=== PATIENT | female | born 1935 | race Caucasian/White ===

== ENCOUNTER → 2017-09-20 16:57 | Outpatient (CLI) | payer MEDICARE, OTHER, SELFPAY ==
--- NOTE | 2017-09-20 | DI.RAD.S_ITS ---
PROCEDURE: XR CHEST 2V INDICATIONS: COUGH TECHNIQUE: 2 views of the chest were acquired. COMPARISON: [facility], CHEST 1 VIEW, 05/29/2017, 11:32. [facility], CHEST 2 VIEW, 06/21/2015, 12:08. FINDINGS: Surgical changes and devices: Surgical clips RUQ. Lungs and pleura: No pleural effusions or pneumothorax. Lungs are clear. Mediastinum: Mediastinal contours are normal. Heart size is normal. Bones and chest wall: No suspicious bony abnormalities. Soft tissues appear unremarkable. IMPRESSION: No radiographic evidence of acute cardiopulmonary pathology. Dictated by: Refugio Burnham M.D. on 09/20/2017 at 17:29 Approved by: Refugio Burnham M.D. on 09/20/2017 at 17:31
== END ==
PROVIDERS: PCP Internal Medicine; Visit Provider Internal Medicine
DX: R05 Cough (principal)
CPT/HCPCS: 71046

== ENCOUNTER 2017-12-08 17:47 | Emergency (ER) | payer MEDICARE, OTHER, SELFPAY ==
[2017-12-08 17:54] VITALS: BP 182/85; PULSE 87; RESP 16; TEMP 36.3; O2SAT 98; BMI 29.0
[2017-12-08 18:20] VITALS: BP 154/90; PULSE 91; RESP 15; O2SAT 94
--- NOTE | 2017-12-08 18:20 | ED.DIZZY ---
HPI - Dizziness General Chief Complaint: Dizziness Stated Complaint: SOB/DIZZINESS Time Seen by Provider: 12/08/17 18:12 Source: patient Mode of arrival: ambulatory Limitations: no limitations History of Present Illness HPI Narrative: The patient developed dizziness this morning. She has had dizziness intermittently throughout the day. She does not have dizziness at the time of exam. The patient has AFib for which she takes both Lopressor and Cardizem. She denies chest pain or palpitations. Lopressor was stopped 2 days ago, she has allergy testing in 2 days and her doctor wanted her off the Lopressor for the testing. She is alert, active and a good historian. She is generally physically active, and has no deficits. The dizziness is new. She has no focal weakness associated with the dizziness. She has had no confusion or speech changes. Related Data Home Medications Medication Instructions Recorded Confirmed hydrochlorothiazide 12.5 mg PO QDAY #0 05/29/17 12/08/17 diltia PO 12/08/17 12/08/17 esomeprazole magnesium PO 12/08/17 12/08/17 metoprolol tartrate PO 12/08/17 12/08/17 Allergies Allergy/AdvReac Type Severity Reaction Status Date / Time levofloxacin [LEVOFLOXACIN] Allergy Severe rash Verified 12/08/17 18:00 metronidazole [METRONIDAZOLE] Allergy Unknown Verified 12/08/17 18:00 pregabalin [PREGABALIN] Allergy Unknown Verified 12/08/17 18:00 Review of Systems Review of Systems All systems reviewed & are unremarkable except as noted in HPI and below Constitutional Reports as per HPI, Denies body ache(s), Denies chills, Denies fever(s) and Denies weakness Eyes Denies change in vision and Denies loss of vision ENT Ears, Nose, Mouth, and Throat: Reports dizziness, Denies neck pain and Denies sore throat Cardiovascular Denies chest pain, Denies irregular heart rhythm, Denies palpitations, Denies dyspnea, Denies dyspnea on exertion and Denies orthopnea Respiratory Denies cough, Denies dyspnea, Denies dyspnea on exertion and Denies wheezing Gastrointestinal Gastrointestinal: Denies abdominal pain, Denies change in bowel habits, Denies diarrhea, Denies nausea and Denies vomiting Musculoskeletal Denies back pain and Denies neck pain Integumentary/Breasts Denies pruritus, Denies erythema, Denies rash and Denies wounds Neurologic Reports dizziness, Denies loss of vision and Denies weakness Endocrine Denies palpitations Allergic/Immunologic Denies wheezing [facility] Medical History Chronic a-fib (Acute) Social History Smoking Status: Never smoker Exam Initial Vital Signs Initial Vital Signs: Vital Signs Temperature 97.3 F L 12/08/17 17:54 Pulse Rate 87 12/08/17 17:54 Respiratory Rate 16 12/08/17 17:54 Blood Pressure 182/85 H 12/08/17 17:54 Pulse Oximetry 98 12/08/17 17:54 Const General: cooperative and well developed Nutritional Appearance: well nourished Orientation: alert, awake, oriented x3 and not confused HENMT Head: normocephalic and atraumatic Ears: external ears normal and TM's normal bilaterally Nose: external nose normal and No nasal discharge Face and sinus: sinuses nontender, face symmetric, no sinus tenderness and No dry mucous membranes Mouth: oral mucosae normal and moist mucous membranes Teeth and gingiva: dentition normal Throat: tonsils normal and uvula midline Eyes General: appearance normal, both eyes and all related structures Eyelids: eyelids normal Conjunctivae: conjunctivae normal Sclera: sclerae normal Pupils: PERRL EOM: EOM intact bilaterally Neck Neck: normal visual inspection, trachea midline, No lymphadenopathy, No midline deformity and No JVD Lymphatic: No lymphedema Chest Chest: normal inspection of the chest Resp Effort & Inspection: normal respiratory effort, able to speak in complete sentences, no respiratory distress and no use of accessory muscles Auscultation: clear to auscultation bilaterally, no rales, no rhonchi and no wheezes Cardio Rate: regular rate Rhythm: abnormal rhythm irregularly irregular Heart Sounds: no click, no gallops, no murmurs and no rubs Pulses: normal peripheral pulses GI Inspection: non-distended Palpation: soft, no hepatosplenomegaly, No guarding, No pulsatile mass and No tender Auscultation: normal bowel sounds Back/Spine/Pelvis Back: No CVA tenderness Cervical Spine: cervical ROM normal Thoracic/Lumbar Spine: thoracic and lumbar spine normal to inspection Skin General: no rashes or lesions noted, No jaundice and No petechiae Neuro General: alert, oriented x3, gait normal and no focal motor deficits Speech: speech normal Course Orders Ordered: ED Orders 12/08/17 18:18 EKG-12 Lead Stat 12/08/17 18:52 B Type Natriuretic Peptide Stat Complete Blood Count AUTO DIFF Stat Comprehensive Metabolic Panel Stat Partial Thromboplastin Time Stat Prothrombin Time INR Stat Troponin & CK Cardiac Panel Stat Discontinued Medications Diltiazem HCl (Cardizem) 30 mg PO NOW ONE Stop: 12/08/17 18:21 Last Admin: 12/08/17 19:53 Dose: 30 mg Vital Signs - 8 hr 12/08/17 17:54 12/08/17 18:20 12/08/17 19:53 Temperature 97.3 F L Pulse Rate 87 91 H 96 H Respiratory Rate 16 15 Blood Pressure 182/85 H 162/83 H Blood Pressure [Right Arm] 154/90 H Pulse Oximetry 98 94 MDM - Dizziness Lab Data Result diagrams: 12/08/17 18:52 12/08/17 18:52 Lab Results 12/08/17 12/08/17 12/08/17 Range/Units 18:52 18:52 18:52 WBC 5.7 (4.5-11.0) X10^3/uL RBC 4.91 (4.0-5.2) X10^6/uL Hgb 13.9 (12.0-16.0) g/dL Hct 41.7 (36-46) % MCV 84.9 (80-100) fL MCH 28.2 (26-34) PG MCHC 33.2 (30-36) % RDW 14.0 (11.6-14.8) % Plt Count 291 (150-400) X10^3/uL Neut % (Auto) 66.0 (50-75) % Lymph % (Auto) 20.8 L (25-40) % [place] % (Auto) 10.0 (3-14) % Eos % (Auto) 2.3 (2-4) % Baso % (Auto) 0.9 (0-2) % Neut # (Auto) 3800 (8565-2737) /uL PT 10.6 (10.1-12.7) SECONDS INR 1.0 (0.9-1.3) APTT 30 (26.4-36.2) SECONDS Sodium 141 (137-145) mmol/L Potassium 3.6 (3.4-5.1) mmol/L Chloride 101 (98-107) mmol/L Carbon Dioxide 29 (22-32) mmol/L BUN 16 (7-17) mg/dL Creatinine 0.80 (0.52-1.04) mg/dL Estimated GFR > 60.0 (>60) mL/min BUN/Creatinine Ratio 20.0 (6-22) Glucose 96 (80-110) mg/dL Calcium 9.5 (8.4-10.2) mg/dL Total Bilirubin 0.6 (0.2-1.3) mg/dL AST 33 (14-36) IU/L ALT 43 (9-52) IU/L Alkaline Phosphatase 95 (38-126) U/L Total Creatine Kinase 115 (30-135) U/L CK-MB (CK-2) 1.88 (<2.37) ng/mL CK-MB (CK-2) Rel Index 1.6 (1.5-5.0) % Troponin I < 0.012 (0.01-0.034) ng/mL B-Natriuretic Peptide 201.0 H (<100) Total Protein 6.9 (6.3-8.2) g/dL Albumin 4.4 (3.5-5.0) g/dL Globulin 2.5 (1.7-4.1) g/dL Albumin/Globulin Ratio 1.8 (1.0-2.8) ECG Data Attestation: I personally reviewed and interpreted this ECG as follows: ( AFib rate [address] T wave changes. No Significant changes.) MDM Narrative Medical decision making narrative: The patient is supposed to be off her beta caridad for allergy testing. She presents with dizziness. Her heart rate is 93 on the EKG, but up to 118 on cardiac monitoring. I gave her oral diltiazem, with little change. We discussed going back on the beta-caridad, the patient is very agreeable. she will be advised to contact her physician on Sunday to discuss ongoing options regarding the allergy testing. Discharge Plan Departure Patient Disposition: Home, Self-Care Clinical Impression: Chronic a-fib, Dizziness Instructions: Atrial Fibrillation Activity Restrictions/Additional Instructions: Resume your normal dosing of Metoprolol. Continue the Diltiazem. Contact her physician Sunday, Let your doctor know that you had to go back on the Metoprolol due to dizziness and tachycardia. Return to the ER as needed. Prescriptions: No Action metoprolol tartrate PO RF: 0 diltia PO RF: 0 esomeprazole magnesium PO RF: 0 hydrochlorothiazide 12.5 MG capsule 12.5 mg PO QDAY Qty: 0 RF: 0
[2017-12-08 19:03] LABS: Add Manual Diff / Slide Review NO; Basophils Percent Auto 0.9 % (0-2); Eosinophils Percent Auto 2.3 % (2-4); Hematocrit 41.7 % (36-46); Hemoglobin 13.9 g/dL (12.0-16.0); Lymphocytes Percent Auto 20.8 % (25-40); Mean Corpuscular HGB Conc 33.2 % (30-36); Mean Corpuscular Hemoglobin 28.2 PG (26-34); Mean Corpuscular Volume 84.9 fL (80-100); Neutrophils Absolute Auto 3800 /uL (3000-5900); Platelet Count 291 X10^3/uL (150-400); Red Blood Cell Count 4.91 X10^6/uL (4.0-5.2); White Blood Cell Count 5.7 X10^3/uL (4.5-11.0)
[2017-12-08 19:10] LABS: Prothrombin Time 10.6 SECONDS (10.1-12.7)
[2017-12-08 19:12] LABS: PTT Partial Thromboplastin Tim 30 SECONDS (26.4-36.2)
[2017-12-08 19:15] LABS: Alanine Aminotransferase 43 IU/L (9-52); Albumin 4.4 g/dL (3.5-5.0); Albumin Globulin Ratio 1.8 (1.0-2.8); Alkaline Phosphatase 95 U/L (38-126); Aspartate Aminotransferase 33 IU/L (14-36); Bilirubin Total 0.6 mg/dL (0.2-1.3); Blood Urea Nitrogen 16 mg/dL (7-17); Calcium 9.5 mg/dL (8.4-10.2); Carbon Dioxide 29 mmol/L (22-32); Chloride 101 mmol/L (98-107); Creatine Kinase 115 U/L (30-135); Estimated Glomerular Filt Rate > 60.0 mL/min (>60); Globulin 2.5 g/dL (1.7-4.1); Glucose 96 mg/dL (80-110); HEMOLYSIS < 15 (0-50); Potassium 3.6 mmol/L (3.4-5.1); Sodium 141 mmol/L (137-145); Total Protein 6.9 g/dL (6.3-8.2)
[2017-12-08 19:27] LABS: Troponin I < 0.012 ng/mL (0.01-0.034)
[2017-12-08 19:30] LABS: CKMB % Relative Index 1.6 % (1.5-5.0); Creatine Kinase MB 1.88 ng/mL (<2.37)
[2017-12-08 19:53] VITALS: BP 162/83; PULSE 96
[2017-12-08] MEDS: dilTIAZem 30 MG TABLET PO (19:53)
[2017-12-08] MEDS: METOPROLOL 50 MG TABLET PO (21:20)
[2017-12-08 21:24] VITALS: BP 180/77; PULSE 94; RESP 16; O2SAT 100
== END 2017-12-08 21:25 | disposition home or self-care (01) ==
PROVIDERS: Emergency Provider Emergency Medicine; Family Provider Physician Assistant Medical; PCP Internal Medicine
DX: I48.2 Chronic atrial fibrillation (principal); R42 Dizziness and giddiness
CPT/HCPCS: 36591; 80053; 82550; 82553; 83880; 84484; 85025; 85610; 85730; 93005; 93010; 99283; 99284

== ENCOUNTER → 2018-01-04 16:04 | Outpatient (CLI) | payer MEDICARE, OTHER, SELFPAY ==
[2018-01-04 16:44] LABS: Add Manual Diff / Slide Review NO; Basophils Percent Auto 1.4 % (0-2); Eosinophils Percent Auto 2.5 % (2-4); Hematocrit 41.5 % (36-46); Hemoglobin 13.8 g/dL (12.0-16.0); Lymphocytes Percent Auto 27.5 % (25-40); Mean Corpuscular HGB Conc 33.3 % (30-36); Mean Corpuscular Volume 84.1 fL (80-100); Monocytes Percent Auto 9.4 % (3-14); Neutrophils Absolute Auto 3500 /uL (3000-5900); Neutrophils Percent Auto 59.2 % (50-75); Platelet Count 291 X10^3/uL (150-400); Red Blood Cell Count 4.93 X10^6/uL (4.0-5.2); Red Cell Distribution Width 13.9 % (11.6-14.8)
[2018-01-04 17:06] LABS: Alanine Aminotransferase 41 IU/L (9-52); Albumin 4.3 g/dL (3.5-5.0); Albumin Globulin Ratio 1.7 (1.0-2.8); Alkaline Phosphatase 107 U/L (38-126); Aspartate Aminotransferase 27 IU/L (14-36); BUN Creatinine Ratio 22.5 (6-22); Bilirubin Total 0.4 mg/dL (0.2-1.3); Blood Urea Nitrogen 18 mg/dL (7-17); Calcium 9.3 mg/dL (8.4-10.2); Carbon Dioxide 31 mmol/L (22-32); Chloride 103 mmol/L (98-107); Cholesterol 197 mg/dL (140-199); Estimated Glomerular Filt Rate > 60.0 mL/min (>60); Globulin 2.5 g/dL (1.7-4.1); Glucose 88 mg/dL (80-110); HDL Cholesterol 62 mg/dL (40-60); HEMOLYSIS < 15 (0-50); LDL Cholesterol Calculated 104 mg/dL (<100); Magnesium 1.9 mg/dL (1.6-2.3); Potassium 4.7 mmol/L (3.4-5.1); Sodium 143 mmol/L (137-145); Total Protein 6.8 g/dL (6.3-8.2); Triglycerides 157 mg/dL (35-150)
[2018-01-04 17:33] LABS: Thyroid Stimulating Hormone 2.48 uIU/mL (0.47-4.68)
== END ==
PROVIDERS: PCP Physician Assistant; Visit Provider Physician Assistant
DX: R60.9 Edema, unspecified (principal); E04.9 Nontoxic goiter, unspecified; E78.5 Hyperlipidemia, unspecified
CPT/HCPCS: 36415; 80053; 80061; 83735; 83880; 84443; 85025

== ENCOUNTER → 2018-01-11 15:13 | Outpatient (CLI) | payer MEDICARE, OTHER, SELFPAY | PROVIDERS: PCP Physician Assistant; Visit Provider Physician Assistant | DX: M85.88 Other specified disorders of bone density and structure, other site (principal); Z78.0 Asymptomatic menopausal state; Z82.62 Family history of osteoporosis; Z87.891 Personal history of nicotine dependence | CPT/HCPCS: 77080 ==

== ENCOUNTER → 2018-01-16 12:12 | Outpatient (CLI) | payer MEDICARE, OTHER, SELFPAY ==
--- NOTE | 2018-01-16 | DI.ECHO.S_ITS ---
[facility] +---------+ : : [address] : : : : [id number] : : : : Phone: [phone]+ Echocardiogram Report + + :Name: KERRIE MEREDITH Study Date: 01/16/2018 Height: 67 in : :[facility] [facility] Exam Location: [facility] Weight: 195 lb : : Gender: Female BSA: 2.0 m2 : :: 1935 Age: 82 yrs BP: 140/60 mmHg: :Reason For Study: Atrial fibrillation : : Performed By: Cristina Page : :Referring: GLADYS PARRA : + + Interpretation Summary The left ventricle is grossly normal size. The ejection fraction is estimated to be 60-65%. The right ventricle is at the upper limits of normal in size. The right ventricular systolic function is normal. Both atria are severely dilated. There is mild to moderate mitral regurgitation. There is moderate aortic regurgitation. There is mild to moderate tricuspid regurgitation. The right ventricular systolic pressure is estimated at 44 mmHg assuming a right atrial pressure of 15 mm Hg. The ascending aorta is mildly enlarged. Procedure: A two-dimensional transthoracic echocardiogram with color flow and Doppler was performed. The study quality was technically adequate. There is no prior echocardiogram noted for this patient. The patient was in atrial fibrillation with heart rates between 58-83 bpm during the exam. Left Ventricle: The left ventricle is grossly normal size. Proximal septal thickening is noted. There is no echo evidence for significant left ventricular outflow tract obstruction. There is no thrombus. The ejection fraction is estimated to be 60-65%. There are no focal wall motion abnormalities. E/E' med: 20.1. Right Ventricle: The right ventricle is at the upper limits of normal in size. The right ventricular systolic function is normal. Atria: Both atria are severely dilated. There is no Doppler evidence for an interatrial shunt. Mitral Valve: There is a flat closure plane of the the mitral valve leaflets. The mitral valve leaflets appear thickened, but open well. There is mild mitral annular calcification. There is mild to moderate mitral regurgitation. Aortic Valve: The aortic valve is trileaflet. The aortic valve is slightly calcified. There is no aortic valve stenosis. There is moderate aortic regurgitation. Tricuspid Valve: The tricuspid valve is normal. There is mild to moderate tricuspid regurgitation. The right ventricular systolic pressure is estimated at 44 mmHg assuming a right atrial pressure of 15 mm Hg. Pulmonic Valve: The pulmonic valve is not well visualized. There is mild pulmonic regurgitation. Great Vessels: The aortic root is normal size. The ascending aorta is mildly enlarged. The pulmonary is not well visualized. The IVC is dilated (diameter is greater than 2.1 cm) and it collapses less than 50% with a sniff. This suggests a high right atrial pressure of 15 mm Hg. Pericardium/ Pleura There is no pericardial effusion. There is no pleural effusion. MMode/2D Measurements & Calculations LVIDd: 4.6 cm LVOT diam: 2.0 cm LVIDs: 2.5 cm Ao root diam: 3.6 cm FS: 44.8 % asc Aorta Diam: 3.5 cm EPSS: 0.72 cm IVSd: 0.85 cm LVPWd: 0.93 cm LV randle. diameter/BSA (cm/m^2): 2.3 LV sys. diameter/BSA (cm/m^2): 1.3 LA A2 area: 31.6 cm2 RA long axis: 6.3 cm LA A4 area: 24.9 cm2 RA area: 26.6 cm2 LA length (vol): 6.1 cm RA vol: 95.6 ml LA vol: 109.5 ml RA : 47.8 ml/m2 LA vol index: 54.7 ml/m2 IVC diam: 2.6 cm RVD1 (basal): 4.3 cm Doppler Measurements & Calculations Ao V2 max: 99.8 cm/sec LVOT Max Shant: 73.4 cm/sec Ao V2 mean: 65.6 cm/sec LV V1 max P.2 mmHg Ao max P.0 mmHg LV V1 VTI: 16.7 cm Ao mean P.9 mmHg IRMA(I,D): 2.5 cm2 Ao V2 VTI: 21.2 cm IRMA(V,D): 2.3 cm2 sev ratio: 0.79 IRMA indexed to BSA (cm^2/m^2): 1.3 AI P1/2t: 338.9 msec AI dec slope: 376.8 cm/sec2 MV E max shant: 106.0 cm/sec TR max shant: 268.1 cm/sec Med Peak E' Shant: 5.3 cm/sec TR max P.8 mmHg E/E' med: 20.1 PA V2 max: 42.9 cm/sec Lat Peak E' Shant: 8.6 cm/sec PA V2 mean: 28.6 cm/sec E/E' lat: 12.3 PA mean P.38 mmHg E/e' average: 16.2 PA Accel Time: 0.14 sec MV P1/2t: 51.9 msec MV 2t max shant: 105.9 cm/sec MVA(2t): 4.2 cm2 Reading Physician:JAREN
== END ==
PROVIDERS: Family Provider Internal Medicine Cardiovascular Disease; PCP Physician Assistant; Visit Provider Physician Assistant
DX: I08.3 Combined rheumatic disorders of mitral, aortic and tricuspid valves (principal); I48.91 Unspecified atrial fibrillation
CPT/HCPCS: 93306

== ENCOUNTER → 2018-03-08 15:23 | Outpatient (CLI) | payer MEDICARE, OTHER, SELFPAY ==
[2018-03-08 17:26] LABS: TSH w/ Reflex to FT4 3.76 uIU/mL (0.47-4.68)
== END ==
PROVIDERS: Family Provider Internal Medicine Cardiovascular Disease; PCP Physician Assistant; Visit Provider Physician Assistant
DX: I48.0 Paroxysmal atrial fibrillation (principal)
CPT/HCPCS: 36415; 84443

== ENCOUNTER 2018-04-22 04:00 | Emergency (ER) | payer MEDICARE, OTHER, SELFPAY ==
[2018-04-22 04:07] VITALS: BP 188/68; PULSE 64; RESP 23; TEMP 36.3; O2SAT 95; BMI 29.7
--- NOTE | 2018-04-22 04:10 | ED_ITS ---
HPI - Back Pain/Injury General Chief Complaint: Chest Pain Stated Complaint: pain in shoulders back Time Seen by Provider: 04/22/18 04:09 Source: patient Mode of arrival: ambulatory Limitations: no limitations History of Present Illness HPI Narrative: The patient woke from sleep earlier this morning with mid scapular pain, some pain radiating to the mid sternum especially when breathing. She denies dyspnea. She has no cough, congestion or fever. She has PAF, she is not currently experiencing palpitations. She has no documented history of CAD. She has had no fall or injury. She was fine when she went to bed. She has hypertension, treated with metoprolol and HCTZ. She denies headache, visual changes, as well as no chest pain or dyspnea. Related Data Home Medications Medication Instructions Recorded Confirmed hydrochlorothiazide 12.5 mg PO QDAY #0 05/29/17 12/08/17 diltia PO 12/08/17 12/08/17 esomeprazole magnesium PO 12/08/17 12/08/17 metoprolol tartrate PO 12/08/17 12/08/17 Allergies Allergy/AdvReac Type Severity Reaction Status Date / Time levofloxacin [LEVOFLOXACIN] Allergy Severe rash Verified 04/22/18 04:15 metronidazole [METRONIDAZOLE] Allergy Unknown Verified 04/22/18 04:15 pregabalin [PREGABALIN] Allergy Unknown Verified 04/22/18 04:15 Review of Systems Review of Systems All systems reviewed & are unremarkable except as noted in HPI and below Constitutional Denies body ache(s), Denies chills, Denies fever(s), Denies headache(s), Denies lethargy and Denies weakness Eyes Denies change in vision, Denies eye discharge, Denies irritation and Denies loss of vision ENT Ears, Nose, Mouth, and Throat: Denies change in voice, Denies dysphagia, Denies vertigo, Denies dizziness, Denies headache(s), Denies neck pain and Denies sore throat Cardiovascular Reports as per HPI, Denies irregular heart rhythm, Denies lightheadedness, Denies palpitations, Denies dyspnea, Denies dyspnea on exertion and Denies orthopnea Respiratory Denies cough, Denies dyspnea, Denies dyspnea on exertion and Denies wheezing Gastrointestinal Gastrointestinal: Denies abdominal pain and Denies dysphagia Musculoskeletal Reports as per HPI, Reports back pain, Denies neck pain and Denies numbness Integumentary/Breasts Denies erythema and Denies rash Neurologic Denies confusion, Denies vertigo, Denies dizziness, Denies headache(s), Denies loss of vision, Denies numbness and Denies weakness Psychiatric Denies anxiety and Denies confusion Endocrine Denies palpitations Hematologic/Lymphatic Denies easy bleeding and Denies easy bruising Allergic/Immunologic Denies wheezing PFSH Medical History Hypertension (Acute) No significant past surgical history (Acute) Chronic a-fib (Acute) Social History Smoking Status: Never smoker Exam Initial Vital Signs Initial Vital Signs: Vital Signs Temperature 97.4 F L 04/22/18 04:07 Pulse Rate 64 04/22/18 04:07 Respiratory Rate 23 04/22/18 04:07 Blood Pressure 188/68 H 04/22/18 04:07 Pulse Oximetry 95 04/22/18 04:07 Const General: cooperative and well developed Nutritional Appearance: well nourished Orientation: alert, awake, oriented x3 and not confused HENMT Head: normocephalic and atraumatic Nose: external nose normal Face and sinus: face symmetric Mouth: oral mucosae normal and moist mucous membranes Throat: posterior oropharynx normal and tonsils normal Eyes General: appearance normal, both eyes and all related structures Eyelids: eyelids normal Conjunctivae: conjunctivae normal Sclera: sclerae normal Pupils: PERRL EOM: EOM intact bilaterally Neck Neck: trachea midline, No anterior neck swelling and No JVD Chest Chest: localized rib tenderness with anteroposterior compression Resp Effort & Inspection: normal respiratory effort, able to speak in complete sentences, no respiratory distress and no use of accessory muscles Auscultation: clear to auscultation bilaterally, no rales, no rhonchi and no wheezes Cardio Rate: regular rate Rhythm: regular rhythm Heart Sounds: S1 normal, S2 normal, no click, no gallops, no murmurs and no rubs Pulses: normal peripheral pulses GI Inspection: non-distended Palpation: soft, no hepatosplenomegaly, No guarding, No pulsatile mass and No tender Auscultation: normal bowel sounds Back/Spine/Pelvis Back: back tenderness (In the thoracic/mid scapular region) Skin General: no rashes or lesions noted and No petechiae Neuro General: alert, oriented x3 and no focal motor deficits Speech: speech normal Extrem General: full ROM, no clubbing, cyanosis or edema, no pedal edema and no calf tenderness Course Orders Ordered: ED Orders 04/22/18 04:13 Complete Blood Count AUTO DIFF Stat Comprehensive Metabolic Panel Stat D Dimer Stat Lipase Stat Troponin & CK Cardiac Panel Stat 04/22/18 04:18 XR chest 1V Stat EKG-12 Lead Stat Discontinued Medications Acetaminophen (Tylenol) 650 mg PO NOW ONE Stop: 04/22/18 04:21 Last Admin: 04/22/18 04:30 Dose: 650 mg Vital Signs - 8 hr 04/22/18 04:07 04/22/18 04:54 04/22/18 05:45 Temperature 97.4 F L Pulse Rate 64 54 L 68 Respiratory Rate 23 8 L 18 Blood Pressure 188/68 H Blood Pressure [Left Arm] 175/77 H 159/49 H Pulse Oximetry 95 96 92 MDM - Back Pain/Injury Lab Data Result diagrams: 04/22/18 04:13 04/22/18 04:13 Lab Results 04/22/18 04/22/18 04/22/18 Range/Units 04:13 04:13 04:13 WBC 6.4 (4.5-11.0) X10^3/uL RBC 5.04 (4.0-5.2) X10^6/uL Hgb 13.7 (12.0-16.0) g/dL Hct 41.2 (36-46) % MCV 81.8 (80-100) fL MCH 27.2 (26-34) PG MCHC 33.3 (30-36) % RDW 15.6 H (11.6-14.8) % Plt Count 283 (150-400) X10^3/uL Neut % (Auto) 60.7 (50-75) % Lymph % (Auto) 25.8 (25-40) % [place] % (Auto) 8.4 (3-14) % Eos % (Auto) 3.7 (2-4) % Baso % (Auto) 1.4 (0-2) % Neut # (Auto) 3900 (6652-3039) /uL D-Dimer < 200 (<230) ng/mL Sodium 142 (137-145) mmol/L Potassium 4.1 (3.4-5.1) mmol/L Chloride 100 (98-107) mmol/L Carbon Dioxide 29 (22-32) mmol/L BUN 18 H (7-17) mg/dL Creatinine 0.90 (0.52-1.04) mg/dL Estimated GFR > 60.0 (>60) mL/min BUN/Creatinine Ratio 20.0 (6-22) Glucose 117 H (80-110) mg/dL Calcium 9.5 (8.4-10.2) mg/dL Total Bilirubin 0.6 (0.2-1.3) mg/dL AST 51 H (14-36) IU/L ALT 77 H (9-52) IU/L Alkaline Phosphatase 106 (38-126) U/L Total Creatine Kinase 91 (30-135) U/L CK-MB (CK-2) TNP CK-MB (CK-2) Rel Index TNP Troponin I < 0.012 (0.01-0.034) ng/mL Total Protein 6.8 (6.3-8.2) g/dL Albumin 4.4 (3.5-5.0) g/dL Globulin 2.4 (1.7-4.1) g/dL Albumin/Globulin Ratio 1.8 (1.0-2.8) Lipase 178 (23-300) U/L Imaging Data Chest x-ray: Attestation: I personally reviewed and interpreted this imaging study as follows: My impression: Normal ECG Data Attestation: I personally reviewed and interpreted this ECG as follows: (Normal sinus rhythm rate 61 bpm. Low voltage in the extremity leads. Possible old anterior septal LA. No acute ST elevation. No ectopy.) Discharge Plan Departure Patient Disposition: Home Clinical Impression: Acute midline thoracic back pain Instructions: DI for Thoracic Back Pain Activity Restrictions/Additional Instructions: Tylenol 2 tablets every 4 hours as needed for pain. Follow-up with her doctor or return here for worsening pain. Return here for chest pain or difficulty breathing. Prescriptions: No Action metoprolol tartrate PO RF: 0 diltia PO RF: 0 esomeprazole magnesium PO RF: 0 hydrochlorothiazide 12.5 MG capsule 12.5 mg PO QDAY Qty: 0 RF: 0
--- NOTE | 2018-04-22 04:14 | PC.NURSE ---
pain currently 1/10, at worse when woken up it was an 8/10
--- NOTE | 2018-04-22 04:18 | DI.RAD.S_ITS ---
PROCEDURE: XR CHEST 1V INDICATIONS: upper back and chest pain TECHNIQUE: One view of the chest was acquired. COMPARISON: [facility], CR, XR CHEST 2V, 09/20/2017, 16:51. FINDINGS: Surgical changes and devices: The Lungs and pleura: No pleural effusions or pneumothorax. Diffuse scarring/interstitial disease without interval change. No acute consolidation. Mediastinum: Mediastinal contours appear normal. Heart size is normal. Bones and chest wall: No suspicious bony lesions. Overlying soft tissues appear unremarkable. Lateral curvature of the spine and discogenic changes. Bilateral shoulder joint degeneration. IMPRESSION: No acute consolidation. Chronic diffuse interstitial changes as above. In this setting would be difficult to exclude early/developing pulmonary edema therefore please correlate clinically Dictated by: French Corral M.D. on 04/22/2018 at 7:39 Approved by: French Corral M.D. on 04/22/2018 at 7:40
[2018-04-22 04:26] LABS: Add Manual Diff / Slide Review NO; Basophils Percent Auto 1.4 % (0-2); Eosinophils Percent Auto 3.7 % (2-4); Hematocrit 41.2 % (36-46); Hemoglobin 13.7 g/dL (12.0-16.0); Lymphocytes Percent Auto 25.8 % (25-40); Mean Corpuscular HGB Conc 33.3 % (30-36); Mean Corpuscular Hemoglobin 27.2 PG (26-34); Mean Corpuscular Volume 81.8 fL (80-100); Monocytes Percent Auto 8.4 % (3-14); Neutrophils Absolute Auto 3900 /uL (1500-7000); Neutrophils Percent Auto 60.7 % (50-75); Platelet Count 283 X10^3/uL (150-400); Red Blood Cell Count 5.04 X10^6/uL (4.0-5.2); Red Cell Distribution Width 15.6 % (11.6-14.8); White Blood Cell Count 6.4 X10^3/uL (4.5-11.0)
[2018-04-22] MEDS: ACETAMINOPHEN 325 MG TABLET 650 MG PO (04:30)
[2018-04-22 04:37] LABS: Alanine Aminotransferase 77 IU/L (9-52); Albumin 4.4 g/dL (3.5-5.0); Albumin Globulin Ratio 1.8 (1.0-2.8); Alkaline Phosphatase 106 U/L (38-126); Aspartate Aminotransferase 51 IU/L (14-36); Bilirubin Total 0.6 mg/dL (0.2-1.3); Blood Urea Nitrogen 18 mg/dL (7-17); Calcium 9.5 mg/dL (8.4-10.2); Carbon Dioxide 29 mmol/L (22-32); Chloride 100 mmol/L (98-107); Creatine Kinase 91 U/L (30-135); D Dimer < 200 ng/mL (<230); Estimated Glomerular Filt Rate > 60.0 mL/min (>60); Globulin 2.4 g/dL (1.7-4.1); Glucose 117 mg/dL (80-110); HEMOLYSIS < 15 (0-50); Lipase 178 U/L (23-300); Potassium 4.1 mmol/L (3.4-5.1); Sodium 142 mmol/L (137-145); Total Protein 6.8 g/dL (6.3-8.2)
[2018-04-22 04:48] LABS: Troponin I < 0.012 ng/mL (0.01-0.034)
[2018-04-22 04:54] VITALS: BP 175/77; PULSE 54; RESP 8; O2SAT 96
[2018-04-22 05:45] VITALS: BP 159/49; PULSE 68; RESP 18; O2SAT 92
== END 2018-04-22 06:00 | disposition home or self-care (01) ==
PROVIDERS: Emergency Provider Emergency Medicine; Family Provider Internal Medicine Cardiovascular Disease; PCP Physician Assistant
DX: R07.89 Other chest pain (principal); M54.6 Pain in thoracic spine
CPT/HCPCS: 36591; 71045; 80053; 82550; 83690; 84484; 85025; 85379; 93005; 99283; 99285

== ENCOUNTER → 2018-05-17 08:35 | Outpatient (CLI) | payer MEDICARE, OTHER, SELFPAY ==
[2018-05-17 10:43] LABS: Alanine Aminotransferase 36 IU/L (9-52); Albumin 4.3 g/dL (3.5-5.0); Albumin Globulin Ratio 1.7 (1.0-2.8); Alkaline Phosphatase 89 U/L (38-126); Aspartate Aminotransferase 28 IU/L (14-36); BUN Creatinine Ratio 24.4 (6-22); Bilirubin Total 0.5 mg/dL (0.2-1.3); Blood Urea Nitrogen 22 mg/dL (7-17); Calcium 9.6 mg/dL (8.4-10.2); Carbon Dioxide 30 mmol/L (22-32); Chloride 99 mmol/L (98-107); Estimated Glomerular Filt Rate > 60.0 mL/min (>60); Globulin 2.5 g/dL (1.7-4.1); Glucose 102 mg/dL (80-110); HEMOLYSIS < 15 (0-50); Sodium 138 mmol/L (137-145); Total Protein 6.8 g/dL (6.3-8.2)
[2018-05-17 11:13] LABS: Thyroid Stimulating Hormone 3.49 uIU/mL (0.47-4.68)
--- NOTE | 2018-05-22 09:50 | PM.PFT.1 ---
Pulmonary Function Test Referral & Results Date Patient Seen: 05/17/18 Requesting provider: Elizabeth Bishop Indication: Shortness of breath Results: The spirometry demonstrates an FVC of 2.95 L which is 96% of predicted. The FEV1 was measured at 2.31 L which is 101% of predicted. The FEV1/FVC ratio was 79 which is 107% of predicted. Following the administration of bronchodilator there was no appreciable change to above normal numbers. Lung volumes show an SVC of 2.93 L which is 96% of predicted. The diffusing capacity was measured at 17.06 which is 57% of predicted. No hemoglobin value was provided, so no correction for potential anemia could be made, if appropriate. 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
== END ==
PROVIDERS: Family Provider Internal Medicine Cardiovascular Disease; PCP Physician Assistant; Visit Provider Internal Medicine Cardiovascular Disease
DX: R06.02 Shortness of breath (principal); Z79.899 Other long term (current) drug therapy
CPT/HCPCS: 36415; 80053; 84443; 94060; 94726; 94729

== ENCOUNTER → 2018-06-11 09:24 | Outpatient (CLI) | payer MEDICARE, OTHER, SELFPAY ==
--- NOTE | 2018-06-11 10:36 | DIET.PN ---
Met for an initial nutrition consultation. Pt desires assistance with losing weight. Has cardiac dz and newly diagnosed pulmonary dz which is still being worked up. Exercise: limited r/t SOB w/lung dz. Does light resistance/balance and movement class at [facility] 2/wk. Doesn't walk much anymore Usual diet: Brk- 1/4c HM granola, 1/4 c LF yogurt or Kefir, 1c mixed fruit (berries, banana, almonds), coffee Lnch- 1/2 or whole Egg sandwich (small size bread), apple, 6oz 2%milk Dinr- 4-6oz meat,poultry or fish, 1 c ckd vegs (brocc, carrots...), 1/2 c grain (quiona, rice..) Herbal tea Snacks: almonds, whole grain crackers, cheese (loves cheese; brie), tortilla chips Dx: overweight Hx: cardiac dz, pulmonary dz Ht: 5'7 (down from 5'8) Wt: 190# BMI: 29 Wt goal: 155-160# Supplements: Centrum Silver, Calcium Estimated usual diet intake: 1579-7759 kcal, 70g protein. Protein/meal: 3g/23g/43g Assessment: Usual diet fairly well balanced w/foods from all food groups; minimal processed/refined foods. May benefit from moving some of protein foods around to provide recommended 30g protein 3X/day for pts 65yo and over to help maintain muscle mass. Current diet doesn't have a lot to trim without jeopardizing nutrient intake r/t low energy needs with advanced age of 83 and limited physical activity. Intervention: Provided education on limiting simple carbs for lung dz. Discussed ways to trim kcals while maintaining adequate micronutrients - specifically, omitting/limiting carb foods; choosing leanest protein sources, addition protein moduals to (breakfast) meal to improve protein intake and decreasing snack food. Plan: Pt states she will work on putting info into practice. Suggested minimal kcal intake of 1000 kcals; continue MVI supplements. Is looking forward to starting pulmonary rehab- hopefully soon.
== END ==
PROVIDERS: Family Provider Internal Medicine Cardiovascular Disease; PCP Physician Assistant; Visit Provider Internal Medicine
DX: E66.3 Overweight (principal); Z68.29 Body mass index [BMI] 29.0-29.9, adult; I51.9 Heart disease, unspecified; J98.4 Other disorders of lung
CPT/HCPCS: 97802

== ENCOUNTER → 2018-07-05 11:34 | Outpatient (CLI) | payer MEDICARE, OTHER, SELFPAY ==
--- NOTE | 2018-07-05 | DI.CT.S_ITS ---
PROCEDURE: CT ANGIO CHEST INDICATIONS: PAROXYSMAL ATRIAL FIBRILLATION TECHNIQUE: After the administration of intravenous contrast, 2 mm thick sections acquired from the pulmonary apices to the posterior costophrenic angles. 3-dimensional maximum intensity projection (MIP) coronal and sagittal reformats were then acquired through the thorax. For radiation dose reduction, the following was used: automated exposure control, adjustment of mA and/or kV according to patient size. COMPARISON: None. FINDINGS: Image quality: Excellent. Pulmonary arteries: Pulmonary arteries are normal in size, and demonstrate no intraluminal filling defects to suggest central pulmonary embolism. Lungs and pleura: There is a 5 mm groundglass nodule in the left upper lobe (series 5 image 35). A 5 mm nodule is noted in the anterior right minor fissure (series 5 image 47). There is moderate centrilobular emphysema. No pleural effusions or pneumothorax. Central and peripheral airways are patent. Mediastinum: Heart size is normal, without pericardial effusion. No mediastinal or hilar adenopathy. Thoracic aorta is normal in caliber and enhancement. Esophagus is normal in caliber. There is a small to moderate sized hiatal hernia. Bones and chest wall: No suspicious bony lesions. Ribs and thoracic spine appear intact throughout. Thyroid gland is normal. No axillary or supraclavicular adenopathy. Abdomen: Three low-density nodules in liver are most likely cysts. Visualized upper abdominal solid organs appear normal in the early arterial phase of enhancement. IMPRESSION: 1. No pulmonary embolism. 2. A couple of 5 mm lung nodules, one in the left upper lobe and one in the right minor fissure. Recommend followup CT to document stability (please see enclosed followup recommendation). 3. Moderate centrilobular emphysema. 4. Small to moderate sized hiatal hernia. Fleischner Society criteria for SOLID lung nodule followup. Nodule size (mm)Low-risk patientHigh-risk patient?4No follow-up neededFollow-up at 12 mo; if no change, no further follow-up>6-4Vafsgr-ch CT at 12 mo; if no change, no further follow-up needed.Initial follow-up CT at 6-12 mo, then 18-24 mo if no change. >6-8Initial follow-up CT at 6-12 mo, then 18-24 mo if no change. Initial follow-up CT at 3-6 mo, then 9-12 mo and 24 mo if no change. >8Follow-up CT at 3, 9, 24 mo. Or PET and/or biopsy.Same as for low-risk pts. Fleischner Society criteria for SUB-SOLID lung nodule followup. Solitary pure ground-glass nodules5 mm or lessNo followup needed. >5 mm3 mo follow-up CT to confirm persistence. Then annual CT for 3 years. Part-solid nodules3 mo follow-up CT to confirm persistence. If persistent with solid component <5 mm, annual CT for at least 3 years. If solid component is 5 mm or more, biopsy or surgical resection. Consider PET-CT for lesions > 10 mm. Multiple sub-solid nodulesPure ground glass nodules [address] at 2 and 4 years. Pure ground glass nodules >5 mm without dominant lesion. [address] to confirm persistence, then annual followup CT for at least 3 years. Dominant nodule(s) with part-solid or solid component. [address] to confirm persistence. If persistent, consider biopsy or surgical resection, daisy if lesions have >5 mm solid component. Dictated by: Oracio Villanueva M.D. on 07/05/2018 at 14:37 Approved by: Oracio Villanueva M.D. on 07/05/2018 at 14:45
[2018-07-05 12:48] LABS: BUN Creatinine Ratio 18.9 (6-22); Blood Urea Nitrogen 17 mg/dL (7-17); Calcium 9.1 mg/dL (8.4-10.2); Carbon Dioxide 29 mmol/L (22-32); Chloride 99 mmol/L (98-107); Estimated Glomerular Filt Rate > 60.0 mL/min (>60); Glucose 95 mg/dL (80-110); HEMOLYSIS < 15 (0-50); Potassium 4.5 mmol/L (3.4-5.1); Sodium 136 mmol/L (137-145)
== END ==
PROVIDERS: PCP Physician Assistant; Visit Provider Internal Medicine Cardiovascular Disease
DX: I48.91 Unspecified atrial fibrillation (principal); R91.8 Other nonspecific abnormal finding of lung field; J43.2 Centrilobular emphysema; K44.9 Diaphragmatic hernia without obstruction or gangrene
CPT/HCPCS: 36415; 71275; 80048; Q9967

== ENCOUNTER 2018-07-26 06:06 | Emergency (ER) | payer MEDICARE, OTHER, SELFPAY ==
[2018-07-26 06:15] VITALS: BP 188/61; PULSE 60; RESP 20; O2SAT 99; BMI 29.6
--- NOTE | 2018-07-26 06:34 | DI.RAD.S_ITS ---
PROCEDURE: XR CHEST 1V INDICATIONS: chest pain/dyspnea TECHNIQUE: One view of the chest was acquired. COMPARISON: [facility], CR, XR CHEST 1V, 04/22/2018, 5:02. FINDINGS: Surgical changes and devices: None. Lungs and pleura: Diffuse interstitial prominence with loss of vascular distinctness and left greater than right small pleural effusions. No pneumothorax. No focal consolidation. Stable appearance of coarse lung markings. Mediastinum: There is prominence of the cardiac silhouette which may be in part due to portable technique, but appears larger than expected and may represent mild cardiomegaly. Bones and chest wall: No suspicious bony lesions. Overlying soft tissues appear unremarkable. IMPRESSION: Increased interstitial prominence, loss of vascular distinctness, and small bilateral pleural effusions with suggestion of mild cardiomegaly. Findings are suggestive of pulmonary edema with infectious/inflammatory process not excluded if clinically appropriate. Dictated by: Michael Fuentes M.D. on 07/26/2018 at 9:19 Approved by: Michael Fuentes M.D. on 07/26/2018 at 9:38
[2018-07-26 06:43] LABS: Add Manual Diff / Slide Review NO; Basophils Absolute Auto 100 /uL (0-100); Basophils Percent Auto 0.6 % (0-2); Eosinophils Absolute Auto 100 /uL (0-450); Eosinophils Percent Auto 0.7 % (2-4); Hematocrit 42.9 % (36-46); Hemoglobin 13.9 g/dL (12.0-16.0); Lymphocytes Absolute Auto 2300 /uL (1100-4500); Lymphocytes Percent Auto 21.2 % (25-40); Mean Corpuscular HGB Conc 32.5 % (30-36); Mean Corpuscular Hemoglobin 27.8 PG (26-34); Mean Corpuscular Volume 85.6 fL (80-100); Monocytes Absolute Auto 800 /uL (0-900); Monocytes Percent Auto 7.3 % (3-14); Neutrophils Absolute Auto 7500 /uL (1500-7000); Neutrophils Percent Auto 70.2 % (50-75); Platelet Count 259 X10^3/uL (150-400); Red Blood Cell Count 5.01 X10^6/uL (4.0-5.2); Red Cell Distribution Width 16.5 % (11.6-14.8); White Blood Cell Count 10.7 X10^3/uL (4.5-11.0)
[2018-07-26] MEDS: KETOROLAC 60 MG/2 ML VIAL 15 MG IV (06:47)
[2018-07-26] MEDS: SODIUM CHLORIDE 0.9% 1,000 ML 1000 ML IV (06:47)
[2018-07-26] MEDS: MORPHINE 2 MG/ML INJ IV ×2 (06:48→07:44)
[2018-07-26 06:51] VITALS: BP 175/63; PULSE 70; RESP 16; O2SAT 96
[2018-07-26 06:51] LABS: Alanine Aminotransferase 105 IU/L (9-52); Albumin 4.3 g/dL (3.5-5.0); Albumin Globulin Ratio 1.6 (1.0-2.8); Alkaline Phosphatase 90 U/L (38-126); Aspartate Aminotransferase 111 IU/L (14-36); Bilirubin Total 0.6 mg/dL (0.2-1.3); Blood Urea Nitrogen 18 mg/dL (7-17); Carbon Dioxide 28 mmol/L (22-32); Chloride 101 mmol/L (98-107); Creatine Kinase 94 U/L (30-135); Estimated Glomerular Filt Rate 53.1 mL/min (>60); Globulin 2.7 g/dL (1.7-4.1); Glucose 97 mg/dL (80-110); HEMOLYSIS 19 (0-50); Potassium 4.1 mmol/L (3.4-5.1); Sodium 139 mmol/L (137-145)
[2018-07-26 07:02] LABS: B Type Natriuretic Peptide 479 (<100)
[2018-07-26 07:04] LABS: Troponin I 0.278 ng/mL (0.01-0.034)
[2018-07-26 07:05] VITALS: BP 174/60; PULSE 68; RESP 18; O2SAT 96
--- NOTE | 2018-07-26 07:06 | ED.CHESTPAIN ---
HPI - Chest Pain <Ceci Cruz MD - Last Filed: 07/26/18 16:18> General Chief Complaint: Chest Pain Stated Complaint: Chest pain Shortness of breath post ablation Time Seen by Provider: 07/26/18 06:23 Source: patient Mode of arrival: ambulatory Limitations: no limitations History of Present Illness HPI narrative: Patient presents emergency department complaining of substernal chest pain awakened her this morning about 6:00 a.m.. She states she also feels short of breath and that hurts to take a deep breath. Patient is 3 days status post cardiac ablation for atrial fibrillation. She states she has had cardiac catheterization and stress test which have been negative. Patient also had an echocardiogram, which was unremarkable other than AFib, she states. Per report, patient had an EF of 55-60%. The patient denies any calf swelling or pain. She has no history of DVT. Related Data Home Medications Medication Instructions Recorded Confirmed hydrochlorothiazide 12.5 mg PO QDAY #0 05/29/17 12/08/17 diltia PO 12/08/17 12/08/17 amiodarone 200 mg PO DAILY 07/26/18 07/26/18 apixaban [Eliquis] 5 mg PO BID 07/26/18 07/26/18 chlorhexidine gluconate 1 dose PO DIRECTED 07/26/18 07/26/18 esomeprazole magnesium 40 mg PO DAILY 07/26/18 07/26/18 metoprolol tartrate 50 mg PO BID 07/26/18 07/26/18 montelukast 10 mg PO DAILY 07/26/18 Previous Rx's Medication Instructions Recorded prednisone 40 mg PO DAILY #10 tab 07/26/18 Allergies Allergy/AdvReac Type Severity Reaction Status Date / Time levofloxacin [LEVOFLOXACIN] Allergy Severe rash Verified 04/22/18 04:15 metronidazole [METRONIDAZOLE] Allergy Unknown Verified 04/22/18 04:15 pregabalin [PREGABALIN] Allergy Unknown Verified 04/22/18 04:15 Review of Systems <Ceci Cruz MD - Last Filed: 07/26/18 16:18> Constitutional Denies chills, Denies fever(s), Denies lethargy and Denies weakness Eyes Denies change in vision, Denies eye discharge, Denies irritation and Denies loss of vision ENT Ears, Nose, Mouth, and Throat: Denies change in voice, Denies neck pain and Denies sore throat Cardiovascular Reports chest pain, Denies irregular heart rhythm, Denies lightheadedness, Denies palpitations, Reports dyspnea, Denies dyspnea on exertion and Denies orthopnea Respiratory Denies cough, Reports dyspnea, Denies dyspnea on exertion and Denies wheezing Gastrointestinal Gastrointestinal: Denies abdominal pain, Denies change in bowel habits, Denies diarrhea, Denies nausea and Denies vomiting Genitourinary Denies hematuria, Denies flank pain, Denies urinary incontinence and Denies urinary urgency Musculoskeletal Denies neck pain Integumentary/Breasts Denies pruritus, Denies erythema, Denies rash and Denies wounds Neurologic Denies confusion, Denies loss of vision and Denies weakness Psychiatric Denies anxiety, Denies confusion, Denies depression, Denies homicidal ideation and Denies suicidal ideation Endocrine Denies palpitations Hematologic/Lymphatic Denies easy bruising Allergic/Immunologic Denies wheezing PFSH <Ceci Cruz MD - Last Filed: 07/26/18 16:18> Medical History Chronic a-fib (Acute) Hypertension (Acute) No significant past surgical history (Acute) Surgical History S/P ablation of atrial fibrillation (Acute) Social History Smoking Status: Never smoker Social History Smoking Status: Never smoker Exam <Ceci Cruz MD - Last Filed: 07/26/18 16:18> Narrative Exam Narrative: Patient appears mildly anxious. Initial Vital Signs Initial Vital Signs: Vital Signs Pulse Rate 60 07/26/18 06:15 Respiratory Rate 20 07/26/18 06:15 Blood Pressure 188/61 H 07/26/18 06:15 Pulse Oximetry 99 07/26/18 06:15 Const General: cooperative and well developed Nutritional Appearance: well nourished Orientation: alert, awake, oriented x3 and not confused HENTX Head: normocephalic and atraumatic Ears: external ears normal Nose: external nose normal and No nasal discharge Face and sinus: face symmetric and No dry mucous membranes Mouth: oral mucosae normal and moist mucous membranes Teeth and gingiva: dentition normal Eyes General: appearance normal, both eyes and all related structures Eyelids: eyelids normal Conjunctivae: conjunctivae normal Sclera: sclerae normal Pupils: PERRL EOM: EOM intact bilaterally Neck Neck: normal visual inspection, trachea midline, No lymphadenopathy, No midline deformity and No JVD Lymphatic: No lymphedema Chest Chest: normal inspection of the chest Resp Effort & Inspection: normal respiratory effort, able to speak in complete sentences, no respiratory distress and no use of accessory muscles Auscultation: clear to auscultation bilaterally, no rales, no rhonchi and no wheezes Cardio Rate: regular rate Rhythm: regular rhythm Heart Sounds: no click, no gallops, no murmurs and no rubs Pulses: normal peripheral pulses GI Inspection: non-distended Palpation: soft, no hepatosplenomegaly, No guarding, No pulsatile mass and No tender Auscultation: normal bowel sounds Back/Spine/Pelvis Back: No CVA tenderness Cervical Spine: cervical ROM normal and No pain with cervical ROM Thoracic/Lumbar Spine: thoracic and lumbar spine normal to inspection Skin General: no rashes or lesions noted, No jaundice and No petechiae Neuro General: alert, oriented x3, gait normal and no focal motor deficits Speech: speech normal Extrem General: full ROM, no clubbing, cyanosis or edema, no pedal edema and no calf tenderness Psych Appearance: well kempt Mental Status: mental status grossly normal Attitude: cooperative Thought Content: normal and suicidality Judgment: judgment good <Julieta Grady DO - Last Filed: 07/26/18 19:01> Initial Vital Signs Initial Vital Signs: Vital Signs Pulse Rate 60 07/26/18 06:15 Respiratory Rate 20 07/26/18 06:15 Blood Pressure 188/61 H 07/26/18 06:15 Pulse Oximetry 99 07/26/18 06:15 Course <Ceci Cruz MD - Last Filed: 07/26/18 16:18> Course Narrative: Patient was evaluated by myself upon arrival in the emergency department. She was worked up with EKG, chest x-ray, and labs. She was signed out to Dr. Grady at change of shift at 7:00 a.m., pending workup and disposition. Orders Ordered: Discontinued Medications Sodium Chloride (Normal Saline 0.9%) 1,000 mls @ 1,000 mls/hr IV BOLUS ONE Stop: 07/26/18 07:33 Last Infusion: 07/26/18 07:48 Dose: 0 mls/hr Admin: 07/26/18 06:47 Dose: 1,000 mls/hr Ketorolac Tromethamine (Toradol) 15 mg IV NOW ONE Stop: 07/26/18 06:37 Last Admin: 07/26/18 06:47 Dose: 15 mg Morphine Sulfate (Morphine) 2 mg IV NOW ONE Stop: 07/26/18 06:37 Last Admin: 07/26/18 06:48 Dose: 2 mg Morphine Sulfate (Morphine) 2 mg IV NOW ONE Stop: 07/26/18 07:44 Last Admin: 07/26/18 07:44 Dose: 2 mg Vital Signs - 8 hr 07/26/18 09:30 Pulse Rate 63 Respiratory Rate 18 Blood Pressure [Left Arm] 141/50 H Pulse Oximetry 95 <Julieta Grady DO - Last Filed: 07/26/18 19:01> Orders Ordered: Discontinued Medications Sodium Chloride (Normal Saline 0.9%) 1,000 mls @ 1,000 mls/hr IV BOLUS ONE Stop: 07/26/18 07:33 Last Infusion: 07/26/18 07:48 Dose: 0 mls/hr Admin: 07/26/18 06:47 Dose: 1,000 mls/hr Ketorolac Tromethamine (Toradol) 15 mg IV NOW ONE Stop: 07/26/18 06:37 Last Admin: 07/26/18 06:47 Dose: 15 mg Morphine Sulfate (Morphine) 2 mg IV NOW ONE Stop: 07/26/18 06:37 Last Admin: 07/26/18 06:48 Dose: 2 mg Morphine Sulfate (Morphine) 2 mg IV NOW ONE Stop: 07/26/18 07:44 Last Admin: 07/26/18 07:44 Dose: 2 mg Reevaluation(s) Reevaluation #1: I received sign-out from Dr. Madera I performed independent exam. Patient continues to have pain worse while lying flat better while sitting up. She received Toradol and morphine not helping. I performed a bedside ultrasound I do not see any pericardial effusion troponin is positive. Awaiting for Cardiology to call back Time: :15 Consultations Consultation #1: Dr. Lai updated on patient's symptoms and test results. Recommend CT. Likely pericarditis. Time: 08:25 Consultation #2: Dr. Lai updated on patient's CT results which include no pericardial effusion but no known coronary artery disease. Troponin is also decreasing. If patient is pain free recommend discharging home with Medrol Dosepak and following up next week Time: 09:33 Vital Signs - 8 hr 07/26/18 09:30 Pulse Rate 63 Respiratory Rate 18 Blood Pressure [Left Arm] 141/50 H Pulse Oximetry 95 MDM - Chest Pain <Ceci Cruz MD - Last Filed: 07/26/18 16:18> Lab Data Result diagrams: 07/26/18 06:38 07/26/18 06:38 Lab Results 07/26/18 07/26/18 07/26/18 Range/Units 06:38 06:38 08:42 WBC 10.7 (4.5-11.0) X10^3/uL RBC 5.01 (4.0-5.2) X10^6/uL Hgb 13.9 (12.0-16.0) g/dL Hct 42.9 (36-46) % MCV 85.6 (80-100) fL MCH 27.8 (26-34) PG MCHC 32.5 (30-36) % RDW 16.5 H (11.6-14.8) % Plt Count 259 (150-400) X10^3/uL Neut % (Auto) 70.2 (50-75) % Lymph % (Auto) 21.2 L (25-40) % [place] % (Auto) 7.3 (3-14) % Eos % (Auto) 0.7 L (2-4) % Baso % (Auto) 0.6 (0-2) % Neut # (Auto) 7500 H (5892-7878) /uL Lymph # (Auto) 2300 (6562-3389) /uL [place] # (Auto) 800 (0-900) /uL Eos # (Auto) 100 (0-450) /uL Baso # (Auto) 100 (0-100) /uL Sodium 139 (137-145) mmol/L Potassium 4.1 (3.4-5.1) mmol/L Chloride 101 (98-107) mmol/L Carbon Dioxide 28 (22-32) mmol/L BUN 18 H (7-17) mg/dL Creatinine 1.00 (0.52-1.04) mg/dL Estimated GFR 53.1 L (>60) mL/min BUN/Creatinine Ratio 18.0 (6-22) Glucose 97 (80-110) mg/dL Calcium 9.0 (8.4-10.2) mg/dL Total Bilirubin 0.6 (0.2-1.3) mg/dL AST 111 H (14-36) IU/L ALT 105 H (9-52) IU/L Alkaline Phosphatase 90 (38-126) U/L Total Creatine Kinase 94 (30-135) U/L CK-MB (CK-2) TNP CK-MB (CK-2) Rel Index TNP Troponin I 0.278 H* 0.231 H* (0.01-0.034) ng/mL B-Natriuretic Peptide 479 H (<100) Total Protein 7.0 (6.3-8.2) g/dL Albumin 4.3 (3.5-5.0) g/dL Globulin 2.7 (1.7-4.1) g/dL Albumin/Globulin Ratio 1.6 (1.0-2.8) <Julieta Grady DO - Last Filed: 07/26/18 19:01> Medical Records Data Attestation: I reviewed the patient's medical records. Lab Data Attestation: I reviewed the patient's lab results. Lab Results 07/26/18 07/26/18 07/26/18 Range/Units 06:38 06:38 08:42 WBC 10.7 (4.5-11.0) X10^3/uL RBC 5.01 (4.0-5.2) X10^6/uL Hgb 13.9 (12.0-16.0) g/dL Hct 42.9 (36-46) % MCV 85.6 (80-100) fL MCH 27.8 (26-34) PG MCHC 32.5 (30-36) % RDW 16.5 H (11.6-14.8) % Plt Count 259 (150-400) X10^3/uL Neut % (Auto) 70.2 (50-75) % Lymph % (Auto) 21.2 L (25-40) % [place] % (Auto) 7.3 (3-14) % Eos % (Auto) 0.7 L (2-4) % Baso % (Auto) 0.6 (0-2) % Neut # (Auto) 7500 H (8710-9722) /uL Lymph # (Auto) 2300 (8348-4334) /uL [place] # (Auto) 800 (0-900) /uL Eos # (Auto) 100 (0-450) /uL Baso # (Auto) 100 (0-100) /uL Sodium 139 (137-145) mmol/L Potassium 4.1 (3.4-5.1) mmol/L Chloride 101 (98-107) mmol/L Carbon Dioxide 28 (22-32) mmol/L BUN 18 H (7-17) mg/dL Creatinine 1.00 (0.52-1.04) mg/dL Estimated GFR 53.1 L (>60) mL/min BUN/Creatinine Ratio 18.0 (6-22) Glucose 97 (80-110) mg/dL Calcium 9.0 (8.4-10.2) mg/dL Total Bilirubin 0.6 (0.2-1.3) mg/dL AST 111 H (14-36) IU/L ALT 105 H (9-52) IU/L Alkaline Phosphatase 90 (38-126) U/L Total Creatine Kinase 94 (30-135) U/L CK-MB (CK-2) TNP CK-MB (CK-2) Rel Index TNP Troponin I 0.278 H* 0.231 H* (0.01-0.034) ng/mL B-Natriuretic Peptide 479 H (<100) Total Protein 7.0 (6.3-8.2) g/dL Albumin 4.3 (3.5-5.0) g/dL Globulin 2.7 (1.7-4.1) g/dL Albumin/Globulin Ratio 1.6 (1.0-2.8) Imaging Data Chest x-ray: Radiologist's impression: PROCEDURE: XR CHEST 1V INDICATIONS: chest pain/dyspnea TECHNIQUE: One view of the chest was acquired. COMPARISON: [facility], , XR CHEST 1V, 04/22/2018, 5:02. FINDINGS: Surgical changes and devices: None. Lungs and pleura: Diffuse interstitial prominence with loss of vascular distinctness and left greater than right small pleural effusions. No pneumothorax. No focal consolidation. Stable appearance of coarse lung markings. Mediastinum: There is prominence of the cardiac silhouette which may be in part due to portable technique, but appears larger than expected and may represent mild cardiomegaly. Bones and chest wall: No suspicious bony lesions. Overlying soft tissues appear unremarkable. IMPRESSION: Increased interstitial prominence, loss of vascular distinctness, and small bilateral pleural effusions with suggestion of mild cardiomegaly. Findings are suggestive of pulmonary edema with infectious/inflammatory process not excluded if clinically appropriate. Dictated by: Michael Fuentes M.D. on 07/26/2018 at 9:19 CT scan - chest: Radiologist's impression: PROCEDURE: CT ANGIO CHEST PE PROTOCOL INDICATIONS: pain post ablation TECHNIQUE: After the administration of intravenous contrast, 2 mm thick sections acquired from the pulmonary apices to the posterior costophrenic angles. 3-dimensional maximum intensity projection (MIP) coronal and sagittal reformats were then acquired through the thorax. For radiation dose reduction, the following was used: automated exposure control, adjustment of mA and/or kV according to patient size. COMPARISON: [facility], CT, CT ANGIO CHEST, 07/05/2018, 12:55. FINDINGS: Image quality: Excellent. Pulmonary arteries: Pulmonary arteries are normal in size, and demonstrate no intraluminal filling defects to suggest central pulmonary embolism. Lungs and pleura: Small bilateral pleural effusions are present. There is mild basilar predominant interstitial pulmonary opacity. Central and peripheral airways are patent. Mediastinum: Heart size is enlarged, without pericardial effusion. There is calcification of the coronary vasculature. No mediastinal or hilar adenopathy. Thoracic aorta is normal in caliber and enhancement. Esophagus is normal in caliber. Small hiatal hernia. Bones and chest wall: No suspicious bony lesions. Ribs and thoracic spine appear intact throughout. Thyroid gland is within normal limits. No axillary or supraclavicular adenopathy. Abdomen: Visualized upper abdominal solid organs appear normal in the early arterial phase of enhancement. IMPRESSION: 1. No pulmonary embolus. 2. Mild CHF. 3. Coronary artery disease. 4. Small hiatal hernia. Dictated by: Shannan Collins M.D. on 07/26/2018 at 9:11 ECG Data Attestation: I personally reviewed and interpreted this ECG as follows: Prior ECG tracings: available for review Interpretation: EKG 1. Normal sinus rhythm rate 65 with PVC no acute ST changes EKG 2. Sinus rhythm with similar to prior MDM Narrative Medical decision making narrative: Patient actually had a stat echo care g as well the tech told me that there was no no pericardial effusion. This a is also what this CT showed as well. I have spoken many times with Cardiology. Not thought to be coronary pre artery disease more thought to be pericarditis from recent ablation. Patient's pain is much better controlled after morphine. He is given prednisone and discharged home. I also discussed with her warning signs and when to return to the ER. She does have coronary artery disease noted on her CT, however based on her history this is more likely pericarditis. She understands that she may need further testing. She is to follow up with Dr. Lai next week. I discussed all findings with the patient, Education has been performed regarding treatment plan, diagnosis, warning signs and symptoms and all concerns have been addressed. Verbally agree with and understood all of the above. Discharge Plan Departure Patient Disposition: Home Clinical Impression: Pericarditis Qualifiers: Pericarditis type: unspecified type Chronicity: acute Qualified Code(s): I30.9 - Acute pericarditis, unspecified Discharge Date/Time: 07/26/18 10:23 Interventions: ED Discharge Assessment Last Done: 07/26/18 11:16 Instructions: Pericarditis -- Adult Activity Restrictions/Additional Instructions: *You have been diagnosed with pericarditis *What to do: CT scan, blood work and echocardiogram all done today in the emergency department. Her heart is likely irritated from her most recent procedure of lesion. At this time it is thought that the heart a sac is inflamed. *Continue to take medications as directed Prednisone 40 mg once a day for 5 days--> TRANSMITTED TO [facility] *Follow up with your primary care provider in 2-[address] Lai office today to schedule follow-up appointment next week *Return to ER if you should have increasing chest pain shortness of breath or any new, worsening or concerning symptoms Prescriptions: New prednisone 20 mg tablet 40 mg PO DAILY Qty: 10 RF: 0 No Action diltia PO RF: 0 hydrochlorothiazide 12.5 MG capsule 12.5 mg PO QDAY Qty: 0 RF: 0 amiodarone 200 mg tablet 200 mg PO DAILY RF: 0 esomeprazole magnesium 40 mg capsule,delayed release(DR/EC) 40 mg PO DAILY RF: 0 metoprolol tartrate 50 mg tablet 50 mg PO BID RF: 0 montelukast 10 mg tablet 10 mg PO DAILY RF: 0 chlorhexidine gluconate 0.12 % mouthwash 1 dose PO DIRECTED RF: 0 Eliquis 5 mg tablet 5 mg PO BID RF: 0 Referrals: Bertha Michelle PA-C [Primary Care Provider] - Preston Lai MD [Physician] -
[2018-07-26 08:13] VITALS: BP 140/47; PULSE 59; RESP 14; O2SAT 96
--- NOTE | 2018-07-26 08:14 | DI.ECHO.S_ITS ---
[facility] +---------+ : : [address] : : : : [place], : : : : [place] [id number] : : : : Phone: [phone] [id number] Echocardiogram Report + + :Name: KERRIE MEREDITH Study Date: 07/26/2018 : :[facility] : : Gender: Female : :: 1935 Age: 83 yrs BP: 119/41 mmHg: :Reason For Study: Chest pain, SOB : : Performed By: Laurence Perry : :Referring: RUSSELL EARL : + + Interpretation Summary The limited echocardiogram is done to assess for pericardial effusion in the setting of chest pain and shortness of breath s/p ablation two days ago. Normal left ventricle size with ejection fraction 60-65%. Mild to moderate tricuspid regurgitation. Moderate pulmonary hypertension. The right ventricular systolic pressure is estimated to be at least 48 mmHg based on an estimated right atrial pressure of 8 mm Hg. There is a trivial pericardial effusion noted. There are no echocardiographic or Doppler indications for cardiac tamponade. Procedure: A two-dimensional transthoracic echocardiogram with color flow and Doppler was performed in limited views only. The study quality was technically adequate. Comparison is made with the echocardiogram of 01/16/2018. The patient was in normal sinus rhythm during the exam. Left Ventricle: The left ventricle is normal in size. The ejection fraction is estimated to be 60-65%. Right Ventricle: The right ventricle is normal in size and function. Tricuspid Valve: There is mild to moderate tricuspid regurgitation. The right ventricular systolic pressure is estimated to be at least 48 mmHg based on an estimated right atrial pressure of 8 mm Hg. There is moderate pulmonary hypertension. Great Vessels: The IVC is dilated (diameter is greater than 2.1 cm) yet it collapses greater than 50% with a sniff. This suggests a right atrial pressure of 8 mm Hg. Pericardium/ Pleura There is a trivial pericardial effusion noted. There are no echocardiographic or Doppler indications for cardiac tamponade. MMode/2D Measurements & Calculations RVD1 (basal): 4.0 cm IVC diam: 2.5 cm RVD2 (mid): 2.6 cm TAPSE: 2.8 cm Doppler Measurements & Calculations MV E max willy: 110.5 cm/sec MV dec time: 0.28 sec MV A max willy: 56.1 cm/sec MV P1/2t: 82.3 msec MV E/A: 2.0 MVA(P1/2t): 2.7 cm2 TR max willy: 314.1 cm/sec TR max P.5 mmHg Electronically signed by: Graham Ramos on Reading Physician:07/26/2018 10:35 AM
--- NOTE | 2018-07-26 08:27 | PC.NURSE ---
Sats dec to 87% after morphine. O2 per MD
--- NOTE | 2018-07-26 08:44 | DI.CT.S_ITS ---
PROCEDURE: CT ANGIO CHEST PE PROTOCOL INDICATIONS: pain post ablation TECHNIQUE: After the administration of intravenous contrast, 2 mm thick sections acquired from the pulmonary apices to the posterior costophrenic angles. 3-dimensional maximum intensity projection (MIP) coronal and sagittal reformats were then acquired through the thorax. For radiation dose reduction, the following was used: automated exposure control, adjustment of mA and/or kV according to patient size. COMPARISON: [facility], CT, CT ANGIO CHEST, 07/05/2018, 12:55. FINDINGS: Image quality: Excellent. Pulmonary arteries: Pulmonary arteries are normal in size, and demonstrate no intraluminal filling defects to suggest central pulmonary embolism. Lungs and pleura: Small bilateral pleural effusions are present. There is mild basilar predominant interstitial pulmonary opacity. Central and peripheral airways are patent. Mediastinum: Heart size is enlarged, without pericardial effusion. There is calcification of the coronary vasculature. No mediastinal or hilar adenopathy. Thoracic aorta is normal in caliber and enhancement. Esophagus is normal in caliber. Small hiatal hernia. Bones and chest wall: No suspicious bony lesions. Ribs and thoracic spine appear intact throughout. Thyroid gland is within normal limits. No axillary or supraclavicular adenopathy. Abdomen: Visualized upper abdominal solid organs appear normal in the early arterial phase of enhancement. IMPRESSION: 1. No pulmonary embolus. 2. Mild CHF. 3. Coronary artery disease. 4. Small hiatal hernia. Dictated by: Shannan Collins M.D. on 07/26/2018 at 9:11 Approved by: Shannan Collins M.D. on 07/26/2018 at 9:14
[2018-07-26 09:27] LABS: Troponin I 0.231 ng/mL (0.01-0.034)
[2018-07-26 09:30] VITALS: BP 141/50; PULSE 63; RESP 18; O2SAT 95
== END 2018-07-26 10:23 | disposition home or self-care (01) ==
PROVIDERS: Emergency Medicine; Emergency Provider Emergency Medicine; PCP Physician Assistant
DX: I30.9 Acute pericarditis, unspecified (principal)
CPT/HCPCS: 36415; 36591; 71045; 71275; 80053; 82550; 83880; 84484; 85025; 93005; 93307; 96361; 96374; 96375; 96376; 99284; 99285; J1885; J2270; Q9967

== ENCOUNTER → 2018-07-29 17:12 | Outpatient (CLI) | payer MEDICARE, OTHER, SELFPAY | PROVIDERS: PCP Physician Assistant; Visit Provider Physician Assistant | DX: R68.89 Other general symptoms and signs (principal) | CPT/HCPCS: 87400 ==

== ENCOUNTER → 2018-08-15 09:26 | Outpatient (CLI) | payer MEDICARE, OTHER, SELFPAY ==
[2018-08-15 10:27] LABS: BUN Creatinine Ratio 23.3 (6-22); Blood Urea Nitrogen 21 mg/dL (7-17); Calcium 9.3 mg/dL (8.4-10.2); Carbon Dioxide 29 mmol/L (22-32); Chloride 98 mmol/L (98-107); Estimated Glomerular Filt Rate 59.9 mL/min (>60); Glucose 76 mg/dL (80-110); HEMOLYSIS < 15 (0-50); Sodium 136 mmol/L (137-145)
== END ==
PROVIDERS: Family Provider Physician Assistant; PCP Physician Assistant; Visit Provider Internal Medicine Cardiovascular Disease
DX: I10 Essential (primary) hypertension (principal)
CPT/HCPCS: 36415; 80048

== ENCOUNTER → 2018-12-13 14:21 | Outpatient (CLI) | payer MEDICARE, OTHER, SELFPAY ==
--- NOTE | 2018-12-20 15:58 | PM.PFT.1 ---
Pulmonary Function Test Referral & Results Date Patient Seen: 12/13/18 Requesting provider: Tian Santos Results: The spirometry demonstrates an FVC of 2.99 L which is 99% of predicted. The FEV1 was measured at 2.53 L which is 104% of predicted. The FEV1/FVC ratio was 78 which is 107% of predicted. No bronchodilator was administered. No lung volumes were performed The diffusing capacity was measured at 17.52 which is 59% of predicted. No hemoglobin value was provided, so no correction for potential anemia could be made, if appropriate. The maximum voluntary ventilation was not performed Interpretation: This study demonstrates normal spirometry but reduced diffusing capacity as above Compared to a full PFTs performed in May 2018, current study is essentially unchanged
== END ==
PROVIDERS: Family Provider Nurse Practitioner; PCP Nurse Practitioner; Visit Provider Internal Medicine Critical Care Medicine
DX: R06.02 Shortness of breath (principal); J43.2 Centrilobular emphysema; R94.2 Abnormal results of pulmonary function studies
CPT/HCPCS: 94010; 94729

== ENCOUNTER → 2018-12-19 08:09 | Outpatient (CLI) | payer MEDICARE, OTHER, SELFPAY ==
--- NOTE | 2018-12-19 | DI.MG.S_ITS ---
BILATERAL DIGITAL SCREENING MAMMOGRAM 3D/2D WITH CAD: 12/19/2018 CLINICAL: Routine screening. Family history of breast cancer. Comparison is made to exams dated: 03/21/2017 mammogram, 11/24/2014 mammogram - [facility], and 03/21/2013 mammogram - [facility]. The tissue of both breasts is heterogeneously dense. This may lower the sensitivity of mammography. Current study was also evaluated with a Computer Aided Detection (CAD) system. There are benign calcifications in both breasts. No significant masses, calcifications, or other findings are seen in either breast. There has been no significant interval change. IMPRESSION: There is no mammographic evidence of malignancy. A 1 year screening mammogram is recommended. This exam was interpreted at Station ID: [id number]. NOTE: For mammograms, a report in lay terms will be sent to the patient. Approximately 15% of breast malignancies will not be visualized mammographically. In the management of a palpable breast mass, a negative mammogram must not discourage biopsy of a clinically suspicious lesion. Electronically Signed By: Michael gardiner/jodie:12/19/2018 10:50:17 letter sent: Normal Exam ACR BI-RADS Category 2: Benign Finding(s) 3342F
== END ==
PROVIDERS: Family Provider Nurse Practitioner; PCP Nurse Practitioner; Visit Provider Nurse Practitioner
DX: Z12.31 Encounter for screening mammogram for malignant neoplasm of breast (principal); Z80.3 Family history of malignant neoplasm of breast
CPT/HCPCS: 77063; 77067

== ENCOUNTER → 2019-02-12 08:11 | Outpatient (CLI) | payer MEDICARE, OTHER, SELFPAY ==
--- NOTE | 2019-02-12 | DI.CT.S_ITS ---
PROCEDURE: CT CHEST WO CON INDICATIONS: FOLLOW UP TO PULMONARY NODULE TECHNIQUE: Noncontrast 2.0-2.5 mm thick sections acquired from the pulmonary apices to the posterior costophrenic angles. 7 mm thick axial MIP and 5 mm coronal and sagittal reformats were then acquired. A low radiation dose technique was utilized. COMPARISON: [facility], CT, CT ANGIO CHEST, 07/05/2018, 12:55. [facility], CT, CT ANGIO CHEST PE PROTOCOL, 07/26/2018, 8:25. FINDINGS: Image quality: Diagnostic, given the low radiation dose technique. Lungs and pleura: Previously identified 5 mm groundglass nodule in the lateral aspect of the left upper lobe is unchanged compared to 07/05/18. A 5 mm nodule along the right minor fissure is slightly less prominent on today's exam seen on series 3 image 147. There is an ill-defined area groundglass opacity in the right upper lobe measuring 14 mm AP by 9 mm transverse. There is a new somewhat spiculated partial groundglass opacity in the left lower lobe measuring 16 mm AP x 17 mm transverse. Mediastinum: Heart size is normal. No pericardial effusion. No mediastinal adenopathy by size criteria. Thoracic aorta and central pulmonary arteries are normal in size. Esophagus is normal in caliber. Moderate hiatal hernia. Bones and chest wall: No suspicious bony lesions. No vertebral body compression fractures. No axillary or supraclavicular adenopathy by size criteria. Thyroid gland is unremarkable. Abdomen: Low attenuation hepatic foci are noted without change. Visualized upper abdomen solid organs and bowel loops appear normal in the absence of contrast. IMPRESSION: 1. Stable appearance of previously identified sub-centimeter nodules, taking into account mild distortion along the fissure line. 2. New ground glass opacity in the right upper lobe. This is overall nonspecific and could be related to infection or inflammation. Recommend interval followup after appropriate therapy to document resolution. 3. Interval development of somewhat spiculated partial groundglass appearing opacity in the left lower lobe. Given interval development since 07/26/18, this could be related to infection or inflammation. However, other etiologies such as neoplastic disease cannot be excluded. As clinically indicated, short interval imaging followup after appropriate therapy to document resolution, PET scan or biopsy is recommended. Dictated by: Barby Sahni M.D. on 02/12/2019 at 11:00 Approved by: Barby Sahni M.D. on 02/12/2019 at 11:33
== END ==
PROVIDERS: Family Provider Nurse Practitioner; PCP Nurse Practitioner; Visit Provider Internal Medicine Critical Care Medicine
DX: R91.8 Other nonspecific abnormal finding of lung field (principal)
CPT/HCPCS: 71250

== ENCOUNTER → 2019-03-27 13:08 | Outpatient (CLI) | payer MEDICARE, OTHER, SELFPAY ==
[2019-03-10 15:54] VITALS: BMI 29.6
== END ==
PROVIDERS: Family Provider Nurse Practitioner; PCP Nurse Practitioner; Visit Provider Physician Assistant
DX: J02.9 Acute pharyngitis, unspecified (principal)
CPT/HCPCS: 87070

== ENCOUNTER → 2019-04-15 07:54 | Outpatient (CLI) | payer MEDICARE, OTHER, SELFPAY ==
[2019-03-10 15:54] VITALS: BMI 29.6
[2019-04-15 09:12] LABS: Alanine Aminotransferase 27 IU/L (<35); Albumin Globulin Ratio 1.5 (1.0-2.8); Alkaline Phosphatase 96 U/L (38-126); Aspartate Aminotransferase 31 IU/L (14-36); Bilirubin Total 0.4 mg/dL (0.2-1.3); Blood Urea Nitrogen 16 mg/dL (7-17); Carbon Dioxide 30 mmol/L (22-32); Chloride 99 mmol/L (98-107); Cholesterol 186 mg/dL (140-199); Estimated Glomerular Filt Rate > 60.0 mL/min (>60); Globulin 2.6 g/dL (1.7-4.1); Glucose 108 mg/dL (80-110); HDL Cholesterol 52 mg/dL (40-60); HEMOLYSIS < 15 (0-50); LDL Cholesterol Calculated 117 mg/dL (<100); Potassium 4.1 mmol/L (3.4-5.1); Sodium 135 mmol/L (137-145); Total Protein 6.6 g/dL (6.3-8.2); Triglycerides 87 mg/dL (35-150)
== END ==
PROVIDERS: PCP Nurse Practitioner; Visit Provider Internal Medicine Cardiovascular Disease
DX: I10 Essential (primary) hypertension (principal)
CPT/HCPCS: 36415; 80053; 80061

== ENCOUNTER → 2019-06-04 12:15 | Outpatient (CLI) | payer MEDICARE, OTHER, SELFPAY ==
[2019-03-10 15:54] VITALS: BMI 29.6
--- NOTE | 2019-06-04 | DI.CT.S_ITS ---
PROCEDURE: CT CHEST WO CON INDICATIONS: Other nonspecific abnormal finding of lung field TECHNIQUE: Noncontrast 5 mm thick sections acquired from the pulmonary apices to the posterior costophrenic angles. 1 mm lung window, 5 mm thick coronal and sagittal and 7 mm axial MIP reformats were then acquired. For radiation dose reduction, the following was used: automated exposure control, adjustment of mA and/or kV according to patient size. COMPARISON: , CT, CT CHEST WO CON, 02/12/2019, 8:14. FINDINGS: Image quality: Excellent. Lungs and pleura: No acute air space opacities. Several very small (sub-5 mm) radiodensities are again noted within the lung parenchyma bilaterally, but no growing mass lesion is found and there has been resolution of the prior areas of mild patchy alveolar airspace prominence. No pleural effusions or pneumothorax. Central and peripheral airways are patent and normal in caliber. Mediastinum: Heart size is normal. No pericardial effusion. No mediastinal adenopathy by size criteria. Thoracic aorta and central pulmonary arteries are normal in size. Esophagus is normal in caliber. No hiatal hernia. Bones and chest wall: No suspicious bony lesions. No vertebral body compression fractures. No axillary or supraclavicular adenopathy by size criteria. Thyroid gland appears normal where well seen.. Abdomen: Visualized upper abdominal solid organs and bowel loops appear normal in the absence of contrast. IMPRESSION: No followup recommended given the small size of several faint radiodensities within the lung parenchyma likely reflecting scarring and resolution of small patchy foci of alveolar airspace disease that had been previously present in February of 2019. Inflammatory etiology is presumed given the resolution. Malignancy is not suspected. Dictated by: Shmuel Flores M.D. on 06/04/2019 at 16:08 Approved by: Shmuel Flores M.D. on 06/04/2019 at 16:10
== END ==
PROVIDERS: PCP Nurse Practitioner; Visit Provider Internal Medicine Critical Care Medicine
DX: R91.8 Other nonspecific abnormal finding of lung field (principal); J43.2 Centrilobular emphysema
CPT/HCPCS: 71250; G0424

== ENCOUNTER → 2019-08-29 09:24 | Outpatient (CLI) | payer MEDICARE, OTHER, SELFPAY ==
[2019-03-10 15:54] VITALS: BMI 29.6
[2019-08-29 10:15] LABS: Add Manual Diff / Slide Review NO; Basophils Absolute Auto 0 /uL (0-100); Eosinophils Absolute Auto 100 /uL (0-450); Eosinophils Percent Auto 1.4 % (2-4); Hemoglobin 14.7 g/dL (12.0-16.0); Lymphocytes Absolute Auto 900 /uL (1100-4500); Mean Corpuscular HGB Conc 34.1 % (30-36); Mean Corpuscular Hemoglobin 30.4 PG (26-34); Mean Corpuscular Volume 89.1 fL (80-100); Monocytes Absolute Auto 600 /uL (0-900); Monocytes Percent Auto 11.5 % (3-14); Neutrophils Absolute Auto 3400 /uL (1500-7000); Neutrophils Percent Auto 68.1 % (50-75); Platelet Count 255 X10^3/uL (150-400); Red Blood Cell Count 4.82 X10^6/uL (4.0-5.2); Red Cell Distribution Width 14.1 % (11.6-14.8); White Blood Cell Count 4.9 X10^3/uL (4.5-11.0)
[2019-08-29 11:22] LABS: Alanine Aminotransferase 29 IU/L (<35); Albumin 4.2 g/dL (3.5-5.0); Albumin Globulin Ratio 1.5 (1.0-2.8); Alkaline Phosphatase 81 U/L (38-126); Aspartate Aminotransferase 34 IU/L (14-36); BUN Creatinine Ratio 20.3 (6-22); Bilirubin Total 0.7 mg/dL (0.2-1.3); Blood Urea Nitrogen 16 mg/dL (7-17); Calcium 9.6 mg/dL (8.4-10.2); Carbon Dioxide 26 mmol/L (22-32); Chloride 100 mmol/L (98-107); Estimated Glomerular Filt Rate > 60.0 mL/min (>60); Globulin 2.8 g/dL (1.7-4.1); Glucose 99 mg/dL (80-110); HEMOLYSIS < 15 (0-50); Potassium 4.3 mmol/L (3.4-5.1); Sodium 136 mmol/L (137-145)
== END ==
PROVIDERS: PCP Nurse Practitioner; Referring Provider Nurse Practitioner Family; Visit Provider Nurse Practitioner Family
DX: I10 Essential (primary) hypertension (principal); N64.4 Mastodynia
CPT/HCPCS: 36415; 80053; 85025

== ENCOUNTER → 2019-09-05 09:05 | Outpatient (CLI) | payer MEDICARE, OTHER, SELFPAY ==
[2019-03-10 15:54] VITALS: BMI 29.6
--- NOTE | 2019-09-05 09:07 | DI.MG.S_ITS ---
BILATERAL DIGITAL DIAGNOSTIC MAMMOGRAM 3D/2D: 09/05/2019 CLINICAL: Left pain, redness, swelling. Comparison is made to exams dated: 12/19/2018 mammogram, 03/21/2017 mammogram, and 11/24/2014 mammogram - [facility]. The tissue of both breasts is heterogeneously dense. This may lower the sensitivity of mammography. No significant masses, calcifications, or other findings are seen in either breast. IMPRESSION: INCOMPLETE: NEEDS ADDITIONAL IMAGING EVALUATION There is no mammographic abnormality seen in the left breast to correspond with the nipple abnormality, however, targeted ultrasound of the left breast is recommended and will be performed immediately following this exam. This exam was interpreted at Station ID: [id number]. NOTE: For mammograms, a report in lay terms will be sent to the patient. Approximately 15% of breast malignancies will not be visualized mammographically. In the management of a palpable breast mass, a negative mammogram must not discourage biopsy of a clinically suspicious lesion. Electronically Signed By: Jessica Tamez M.D. lk/:09/05/2019 10:28:37 ACR BI-RADS Category 0: Incomplete 3340F
--- NOTE | 2019-09-05 09:07 | DI.US.S_ITS ---
ULTRASOUND OF LEFT BREAST: 09/05/2019 CLINICAL: Focal left breast pain. Comparison is made to exams dated: 09/05/2019 mammogram, 12/19/2018 mammogram, 03/28/2017 ultrasound, and 03/21/2017 mammogram - [facility]. Color flow ultrasound of the left breast was performed on the areas of interest. Rose scale images of the real-time examination were reviewed. There is a 0.6 cm x 0.4 cm x 0.5 cm taller than wide irregular mass in the left breast at 7 o'clock anterior depth. This irregular mass is hypoechoic with posterior acoustic shadowing. This correlates as palpated. The left axilla was interogated and normal appearing lymph nodes are visualized. IMPRESSION: SUSPICIOUS OF MALIGNANCY The 0.6 cm x 0.4 cm x 0.5 cm taller than wide irregular mass in the left breast is at a moderate suspicion for malignancy. An ultrasound guided biopsy is recommended. No left axillary adenopathy. This exam was interpreted at Station ID: [id number]. SUMMARY: This was discussed with the patient by the radiologist Dr. Corral at the time of the exam. Electronically Signed By: Jessica kasper/:09/05/2019 12:31:13 letter sent: Biopsy Required Ultrasound BI-RADS: 4b Moderate suspicion of malignancy
== END ==
PROVIDERS: PCP Nurse Practitioner; Referring Provider Nurse Practitioner Family; Visit Provider Nurse Practitioner Family
DX: R92.8 Other abnormal and inconclusive findings on diagnostic imaging of breast (principal); N63.24 Unspecified lump in the left breast, lower inner quadrant; N64.4 Mastodynia
CPT/HCPCS: 76642; 77066; G0279

== ENCOUNTER → 2019-09-16 09:12 | Outpatient (CLI) | payer MEDICARE, OTHER, SELFPAY ==
[2019-03-10 15:54] VITALS: BMI 29.6
== END ==
PROVIDERS: PCP Nurse Practitioner; Referring Provider Nurse Practitioner Family; Visit Provider Nurse Practitioner Family
DX: R92.8 Other abnormal and inconclusive findings on diagnostic imaging of breast (principal); Z53.8 Procedure and treatment not carried out for other reasons

== ENCOUNTER → 2019-09-24 09:19 | Outpatient (CLI) | payer MEDICARE, OTHER, SELFPAY ==
[2019-03-10 15:54] VITALS: BMI 29.6
--- NOTE | 2019-09-24 | DI.MG.S_ITS ---
UNILATERAL LEFT DIGITAL DIAGNOSTIC MAMMOGRAM POST-NEEDLE BIOPSY: 09/24/2019 CLINICAL: Abnormal Ultrasound, Suspicious mass. Comparison is made to exams dated: 09/05/2019 ultrasound, 09/05/2019 mammogram, and 12/19/2018 mammogram - [facility]. The tissue of left breast is heterogeneously dense. This may lower the sensitivity of mammography. There is a biopsy site marker now in the left breast at 7 o'clock anterior depth. IMPRESSION: POST PROCEDURE MAMMOGRAM FOR MARKER PLACEMENT Expected position of biopsy site marker placed earlier today under US guidance. This exam was interpreted at Station ID: [id number]. NOTE: For mammograms, a report in lay terms will be sent to the patient. Approximately 15% of breast malignancies will not be visualized mammographically. In the management of a palpable breast mass, a negative mammogram must not discourage biopsy of a clinically suspicious lesion. Electronically Signed By: Shmuel Flores M.D. sdh/:09/24/2019 16:08:51 ACR BI-RADS Category Post-procedure mammogram for marker placement
--- NOTE | 2019-09-24 | DI.US.S_ITS ---
ULTRASOUND GUIDED BIOPSY LEFT BREAST USING VACUUM DEVICE WITH MARKING DEVICE INSERTED AND POST MAMMOGRAPHIC IMAGIN09/24/2019 CLINICAL: Left breast mass. PATIENT CONSENT: Risks (minor bleeding, infection, vasovagal reaction and repeat procedure), benefits and alternatives were explained to the patient and written informed consent was obtained. Correlation is made to exams dated: 09/24/2019 mammogram, 09/05/2019 ultrasound, 09/05/2019 mammogram, and 12/19/2018 mammogram - [facility]. An ultrasound guided biopsy using real-time ultrasound was performed for the concerning 0.3 cm x 0.4 cm x 0.4 cm circumscribed oval solid mass located in the left breast at 7 o'clock posterior depth. The skin was prepped in the usual manner. Local anesthetic was administered to the access site. A skin mariam was made in the breast. The abnormality was approached from the lateral aspect. A 13 gauge biopsy needle was placed adjacent to the abnormality under ultrasound guidance. Once the needle was documented to be in the correct location, four specimens were obtained using the Mammotome biopsy system. The patient received additional local anesthetic during the procedure. A Vision marker clip was inserted into the biopsy cavity. A skin adhesive and a sterile dressing were applied to the access site. Post procedure mammographic imaging demonstrates the location device at the targeted area and partial removal of the abnormality. The specimens were sent to the laboratory for pathological analysis. IMPRESSION: ULTRASOUND GUIDED BIOPSY BENIGN Ultrasound guided biopsy of the 0.3 cm x 0.4 cm x 0.4 cm solid mass in the left breast at 7 o'clock posterior depth was successful. Pathology indicates benign fat necrosis (FN) and stromal fibrosis. Pathology results are concordant with imaging findings. Return to annual mammogram screening schedule is recommended. This exam was interpreted at Station ID: [id number]. Shmuel Tamez M.D. [facility],ranjith/:10/01/2019 13:56:29
--- NOTE | 2019-09-24 | PATH_ITS ---
[facility] Accession Number: [id number] . 01 Material submitted: . breast - LEFT BREAST BX . 01 Clinical history: . LEFT BREAST MASS . 01 Diagnosis: Left Breast, Mass, Biopsy: Portions of cyst wall and associated stromal fibrosis. Background breast consisting of fibrofatty breast tissue with focal usual ductal hyperplasia and focal fat necrosis. Negative for atypia, carcinoma in situ, and malignancy. [facility] 09/26/2019 2016 Local . 01 Comment: Clinical and radiographic correlation is necessary. . 01 Electronically signed: Evette Fang MD, Pathologist NPI- [id number] . 01 Gross description: . Received one formalin-filled container, labeled with the patient's name and labeled LT breast Bx. Received with a plastic filter in container, sample loose in container, the specimen consists of multiple fragments of light yellow-triana tissue which range in size from less than 0.1 cm to 0.5 x 0.4 x 0.3 cm. Contents of the container are filtered, wrapped, and entirely submitted in one cassette. Collection date per container: 09-24-2019. Collection time per container: 10:00. Total fixation time: Approximately 15 hours. (DC:[id number]) /NAMAN 09/25/20195 Local . 01 Microscopic: . Deeper H/E levels examined. No polarizable material identified. No calcifications identified. . 01 Pathologist provided ICD-10: N63.20, N60.09 . 01 CPT . 672913 Performed at: [address] [facility] [place], [place], [place] [id number] MD Nasim Hernandez MD Phone: [phone]
== END ==
PROVIDERS: PCP Nurse Practitioner; Referring Provider Nurse Practitioner Family; Visit Provider Nurse Practitioner Family
DX: N60.32 Fibrosclerosis of left breast (principal); N64.1 Fat necrosis of breast
CPT/HCPCS: 19083; 77065

== ENCOUNTER → 2019-10-15 14:06 | Outpatient (CLI) | payer MEDICARE, OTHER, SELFPAY ==
[2019-03-10 15:54] VITALS: BMI 29.6
[2019-10-16 14:08] LABS: Fecal Immunochemical Test Positive (Negative)
== END ==
PROVIDERS: PCP Nurse Practitioner; Referring Provider Nurse Practitioner; Visit Provider Nurse Practitioner
DX: Z12.11 Encounter for screening for malignant neoplasm of colon (principal)
CPT/HCPCS: 82274

== ENCOUNTER → 2019-10-30 10:59 | Outpatient (CLI) | payer MEDICARE, OTHER, SELFPAY ==
[2019-03-10 15:54] VITALS: BMI 29.6
[2019-10-30 11:33] LABS: Hemoglobin 14.6 g/dL (12.0-16.0)
== END ==
PROVIDERS: PCP Nurse Practitioner; Referring Provider Nurse Practitioner; Visit Provider Nurse Practitioner
DX: R19.5 Other fecal abnormalities (principal)
CPT/HCPCS: 36415; 85014; 85018

== ENCOUNTER → 2019-11-15 08:37 | Outpatient (CLI) | payer MEDICARE, OTHER, SELFPAY ==
[2019-03-10 15:54] VITALS: BMI 29.6
[2019-11-16 18:36] LABS: COVID19 Sendout Not Detected (Not Detect)
== END ==
PROVIDERS: PCP Nurse Practitioner; Visit Provider Physician Assistant
DX: Z01.812 Encounter for preprocedural laboratory examination (principal)
CPT/HCPCS: 87635

== ENCOUNTER 2019-11-18 06:38 | Day surgery (SDC) | payer MEDICARE, OTHER, SELFPAY ==
[2019-03-10 15:54] VITALS: BMI 29.6
[2019-11-18] VITALS (10 sets, daily range): BP systolic 93–145; BP diastolic 40–67; PULSE 52–78; RESP 14–16; TEMP 36–36.8; O2SAT 93–100
--- NOTE | 2019-11-18 | PATH_ITS ---
[facility] Accession Number: [id number] . 01 Material submitted: . colon - BIOPSY AT 20 CM COLON . 02 Diagnosis: Colon, 20 cm, Biopsy: Hyperplastic polyp. V 11/20/2019 1128 Local . 02 Electronically signed: . Klaudia Umanzor MD, Pathologist NPI- [id number] . 01 Gross description: . BIOPSY AT 20 CM COLON: Received in formalin are multiple fragment(s) of triana, soft tissue measuring 0.1 x 0.1 x 0.1 cm to 0.3 x 0.2 x 0.1 cm submitted entirely in 1 cassette(s) /TAMIKA 11/19/2019 2115 Local . 02 Pathologist provided ICD-10: K63.5 . 02 CPT . 796344 Performed at: 01 [facility] [address] [facility], [place], [place] [id number] MD Nasim Hernandez MD Phone: [phone] Performed at: 02 [facility] [address] [place], [place] [id number] MD Klaudia Umanzor MD Phone: [phone]
[2019-11-18] MEDS: LACTATED RINGERS 1,000 ML 200 ML IV (07:25)
--- NOTE | 2019-11-18 07:53 | PM.PREOP ---
Pre-operative Note COVID-19 COVID-19 status: Negative Result date/Date tested (Pos, Neg/Pending): 11/15/19 Interval Note History & Physical reviewed/Exam performed by Physician: Yes Changes to H&P: No ASA Class (for procedural sedation): III
[2019-11-18] MEDS: LIDOCAINE 4% SOLN 50 ML 20 ML TOP (08:35)
[2019-11-18] MEDS: fentaNYL 250 MCG/5 ML INJ IV (08:36)
[2019-11-18] MEDS: MIDAZOLAM 5 MG/5 ML VIAL IV (08:37)
--- NOTE | 2019-11-18 09:04 | P.OP.ENDO_ITS ---
Operative Date/Time/Diagnoses Date of procedure: 11/18/19 Time of procedure: 09:00 Pre-op diagnosis: Positive fit test. Post-op diagnosis: same (No source of blood loss found) Procedure & Clinicians Study performed: EGD. Colonoscopy with cold biopsy. Same procedure as scheduled: Yes Indications: Patient with a positive fit test on blood thinner here for colonoscopy and EGD Surgeon: Jerel Malone Procedure Notes SCOAP/Timeout: Performed Procedure in detail: The patient had topical anesthetic applied to oropharynx. She was placed in left lateral decubitus position and underwent IV sedation directed by the surgeon consisting of fentanyl and Versed. A bite block was inserted and the scope was advanced through it into the esophagus. The esophagus was unremarkable. GE junction was noted at 37 cm from the incisors. The stomach insufflated well. There were no lesions seen in the body, antrum or at the incisura. The pyloric channel was mildly edematous but patent. The duodenum was unremarkable to the 4th part. The scope was brought back into the stomach and retroflexed. The proximal stomach normal in appearance. I did not see a hiatal hernia.. The scope was straightened and brought out through the e sophagus again. No lesions were seen. The scope was removed and the patient tolerated the procedure well. The patient was repositioned in given additional sedation. Digital exam was unremarkable. The scope was inserted and advanced through the rectum into the sigmoid, descending, transverse, and ascending colon. Patient was noted to have a sigmoid diverticulosis. The cecum was reached identified by the ileocecal valve and the appendiceal opening. The ileocecal valve was successfully cannulated. The terminal ileum was normal in appearance. The scope was gradually brought out. Polyps were found at 15 and 20 cm from the anal verge. These were quite small and were placed in the same container due to proximity to 1 another. The scope ultimately was retroflexed in the rectum. The appearance was normal. The scope was removed and the patient tolerated the procedure well. The prep was good. Scope withdrawal time: 9 minutes(12 total) Sedation minutes: 43 Findings: diverticulosis and polyp Specimen(s): other (Polyps) Complications: none Post-procedure Recommendations: Other recommendation (If there is continued concern camera endoscopy could be considered to evaluate her small bowel. This is not available at our institution.) Follow up: as needed Disposition: PACU
--- NOTE | 2019-11-18 09:28 | SUR.PHASEII ---
Patient awake and alert. Denies pain. Tolerating po. Denies cramps.
--- NOTE | 2019-11-18 11:12 | SUR.PHASEII ---
Late entry: Pt felt dizzy per Janay, pt given coffee per request, call louise and waited til she was ready to go. When ready vs checked, wnl no more dizziness and pt left unit in stable condition.
== END 2019-11-18 09:25 | disposition home or self-care (01) ==
PROVIDERS: PCP Nurse Practitioner; Referring Provider Specialist; Visit Provider Specialist
PROC: 0DJ08ZZ Inspection of Upper Intestinal Tract, Via Natural or Artificial Opening Endoscopic (ICD-10-PCS; CPT 43235; principal; 2019-11-18 07:45)
PROC: 0DJD8ZZ Inspection of Lower Intestinal Tract, Via Natural or Artificial Opening Endoscopic (ICD-10-PCS; CPT 45378; 2019-11-18 07:45)
DX: K63.5 Polyp of colon (principal); Z80.0 Family history of malignant neoplasm of digestive organs; Z79.01 Long term (current) use of anticoagulants; Z86.010 Personal history of colon polyps; K57.30 Diverticulosis of large intestine without perforation or abscess without bleeding
CPT/HCPCS: 45380; 43235; 99152; 99153; J2250; J3010

== ENCOUNTER → 2020-01-08 08:30 | Outpatient (CLI) | payer MEDICARE, OTHER, SELFPAY ==
[2019-03-10 15:54] VITALS: BMI 29.6
[2020-01-12 12:00] LABS: COVID19 Sendout Not Detected (Not Detect)
== END ==
PROVIDERS: PCP Nurse Practitioner; Visit Provider Physician Assistant
DX: Z11.59 Encounter for screening for other viral diseases (principal)
CPT/HCPCS: 87635

== ENCOUNTER → 2020-06-21 08:59 | Outpatient (CLI) | payer MEDICARE, OTHER, SELFPAY ==
[2019-03-10 15:54] VITALS: BMI 29.6
[2020-06-21 10:04] LABS: BUN Creatinine Ratio 21.2 (6-22); Blood Urea Nitrogen 18 mg/dL (7-17); Calcium 9.1 mg/dL (8.4-10.2); Carbon Dioxide 32 mmol/L (22-32); Chloride 99 mmol/L (98-107); Estimated Glomerular Filt Rate > 60.0 mL/min (>60); Glucose 122 mg/dL (80-110); HEMOLYSIS 16 (0-50); Sodium 134 mmol/L (137-145)
== END ==
PROVIDERS: PCP Nurse Practitioner; Referring Provider Internal Medicine Cardiovascular Disease; Visit Provider Internal Medicine Cardiovascular Disease
DX: I48.0 Paroxysmal atrial fibrillation (principal)
CPT/HCPCS: 36415; 80048

== ENCOUNTER 2020-08-30 10:13 | Emergency (ER) | payer MEDICARE, OTHER, SELFPAY ==
[2019-03-10 15:54] VITALS: BMI 29.6
[2020-08-30] VITALS (15 sets, daily range): BP systolic 171–201; BP diastolic 77–86; PULSE 60–70; RESP 14–24; TEMP 36.2; O2SAT 94–99; BMI 31.4
--- NOTE | 2020-08-30 10:17 | DI.RAD.S_ITS ---
PROCEDURE: XR CHEST 1V INDICATIONS: Pain in mid back TECHNIQUE: One view of the chest was acquired. COMPARISON: [facility], CT, CT CHEST WO CON, 06/04/2019, 12:19. [facility], CR, XR CHEST 1V, 07/26/2018, 6:42. [facility], CR, XR CHEST 1V, 04/22/2018, 5:02. FINDINGS: Surgical changes and devices: None. Lungs and pleura: Lungs appear clear. Emphysematous change suspected. No pleural effusions or pneumothorax. Mediastinum: Mediastinal contours appear normal. Heart size is at the upper limits of normal. Bones and chest wall: No suspicious bony lesions. Overlying soft tissues appear unremarkable. IMPRESSION: No acute cardiopulmonary abnormality. Suspected emphysematous change. Dictated by: Elder Davalos M.D. on 08/30/2020 at 10:46 Approved by: Elder Davalos M.D. on 08/30/2020 at 10:48
--- NOTE | 2020-08-30 10:34 | ED_ITS ---
HPI - Chest Pain General Chief Complaint: Chest Pain Stated Complaint: Pain in between mid back by shoulder blades Time Seen by Provider: 08/30/20 10:16 Source: patient Mode of arrival: Ambulatory Limitations: no limitations History of Present Illness HPI narrative: Patient is an 85-year-old female here for evaluation of mid back pain. She states that it started approximately 2-3 hours ago. She was standing in the kitchen making some bread when it occurred. She states has been constant since the onset. She thinks it was a fairly sudden onset but she is not sure. She has no chest pain or shortness of breath. Is not worse with moving or touching. She is not anything like this in the past. No radiation into her arms. She is on anticoagulation for history of atrial fibrillation. She has had an ablation because of this. No prior history of heart attacks. She does think that the symptoms are somewhat worse with taking a deep breath. She has not tried anything for the symptoms prior to arrival. Related Data Home Medications Medication Instructions Recorded Confirmed apixaban 5 mg PO BID 07/26/18 07/28/20 rosita carb/mag ox/CU/zinc 1 tab PO .QD 11/20/18 07/28/20 lisinopril 10 1 tab PO DAILY 11/20/18 07/28/20 mg-hydrochlorothiazide 12.5 mg tablet multivitamin 1 tab PO DAILY 11/20/18 07/28/20 carvedilol 12.5 mg tablet 6.25 mg PO BID tab 12/11/18 07/28/20 Previous Rx's Medication Instructions Recorded Estriol 1mg Vaginal Nanette See Rx Instructions .ROUTE 10/30/19 .COMPLEX #30 each varicella-zoster glycoE [id number] 0.5 ml IM ONCE #1 each 03/16/20 adj(PF) 50 mcg/0.5 mL IM susp, kit esomeprazole magnesium 40 mg 40 mg PO BID #180 cap 07/20/20 capsule,delayed release Allergies Allergy/AdvReac Type Severity Reaction Status Date / Time levofloxacin [LEVOFLOXACIN] Allergy Severe rash Verified 08/30/20 10:24 metronidazole [METRONIDAZOLE] Allergy Mild Rash Verified 08/30/20 10:24 pregabalin [PREGABALIN] Allergy Mild Rash Verified 08/30/20 10:24 fluticasone AdvReac Severe severe Verified 08/30/20 10:24 nosebleeds Review of Systems Constitutional Constitutional: Denies fatigue, Denies fever(s) and Denies headache(s) Eyes Eyes: Denies change in vision ENT Ears, Nose, Mouth, and Throat: Denies headache(s) and Denies sore throat Cardiovascular Cardiovascular: Denies chest pain, Denies syncope, Denies rapid heart rate, Denies irregular heart rhythm, Denies lightheadedness and Denies dyspnea Respiratory Respiratory: Denies cough and Denies dyspnea Gastrointestinal Gastrointestinal: Denies abdominal pain, Denies nausea and Denies vomiting Genitourinary Genitourinary: Denies dysuria Genitourinary: Denies dysuria Musculoskeletal Musculoskeletal: Reports back pain, Denies myalgias, Denies numbness, Denies sti ffness and Denies tingling Integumentary/Breasts Skin/Breast: Denies lesions and Denies rash Neurologic Neurologic: Denies behavioral changes, Denies syncope, Denies headache(s), Denies numbness and Denies tingling Psychiatric Psychiatric: Denies behavioral changes Endocrine Endocrine: Denies fatigue Hematologic/Lymphatic On Anticoagulants: Yes Allergic/Immunologic Allergic/Immunologic: Denies urticaria Patient History Medical History Advance care planning Advance directive in chart Atypical chest pain Chronic a-fib Chronic anticoagulation Colitis Cranial somatic dysfunction Edema Epistaxis, recurrent Fracture, humerus closed H pylori ulcer Hiatal hernia History of COPD Hypertension Impairment of balance Menopausal vaginal dryness Neuropathy of both feet Nocturnal hypoxemia (~07/2019) Numbness and tingling of both feet Obstructive sleep apnea (~07/2019) Osteoarthritis Pain of left breast Palpitations Periodic limb movement disorder (PLMD) Positive FIT (fecal immunochemical test) PVCs (premature ventricular contractions) Stomach ulcer Tobacco abuse, in remission Unsteady gait Vaginal stricture Viral URI with cough Surgical History H/O cataract extraction H/O nasal septoplasty History of carpal tunnel surgery of left wrist History of cholecystectomy History of radiofrequency ablation procedure for cardiac arrhythmia History of tonsillectomy No significant past surgical history S/P ablation of atrial fibrillation S/P rotator cuff repair Family History Mother Hypertension Heart disease Breast cancer Father Hypertension Heart disease Sister Hypertension Heart disease Cancer Brother Heart disease Cancer Social History marital status: unknown household members: none occupational status: previously employed Smoking Status: Former smoker Tobacco: How many years used: 30 alcohol intake: current substance use type: does not use Smoking Status: Former smoker alcohol intake frequency: 0-2 drinks per day Substance Use Type: does not use Exam Initial Vital Signs Initial Vital Signs: Vital Signs Temperature 97.1 F L 08/30/20 10:15 Pulse Rate 66 08/30/20 10:15 Respiratory Rate 14 08/30/20 10:15 Blood Pressure 192/86 H 08/30/20 10:15 Pulse Oximetry 94 08/30/20 10:15 Const General: cooperative, comfortable, well developed and well groomed Limitations: mental status not altered HENMT Head: normal to inspection and normocephalic Eyes General: appearance normal, both eyes and all related structures Chest Chest: No crepitus and No tenderness Resp Effort & Inspection: normal respiratory effort Auscultation: clear to auscultation bilaterally Cardio Rate: regular rate Rhythm: regular rhythm GI Inspection: non-distended Palpation: soft Back/Spine/Pelvis Cervical Spine: No cervical muscular tenderness and No cervical spinal tenderness Thoracic/Lumbar Spine: No paraspinal tenderness and No thoracic spinal tenderness Skin Lesions: no lesions Rashes: no rashes Neuro General: patient alert, patient awake and patient oriented x3 Cognition: normal cognition Speech: speech normal Gait: normal gait Motor: muscle tone normal throughout Sensory Exam: no sensory deficits noted Extrem General: normal to inspection, capillary refill normal and No edema Psych Appearance: grossly normal and well kempt Course Orders Ordered: ED Orders 08/30/20 10:17 XR chest 1V Stat EKG-12 Lead Stat 08/30/20 10:45 Complete Blood Count AUTO DIFF Stat Comprehensive Metabolic Panel Stat Lipase Stat Partial Thromboplastin Time Stat Prothrombin Time INR Stat Troponin & CK Cardiac Panel Stat 08/30/20 10:55 CT angio chest abdomen pelvis Stat 08/30/20 13:42 Troponin & CK Cardiac Panel Stat Discontinued Medications Sodium Chloride (Normal Saline 0.9%) 1,000 mls @ 1,000 mls/hr IV BOLUS ONE Stop: 08/30/20 11:55 Last Infusion: 08/30/20 13:48 Dose: 0 mls/hr Documented by: Admin: 08/30/20 12:10 Dose: 1,000 mls/hr Documented by: SAMANTHA Vital Signs Vital signs: Vital Signs - 8 hr 08/30/20 10:15 08/30/20 10:24 08/30/20 10:30 Temperature 97.1 F L Pulse Rate 66 66 64 Respiratory Rate 14 23 24 Blood Pressure 192/86 H Pulse Oximetry 94 99 97 08/30/20 10:31 08/30/20 10:45 08/30/20 11:00 Temperature Pulse Rate 62 62 60 Respiratory Rate 16 19 23 Blood Pressure 181/77 H Pulse Oximetry 98 98 94 08/30/20 12:04 08/30/20 12:15 08/30/20 12:16 Temperature Pulse Rate 70 62 Respiratory Rate 14 Blood Pressure 195/78 H 195/78 H Pulse Oximetry 97 96 08/30/20 12:30 08/30/20 12:46 08/30/20 13:00 Temperature Pulse Rate 67 66 65 Respiratory Rate 23 17 16 Blood Pressure 171/78 H 188/82 H 201/84 H Pulse Oximetry 96 98 95 08/30/20 13:30 08/30/20 14:00 08/30/20 14:30 Temperature Pulse Rate 62 60 62 Respiratory Rate 16 16 17 Blood Pressure Pulse Oximetry 97 97 95 MDM - Chest Pain Lab Data Attestation: I reviewed the patient's lab results. Result diagrams: 08/30/20 10:45 08/30/20 10:45 Labs: Lab Results 08/30/20 08/30/20 08/30/20 Range/Units 10:45 10:45 10:45 WBC 5.7 (4.5-11.0) X10^3/uL RBC 4.59 (4.0-5.2) X10^6/uL Hgb 13.8 (12.0-16.0) g/dL Hct 41.2 (36-46) % MCV 89.9 (80-100) fL MCH 30.0 (26-34) PG MCHC 33.3 (30-36) % RDW 13.1 (11.6-14.8) % Plt Count 222 (150-400) X10^3/uL Neut % (Auto) 63.4 (50-75) % Lymph % (Auto) 24.4 L (25-40) % [place] % (Auto) 9.9 (3-14) % Eos % (Auto) 1.8 L (2-4) % Baso % (Auto) 0.5 (0-2) % Neut # (Auto) 3600 (0197-4865) /uL Lymph # (Auto) 1400 (7960-7467) /uL [place] # (Auto) 600 (0-900) /uL Eos # (Auto) 100 (0-450) /uL Baso # (Auto) 0 (0-100) /uL PT 13.7 H (10.1-12.7) SECONDS INR 1.2 (0.9-1.3) APTT 39 H D (26.4-36.2) SECONDS Sodium 135 L (137-145) mmol/L Potassium 4.4 (3.4-5.1) mmol/L Chloride 99 (98-107) mmol/L Carbon Dioxide 32 (22-32) mmol/L BUN 14 (7-17) mg/dL Creatinine 0.72 (0.52-1.04) mg/dL Estimated GFR > 60.0 (>60) mL/min BUN/Creatinine Ratio 19.4 (6-22) Glucose 97 (80-110) mg/dL Calcium 9.3 (8.4-10.2) mg/dL Total Bilirubin 0.5 (0.2-1.3) mg/dL AST 38 H (14-36) IU/L ALT 40 H (<35) IU/L Alkaline Phosphatase 80 (38-126) U/L Total Creatine Kinase 108 (30-135) U/L CK-MB (CK-2) 3.00 H (<2.37) ng/mL CK-MB (CK-2) Rel Index 2.8 (1.5-5.0) % Troponin I < 0.012 (0.01-0.034) ng/mL Total Protein 6.5 (6.3-8.2) g/dL Albumin 4.1 (3.5-5.0) g/dL Globulin 2.4 (1.7-4.1) g/dL Albumin/Globulin Ratio 1.7 (1.0-2.8) Lipase 95 (23-300) U/L 04/26/21 Range/Units 13:42 WBC (4.5-11.0) X10^3/uL RBC (4.0-5.2) X10^6/uL Hgb (12.0-16.0) g/dL Hct (36-46) % MCV (80-100) fL MCH (26-34) PG MCHC (30-36) % RDW (11.6-14.8) % Plt Count (150-400) X10^3/uL Neut % (Auto) (50-75) % Lymph % (Auto) (25-40) % [place] % (Auto) (3-14) % Eos % (Auto) (2-4) % Baso % (Auto) (0-2) % Neut # (Auto) (1573-5287) /uL Lymph # (Auto) (1552-4738) /uL [place] # (Auto) (0-900) /uL Eos # (Auto) (0-450) /uL Baso # (Auto) (0-100) /uL PT (10.1-12.7) SECONDS INR (0.9-1.3) APTT (26.4-36.2) SECONDS Sodium (137-145) mmol/L Potassium (3.4-5.1) mmol/L Chloride (98-107) mmol/L Carbon Dioxide (22-32) mmol/L BUN (7-17) mg/dL Creatinine (0.52-1.04) mg/dL Estimated GFR (>60) mL/min BUN/Creatinine Ratio (6-22) Glucose (80-110) mg/dL Calcium (8.4-10.2) mg/dL Total Bilirubin (0.2-1.3) mg/dL AST (14-36) IU/L ALT (<35) IU/L Alkaline Phosphatase (38-126) U/L Total Creatine Kinase 105 (30-135) U/L CK-MB (CK-2) 2.71 H (<2.37) ng/mL CK-MB (CK-2) Rel Index 2.6 (1.5-5.0) % Troponin I < 0.012 (0.01-0.034) ng/mL Total Protein (6.3-8.2) g/dL Albumin (3.5-5.0) g/dL Globulin (1.7-4.1) g/dL Albumin/Globulin Ratio (1.0-2.8) Lipase (23-300) U/L Imaging Data Chest x-ray: Radiologist's Impression: [place] [id number] [place] [id number] ReportSigned Patient: Trish Berman JMR#: [id number]: 7Acct:[id number]/Sex: 85 / FDate of Service: 08/30/20Loc: EDAccession Number: [id number] Procedure: XR chest 1V Ordering Provider: Guy Humphrey D.O. PROCEDURE: XR CHEST 1V INDICATIONS: Pain in mid back TECHNIQUE: One view of the chest was acquired. COMPARISON: [facility], CT, CT CHEST WO CON, 06/04/2019, 12:19. [facility], CR, XR CHEST 1V, 07/26/2018, 6:42. [facility], CR, XR CHEST 1V, 04/22/2018, 5:02. FINDINGS: Surgical changes and devices: None. Lungs and pleura: Lungs appear clear. Emphysematous change suspected. No pleural effusions or pneumothorax. Mediastinum: Mediastinal contours appear normal. Heart size is at the upper limits of normal. Bones and chest wall: No suspicious bony lesions. Overlying soft tissues yesenia ear unremarkable. IMPRESSION: No acute cardiopulmonary abnormality. Suspected emphysematous change. Dictated by: Elder Davalos M.D. on 08/30/2020 at 10:46 Approved by: Elder Davalos M.D. on 08/30/2020 at 10:48 ECG Data Attestation: I personally reviewed and interpreted this ECG as follows: Prior ECG tracings: not available for review Interpretation: Sinus rhythm Ventricular rate of 61 Normal axis Normal QRS Normal QTC No ST T wave changes MDM Narrative Medical decision making narrative: Patient with mid back pain. EKG unremarkable. Troponins negative x2. CT scan does not show a thoracic d issection/aneurysm. There was a pulmonary nodule and I did discuss this with the patient. She states that she has had this in the past. She was informed to contact her primary provider for follow-up. No signs of pneumonia. Given her presentations I do have low suspicion for ACS. She was given care instructions and return precautions. She expressed understanding and agreement. Discharge Plan Departure Patient Disposition: Home Clinical Impression: Incidental pulmonary nodule, Acute thoracic back pain Instructions: DI for Thoracic Back Pain Activity Restrictions/Additional Instructions: Your workup here in the emergency department is very reassuring. Continue all of your medications as directed. There was an incidental finding of a pulmonary nodule on the CT scan. This does need to be followed by your primary provider. Return to the emergency department for any new or worsening symptoms Prescriptions: No Action esomeprazole magnesium 40 mg capsule,delayed release(DR/EC) 40 mg PO BID Qty: 180 RF: 3 Estriol 1mg Vaginal Nanette See Rx Instructions .ROUTE .COMPLEX Qty: 30 RF: 11 Shingrix (PF) 50 mcg/0.5 mL suspension for reconstitution 0.5 ml IM ONCE Qty: 1 RF: 0 lisinopril-hydrochlorothiazide 10-12.5 mg tablet 1 tab PO DAILY RF: 0 rosita carb/mag ox/CU/zinc 1 tab PO .QD RF: 0 multivitamin [Daily Multi-Vitamin] tablet 1 tab PO DAILY RF: 0 carvedilol 12.5 mg tablet 6.25 mg PO BID RF: 0 apixaban 5 mg tablet 5 mg PO BID RF: 0 Referrals: Lakshmi Jung ARNP [Primary Care Provider] -
--- NOTE | 2020-08-30 10:55 | DI.CT.S_ITS ---
PROCEDURE: CT ANGIO CHEST ABDOMEN PELVIS INDICATIONS: Eval for aortic dissection TECHNIQUE: Precontrast 5 mm thick sections acquired from the lung apices to the iliac crests. After the administration of intravenous contrast, 2.5 mm thick sections again acquired from the lung apices to the iliac crests. Maximum intensity projection (MIP) oblique sagittal and coronal reformats were then acquired. For radiation dose reduction, the following was used: automated exposure control. COMPARISON: [facility], CT, CT CHEST WO CON, 06/04/2019, 12:19. [facility], CT, CT ANGIO CHEST, 07/05/2018, 12:55. FINDINGS: Image quality: Excellent. AORTA: There are no areas of hemodynamically significant stenosis, vascular occlusion, dissection or aneurysmal dilation. Mild to moderate scattered areas of atherosclerotic calcification are noted within the thoracic and abdominal aorta. CHEST: Lungs and pleura: Small cluster of nodules are noted in the posterior lateral left lower lobe series 8, image 222, new compared to prior exam. No pleural effusions or pneumothorax. Central and peripheral airways are patent and normal in caliber. Mediastinum: Heart size is normal. No pericardial effusion. No mediastinal or hilar adenopathy by size criteria. Central pulmonary arteries are normal in size. Esophagus is normal in caliber. No hiatal hernias. Bones and chest wall: No axillary adenopathy by size criteria. Thyroid gland is unremarkable in . No suspicious bony lesions. No vertebral body compression fractures. ABDOMEN: Vasculature: Celiac trunk and mesenteric arteries are patent. Renal arteries are also patent. Solid organs: Liver is mildly enlarged with steatosis. Hepatic cysts are unchanged. Headache steatosis is present. Gallbladder has been removed. Biliary system is non dilated. Pancreas enhances normally. Spleen is normal in size and enhancement. No adrenal nodules. Both kidneys are normal in size and enhancement, without hydronephrosis. Peritoneum and bowel: No free fluid or air. Bowel loops are normal in caliber and wall thickness. Moderate colonic stool without obstruction. Mild scattered diverticula without inflammatory change. Nodes and vessels: No retroperitoneal or mesenteric adenopathy by size criteria. Inferior vena cava is normal in morphology. Miscellaneous: Fat containing umbilical hernia is present with rectus diastasis measuring 8 mm. PELVIS: Genitourinary: Bladder wall thickness is normal. Miscellaneous: No inguinal hernias or adenopathy. No ventral hernias. Bones: No suspicious bony lesions. No vertebral body compression fractures. IMPRESSION: 1. Aorta demonstrates no areas of hemodynamically significant stenosis, vascular occlusion, dissection or aneurysmal dilation. Atherosclerotic calcifications are noted. 2. Diverticulosis. 3. Moderate stool without obstruction. 4. New, nonspecific small clustered pulmonary nodules within the left lower lobe as above. These could be related to infection or inflammation. 3-6 month interval follow-up is recommended to document resolution. It is noted this can be seen with atypical infection such as fungal or mycobacterial. Dictated by: Barby Sahni M.D. on 08/30/2020 at 11:11 Approved by: Barby Sahni M.D. on 08/30/2020 at 11:23
[2020-08-30 10:59] LABS: Add Manual Diff / Slide Review NO; Basophils Absolute Auto 0 /uL (0-100); Basophils Percent Auto 0.5 % (0-2); Eosinophils Absolute Auto 100 /uL (0-450); Eosinophils Percent Auto 1.8 % (2-4); Hematocrit 41.2 % (36-46); Hemoglobin 13.8 g/dL (12.0-16.0); Lymphocytes Absolute Auto 1400 /uL (1100-4500); Lymphocytes Percent Auto 24.4 % (25-40); Mean Corpuscular HGB Conc 33.3 % (30-36); Mean Corpuscular Volume 89.9 fL (80-100); Monocytes Absolute Auto 600 /uL (0-900); Monocytes Percent Auto 9.9 % (3-14); Neutrophils Absolute Auto 3600 /uL (1500-7000); Neutrophils Percent Auto 63.4 % (50-75); Platelet Count 222 X10^3/uL (150-400); Red Blood Cell Count 4.59 X10^6/uL (4.0-5.2); Red Cell Distribution Width 13.1 % (11.6-14.8); White Blood Cell Count 5.7 X10^3/uL (4.5-11.0)
[2020-08-30 11:00] LABS: INR 1.2 (0.9-1.3); Prothrombin Time 13.7 SECONDS (10.1-12.7)
[2020-08-30 11:02] LABS: PTT Partial Thromboplastin Tim 39 SECONDS (26.4-36.2)
[2020-08-30 11:07] LABS: Alanine Aminotransferase 40 IU/L (<35); Albumin 4.1 g/dL (3.5-5.0); Albumin Globulin Ratio 1.7 (1.0-2.8); Alkaline Phosphatase 80 U/L (38-126); Aspartate Aminotransferase 38 IU/L (14-36); BUN Creatinine Ratio 19.4 (6-22); Bilirubin Total 0.5 mg/dL (0.2-1.3); Blood Urea Nitrogen 14 mg/dL (7-17); Calcium 9.3 mg/dL (8.4-10.2); Carbon Dioxide 32 mmol/L (22-32); Chloride 99 mmol/L (98-107); Creatine Kinase 108 U/L (30-135); Estimated Glomerular Filt Rate > 60.0 mL/min (>60); Globulin 2.4 g/dL (1.7-4.1); Glucose 97 mg/dL (80-110); HEMOLYSIS < 15 (0-50); Lipase 95 U/L (23-300); Potassium 4.4 mmol/L (3.4-5.1); Sodium 135 mmol/L (137-145); Total Protein 6.5 g/dL (6.3-8.2)
[2020-08-30 11:19] LABS: Troponin I < 0.012 ng/mL (0.01-0.034)
[2020-08-30 11:22] LABS: CKMB % Relative Index 2.8 % (1.5-5.0)
[2020-08-30] MEDS: SODIUM CHLORIDE 0.9% 1,000 ML 1000 ML IV (12:10)
[2020-08-30 14:18] LABS: Creatine Kinase 105 U/L (30-135)
[2020-08-30 14:33] LABS: CKMB % Relative Index 2.6 % (1.5-5.0); Creatine Kinase MB 2.71 ng/mL (<2.37); Troponin I < 0.012 ng/mL (0.01-0.034)
== END 2020-08-30 14:58 | disposition home or self-care (01) ==
PROVIDERS: Emergency Provider Emergency Medicine; PCP Nurse Practitioner
DX: R91.1 Solitary pulmonary nodule (principal); M54.6 Pain in thoracic spine
CPT/HCPCS: 36415; 71045; 71275; 74174; 80053; 82550; 82553; 83690; 84484; 85025; 85610; 85730; 93005; 96360; 96361; 99284

== ENCOUNTER → 2020-10-19 09:46 | Outpatient (CLI) | payer MEDICARE, OTHER, SELFPAY ==
[2019-03-10 15:54] VITALS: BMI 29.6
[2020-10-19 10:33] LABS: Add Manual Diff / Slide Review NO; Basophils Absolute Auto 0 /uL (0-100); Basophils Percent Auto 0.8 % (0-2); Eosinophils Absolute Auto 100 /uL (0-450); Eosinophils Percent Auto 1.6 % (2-4); Hematocrit 41.7 % (36-46); Hemoglobin 14.4 g/dL (12.0-16.0); Lymphocytes Absolute Auto 1300 /uL (1100-4500); Lymphocytes Percent Auto 22.7 % (25-40); Mean Corpuscular HGB Conc 34.5 % (30-36); Mean Corpuscular Hemoglobin 31.3 PG (26-34); Mean Corpuscular Volume 90.8 fL (80-100); Monocytes Absolute Auto 600 /uL (0-900); Monocytes Percent Auto 11.2 % (3-14); Neutrophils Absolute Auto 3500 /uL (1500-7000); Neutrophils Percent Auto 63.7 % (50-75); Platelet Count 250 X10^3/uL (150-400); Red Blood Cell Count 4.59 X10^6/uL (4.0-5.2); Red Cell Distribution Width 13.4 % (11.6-14.8); White Blood Cell Count 5.6 X10^3/uL (4.5-11.0)
[2020-10-19 11:02] LABS: Blood Urea Nitrogen 19 mg/dL (7-17); Calcium 9.7 mg/dL (8.4-10.2); Carbon Dioxide 29 mmol/L (22-32); Chloride 100 mmol/L (98-107); Estimated Glomerular Filt Rate > 60.0 mL/min (>60); Glucose 107 mg/dL (80-110); HEMOLYSIS < 15 (0-50); Magnesium 1.9 mg/dL (1.6-2.3); Potassium 4.7 mmol/L (3.4-5.1); Sodium 136 mmol/L (137-145)
[2020-10-19 11:18] LABS: Free T3, Triiodothyronine Free 3.98 pg/mL (2.77-5.27); Free T4, Direct Thyroxine 0.94 ng/dL (0.78-2.19)
[2020-10-19 11:31] LABS: Thyroid Stimulating Hormone 1.77 uIU/mL (0.47-4.68)
== END ==
PROVIDERS: PCP Nurse Practitioner; Referring Provider Nurse Practitioner; Visit Provider Nurse Practitioner
DX: I48.91 Unspecified atrial fibrillation (principal); R53.83 Other fatigue; Z79.01 Long term (current) use of anticoagulants; Z86.2 Personal history of diseases of the blood and blood-forming organs and certain disorders involving the immune mechanism
CPT/HCPCS: 36415; 80048; 83735; 84439; 84443; 84481; 85025

== ENCOUNTER → 2020-10-21 13:56 | Outpatient (CLI) | payer MEDICARE, OTHER, SELFPAY ==
[2019-03-10 15:54] VITALS: BMI 29.6
[2020-10-21 14:48] LABS: COVID19 -Nasal RAPID Negative (Negative)
== END ==
PROVIDERS: PCP Nurse Practitioner; Referring Provider Internal Medicine; Visit Provider Internal Medicine
DX: Z20.822 Contact with and (suspected) exposure to COVID-19 (principal)
CPT/HCPCS: 87635; C9803

== ENCOUNTER → 2020-10-22 08:59 | Outpatient (CLI) | payer MEDICARE, OTHER, SELFPAY ==
[2019-03-10 15:54] VITALS: BMI 29.6
--- NOTE | 2020-10-29 08:38 | PM.PFT.1 ---
Pulmonary Function Test Referral & Results Date Patient Seen: 10/22/20 Requesting provider: Tian Santos Results: The spirometry demonstrates an FVC of 2.56 L which is 87% of predicted. The FEV1 was measured at 2.19 L which is 100% of predicted. The FEV1/FVC ratio was 86 which is 117% of predicted. The diffusing capacity was measured at 18.56 which is 62% of predicted. No hemoglobin value was provided, so no correction for potential anemia could be made, if appropriate. 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
== END ==
PROVIDERS: PCP Nurse Practitioner; Referring Provider Internal Medicine Critical Care Medicine; Visit Provider Internal Medicine Critical Care Medicine
DX: J43.2 Centrilobular emphysema (principal); F17.210 Nicotine dependence, cigarettes, uncomplicated
CPT/HCPCS: 94010; 94729

== ENCOUNTER → 2020-11-02 11:47 | Outpatient (CLI) | payer MEDICARE, OTHER, SELFPAY ==
[2019-03-10 15:54] VITALS: BMI 29.6
--- NOTE | 2020-11-02 | DI.MG.S_ITS ---
BILATERAL DIGITAL SCREENING MAMMOGRAM 3D/2D WITH CAD: 11/02/2020 CLINICAL: Routine screening. Family history of breast cancer. Comparison is made to exams dated: 09/24/2019 mammogram, 09/05/2019 mammogram, and 12/19/2018 mammogram - [facility]. The tissue of both breasts is heterogeneously dense. This may lower the sensitivity of mammography. Current study was also evaluated with a Computer Aided Detection (CAD) system. No significant masses, calcifications, or other findings are seen in either breast. There has been no significant interval change. IMPRESSION: NEGATIVE There is no mammographic evidence of malignancy. A 1 year screening mammogram is recommended. This exam was interpreted at Station ID: [id number]. NOTE: For mammograms, a report in lay terms will be sent to the patient. Approximately 15% of breast malignancies will not be visualized mammographically. In the management of a palpable breast mass, a negative mammogram must not discourage biopsy of a clinically suspicious lesion. Electronically Signed By: John Tavera M.D., jr/jodie:11/02/2020 16:55:25 letter sent: Normal Exam ACR BI-RADS Category 1: Negative [id number]
== END ==
PROVIDERS: PCP Nurse Practitioner; Referring Provider Nurse Practitioner; Visit Provider Nurse Practitioner
DX: Z80.3 Family history of malignant neoplasm of breast (principal); Z12.31 Encounter for screening mammogram for malignant neoplasm of breast; M85.852 Other specified disorders of bone density and structure, left thigh; Z78.0 Asymptomatic menopausal state; Z87.891 Personal history of nicotine dependence; Z82.62 Family history of osteoporosis
CPT/HCPCS: 77063; 77067; 77080

== ENCOUNTER → 2021-02-04 14:05 | Outpatient (CLI) | payer MEDICARE, OTHER, SELFPAY ==
[2019-03-10 15:54] VITALS: BMI 29.6
[2021-02-04 14:56] LABS: COVID19 -Nasal RAPID Negative (Negative)
== END ==
PROVIDERS: PCP Nurse Practitioner; Visit Provider Physician Assistant
DX: Z20.822 Contact with and (suspected) exposure to COVID-19 (principal); R05.9 Cough, unspecified
CPT/HCPCS: 87635

== ENCOUNTER → 2021-02-16 08:36 | Outpatient (CLI) | payer MEDICARE, OTHER, SELFPAY ==
[2019-03-10 15:54] VITALS: BMI 29.6
--- NOTE | 2021-02-16 08:38 | DI.RAD.S_ITS ---
PROCEDURE: XR KNEE LT 3V INDICATIONS: Left knee swelling, patella tenderness, post impact TECHNIQUE: 3 views of the knee were acquired. COMPARISON: [facility], CR, XR KNEE ARTHRITIC SERIES RT, 04/22/2019, 8:07. FINDINGS: Bones: No fractures or dislocations. No suspicious bony lesions. There is moderate medial femorotibial joint space narrowing seen, with associated remodeling changes including subchondral sclerosis and osteophyte formation along the jointline. (Please note that on the prior weight-bearing study, there was moderate to severe medial femorotibial joint space narrowing on the left.) On the sunrise view, there is mild patellofemoral joint space narrowing seen. Osteophyte formation can be seen along the margins of the patella. Soft tissues: There is a small joint effusion. No suspicious soft tissue calcifications. IMPRESSION: Osteoarthritic degenerative changes are seen, which are most prominent involving the medial femorotibial compartment of the left knee. Mild joint effusion. Dictated by: Martínez Bertrand M.D. on 02/16/2021 at 8:11 Approved by: Martínez Betrrand M.D. on 02/16/2021 at 8:12
== END ==
PROVIDERS: PCP Nurse Practitioner; Referring Provider Nurse Practitioner; Visit Provider Nurse Practitioner
DX: M25.462 Effusion, left knee (principal)
CPT/HCPCS: 73562

== ENCOUNTER → 2021-04-20 12:22 | Outpatient (CLI) | payer MEDICARE, OTHER, SELFPAY ==
[2019-03-10 15:54] VITALS: BMI 29.6
[2021-04-20 12:49] LABS: COVID19 -Nasal RAPID Negative (Negative)
== END ==
PROVIDERS: PCP Nurse Practitioner; Referring Provider Physician Assistant; Visit Provider Physician Assistant
DX: R09.89 Other specified symptoms and signs involving the circulatory and respiratory systems (principal); R51.9 Headache, unspecified
CPT/HCPCS: 87635

== ENCOUNTER → 2021-05-25 08:19 | Outpatient (CLI) | payer MEDICARE, OTHER, SELFPAY ==
[2019-03-10 15:54] VITALS: BMI 29.6
--- NOTE | 2021-05-25 | DI.CT.S_ITS ---
PROCEDURE: CT CHEST WO CON INDICATIONS: PULMONARY NODULES TECHNIQUE: Noncontrast 2.0-2.5 mm thick sections acquired from the pulmonary apices to the posterior costophrenic angles. 7 mm thick axial MIP and 5 mm coronal and sagittal reformats were then acquired. A low radiation dose technique was utilized. COMPARISON: CT, CT CHEST WO CON, 02/12/2019, 8:14. CT, CT CHEST WO CON, 06/04/2019, 12:19. [facility], CT, CT ANGIO CHEST ABDOMEN PELVIS, 08/30/2020, 11:42. FINDINGS: Image quality: Diagnostic, given the low radiation dose technique. Lungs and pleura: Small cluster nodule in the left lower lobe are no longer visualized. There is a ground-glass density in the right upper lobe medially (series 3, image 104), stable. Multiple lung nodules are seen, unchanged. [employer] nodules are listed in the following: Nodule 1: 3 mm; right upper lobe lateral; series 3, image 109; unchanged. Nodule 2: 3 x 6 mm; right middle lobe; series 3, image 181; unchanged. Nodule 3: 3 mm; right lower lobe; series 3, image 222; unchanged. Moderate emphysema. Right middle lobe and lingula scars and atelectasis Mediastinum: Heart size is normal. Severe coronary artery calcification. No pericardial effusion. No mediastinal adenopathy by size criteria. Thoracic aorta and central pulmonary arteries are normal in size. Moderate to severe aortic calcification. Esophagus is normal in caliber. Small hiatal hernia. Bones and chest wall: No suspicious bony lesions. No vertebral body compression fractures. No axillary or supraclavicular adenopathy by size criteria. Thyroid gland is normal. Abdomen: A few hepatic cysts are noted in the left hepatic lobe. Visualized upper abdomen solid organs and bowel loops appear normal in the absence of contrast. IMPRESSION: 1. Clustered left lower lobe nodules are no longer visualized. 2. Stable small lung nodules. 3. Moderate emphysema. 4. Stable ground-glass density in the right upper lobe. 5. Severe atherosclerosis. 6. Small hiatal hernia. Fleischner Society criteria for SOLID lung nodule followup. Nodule size (mm)Low-risk patientHigh-risk patient<6 (single or multiple)No routine followup.Optional CT at 12 months. 6-8 (single or multiple)CT at 6-12 months, then optional CT at 18-24 mo.CT at 6-12 months, then CT at 18-24 months. >8 (single)CT at 3 months, PET-CT, or biopsy. Same as for low-risk pts. >8 (multiple)CT at 3-6 months, then optional CT at 18-24 mo.CT at 3-6 months, then CT at 18-24 months. Fleischner Society criteria for SUB-SOLID lung nodule followup. Solitary pure ground-glass nodules<6 mm (ground glass or part solid)No followup needed. 6 mm or larger (ground glass)CT at 6-12 months to confirm persistence, then CT every 2 years until 5 years.6 mm or larger (part solid)CT at 3-6 months to confirm persistence, then annual CT until 5 years if unchanged and solid component remains <6 mm. Multiple sub-solid nodules<6 mmCT at 3-6 months, then CT consider at 2 & 4 years for high risk patients. [address] at 3-6 months. Subsequent management based on most suspicious lesions. Recommendations do not apply to lung cancer screening, patients with immunosuppression, or patients with known primary cancer. Dictated by: Oracio Villanueva M.D. on 05/25/2021 at 9:06 Approved by: Oracio Villanueva M.D. on 05/25/2021 at 9:19
== END ==
PROVIDERS: PCP Nurse Practitioner; Referring Provider Internal Medicine Critical Care Medicine; Visit Provider Internal Medicine Critical Care Medicine
DX: R91.8 Other nonspecific abnormal finding of lung field (principal); J43.9 Emphysema, unspecified; I25.10 Atherosclerotic heart disease of native coronary artery without angina pectoris; I70.0 Atherosclerosis of aorta; K76.89 Other specified diseases of liver; K44.9 Diaphragmatic hernia without obstruction or gangrene
CPT/HCPCS: 71250

== ENCOUNTER → 2021-07-15 09:34 | Outpatient (CLI) | payer MEDICARE, OTHER, SELFPAY ==
[2019-03-10 15:54] VITALS: BMI 29.6
[2021-07-15 11:27] LABS: BUN Creatinine Ratio 17.9 (6-22); Blood Urea Nitrogen 15 mg/dL (7-17); Calcium 9.3 mg/dL (8.4-10.2); Carbon Dioxide 32 mmol/L (22-32); Chloride 100 mmol/L (98-107); Estimated Glomerular Filt Rate > 60.0 mL/min (>60); Glucose 94 mg/dL (80-110); HEMOLYSIS < 15 (0-50); Potassium 4.2 mmol/L (3.4-5.1); Sodium 136 mmol/L (137-145)
[2021-07-15 12:31] LABS: Folate > 20.0 ng/mL (2.76-20.0); Vitamin B12 765 pg/mL (239-931)
== END ==
PROVIDERS: PCP Nurse Practitioner; Referring Provider Internal Medicine Cardiovascular Disease; Visit Provider Internal Medicine Cardiovascular Disease
DX: I48.0 Paroxysmal atrial fibrillation (principal); I10 Essential (primary) hypertension; E53.8 Deficiency of other specified B group vitamins
CPT/HCPCS: 36415; 80048; 82607; 82746

== ENCOUNTER → 2021-07-27 10:07 | Outpatient (CLI) | payer MEDICARE, OTHER, SELFPAY ==
[2019-03-10 15:54] VITALS: BMI 29.6
== END ==
PROVIDERS: PCP Nurse Practitioner; Referring Provider Nurse Practitioner Family; Visit Provider Nurse Practitioner Family
DX: R19.7 Diarrhea, unspecified (principal)
CPT/HCPCS: 87045; 87177; 87899

== ENCOUNTER → 2021-08-31 16:08 | Outpatient (CLI) | payer MEDICARE, OTHER, SELFPAY ==
[2019-03-10 15:54] VITALS: BMI 29.6
--- NOTE | 2021-08-31 16:11 | DI.ECHO.S_ITS ---
[place] [facility]---------+ [facility] +---------+ : : [address] : [address] : : : : [id number] : : : : Phone: [phone]---------+ Echocardiogram Report + + :Name: KERRIE MEREDITH Study Date: 08/31/2021 Height: 67 in : :[facility] ReadingLocation: Weight: 185 lb : : Gender: Female BSA: 2.0 m2 : :: 1935 Age: 86 yrs BP: 168/83 mmHg: :Reason For Study: MITRAL INSUFFICIENCY : :Ordering Physician: ANA MARÍA, : :ROS Performed By: Lazara Melendez : :Referring: ROS GOTTI : + + Interpretation Summary The left ventricle is normal in size. The ejection fraction is estimated to be 60-65%. No significant change in LVEF from the previous study. Diastolic parameters suggest a pseudonormalization pattern, consistent with probable elevated filling pressures. Worsening diastolic function. The right ventricle is normal in size and function. There is moderate mitral regurgitation. Compared to the prior echo study, there has been an mild increase in the severity of mitral regurgitation. There is moderate aortic regurgitation. Compared to the prior echo study, there has been an mild increase in the severity of aortic regurgitation. There is moderate tricuspid regurgitation. Compared to the prior echo exam, there has been an mild increase in TR severity. The right ventricular systolic pressure is estimated to be at least 45 mmHg based on an estimated right atrial pressure of 8 mm Hg. Previously 48 mmHg. There is mild luminal irregularity and echogenicity in the abdominal aorta, suggestive of aortic atherosclerotic disease. Mild atherosclerotic plaque(s) in the aortic arch. Blood pressure: 168/83 mmHg. Procedure: A two-dimensional transthoracic echocardiogram with color flow and Doppler was performed. The study quality was technically good. Comparison is made with the echocardiogram of 07/26/2018. The patient was in sinus rhythm with heart rates between 64-71 bpm during the exam. Left Ventricle: Proximal septal thickening is noted. The left ventricle is normal in size. There is no thrombus. The ejection fraction is estimated to be 60-65%. There are no focal wall motion abnormalities. Diastolic parameters suggest a pseudonormalization pattern, consistent with probable elevated filling pressures. Right Ventricle: The right ventricle is normal in size and function. Atria: The left atrium is severely dilated. The left atrium has remained unchanged in size since the prior echo exam. The right atrium is borderline dilated. There is no Doppler evidence for an interatrial shunt. Mitral Valve: The mitral valve leaflets appear mildly thickened, but open well. There is mild to moderate mitral annular calcification. There is moderate mitral regurgitation. Compared to the prior echo study, there has been an increase in the severity of mitral regurgitation. Aortic Valve: The aortic valve is trileaflet. The aortic valve opens well. The aortic valve is mildly calcified. There is discrete nodular thickening of the right coronary cusp. There is no aortic valve stenosis. There is moderate aortic regurgitation. Compared to the prior echo study, there has been an increase in the severity of aortic regurgitation. Tricuspid Valve: Tricuspid leaflets are thickened. There is moderate tricuspid regurgitation. The right ventricular systolic pressure is estimated to be at least 45 mmHg based on an estimated right atrial pressure of 8 mm Hg. Compared to the prior echo exam, there has been an increase in TR severity. Pulmonic Valve: The pulmonic valve leaflets are thin and pliable; valve motion is normal. There is mild to moderate pulmonic regurgitation. Great Vessels: The aortic root is normal size. The dimensions of the ascending aorta are normal. There is mild luminal irregularity and echogenicity in the abdominal aorta, suggestive of aortic atherosclerotic disease. Mild atherosclerotic plaque(s) in the aortic arch. The IVC is dilated (diameter is greater than 2.1 cm) yet it collapses greater than 50% with a sniff. This suggests a right atrial pressure of 8 mm Hg. Pericardium/ Pleura There is no pericardial effusion. There is an anterior echo-free space consistent with a fat pad. There is no pleural effusion. MMode/2D Measurements & Calculations LVIDd: 4.8 cm LVOT diam: 2.0 cm LVIDs: 3.0 cm Ao root diam: 3.5 cm FS: 38.3 % asc Aorta Diam: 3.5 cm IVSd: 0.95 cm Ao Arch Diam (Prox Trans): 2.9 cm LVPWd: 0.87 cm LV randle. diameter/BSA (cm/m^2): 2.5 LV sys. diameter/BSA (cm/m^2): 1.5 LA A2 area: 28.3 cm2 RA long axis: 6.4 cm LA A4 area: 27.2 cm2 RA area: 21.8 cm2 LA length (vol): 5.9 cm RA vol: 63.0 ml LA vol: 109.9 ml RA : 32.2 ml/m2 LA vol index: 56.2 ml/m2 IVC diam: 2.4 cm RVD1 (basal): 3.6 cm RVD2 (mid): 3.2 cm TAPSE: 2.2 cm Doppler Measurements & Calculations Ao V2 max: 121.8 cm/sec LVOT Max Shant: 90.0 cm/sec Ao V2 mean: 84.1 cm/sec LV V1 max P.2 mmHg Ao max P.9 mmHg LV V1 VTI: 18.6 cm Ao mean P.1 mmHg IRMA(I,D): 2.3 cm2 Ao V2 VTI: 26.6 cm IRMA(V,D): 2.4 cm2 sev ratio: 0.70 IRMA indexed to BSA (cm^2/m^2): 1.2 AI P1/2t: 361.4 msec AI dec slope: 383.5 cm/sec2 MV E max shant: 113.3 cm/sec TR max shant: 303.7 cm/sec MV A max shant: 56.4 cm/sec TR max P.9 mmHg MV E/A: 2.0 PA V2 max: 65.8 cm/sec Med Peak E' Shant: 3.7 cm/sec PA V2 mean: 51.7 cm/sec E/E' med: 30.9 PA mean P.1 mmHg Lat Peak E' Shant: 7.6 cm/sec PA pr(Accel): 7.1 mmHg E/E' lat: 14.8 E/e' average: 22.8 MV dec time: 0.15 sec SV(LVOT): 60.1 ml Reading Physician:06:42 PM
== END ==
PROVIDERS: PCP Nurse Practitioner; Referring Provider Internal Medicine Cardiovascular Disease; Visit Provider Internal Medicine Cardiovascular Disease
DX: I08.3 Combined rheumatic disorders of mitral, aortic and tricuspid valves (principal)
CPT/HCPCS: 93306

== ENCOUNTER → 2021-11-21 14:01 | Outpatient (CLI) | payer MEDICARE, OTHER, SELFPAY ==
[2019-03-10 15:54] VITALS: BMI 29.6
[2021-11-21 15:10] LABS: Influenza A - CEPHEID Flu A NEGATIVE (NEGATIVE); Influenza B - CEPHEID Flu B NEGATIVE (NEGATIVE)
[2021-11-21 15:33] LABS: COVID-19 CEPHEID PCR (VTM/NP) Negative (Negative)
== END ==
PROVIDERS: PCP Nurse Practitioner; Visit Provider Student in an Organized Health Care Education/Training Program
DX: R19.7 Diarrhea, unspecified (principal)
CPT/HCPCS: 0240U

== ENCOUNTER → 2022-03-22 16:06 | Outpatient (CLI) | payer MEDICARE, OTHER, SELFPAY ==
[2019-03-10 15:54] VITALS: BMI 29.6
[2022-03-22 16:57] LABS: Influenza A - CEPHEID Flu A NEGATIVE (NEGATIVE); Influenza B - CEPHEID Flu B NEGATIVE (NEGATIVE); Respiratory Syncytial Virus Negative (Negative)
[2022-03-22 17:00] LABS: COVID-19 CEPHEID 4-PLEX PCR Negative (Negative)
== END ==
PROVIDERS: PCP Nurse Practitioner; Visit Provider Nurse Practitioner Family
DX: R09.89 Other specified symptoms and signs involving the circulatory and respiratory systems (principal); Z20.828 Contact with and (suspected) exposure to other viral communicable diseases
CPT/HCPCS: 0241U

== ENCOUNTER → 2022-04-22 15:27 | Outpatient (CLI) | payer MEDICARE, OTHER, SELFPAY ==
[2022-03-24 10:47] VITALS: BMI 29.6
[2022-04-22 17:50] LABS: COVID-19 CEPHEID 4-PLEX PCR Negative (Negative); Influenza A - CEPHEID Flu A NEGATIVE (NEGATIVE); Influenza B - CEPHEID Flu B NEGATIVE (NEGATIVE); Respiratory Syncytial Virus Negative (Negative)
== END ==
PROVIDERS: PCP Nurse Practitioner; Visit Provider Registered Nurse
DX: J06.9 Acute upper respiratory infection, unspecified (principal); Z20.822 Contact with and (suspected) exposure to COVID-19
CPT/HCPCS: 0241U

== ENCOUNTER → 2022-05-04 09:28 | Outpatient (CLI) | payer MEDICARE, OTHER, SELFPAY ==
[2022-03-24 10:47] VITALS: BMI 29.6
[2022-05-04 11:09] LABS: Alanine Aminotransferase 33 IU/L (<35); Albumin 4.3 g/dL (3.5-5.0); Albumin Globulin Ratio 1.6 (1.0-2.8); Alkaline Phosphatase 83 U/L (38-126); Aspartate Aminotransferase 33 IU/L (14-36); BUN Creatinine Ratio 23.3 (6-22); Blood Urea Nitrogen 17 mg/dL (7-17); Calcium 9.3 mg/dL (8.4-10.2); Carbon Dioxide 30 mmol/L (22-32); Chloride 98 mmol/L (98-107); Cholesterol 156 mg/dL (140-199); Estimated Glomerular Filt Rate > 60 mL/min (>60); Globulin 2.7 g/dL (1.7-4.1); Glucose 91 mg/dL (80-110); HDL Cholesterol 68 mg/dL (40-60); HEMOLYSIS < 15 (0-50); LDL Cholesterol Calculated 72 mg/dL (<100); Potassium 3.9 mmol/L (3.4-5.1); Sodium 138 mmol/L (137-145); Triglycerides 79 mg/dL (35-150)
== END ==
PROVIDERS: PCP Nurse Practitioner; Referring Provider Internal Medicine Cardiovascular Disease; Visit Provider Internal Medicine Cardiovascular Disease
DX: I10 Essential (primary) hypertension (principal)
CPT/HCPCS: 36415; 80053; 80061

== ENCOUNTER → 2022-05-10 11:42 | Outpatient (CLI) | payer MEDICARE, OTHER, SELFPAY ==
[2022-03-24 10:47] VITALS: BMI 29.6
--- NOTE | 2022-05-10 | DI.RAD.S_ITS ---
PROCEDURE: XR KNEE LT 3V INDICATIONS: left knee pain TECHNIQUE: 3 views of the knee were acquired. COMPARISON: [facility], , XR KNEE LT 3V, 02/16/2021, 8:35. FINDINGS: Bones: No fractures or dislocations. Apur-qq-gtkvabli tricompartmental osteoarthritis is seen with joint space narrowing, subchondral sclerosis and marginal osteophyte formation most notably in medial femoral tibial compartment and has progressed since 2020 study. No suspicious bony lesions. Soft tissues: No joint effusion. No suspicious soft tissue calcifications. 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 No fracture or dislocation. No significant joint effusion. Dictated by: Fede Pierce M.D. on 05/10/2022 at 13:12 Approved by: Fede Pierce M.D. on 05/10/2022 at 13:13
== END ==
PROVIDERS: PCP Nurse Practitioner; Referring Provider Family Medicine; Visit Provider Family Medicine
DX: M17.12 Unilateral primary osteoarthritis, left knee (principal); M25.562 Pain in left knee
CPT/HCPCS: 73562

== ENCOUNTER → 2022-05-18 09:26 | Outpatient (CLI) | payer MEDICARE, OTHER, SELFPAY ==
[2022-05-11 09:01] VITALS: BMI 29.6
[2022-05-18 10:41] LABS: COVID19 -Nasal RAPID Negative (Negative)
== END ==
PROVIDERS: PCP Nurse Practitioner; Referring Provider Internal Medicine; Visit Provider Internal Medicine
DX: Z20.822 Contact with and (suspected) exposure to COVID-19 (principal)
CPT/HCPCS: 87635; C9803

== ENCOUNTER → 2022-05-19 08:27 | Outpatient (CLI) | payer MEDICARE, OTHER, SELFPAY ==
[2022-05-11 09:01] VITALS: BMI 29.6
--- NOTE | 2022-05-29 14:10 | PM.PFT.1 ---
Pulmonary Function Test Referral & Results Date Patient Seen: 05/19/22 Requesting provider: Tian Santos Results: The spirometry demonstrates an FVC of 2.69 L which is 94% of predicted. The FEV1 was measured at 2.07 L which is 97% of predicted. The FEV1/FVC ratio was 77 which is 105% of predicted. The diffusing capacity was measured at 18.08 which is 61% of predicted. No hemoglobin value was provided, so no correction for potential anemia could be made, if appropriate. Interpretation: This study demonstrates normal forced spirometry Lung volumes were not performed There is a moderate reduction diffusing capacity suggesting disease at the capillary alveolar level Clinical correlation suggested
== END ==
PROVIDERS: PCP Nurse Practitioner; Referring Provider Internal Medicine Critical Care Medicine; Visit Provider Internal Medicine Critical Care Medicine
DX: J43.2 Centrilobular emphysema (principal); Z87.891 Personal history of nicotine dependence
CPT/HCPCS: 94010; 94729

== ENCOUNTER → 2022-09-06 13:32 | Outpatient (CLI) | payer MEDICARE, OTHER, SELFPAY ==
[2022-05-11 09:01] VITALS: BMI 29.6
--- NOTE | 2022-09-06 13:36 | DI.RAD.S_ITS ---
PROCEDURE: XR CERVICAL SPINE 4V OR 5V INDICATIONS: eval RUE radiculopathy TECHNIQUE: Five views of the cervical spine acquired. COMPARISON: None. FINDINGS: Bones: No fractures or dislocations to the T1 level. Trace anterolisthesis C6-7. Mild disc height loss C5-6. Mild facet arthropathy at C3-4 on the right results in mild right foraminal narrowing. Oblique images otherwise demonstrate patent neural foramina. Soft tissues: No prevertebral soft tissue swelling. Moderate bilateral carotid bulb calcification. IMPRESSION: 1. Mild right neural foraminal narrowing at C3-4. 2. Otherwise minimal degenerative change. Dictated by: Judit Elliott M.D. on 09/06/2022 at 15:11 Approved by: Judit Elliott M.D. on 09/06/2022 at 15:13
== END ==
PROVIDERS: PCP Nurse Practitioner; Referring Provider Registered Nurse Diabetes Educator; Visit Provider Registered Nurse Diabetes Educator
DX: M54.12 Radiculopathy, cervical region (principal); M54.2 Cervicalgia; M48.02 Spinal stenosis, cervical region
CPT/HCPCS: 72050

== ENCOUNTER → 2022-10-06 10:17 | Outpatient (CLI) | payer MEDICARE, OTHER, SELFPAY ==
[2022-05-11 09:01] VITALS: BMI 29.6
--- NOTE | 2022-10-06 | DI.ECHO.S_ITS ---
[place] [facility]---------+ [facility] +---------+ : : [address] : [address] : : : : [id number] : : : : Phone: [phone]---------+ Echocardiogram Report + + :Name: KERRIE MEREDITH Study Date: 10/06/2022 Height: 67 in : :[facility] ReadingLocation: Weight: 185 lb : : Gender: Female BSA: 2.0 m2 : :: 1935 Age: 87 yrs BP: 170/86 mmHg: :Reason For Study: Chest Pain : :Ordering Physician: Dario, : :Ros Performed By: Ayesha Bravo : :Referring: ROS GOTTI : + + Interpretation Summary The left ventricle is normal in size. The ejection fraction is estimated to be 65-70%. Previously LVEF 60 to 65%. Diastolic parameters suggest a pseudonormalization pattern, consistent with probable elevated filling pressures. There has been no significant change since the previous study. The right ventricle is normal size. The right ventricular systolic function is normal. There is mild mitral regurgitation. Compared to the prior echo study, there has been a decrease in the severity of mitral regurgitation. There is mild to moderate aortic regurgitation.Previously moderate aortic regurgitation. There is mild tricuspid regurgitation. Compared to the prior echo exam, there has been a decrease in TR severity. The right ventricular systolic pressure is estimated to be at least 40 mmHg based on an estimated right atrial pressure of 8 mm Hg. Compared to the prior echo exam, there has been a decrease in the severity of pulmonary hypertension. There is mild luminal irregularity and echogenicity in the abdominal aorta, suggestive of aortic atherosclerotic disease. BP: 170/86 mmHg Procedure: A two-dimensional transthoracic echocardiogram with color flow and Doppler was performed. The study quality was technically adequate. Comparison is made with the echocardiogram of 08/31/2021. The patient was in normal sinus rhythm during the exam. Left Ventricle: The left ventricle is normal in size. Proximal septal thickening is noted. There is no echo evidence for significant left ventricular outflow tract obstruction. There is no thrombus. The ejection fraction is estimated to be 65-70%. There are no focal wall motion abnormalities. Diastolic parameters suggest a pseudonormalization pattern, consistent with probable elevated filling pressures. There has been no significant change since the previous study. Right Ventricle: The right ventricle is normal size. The right ventricular systolic function is normal. Atria: The left atrium is severely dilated. There has been no significant change since the previous study. Right atrial size is normal. There is no Doppler evidence for an interatrial shunt. Mitral Valve: The mitral valve leaflets appear mildly thickened, but open well. There is mild to moderate mitral annular calcification. There is no mitral valve stenosis. There is mild mitral regurgitation. Compared to the prior echo study, there has been a decrease in the severity of mitral regurgitation. Aortic Valve: The aortic valve is trileaflet. The aortic valve opens well. There is mild aortic valve sclerosis. There is discrete nodular thickening of the right coronary cusp. There is no aortic valve stenosis. There is mild to moderate aortic regurgitation. Tricuspid Valve: Tricuspid leaflets are thickened. There is no tricuspid stenosis. There is mild tricuspid regurgitation. The right ventricular systolic pressure is estimated to be at least 40 mmHg based on an estimated right atrial pressure of 8 mm Hg. Compared to the prior echo exam, there has been a decrease in TR severity. Compared to the prior echo exam, there has been a decrease in the severity of pulmonary hypertension. Pulmonic Valve: The pulmonic valve leaflets are thin and pliable; valve motion is normal. There is no pulmonic valvular stenosis. There is trace pulmonic regurgitation. Great Vessels: The aortic root is normal size. The ascending aorta is at the upper limits of normal in size. There is mild luminal irregularity and echogenicity in the abdominal aorta, suggestive of aortic atherosclerotic disease. The pulmonary artery is normal size. The IVC is dilated (diameter is greater than 2.1 cm) yet it collapses greater than 50% with a sniff. This suggests a right atrial pressure of 8 mm Hg. Pericardium/ Pleura There is no pericardial effusion. There is an anterior echo-free space consistent with a fat pad. There is no pleural effusion. MMode/2D Measurements & Calculations LVIDd: 4.1 cm LVOT diam: 2.0 cm LVIDs: 2.2 cm Ao root diam: 3.4 cm FS: 45.7 % asc Aorta Diam: 3.8 cm EPSS: 0.60 cm IVSd: 1.2 cm LVPWd: 1.0 cm LV randle. diameter/BSA (cm/m^2): 2.1 LV sys. diameter/BSA (cm/m^2): 1.1 LA A2 area: 22.8 cm2 RA long axis: 4.8 cm LA A4 area: 21.5 cm2 RA area: 9.9 cm2 LA length (vol): 5.9 cm RA vol: 17.4 ml LA vol: 70.2 ml RA : 8.9 ml/m2 LA vol index: 35.9 ml/m2 RVD1 (basal): 3.4 cm LVLs ap4: 5.3 cm LVLd ap2: 6.6 cm TAPSE_phl: 2.5 cm LVLs ap2: 5.5 cm Doppler Measurements & Calculations Ao V2 max: 137.0 cm/sec LVOT Max Shant: 117.0 cm/sec Ao V2 mean: 88.7 cm/sec LV V1 max P.5 mmHg Ao max P.0 mmHg LV V1 VTI: 26.7 cm Ao mean P.0 mmHg IRMA(I,D): 2.5 cm2 Ao V2 VTI: 33.2 cm IRMA(V,D): 2.7 cm2 sev ratio: 0.80 IRMA indexed to BSA (cm^2/m^2): 1.3 AI P1/2t: 253.4 msec AI dec slope: 467.0 cm/sec2 MV E max shant: 112.0 cm/sec TR max shant: 281.5 cm/sec MV A max shant: 90.2 cm/sec TR max P.2 mmHg MV E/A: 1.2 PA V2 max: 67.0 cm/sec Med Peak E' Shant: 6.8 cm/sec PA V2 mean: 48.0 cm/sec E/E' med: 16.6 PA mean P.0 mmHg Lat Peak E' Shant: 7.6 cm/sec PA pr(Accel): 8.8 mmHg E/E' lat: 14.7 E/e' average: 15.7 MV dec time: 0.15 sec SV(LVOT): 83.9 ml AV P1/2t-pr_phl: 254.0 msec AV VR_phl: 0.85 IRMA(VTI)/BSA_phl: 1.3 Reading Physician:02:10 PM
--- NOTE | 2022-10-07 00:04 | DI.NM.S_ITS ---
DATE OF SERVICE: 10/06/2022 PROCEDURE: Exercise study. INDICATIONS: Scapular pain, epigastric pain, hypertension, Incomplete dictation. Please cancel it. CullenTrish - KEVIN/david/emanuel doc#: [id number]/job#: [id number] dd: 10/06/2022 16:51:00 dt: 10/06/2022 23:57:00 DICTATING MD/COPIES TO: Elizabeth Bishop MD COPIES MNE: CASSANDRA;
--- NOTE | 2022-10-07 00:12 | DI.NM.S_ITS ---
DATE OF SERVICE: 10/06/2022 MYOCARDIAL PERFUSION SCAN: Exercise perfusion study. INDICATIONS: Scapular pain, epigastric pain, AFib status post ablation, hypertension, shortness of breath. RADIOPHARMACEUTICAL: 25.6 millicurie technetium-99m Myoview IV was injected at stress and 12.3 millicurie technetium-99m Myoview IV was injected at rest. CARDIAC STRESS: The patient underwent exercise stress test under the supervision of an attending staff. The patient walked on Dong protocol for 3 minutes and 1 second, achieved maximum heart rate of 142, which was 106% of target heart rate. Resting blood pressure 128/80 and peak blood pressure 210/90 mmHg. Achieved 4.6 METS of workload and BENNIE positive 26%. No chest pain; however, patient had shortness of breath. Baseline rhythm was sinus with some flattening of ST segments in inferolateral leads, as well as T-wave inversion in leads L3 and aVF, which got more pronounced during stress test. The patient also had intermittent PVCs and ventricular couplets without any ventricular tachycardia. RAW DATA: Breast shadow was seen. GATED STUDY: Stress LV ejection fraction 80% without any wall motion abnormalities. Resting end-diastolic volume 103 mL. TID ratio 1.06, which is within normal limits. Lung/heart ratio 0.40, which is within normal limits. MYOCARDIAL PERFUSION SCAN: Stress supine, resting supine and stress prone images were compared to each other. Stress supine and resting supine images revealed small size, mildly decreased perfusion of distal anterior wall, as well as distal anterior septum which got completely resolved during stress prone images suggestive of breast tissue attenuation artifact. No convincing ischemia or infarction. CONCLUSION: I will call this study likely a normal myocardial perfusion study with evidence of breast tissue attenuation artifact, which got resolved during stress prone images. Diminished exercise tolerance. Preserved left ventricular function. No transient ischemic dilatation or abnormal lung/heart ratio. Baseline nonspecific ST-T changes which got more pronounced during stress. Intermittent premature ventricular contractions without any ventricular tachycardia. As far as perfusion scan is concerned, this is a low-risk myocardial perfusion scan. The patient also had hypertensive blood pressure response. Trish Berman KEVIN/david/emanuel doc#: [id number]/job#: [id number] dd: 10/06/2022 16:56:00 dt: 10/07/2022 00:02:00 DICTATING MD/COPIES TO: Elizabeth Bishop MD COPIES MNE: CASSANDRA;
== END ==
PROVIDERS: PCP Nurse Practitioner; Referring Provider Internal Medicine Cardiovascular Disease; Visit Provider Internal Medicine Cardiovascular Disease
DX: R06.09 Other forms of dyspnea (principal); R07.9 Chest pain, unspecified; I10 Essential (primary) hypertension; I34.0 Nonrheumatic mitral (valve) insufficiency; I35.1 Nonrheumatic aortic (valve) insufficiency; I07.1 Rheumatic tricuspid insufficiency
CPT/HCPCS: 78452; 93017; 93306; A9502

== ENCOUNTER → 2022-10-26 07:04 | Outpatient (CLI) | payer MEDICARE, OTHER, SELFPAY ==
[2022-05-11 09:01] VITALS: BMI 29.6
[2022-10-26 09:59] LABS: Blood Urea Nitrogen 21 mg/dL (7-17); Calcium 8.8 mg/dL (8.4-10.2); Carbon Dioxide 31 mmol/L (22-32); Chloride 96 mmol/L (98-107); Estimated Glomerular Filt Rate > 60 mL/min (>60); Glucose 85 mg/dL (80-110); HEMOLYSIS < 15 (0-50); Potassium 4.1 mmol/L (3.4-5.1); Sodium 132 mmol/L (137-145)
== END ==
PROVIDERS: PCP Nurse Practitioner; Referring Provider Internal Medicine Cardiovascular Disease; Visit Provider Internal Medicine Cardiovascular Disease
DX: I10 Essential (primary) hypertension (principal)
CPT/HCPCS: 36415; 80048

== ENCOUNTER → 2022-11-17 07:21 | Outpatient (CLI) | payer MEDICARE, OTHER, SELFPAY ==
[2022-05-11 09:01] VITALS: BMI 29.6
[2022-11-17 08:11] LABS: Hematocrit 38.5 % (36-46); Hemoglobin 13.1 g/dL (12.0-16.0); Mean Corpuscular HGB Conc 34.2 % (30-36); Mean Corpuscular Hemoglobin 30.1 PG (26-34); Mean Corpuscular Volume 88.2 fL (80-100); Platelet Count 230 X10^3/uL (150-400); Red Blood Cell Count 4.36 X10^6/uL (4.0-5.2); Red Cell Distribution Width 13.5 % (11.6-14.8)
[2022-11-17 08:34] LABS: Cholesterol 163 mg/dL (140-199); HDL Cholesterol 57 mg/dL (40-60); LDL Cholesterol Calculated 90 mg/dL (<100); Magnesium 1.9 mg/dL (1.6-2.3); Triglycerides 81 mg/dL (35-150)
== END ==
PROVIDERS: PCP Nurse Practitioner; Referring Provider Nurse Practitioner; Visit Provider Nurse Practitioner
DX: I10 Essential (primary) hypertension (principal); I48.91 Unspecified atrial fibrillation; I48.92 Unspecified atrial flutter; Z79.01 Long term (current) use of anticoagulants
CPT/HCPCS: 36415; 80061; 83735; 85027

== ENCOUNTER → 2022-12-05 12:23 | Outpatient (CLI) | payer MEDICARE, OTHER, SELFPAY ==
[2022-05-11 09:01] VITALS: BMI 29.6
--- NOTE | 2022-12-05 12:24 | DI.RAD.S_ITS ---
PROCEDURE: XR LUMBAR SPINE MIN 4V INDICATIONS: LOW BACK PAIN TECHNIQUE: 5 views of the lumbar spine were acquired, including bilateral oblique views. COMPARISON: [facility], CT, CT ANGIO CHEST ABDOMEN PELVIS, 08/30/2020, 11:42. FINDINGS: Bones: 5 nonrib-bearing vertebrae are present. There is normal bony alignment. No acute vertebral body compression fractures. No suspicious bony lesions. Moderate multilevel lumbar spondylosis with significant disc space loss and degenerative endplate changes at L4-5. Mid and lower lumbar facet arthropathy. Findings are not significantly changed compared to CT dated August 30, 2020. Soft tissues: Overlying bowel gas pattern is normal. No suspicious soft tissue calcifications. Oblique images: No pars defects. IMPRESSION: Lumbar spine without acute osseous abnormalities. Multilevel lumbar spondylosis most severe at L4-5 where there is moderate disc space loss, degenerative endplate changes, and facet arthropathy. Dictated by: Michael Fuentes M.D. on 12/05/2022 at 18:56 Approved by: Michael Fuentes M.D. on 12/05/2022 at 19:00
== END ==
PROVIDERS: PCP Nurse Practitioner; Referring Provider Anesthesiology; Visit Provider Anesthesiology
DX: M54.50 Low back pain, unspecified (principal); M47.816 Spondylosis without myelopathy or radiculopathy, lumbar region; M51.36 Other intervertebral disc degeneration, lumbar region
CPT/HCPCS: 72110; 99214

== ENCOUNTER → 2022-12-07 10:27 | Outpatient (CLI) | payer MEDICARE, OTHER, SELFPAY ==
[2022-12-06 09:54] VITALS: BMI 29.6
--- NOTE | 2022-12-07 10:45 | DI.DEXA.S_ITS ---
Bone Density Report Name: KERRIE MEREDITH Age: 87 Sex: Female Ethnicity: White Date of : 1935 Indication: osteopenia; Referring Provider: KARIS HAYWOOD Study: Bone densitometry was performed. Exam Date: December 07, 2022 Accession number: [id number] Bone Density: Region BMD T-score Z-score Classification AP Spine(L1-L4) 0.917 -1.2 1.7 Osteopenia Femoral Neck (Left) 0.661 -1.7 0.8 Osteopenia Total Hip (Left) 0.733 -1.7 0.6 Osteopenia Femoral Neck (Right) 0.668 -1.6 0.9 Osteopenia Total Hip (Right) 0.732 -1.7 0.6 Osteopenia Total Hip Mean 0.733 -1.7 0.6 Osteopenia World Health Organization criteria for BMD impression classify patients as: Normal (T-score at or above -1.0), Osteopenia (T-score between -1.0 and -2.5), or Osteoporosis (T-score at or below -2.5). 10-year Fracture Risk(1): Major Osteoporotic Fracture 14% Hip Fracture 5.8% Reported Risk Factors: [place] (), Neck BMD=0.661, BMI=28.7, smoking (1) FRAX(R) Version 3.08. Fracture probability calculated for an untreated patient. Fracture probability may be lower if the patient has received treatment. Previous Exams: -- Region Exam Age BMD T-score BMD Change BMD Change Date g/cm2 vs Baseline vs Previous -- AP Spine (L1-L4) 12/07/2022 87 0.917 -1.2 -0.054 (-5.6%)# -0.054 (-5.6%)# 11/02/2020 85 0.972 -0.7 Total Hip(Left) 12/07/2022 87 0.733 -1.7 -0.078 (-9.6%)# -0.078 (-9.6%)# 11/02/2020 85 0.811 -1.1 Total Hip(Right) 12/07/2022 87 0.732 -1.7 -0.061 (-7.7%)# -0.061 (-7.7%)# 11/02/2020 85 0.794 -1.2 -- *Denotes significance at 95% confidence level, LSC for AP Spine = 0.022 g/cm2, LSC for Total Hip = 0.027 g/cm2 # Denotes dissimilar scan types or analysis methods Impression: The patient has low bone mass, based on the Left Total Hip T-score. The patient has an estimated ten-year risk of hip fracture of 5.8% and an estimated ten-year risk of major fracture of 14%, based on the WHO FRAX algorithm. The patient has risk factors, including: smoking. No significant bone loss was observed. Discussion: BONE DENSITY IS LOW AT ONE OR MORE SKELETAL SITES. THE PATIENT'S BMD AND CLINICAL RISK FACTORS CONTRIBUTE TO THIS PATIENT'S INCREASED RISK OF FRACTURE. This patient's lowest T-score is low at one or more skeletal sites. It meets the World Health Organization's (WHO) criteria for ?low bone mass? (T-score between -1.0 and -2.5). The patient's 10-year risk of hip fracture as calculated by FRAX exceeds the threshold where pharmacological therapy is recommended by the National Osteoporosis Foundation (NOF). However, all treatment decisions require clinical judgment and consideration of individual patient factors, including patient preferences, comorbidities, previous drug use, risk factors not captured in the FRAX model (e.g., frailty, falls, vitamin D deficiency, increased bone turnover, interval significant decline in bone density) and possible under or overestimation of fracture risk by FRAX. The patient should follow a healthful lifestyle (good nutrition with adequate calcium and vitamin D, and appropriate weight-bearing exercise). Follow-Up: Consider a repeat BMD and Vertebral Fracture Assessment (VFA) exam in 2 years or sooner if medically necessary, to reassess this patient's status. Reported by: KAHLIL DEL TORO M.D. on 12/07/2022 11:49:00 AM.
== END ==
PROVIDERS: PCP Nurse Practitioner; Referring Provider Nurse Practitioner; Visit Provider Nurse Practitioner
DX: M85.852 Other specified disorders of bone density and structure, left thigh; Z78.0 Asymptomatic menopausal state; Z92.23 Personal history of estrogen therapy
CPT/HCPCS: 77080

== ENCOUNTER → 2022-12-09 14:18 | Outpatient (CLI) | payer MEDICARE, OTHER, SELFPAY ==
[2022-12-06 09:54] VITALS: BMI 29.6
--- NOTE | 2022-12-09 14:21 | DI.MRI.S_ITS ---
PROCEDURE: MR LUMBAR SPINE WO CON INDICATIONS: Chronic low back pain TECHNIQUE: Noncontrast sagittal T1 spin echo and T2 fast echo, sagittal STIR, and T2 fast spin echo through the lumbar spine. In cases with scoliosis, additional coronal T2 fast spin echo may be performed. COMPARISON: [facility], CR, XR LUMBAR SPINE MIN 4V, 12/05/2022, 12:22. FINDINGS: Image quality: Excellent. Alignment and Curvature: Trace anterolisthesis of L3 on L4. Bone Marrow: Marrow is of normal overall signal. No acute vertebral body compression fractures. Spinal Cord: Conus medullaris terminates at the L1 level. Visualized cord demonstrates normal signal and size. Paraspinous Soft Tissues: No paravertebral masses. T12-L1: Moderate diffuse disc bulge. No canal stenosis or foraminal stenosis. L1-L2: No canal stenosis or foraminal stenosis. L2-L3: Disc bulge. Facet hypertrophy. No canal stenosis. Mild bilateral foraminal stenosis. L3-L4: Disc bulge. Mild facet hypertrophy. No significant canal stenosis. Mtun-rq-onirmosk bilateral foraminal stenosis. L4-L5: Severe chronic disc height loss. Disc bulge. Facet hypertrophy. No significant canal stenosis. Xyig-js-lhtngwwp bilateral foraminal stenosis. L5-S1: Disc bulge. Facet hypertrophy. No canal stenosis. Uydd-mc-tarvytvv left foraminal stenosis. IMPRESSION: 1. Multilevel facet arthropathy. 2. No significant canal stenosis. 3. Cltx-bw-[id number] multilevel foraminal stenosis. Dictated by: Petey Beltrán M.D. on 12/11/2022 at 12:07 Approved by: Petey Beltrán M.D. on 12/11/2022 at 12:11
== END ==
PROVIDERS: PCP Nurse Practitioner; Referring Provider Anesthesiology; Visit Provider Anesthesiology
DX: M47.817 Spondylosis without myelopathy or radiculopathy, lumbosacral region (principal); M47.816 Spondylosis without myelopathy or radiculopathy, lumbar region; M48.061 Spinal stenosis, lumbar region without neurogenic claudication; M48.07 Spinal stenosis, lumbosacral region; M54.50 Low back pain, unspecified; R20.0 Anesthesia of skin; R20.2 Paresthesia of skin
CPT/HCPCS: 72148

== ENCOUNTER 2023-02-10 17:40 | Emergency (ER) | payer MEDICARE, OTHER, SELFPAY ==
[2022-12-06 09:54] VITALS: BMI 29.6
[2023-02-10 17:54] VITALS: BP 190/80; PULSE 73; RESP 18; TEMP 36.7; O2SAT 97; BMI 29.0
--- NOTE | 2023-02-10 22:09 | ED.ANIMALBIT ---
HPI - Animal Bite General Chief Complaint: Animal Bite Stated Complaint: Cat inj Time Seen by Provider: 02/10/23 22:08 Source: patient Mode of arrival: Ambulatory History of Present Illness HPI narrative: Patient is a amisha 87-year-old female who presents today with right hand injury. She reports that she was at an art fair there was a unknown cat who came up looking that it wanted to be padded she bent down to pet it and it bit and scratched her. It is quite swollen. No numbness tingling or weakness. She came here immediately. Related Data Home Medications Medication Instructions Recorded Confirmed rosita carb/mag ox/CU/zinc 1 tab PO .QD 11/20/18 01/01/23 multivitamin (Daily Multi-Vitamin 1 tab PO DAILY 11/20/18 01/01/23 tablet) cyanocobalamin (vitamin B-12) 1,000 mcg PO DAILY 09/23/20 01/01/23 1,000 mcg capsule ResMed AirCurve 10VAuto 06/02/21 01/01/23 curcumin 2 tab PO .QD 08/22/21 01/01/23 lionsmane mushroom root 2 tab PO .QD 08/22/21 01/01/23 esomeprazole magnesium 20 mg 20 mg PO DAILY 05/22/22 01/01/23 capsule,delayed release carvedilol 6.25 mg tablet 6.25 mg PO BID 12/11/22 01/01/23 fluoride (sodium) 1.1 % dental dental 12/11/22 01/01/23 paste (PreviDent 5000 Booster Plus) Previous Rx's Medication Instructions Recorded apixaban 2.5 mg tablet 2.5 mg PO BID #180 tabs 03/23/22 hydrochlorothiazide 12.5 mg tablet 12.5 mg PO QAM #90 tabs 11/14/22 olmesartan 20 mg tablet 20 mg PO DAILY #90 tabs 11/14/22 amoxicillin 875 mg-potassium 1 tab PO BID #14 tabs 02/10/23 clavulanate 125 mg tablet Allergies Allergy/AdvReac Type Severity Reaction Status Date / Time levofloxacin [LEVOFLOXACIN] Allergy Severe rash Verified 02/10/23 17:54 metronidazole [METRONIDAZOLE] Allergy Mild Rash Verified 02/10/23 17:54 pregabalin [PREGABALIN] Allergy Mild Rash Verified 02/10/23 17:54 fluticasone AdvReac Severe severe Verified 02/10/23 17:54 nosebleeds atorvastatin [From Lipitor] AdvReac Intermediate joint aches Verified 02/10/23 17:54 Review of Systems Review of Systems ROS Unobtainable: All systems reviewed & are unremarkable except as noted in HPI and below Patient History Medical History Post-menopausal osteoporosis Degenerative disc disease, lumbar Lumbar spondylosis Iliotibial band syndrome, left leg Acute pain of left knee Itch of right eye Hyperlipidemia Abnormal bruising Greater trochanteric bursitis of left hip Arthralgia Acute right-sided low back pain without sciatica 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 Nodule of flexor tendon sheath Body posture problem Iliotibial band syndrome of both sides History of humerus fracture Chronic pain of right elbow Chronic pain of right hand Cranial somatic dysfunction Segmental and somatic dysfunction of rib cage Foot joint stiffness, bilateral Somatic dysfunction of lower extremity Sacral region somatic dysfunction Pelvic somatic dysfunction Upper extremity somatic dysfunction Segmental and somatic dysfunction of abdomen and other regions Lumbar region somatic dysfunction Thoracic region somatic dysfunction Cervical somatic dysfunction Chronic bilateral low back pain without sciatica Chronic thoracic back pain Neck pain, chronic 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 Hiatal hernia Edema Periodic limb movement disorder (PLMD) Nocturnal hypoxemia (~07/2019) Obstructive sleep apnea (~07/2019) Impairment of balance Unsteady gait Numbness and tingling of both feet Advance care planning Advance directive in chart History of COPD Positive FIT (fecal immunochemical test) Chronic anticoagulation Pain of left breast Menopausal vaginal dryness Vaginal stricture Cranial somatic dysfunction Viral URI with cough Tobacco abuse, in remission Osteoarthritis H pylori ulcer Stomach ulcer Colitis Fracture, humerus closed PVCs (premature ventricular contractions) Palpitations Hypertension Chronic a-fib Epistaxis, recurrent Atypical chest pain Surgical History History of carpal tunnel surgery of left wrist S/P rotator cuff repair H/O nasal septoplasty H/O cataract extraction History of tonsillectomy History of cholecystectomy History of radiofrequency ablation procedure for cardiac arrhythmia S/P ablation of atrial fibrillation No significant past surgical history Family History Mother Hypertension Heart disease Breast cancer Father Hypertension Heart disease Sister Hypertension Heart disease Cancer Brother Heart disease Cancer Social History marital status: unknown household members: none occupational status: previously employed Smoking Status: Former smoker Tobacco: How many years used: 30 alcohol intake: current substance use type: does not use Smoking Status: Former smoker alcohol intake frequency: 0-2 drinks per day Substance Use Type: does not use Exam Initial Vital Signs Initial Vital Signs: Vital Signs Temperature 98.1 F 02/10/23 17:54 Pulse Rate 73 02/10/23 17:54 Respiratory Rate 18 02/10/23 17:54 Blood Pressure 190/80 H 02/10/23 17:54 Pulse Oximetry 97 02/10/23 17:54 Oxygen Delivery Method Room Air 02/10/23 17:54 GENERAL: Well-appearing, well-nourished and in no acute distress. CARDIOVASCULAR: peripheral pulses in tact, cap refill <2 sec RESPIRATORY: No respiratory distress, speaks in full sentences without difficulty EXTREMITIES: Normal range of motion, no clubbing or edema. Neurovascularly intact Right hand moving all fingers distal radial pulse intact NEUROLOGICAL: Cranial nerves II through XII grossly intact. Normal gait and speech. SKIN: Right hand superficial laceration mildly swollen minimal erythema no streaking Course Orders Ordered: Discontinued Medications Amoxicillin/Clavulanate Potassium (Amoxicillin/Clav 875/125 Mg) 1 tab PO NOW ONE Stop: 02/10/23 22:20 Last Admin: 02/10/23 22:25 Dose: 1 tab Documented By: MADI Vital Signs Vital signs: Vital Signs - 8 hr 02/10/23 17:54 02/10/23 22:24 02/10/23 22:27 Temperature 98.1 F Pulse Rate 73 72 Respiratory Rate 18 16 Blood Pressure 190/80 H 182/81 H Pulse Oximetry 97 96 Oxygen Delivery Method Room Air Room Air MDM - Animal Bite MDM Narrative Medical decision making narrative: Patient 87-year-old female who presents today with cat bite and scratch to the right hand. She is some superficial tears on the dorsal side. It is mildly swollen. No neurovascular deficits. Given her 1st dose of Augmentin in the ED. Discharge Plan Departure Patient Disposition: Home Clinical Impression: Cat bite Instructions: DI for Cat Bite Activity Restrictions/Additional Instructions: *You have been diagnosed with cat bite *What to do: At this time please continue to monitor take antibiotics keep clean with soap and water. May apply antibiotic ointment *Continue to take medications as directed Augmentin 1 tablet twice a day for 7 days--> [facility] *Follow up with your primary care provider in 2-3 days or call [phone] *Return to ER if you should have increasing redness drinking up the arm difficulty moving fingers or any new, worsening or concerning symptoms Prescriptions: New amoxicillin-pot clavulanate 875-125 mg tablet 1 tab PO BID Qty: 14 0RF No Action rosita carb/mag ox/CU/zinc 1 tab PO .QD multivitamin [Daily Multi-Vitamin] tablet 1 tab PO DAILY lionsmane mushroom root 2 tab PO .QD curcumin 2 tab PO .QD apixaban 2.5 mg tablet 2.5 mg PO BID Qty: 180 3RF esomeprazole magnesium 20 mg capsule,delayed release(DR/EC) 20 mg PO DAILY Patient Comments: TAKE 1 CAPSULE BY MOUTH EVERY DAY IN THE MORNING hydrochlorothiazide 12.5 mg tablet 12.5 mg PO QAM Qty: 90 3RF olmesartan 20 mg tablet 20 mg PO DAILY Qty: 90 3RF carvedilol 6.25 mg tablet 6.25 mg PO BID fluoride (sodium) [PreviDent 5000 Booster Plus] 1.1 % paste dental cyanocobalamin (vitamin B-12) 1,000 mcg capsule 1,000 mcg PO DAILY (DME) ResMed AirCurve 10VAuto See Rx Instructions .Route .MEDSUPPLY Rx Instructions: IPAP: 13 EPAP: 6 PS: 4 DME: [facility] Referrals: Lakshmi Jung ARNP [Primary Care Provider] - Stand Alone Forms: Patient Portal/API
[2023-02-10 22:24] VITALS: PULSE 72; RESP 16; O2SAT 96
[2023-02-10] MEDS: AMOXICILLIN/CLAV 875/125 MG 1 TAB PO (22:25)
[2023-02-10 22:27] VITALS: BP 182/81
== END 2023-02-10 22:36 | disposition home or self-care (01) ==
PROVIDERS: Emergency Provider Emergency Medicine; Family Provider Nurse Practitioner; PCP Nurse Practitioner
DX: S60.571A Other superficial bite of hand of right hand, initial encounter (principal); W55.01XA Bitten by cat, initial encounter; Y93.89 Activity, other specified; Y92.89 Other specified places as the place of occurrence of the external cause
CPT/HCPCS: 99283

== ENCOUNTER 2023-02-12 12:08 | Observation (INO) | payer MEDICARE, OTHER, SELFPAY ==
[2022-12-06 09:54] VITALS: BMI 29.6
[2023-02-12] VITALS (12 sets, daily range): BP systolic 137–246; BP diastolic 46–92; PULSE 63–72; RESP 18–19; TEMP 36.1–36.5; O2SAT 96–99; BMI 29.0
--- NOTE | 2023-02-12 12:28 | DI.RAD.S_ITS ---
PROCEDURE: XR HAND RT MIN 3V INDICATIONS: cat bite to dorsum of hand with worse cellulitis TECHNIQUE: 3 views of the hand(s) acquired. COMPARISON: None. FINDINGS: Bones: No fractures or dislocations. Carpal bones are normally aligned. No suspicious bony lesions. Mild interphalangeal joint space narrowing with osteophytosis. Soft tissues: No suspicious soft tissue calcifications. IMPRESSION: No acute abnormality. Dictated by: Mason Kang M.D. on 02/12/2023 at 13:10 Approved by: Mason Kang M.D. on 02/12/2023 at 13:10
--- NOTE | 2023-02-12 12:32 | ED_ITS ---
HPI - Animal Bite General Chief Complaint: Animal Bite Stated Complaint: rt hand swelling/cat bite/here T-2 Time Seen by Provider: 02/12/23 12:17 Source: patient Mode of arrival: Ambulatory History of Present Illness HPI narrative: Patient is an 87-year-old right-hand dominant female who was seen here in the emergency department 2 days ago after being bit/scratched by a cat on the back of her right hand. She was seen here in the emergency department. Was placed on Augmentin. Since that time has had worsening pain and swelling and redness and warmth to the area that is now extending up her forearm. She has been taking the antibiotics as directed. States that her symptoms did get much worse over the past 12 hours. No fevers. Related Data Home Medications Medication Instructions Recorded Confirmed multivitamin (Daily Multi-Vitamin 1 tab PO DAILY 11/20/18 02/12/23 tablet) cyanocobalamin (vitamin B-12) 1,000 mcg PO DAILY 09/23/20 02/12/23 1,000 mcg capsule curcumin 2 tab PO DAILY 08/22/21 02/12/23 lionsmane mushroom root 2 tab PO DAILY 08/22/21 02/12/23 esomeprazole magnesium 20 mg 20 mg PO DAILY 05/22/22 02/12/23 capsule,delayed release carvedilol 6.25 mg tablet 6.25 mg PO BID 12/11/22 02/12/23 apixaban 2.5 mg tablet (Eliquis) 2.5 mg PO BID 02/12/23 02/12/23 calcium carb-ergocalciferol (vit 1 tab PO BEDTIME 02/12/23 02/12/23 D2) 600 mg calcium-200 unit tablet vitamin E 200 unit tablet 90 mg PO BEDTIME 02/12/23 02/12/23 Previous Rx's Medication Instructions Recorded hydrochlorothiazide 12.5 mg tablet 12.5 mg PO QAM #90 tabs 11/14/22 olmesartan 20 mg tablet 20 mg PO DAILY #90 tabs 11/14/22 Allergies Allergy/AdvReac Type Severity Reaction Status Date / Time levofloxacin [LEVOFLOXACIN] Allergy Severe rash Verified 02/10/23 17:54 metronidazole [METRONIDAZOLE] Allergy Mild Rash Verified 02/10/23 17:54 pregabalin [PREGABALIN] Allergy Mild Rash Verified 02/10/23 17:54 fluticasone AdvReac Severe severe Verified 02/10/23 17:54 nosebleeds atorvastatin [From Lipitor] AdvReac Intermediate joint aches Verified 02/10/23 17:54 Review of Systems Constitutional Constitutional: Reports system reviewed and no additional complaints, except as documented Musculoskeletal Musculoskeletal: Reports system reviewed and no additional complaints, except as documented Integumentary/Breasts Skin/Breast: Reports system reviewed and no additional complaints, except as documented Neurologic Neurologic: Reports system reviewed and no additional complaints, except as documented Hematologic/Lymphatic On Anticoagulants: Yes Patient History Medical History Post-menopausal osteoporosis Degenerative disc disease, lumbar Lumbar spondylosis Iliotibial band syndrome, left leg Acute pain of left knee Itch of right eye Hyperlipidemia Abnormal bruising Greater trochanteric bursitis of left hip Arthralgia Acute right-sided low back pain without sciatica 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 Nodule of flexor tendon sheath Body posture problem Iliotibial band syndrome of both sides History of humerus fracture Chronic pain of right elbow Chronic pain of right hand Cranial somatic dysfunction Segmental and somatic dysfunction of rib cage Foot joint stiffness, bilateral Somatic dysfunction of lower extremity Sacral region somatic dysfunction Pelvic somatic dysfunction Upper extremity somatic dysfunction Segmental and somatic dysfunction of abdomen and other regions Lumbar region somatic dysfunction Thoracic region somatic dysfunction Cervical somatic dysfunction Chronic bilateral low back pain without sciatica Chronic thoracic back pain Neck pain, chronic 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 Hiatal hernia Edema Periodic limb movement disorder (PLMD) Nocturnal hypoxemia (~07/2019) Obstructive sleep apnea (~07/2019) Impairment of balance Unsteady gait Numbness and tingling of both feet Advance care planning Advance directive in chart History of COPD Positive FIT (fecal immunochemical test) Chronic anticoagulation Pain of left breast Menopausal vaginal dryness Vaginal stricture Cranial somatic dysfunction Viral URI with cough Tobacco abuse, in remission Osteoarthritis H pylori ulcer Stomach ulcer Colitis Fracture, humerus closed PVCs (premature ventricular contractions) Palpitations Hypertension Chronic a-fib Epistaxis, recurrent Atypical chest pain Surgical History History of carpal tunnel surgery of left wrist S/P rotator cuff repair H/O nasal septoplasty H/O cataract extraction History of tonsillectomy History of cholecystectomy History of radiofrequency ablation procedure for cardiac arrhythmia S/P ablation of atrial fibrillation No significant past surgical history Family History Mother Hypertension Heart disease Breast cancer Father Hypertension Heart disease Sister Hypertension Heart disease Cancer Brother Heart disease Cancer Social History marital status: unknown household members: none occupational status: previously employed Smoking Status: Former smoker Tobacco: How many years used: 30 alcohol intake: current substance use type: does not use Smoking Status: Former smoker alcohol intake frequency: 0-2 drinks per day Alcohol type: wine Substance Use Type: does not use Exam Initial Vital Signs Initial Vital Signs: Vital Signs Pulse Rate 68 02/12/23 12:17 Pulse Oximetry 97 02/12/23 12:17 Const General: cooperative, comfortable and No ill appearing HENMT Head: normal to inspection and normocephalic Cardio Pulses: radial pulses present on the right Skin Other: She does have a couple small scratches on the dorsum of the right hand. There is an extensive area of redness and swelling of the dorsum of the hand that does extend up the dorsum of the forearm to the mid forearm. There is no induration. No defined abscess. Neuro Sensory Exam: no sensory deficits noted Extrem General: normal to inspection and capillary refill normal Course Orders Ordered: ED Orders 02/12/23 12:28 XR hand RT min 3V Stat 02/12/23 12:40 Basic Metabolic Panel Stat Complete Blood Count AUTO DIFF Stat Lactate (Lactic Acid) Stat Procalcitonin Stat 02/12/23 13:12 Blood Culture Stat Acetaminophen (Acetaminophen 325 Mg Tablet) 650 mg PO Q6H PRN PRN Reason: Fever/Mild Pain (1-3) Apixaban (Apixaban 5 Mg Tablet) 2.5 mg PO BID [facility] Carvedilol (Carvedilol 3.125 Mg Tablet) 6.25 mg PO BID [facility] Doxycycline Hyclate (Doxycycline Hyclate 100 Mg Tablet) 100 mg PO BID [facility] Stop: 02/17/23 13:44 Last Admin: 02/12/23 14:19 Dose: 100 mg Documented By: HCW Ampicillin Sodium/Sulbactam (Sodium 3 gm/ Sodium Chloride) 100 mls @ 200 mls/hr IV Q6H [facility] Last Admin: 02/12/23 14:22 Dose: 200 mls/hr Documented By: HCW Labetalol HCl (Labetalol 20 Mg/4 Ml Syringe) 10 mg IV Q5MIN PRN PRN Reason: SBP >220 or DBP >110 Last Admin: 02/12/23 14:45 Dose: 10 mg Documented By: HCW Losartan Potassium (Losartan 50 Mg Tablet) 50 mg PO DAILY [facility] Melatonin (Melatonin 3 Mg Tablet) 6 mg PO BEDTIME PRN PRN Reason: Insomnia Naloxone HCl (Naloxone 0.4 Mg/Ml Vial) 0.2 mg IV Q2MIN PRN PRN Reason: Opiate Reversal Ondansetron HCl (Ondansetron 4 Mg/2 Ml Inj) 4 mg IV Q8HR PRN PRN Reason: Nausea And Vomiting Oxycodone HCl (Oxycodone Ir 5 Mg Tablet) 5 mg PO Q4HR PRN PRN Reason: Pain, Moderate (4-6) Pantoprazole Sodium (Pantoprazole Dr 20 Mg Tablet) 20 mg PO 0600 [facility] Polyethylene Glycol (Polyethylene Glycol 3350 17 Gm Powd.Pack) 17 gm PO DAILY PRN PRN Reason: Constipation Sennosides (Sennosides 8.6 Mg Tablet) 8.6 mg PO BID PRN PRN Reason: Constipation Discontinued Medications Clindamycin Phosphate (Cleocin) 900 mg in 50 mls @ 50 mls/hr IV NOW ONE Stop: 02/12/23 13:29 Last Infusion: 02/12/23 13:45 Dose: 50 mls/hr Documented By: Admin: 02/12/23 13:12 Dose: 50 mls/hr Documented By: MELISSA Vital Signs Vital signs: Vital Signs - 8 hr 02/12/23 12:17 02/12/23 12:20 02/12/23 12:30 Temperature 97.7 F Pulse Rate 68 65 64 Respiratory Rate 18 Blood Pressure 203/78 H Pulse Oximetry 97 96 96 Oxygen Delivery Method Room Air 02/12/23 12:31 02/12/23 12:31 Temperature Pulse Rate 67 Respiratory Rate Blood Pressure 162/72 H Pulse Oximetry 96 Oxygen Delivery Method MDM - Animal Bite Lab Data Attestation: I reviewed the patient's lab results. 02/12/23 12:40 02/12/23 12:40 Labs: Lab Results 02/12/23 Range/Units 12:40 WBC 6.9 (4.5-11.0) X10^3/uL RBC 4.37 (4.0-5.2) X10^6/uL Hgb 13.4 (12.0-16.0) g/dL Hct 38.9 (36-46) % MCV 89.1 (80-100) fL MCH 30.6 (26-34) PG MCHC 34.3 (30-36) % RDW 13.3 (11.6-14.8) % Plt Count 240 (150-400) X10^3/uL Neut % (Auto) 69.3 (50-75) % Lymph % (Auto) 17.5 L (25-40) % Henderson % (Auto) 11.0 (3-14) % Eos % (Auto) 1.5 L (2-4) % Baso % (Auto) 0.7 (0-2) % Neut # (Auto) 4800 (2033-7304) /uL Lymph # (Auto) 1200 (2936-5482) /uL Henderson # (Auto) 800 (0-900) /uL Eos # (Auto) 100 (0-450) /uL Baso # (Auto) 0 (0-100) /uL Sodium 133 L (137-145) mmol/L Potassium 4.2 (3.4-5.1) mmol/L Chloride 101 (98-107) mmol/L Carbon Dioxide 26 (22-32) mmol/L BUN 14 (7-17) mg/dL Creatinine 0.62 (0.52-1.04) mg/dL Estimated GFR > 60 (>60) mL/min BUN/Creatinine Ratio 22.6 H (6-22) Glucose 95 (80-110) mg/dL Lactate 1.2 (0.7-2.1) mmol/L Calcium 9.7 (8.4-10.2) mg/dL Magnesium 2.0 (1.6-2.3) mg/dL Procalcitonin 0.05 (<0.5) ng/mL Imaging Data Extremity x-ray #1: Radiologist's Impression: PROCEDURE: XR HAND RT MIN 3V INDICATIONS: cat bite to dorsum of hand with worse cellulitis TECHNIQUE: 3 views of the hand(s) acquired. COMPARISON: None. FINDINGS: Bones: No fractures or dislocations. Carpal bones are normally aligned. No suspicious bony lesions. Mild interphalangeal joint space narrowing with osteophytosis. Soft tissues: No suspicious soft tissue calcifications. IMPRESSION: No acute abnormality. MDM Narrative Medical decision making narrative: Patient has failed outpatient oral antibiotics for an animal bite wound. She is nontoxic appearing but the cellulitis is extending upper forearm. Patient does require admission to the hospital for IV antibiotics. Discussed the case with Dr. iMtchell hospitalist on-call who will admit. X-ray was ordered to evaluate for foreign body. I did discuss the need for admission with the patient. Discharge Plan Departure Patient Disposition: Admitted As Inpatient Clinical Impression: Cellulitis, Animal bite Admit Date/Time: 02/12/23 12:40 Admit Provider: Scott Mitchell
[2023-02-12 12:54] LABS: Add Manual Diff / Slide Review NO; Basophils Absolute Auto 0 /uL (0-100); Basophils Percent Auto 0.7 % (0-2); Eosinophils Absolute Auto 100 /uL (0-450); Eosinophils Percent Auto 1.5 % (2-4); Hematocrit 38.9 % (36-46); Hemoglobin 13.4 g/dL (12.0-16.0); Lymphocytes Absolute Auto 1200 /uL (1100-4500); Lymphocytes Percent Auto 17.5 % (25-40); Mean Corpuscular HGB Conc 34.3 % (30-36); Mean Corpuscular Hemoglobin 30.6 PG (26-34); Mean Corpuscular Volume 89.1 fL (80-100); Monocytes Absolute Auto 800 /uL (0-900); Neutrophils Absolute Auto 4800 /uL (1500-7000); Neutrophils Percent Auto 69.3 % (50-75); Platelet Count 240 X10^3/uL (150-400); Red Blood Cell Count 4.37 X10^6/uL (4.0-5.2); Red Cell Distribution Width 13.3 % (11.6-14.8); White Blood Cell Count 6.9 X10^3/uL (4.5-11.0)
[2023-02-12 13:05] LABS: BUN Creatinine Ratio 22.6 (6-22); Blood Urea Nitrogen 14 mg/dL (7-17); Calcium 9.7 mg/dL (8.4-10.2); Carbon Dioxide 26 mmol/L (22-32); Chloride 101 mmol/L (98-107); Estimated Glomerular Filt Rate > 60 mL/min (>60); Glucose 95 mg/dL (80-110); HEMOLYSIS 18 (0-50); Lactate (Lactic Acid) 1.2 mmol/L (0.7-2.1); Potassium 4.2 mmol/L (3.4-5.1); Sodium 133 mmol/L (137-145)
[2023-02-12] MEDS: CLINDAMYCIN 900 MG/50 ML PIGGYBACK 50 MG IV (13:12)
[2023-02-12 13:22] LABS: Procalcitonin 0.05 ng/mL (<0.5)
[2023-02-12] MEDS: DOXYCYCLINE HYCLATE 100 MG TABLET PO (14:19)
[2023-02-12] MEDS: AMPICILLIN/SULBACTAM 3 GM 3 GM in SODIUM CHLORIDE 0.9% 100 ML IV ×2 (14:22→20:09)
--- NOTE | 2023-02-12 14:43 | P.HP_ITS ---
History of Present Illness History of Present Illness Date Patient Seen: 02/12/23 Time Patient Seen: 17:00 Chief complaint: rt hand swelling/cat bite/here T-2 Narrative: Trish Berman as an 87-year-old female with past medical history of chronic AFib on Eliquis, hyperlipidemia, chronic back pain, peripheral neuropathy, hypertension and GERD who presents with right hand cellulitis from cat bite. She was bit by a cat in the home of an artist while on an art studio tour when she bent down to pet it 2 days ago. Was seen in our ED and given augmentin. She took it but the swelling and redness continued to worsen and began moving up her forearm. She came back to the ED today. She states she can use her hand and bend her wrist but it is painful. No loss of sensation. She is up to date on her tetatus. She thinks the cat was an indoor cat is it lived with the artist. She denies fever/chills, NV, CP, SOB, abd pain or diarrhea. [facility] Medical History Post-menopausal osteoporosis Degenerative disc disease, lumbar Lumbar spondylosis Iliotibial band syndrome, left leg Acute pain of left knee Itch of right eye Hyperlipidemia Abnormal bruising Greater trochanteric bursitis of left hip Arthralgia Acute right-sided low back pain without sciatica 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 Nodule of flexor tendon sheath Body posture problem Iliotibial band syndrome of both sides History of humerus fracture Chronic pain of right elbow Chronic pain of right hand Cranial somatic dysfunction Segmental and somatic dysfunction of rib cage Foot joint stiffness, bilateral Somatic dysfunction of lower extremity Sacral region somatic dysfunction Pelvic somatic dysfunction Upper extremity somatic dysfunction Segmental and somatic dysfunction of abdomen and other regions Lumbar region somatic dysfunction Thoracic region somatic dysfunction Cervical somatic dysfunction Chronic bilateral low back pain without sciatica Chronic thoracic back pain Neck pain, chronic 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 Hiatal hernia Edema Periodic limb movement disorder (PLMD) Nocturnal hypoxemia (~07/2019) Obstructive sleep apnea (~07/2019) Impairment of balance Unsteady gait Numbness and tingling of both feet Advance care planning Advance directive in chart History of COPD Positive FIT (fecal immunochemical test) Chronic anticoagulation Pain of left breast Menopausal vaginal dryness Vaginal stricture Cranial somatic dysfunction Viral URI with cough Tobacco abuse, in remission Osteoarthritis H pylori ulcer Stomach ulcer Colitis Fracture, humerus closed PVCs (premature ventricular contractions) Palpitations Hypertension Chronic a-fib Epistaxis, recurrent Atypical chest pain Surgical History History of carpal tunnel surgery of left wrist S/P rotator cuff repair H/O nasal septoplasty H/O cataract extraction History of tonsillectomy History of cholecystectomy History of radiofrequency ablation procedure for cardiac arrhythmia S/P ablation of atrial fibrillation No significant past surgical history Family History Mother Hypertension Heart disease Breast cancer Father Hypertension Heart disease Sister Hypertension Heart disease Cancer Brother Heart disease Cancer Social History marital status: unknown household members: none occupational status: previously employed Smoking Status: Former smoker Tobacco: How many years used: 30 alcohol intake: current substance use type: does not use Meds Home Medications and Allergies Home Medications Medication Instructions Recorded Confirmed Type multivitamin (Daily Multi-Vitamin 1 tab PO DAILY 11/20/18 02/12/23 History tablet) cyanocobalamin (vitamin B-12) 1,000 mcg PO DAILY 09/23/20 02/12/23 History 1,000 mcg capsule curcumin 2 tab PO DAILY 08/22/21 02/12/23 History lionsmane mushroom root 2 tab PO DAILY 08/22/21 02/12/23 History esomeprazole magnesium 20 mg 20 mg PO DAILY 05/22/22 02/12/23 History capsule,delayed release hydrochlorothiazide 12.5 mg tablet 12.5 mg PO QAM #90 tabs 11/14/22 02/12/23 Rx olmesartan 20 mg tablet 20 mg PO DAILY #90 tabs 11/14/22 02/12/23 Rx carvedilol 6.25 mg tablet 6.25 mg PO BID 12/11/22 02/12/23 History apixaban 2.5 mg tablet (Eliquis) 2.5 mg PO BID 02/12/23 02/12/23 History calcium carb-ergocalciferol (vit 1 tab PO BEDTIME 02/12/23 02/12/23 History D2) 600 mg calcium-200 unit tablet vitamin E 200 unit tablet 90 mg PO BEDTIME 02/12/23 02/12/23 History Allergies Allergy/AdvReac Type Severity Reaction Status Date / Time levofloxacin [LEVOFLOXACIN] Allergy Severe rash Verified 02/10/23 17:54 metronidazole [METRONIDAZOLE] Allergy Mild Rash Verified 02/10/23 17:54 pregabalin [PREGABALIN] Allergy Mild Rash Verified 02/10/23 17:54 fluticasone AdvReac Severe severe Verified 02/10/23 17:54 nosebleeds atorvastatin [From Lipitor] AdvReac Intermediate joint aches Verified 02/10/23 17:54 Review of Systems Review of Systems Narrative: All other systems reviewed with the patient and are negative unless otherwise stated. Exam Vital Signs (past 8 hours): - 02/12/23 12:17 02/12/23 12:20 02/12/23 12:30 Temperature 97.7 F Pulse Rate 68 65 64 Respiratory Rate 18 Blood Pressure 203/78 H Pulse Oximetry 97 96 96 Oxygen Delivery Method Room Air 02/12/23 12:31 02/12/23 12:31 02/12/23 13:00 Temperature Pulse Rate 67 63 Respiratory Rate Blood Pressure 162/72 H Pulse Oximetry 96 97 Oxygen Delivery Method 02/12/23 13:00 02/12/23 13:30 02/12/23 13:30 Temperature Pulse Rate 64 Respiratory Rate Blood Pressure 153/92 H 185/72 H Pulse Oximetry 98 Oxygen Delivery Method Oxygen Delivery Method Room Air Narrative Exam Narrative: GEN: no acute distress HEENT: moist mucous membranes, PERRL NECK: trachea midline, no JVD CV: regular rate and rhythm, no murmurs PULM: clear bilaterally ABD: soft, nontender, nondistended, no organomegaly EXT: erythema, swelling and increased warmth to dorsum of right hand with bite puncture wound in the middle dorsal hand, extending up mid-forearm. No fluctuance or purulent drainage. NEURO: awake, alert, oriented, no focal deficits Objective Labs 02/12/23 12:40 02/12/23 12:40 Labs: Laboratory Results - last 24 hr 02/12/23 12:40 WBC 6.9 RBC 4.37 Hgb 13.4 Hct 38.9 MCV 89.1 MCH 30.6 MCHC 34.3 RDW 13.3 Plt Count 240 Neut % (Auto) 69.3 Lymph % (Auto) 17.5 L [place] % (Auto) 11.0 Eos % (Auto) 1.5 L Baso % (Auto) 0.7 Neut # (Auto) 4800 Lymph # (Auto) 1200 [place] # (Auto) 800 Eos # (Auto) 100 Baso # (Auto) 0 Sodium 133 L Potassium 4.2 Chloride 101 Carbon Dioxide 26 BUN 14 Creatinine 0.62 Estimated GFR > 60 BUN/Creatinine Ratio 22.6 H Glucose 95 Lactate 1.2 Calcium 9.7 Magnesium 2.0 Procalcitonin 0.05 Assessment & Plan Assessment & Plan narrative: # right hand cellulitis due to cat bite -failed outpatient treatment with Augmentin, uptodate on tetanus -cat was indoor cat so low-risk for rabies -start Unasyn, MRSA swab negative -hand x-ray with no foreign body -follow-up blood cultures # HTN urgency -BP up to 200's systolic -continue home BP meds -labetalol IV PRN ordered # chronic A-fib -continue coreg and eliquis # GERD -continue PPI Code status is DNR. DVT prophylaxis with Eliquis. Proxy is her niece Luh Moyer. I have reviewed home meds and used all available resources to reconcile the home meds. Case discussed with ED physician/APC and patient will be admitted to the hospitalist service for further workup and management. This patient will be admitted as observation and will require less than 2 midnights of hospital time to treat right hand cellulitis. Quality VTE Deep Vein Thrombosis/Pulmonary Embolism Present on Admission: No
[2023-02-12] MEDS: LABETALOL 20 MG/4 ML SYRINGE 10 MG IV (14:45)
[2023-02-12 15:41] LABS: MRSA (Nasal) PCR Not Detected (Not Detect)
[2023-02-12] MEDS: carvediloL 3.125 MG TABLET 6.25 MG PO (20:10)
[2023-02-12] MEDS: ACETAMINOPHEN 325 MG TABLET 650 MG PO (20:10)
[2023-02-12] MEDS: APIXABAN 5 MG TABLET 2.5 MG PO (20:11)
[2023-02-13] VITALS (8 sets, daily range): BP systolic 119–189; BP diastolic 46–72; PULSE 57–69; RESP 16–18; TEMP 35.9–36.8; O2SAT 96–99
[2023-02-13] MEDS: AMPICILLIN/SULBACTAM 3 GM 3 GM in SODIUM CHLORIDE 0.9% 100 ML IV ×4 (01:53→20:28)
[2023-02-13] MEDS: PANTOPRAZOLE DR 20 MG TABLET PO (05:52)
[2023-02-13 06:11] LABS: Add Manual Diff / Slide Review NO; Basophils Absolute Auto 0 /uL (0-100); Basophils Percent Auto 1.1 % (0-2); Eosinophils Absolute Auto 100 /uL (0-450); Eosinophils Percent Auto 2.5 % (2-4); Hemoglobin 12.3 g/dL (12.0-16.0); Lymphocytes Absolute Auto 1100 /uL (1100-4500); Lymphocytes Percent Auto 25.6 % (25-40); Mean Corpuscular HGB Conc 34.2 % (30-36); Mean Corpuscular Volume 87.7 fL (80-100); Monocytes Absolute Auto 600 /uL (0-900); Monocytes Percent Auto 12.6 % (3-14); Neutrophils Absolute Auto 2500 /uL (1500-7000); Neutrophils Percent Auto 58.2 % (50-75); Platelet Count 213 X10^3/uL (150-400); Red Blood Cell Count 4.11 X10^6/uL (4.0-5.2); Red Cell Distribution Width 13.4 % (11.6-14.8); White Blood Cell Count 4.4 X10^3/uL (4.5-11.0)
[2023-02-13 06:17] LABS: HEMOLYSIS < 15 (0-50)
[2023-02-13 06:18] LABS: BUN Creatinine Ratio 22.9 (6-22); Blood Urea Nitrogen 16 mg/dL (7-17); Calcium 8.8 mg/dL (8.4-10.2); Carbon Dioxide 26 mmol/L (22-32); Chloride 102 mmol/L (98-107); Estimated Glomerular Filt Rate > 60 mL/min (>60); Glucose 96 mg/dL (80-110); Sodium 135 mmol/L (137-145)
[2023-02-13] MEDS: LOSARTAN 50 MG TABLET PO (09:19)
[2023-02-13] MEDS: APIXABAN 5 MG TABLET 2.5 MG PO ×2 (09:19→20:27)
[2023-02-13] MEDS: carvediloL 3.125 MG TABLET 6.25 MG PO ×2 (09:19→20:28)
[2023-02-13] MEDS: SODIUM CHLORIDE 0.9% FLUSH 10 ML IV (09:20)
[2023-02-13] MEDS: ACETAMINOPHEN 325 MG TABLET 650 MG PO ×2 (09:21→20:27)
--- NOTE | 2023-02-13 11:31 | CM.DANOTE ---
Patient is an 87 yo female who was admitted on 02/12/23 for Elbow Pain/cellulitis. Pt has [employer] and [employer] for insurance and her PCP is Lakshmi Jung. EMR was reviewed. Per MD, pt with hx of AFIB and neuropathy and admitted after cat bite infection and failed outpt abx and admitted for tx of cellulitis with IV-Abx. SW met bedside with pt and explained role and she confirms she lives in [place] alone and is very active and independent at baseline. Pt does not use DME for ambulation and still drives and has her vehicle in the parking lot as she drove herself to the ED. Pt's DPOA is her niece Leyla and she has local supportive friends and [facility]. Pt denies any hx of HH or SNF and does not anticipate any needs at d/c. Pt has already called her PCP office and scheduled a f/u appointment next week. Plan: SW to follow for plan of likely d/c home via own POV tomorrow 02/14 if medically stable and plan is home on oral abx. RUSS Velasquez Discharge Planning/Care Management Advanced directive, confirm from FAMILY Start: 02/12/23 14:05 Freq: Q24H Status: Complete Protocol: Document 02/12/23 15:32 HCW (Rec: 02/12/23 15:51 HCW [id number]) Co-signed By Gabi Huerta RN Advance Directive, confirm on record Time 15:35 Person contacted patient Copy received Yes CM Discharge Assessment Start: 02/13/23 11:29 Freq: Status: Active Protocol: Document 02/13/23 11:29 BF (Rec: 02/13/23 11:31 BF [id number]) Discharge Planning Assessment Assigned Brush Polisher RUSS Tom DPOA/Assigned Designee Name shaw Mayer Advance Directives? Yes Advance Directives on File Yes: states DNR History Provided By Patient,Medical Record Has Patient been admitted in last 30 No days? Prior Living Arrangements House Household Members none Type of transporation used prior to Drives own vehicle admit Comment Has car in the parking lot Independent with ADL's Yes Is patient alert and oriented? Yes Caregiver for Another No Barriers to Discharge No Discharge Plan Home Transportation Arrangement Has own vehicle in the parking lot Referrals Initiated None needed Whiteboard Updated in Patient Room with Yes name and ext. # of Brush Polisher Review Status In Process Please Provide Date Initial DC 02/13/23 Assessment Was Performed Next Review Type Continued Stay Review
--- NOTE | 2023-02-13 15:15 | PM.PN.1 ---
Subjective Subjective Interval history: Cellulitis improving. Can bend hand more today. Exam Vital Signs (past 8 hours): - 02/13/23 08:36 02/13/23 09:19 02/13/23 09:19 Temperature 97.3 F L Pulse Rate 69 Respiratory Rate 17 Blood Pressure 189/72 H 189/72 H 189/72 H Pulse Oximetry 97 Oxygen Flow Rate 0 02/13/23 12:00 Temperature 97.1 F L Pulse Rate 57 L Respiratory Rate 16 Blood Pressure 173/71 H Pulse Oximetry 99 Oxygen Flow Rate 0 Oxygen Delivery Method Room Air Oxygen Flow Rate 0 Narrative Exam Narrative: GEN: no acute distress HEENT: moist mucous membranes, PERRL NECK: trachea midline, no JVD CV: regular rate and rhythm, no murmurs PULM: clear bilaterally ABD: soft, nontender, nondistended, no organomegaly EXT: erythema, swelling and warmth to dorsum of right hand extending up mid-forearm is improved, with bite puncture wound in the middle dorsal hand. No fluctuance or purulent drainage. NEURO: awake, alert, oriented, no focal deficits Objective Labs 02/13/23 05:43 02/13/23 05:43 Labs: Laboratory Results - last 24 hr 02/12/23 02/13/23 14:05 05:43 WBC 4.4 L RBC 4.11 Hgb 12.3 Hct 36.0 MCV 87.7 MCH 30.0 MCHC 34.2 RDW 13.4 Plt Count 213 Neut % (Auto) 58.2 Lymph % (Auto) 25.6 [place] % (Auto) 12.6 Eos % (Auto) 2.5 Baso % (Auto) 1.1 Neut # (Auto) 2500 Lymph # (Auto) 1100 [place] # (Auto) 600 Eos # (Auto) 100 Baso # (Auto) 0 Sodium 135 L Potassium 4.0 Chloride 102 Carbon Dioxide 26 BUN 16 Creatinine 0.70 Estimated GFR > 60 BUN/Creatinine Ratio 22.9 H Glucose 96 Calcium 8.8 Nasal Screen MRSA (PCR) Not detected PFSH Medical History Post-menopausal osteoporosis Degenerative disc disease, lumbar Lumbar spondylosis Iliotibial band syndrome, left leg Acute pain of left knee Itch of right eye Hyperlipidemia Abnormal bruising Greater trochanteric bursitis of left hip Arthralgia Acute right-sided low back pain without sciatica 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 Nodule of flexor tendon sheath Body posture problem Iliotibial band syndrome of both sides History of humerus fracture Chronic pain of right elbow Chronic pain of right hand Cranial somatic dysfunction Segmental and somatic dysfunction of rib cage Foot joint stiffness, bilateral Somatic dysfunction of lower extremity Sacral region somatic dysfunction Pelvic somatic dysfunction Upper extremity somatic dysfunction Segmental and somatic dysfunction of abdomen and other regions Lumbar region somatic dysfunction Thoracic region somatic dysfunction Cervical somatic dysfunction Chronic bilateral low back pain without sciatica Chronic thoracic back pain Neck pain, chronic 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 Hiatal hernia Edema Periodic limb movement disorder (PLMD) Nocturnal hypoxemia (~07/2019) Obstructive sleep apnea (~07/2019) Impairment of balance Unsteady gait Numbness and tingling of both feet Advance care planning Advance directive in chart History of COPD Positive FIT (fecal immunochemical test) Chronic anticoagulation Pain of left breast Menopausal vaginal dryness Vaginal stricture Cranial somatic dysfunction Viral URI with cough Tobacco abuse, in remission Osteoarthritis H pylori ulcer Stomach ulcer Colitis Fracture, humerus closed PVCs (premature ventricular contractions) Palpitations Hypertension Chronic a-fib Epistaxis, recurrent Atypical chest pain Surgical History History of carpal tunnel surgery of left wrist S/P rotator cuff repair H/O nasal septoplasty H/O cataract extraction History of tonsillectomy History of cholecystectomy History of radiofrequency ablation procedure for cardiac arrhythmia S/P ablation of atrial fibrillation No significant past surgical history Family History Mother Hypertension Heart disease Breast cancer Father Hypertension Heart disease Sister Hypertension Heart disease Cancer Brother Heart disease Cancer Social History marital status: unknown household members: none occupational status: previously employed Smoking Status: Former smoker Tobacco: How many years used: 30 alcohol intake: current substance use type: does not use Assessment & Plan Assessment & Plan narrative: # right hand cellulitis due to cat bite -failed outpatient treatment with Augmentin, up to date on tetanus -cat was indoor cat so low-risk for rabies -started Unasyn, MRSA swab negative -hand x-ray with no foreign body -blood cultures NG at 24 hours # HTN urgency, improving -BP up to 200's systolic -continue home BP meds -labetalol IV PRN ordered # chronic A-fib -continue coreg and eliquis # GERD -continue PPI Code status is DNR. DVT prophylaxis with Eliquis. Proxy is her niece Luh Moyer. I have reviewed home meds and used all available resources to reconcile the home meds. Dispo: Home on 02/14. Quality VTE Deep Vein Thrombosis/Pulmonary Embolism Present on Admission: No
[2023-02-14] VITALS: BP 140/47; PULSE 61; RESP 17; TEMP 36.2; O2SAT 97
[2023-02-14] MEDS: SODIUM CHLORIDE 0.9% FLUSH 10 ML IV ×2 (00:07→08:09)
[2023-02-14] MEDS: AMPICILLIN/SULBACTAM 3 GM 3 GM in SODIUM CHLORIDE 0.9% 100 ML IV ×3 (01:33→13:10)
[2023-02-14] MEDS: PANTOPRAZOLE DR 20 MG TABLET PO (05:35)
[2023-02-14 06:00] VITALS: BP 147/83; PULSE 66; RESP 19; TEMP 36.4; O2SAT 95
[2023-02-14 06:23] LABS: Add Manual Diff / Slide Review NO; Basophils Absolute Auto 100 /uL (0-100); Basophils Percent Auto 1.2 % (0-2); Eosinophils Absolute Auto 100 /uL (0-450); Eosinophils Percent Auto 2.9 % (2-4); Hematocrit 35.8 % (36-46); Hemoglobin 12.2 g/dL (12.0-16.0); Lymphocytes Absolute Auto 1200 /uL (1100-4500); Lymphocytes Percent Auto 26.8 % (25-40); Mean Corpuscular HGB Conc 34.1 % (30-36); Mean Corpuscular Hemoglobin 30.2 PG (26-34); Mean Corpuscular Volume 88.4 fL (80-100); Monocytes Absolute Auto 600 /uL (0-900); Monocytes Percent Auto 11.8 % (3-14); Neutrophils Absolute Auto 2700 /uL (1500-7000); Neutrophils Percent Auto 57.3 % (50-75); Platelet Count 200 X10^3/uL (150-400); Red Blood Cell Count 4.05 X10^6/uL (4.0-5.2); Red Cell Distribution Width 13.9 % (11.6-14.8); White Blood Cell Count 4.7 X10^3/uL (4.5-11.0)
[2023-02-14 06:41] LABS: BUN Creatinine Ratio 24.6 (6-22); Blood Urea Nitrogen 16 mg/dL (7-17); Calcium 8.9 mg/dL (8.4-10.2); Carbon Dioxide 26 mmol/L (22-32); Chloride 105 mmol/L (98-107); Estimated Glomerular Filt Rate > 60 mL/min (>60); Glucose 96 mg/dL (80-110); HEMOLYSIS < 15 (0-50); Sodium 135 mmol/L (137-145)
[2023-02-14 08:07] VITALS: BP 142/54
[2023-02-14] MEDS: carvediloL 3.125 MG TABLET 6.25 MG PO (08:07)
[2023-02-14] MEDS: APIXABAN 5 MG TABLET 2.5 MG PO (08:07)
[2023-02-14 08:08] VITALS: BP 142/54
[2023-02-14] MEDS: LOSARTAN 50 MG TABLET PO (08:08)
[2023-02-14 08:23] VITALS: BP 142/54; PULSE 60; RESP 18; TEMP 36.2; O2SAT 96
--- NOTE | 2023-02-14 10:38 | PM.DS.1 ---
History of Present Illness History of Present Illness Chief complaint: rt hand swelling/cat bite/here T-2 Narrative: Trish Berman as an 87-year-old female with past medical history of chronic AFib on Eliquis, hyperlipidemia, chronic back pain, peripheral neuropathy, hypertension and GERD who presents with right hand cellulitis from cat bite. She was bit by a cat in the home of an artist while on an art studio tour when she bent down to pet it 2 days ago. Was seen in our ED and given augmentin. She took it but the swelling and redness continued to worsen and began moving up her forearm. She came back to the ED today. She states she can use her hand and bend her wrist but it is painful. No loss of sensation. She is up to date on her tetatus. She thinks the cat was an indoor cat is it lived with the artist. She denies fever/chills, NV, CP, SOB, abd pain or diarrhea. Discharge Providers Provider Date of admission: 02/12/23 12:40 Discharge Date: 02/14/23 Primary care physician: KARIS Cardenas Discharge provider: Scott Mitchell DO Summary Hospital Course Discharge Diagnosis: # right hand cellulitis due to cat bite -failed outpatient treatment with Augmentin, up to date on tetanus -cat was indoor cat so low-risk for rabies -started Unasyn, MRSA swab negative -hand x-ray with no foreign body -blood cultures NG at 24 hours -discharged on po clindamycin and doxy to finish 5 days # HTN urgency, improving -BP up to 200's systolic -continue home BP meds -labetalol IV PRN ordered # chronic A-fib -continue coreg and eliquis # GERD -continue PPI Hospital Course: Admitted for cellulitis which failed po therapy with augmentin from cat bite. She improved on IV unasyn and discharged home to finish 5 days on po clindmycin and doxy. Exam Vital Signs (past 8 hours): - 02/14/23 06:00 02/14/23 08:07 02/14/23 08:08 Temperature 97.6 F Pulse Rate 66 Respiratory Rate 19 Blood Pressure 147/83 H 142/54 H 142/54 H Pulse Oximetry 95 Oxygen Flow Rate 0 02/14/23 08:23 Temperature 97.2 F L Pulse Rate 60 Respiratory Rate 18 Blood Pressure 142/54 H Pulse Oximetry 96 Oxygen Flow Rate 0 Oxygen Delivery Method Room Air Oxygen Flow Rate 0 Narrative Exam Narrative: GEN: no acute distress HEENT: moist mucous membranes, PERRL NECK: trachea midline, no JVD CV: regular rate and rhythm, no murmurs PULM: clear bilaterally ABD: soft, nontender, nondistended, no organomegaly EXT: erythema, swelling and warmth to dorsum of right hand extending up mid-forearm is improved, with bite puncture wound in the middle dorsal hand. No fluctuance or purulent drainage. NEURO: awake, alert, oriented, no focal deficits Objective Labs 02/14/23 06:04 02/14/23 06:04 Labs: Laboratory Results - last 24 hr 02/14/23 06:04 WBC 4.7 RBC 4.05 Hgb 12.2 Hct 35.8 L MCV 88.4 MCH 30.2 MCHC 34.1 RDW 13.9 Plt Count 200 Neut % (Auto) 57.3 Lymph % (Auto) 26.8 [place] % (Auto) 11.8 Eos % (Auto) 2.9 Baso % (Auto) 1.2 Neut # (Auto) 2700 Lymph # (Auto) 1200 [place] # (Auto) 600 Eos # (Auto) 100 Baso # (Auto) 100 Sodium 135 L Potassium 4.0 Chloride 105 Carbon Dioxide 26 BUN 16 Creatinine 0.65 Estimated GFR > 60 BUN/Creatinine Ratio 24.6 H Glucose 96 Calcium 8.9 PFSH Medical History Post-menopausal osteoporosis Degenerative disc disease, lumbar Lumbar spondylosis Iliotibial band syndrome, left leg Acute pain of left knee Itch of right eye Hyperlipidemia Abnormal bruising Greater trochanteric bursitis of left hip Arthralgia Acute right-sided low back pain without sciatica 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 Nodule of flexor tendon sheath Body posture problem Iliotibial band syndrome of both sides History of humerus fracture Chronic pain of right elbow Chronic pain of right hand Cranial somatic dysfunction Segmental and somatic dysfunction of rib cage Foot joint stiffness, bilateral Somatic dysfunction of lower extremity Sacral region somatic dysfunction Pelvic somatic dysfunction Upper extremity somatic dysfunction Segmental and somatic dysfunction of abdomen and other regions Lumbar region somatic dysfunction Thoracic region somatic dysfunction Cervical somatic dysfunction Chronic bilateral low back pain without sciatica Chronic thoracic back pain Neck pain, chronic 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 Hiatal hernia Edema Periodic limb movement disorder (PLMD) Nocturnal hypoxemia (~07/2019) Obstructive sleep apnea (~07/2019) Impairment of balance Unsteady gait Numbness and tingling of both feet Advance care planning Advance directive in chart History of COPD Positive FIT (fecal immunochemical test) Chronic anticoagulation Pain of left breast Menopausal vaginal dryness Vaginal stricture Cranial somatic dysfunction Viral URI with cough Tobacco abuse, in remission Osteoarthritis H pylori ulcer Stomach ulcer Colitis Fracture, humerus closed PVCs (premature ventricular contractions) Palpitations Hypertension Chronic a-fib Epistaxis, recurrent Atypical chest pain Surgical History History of carpal tunnel surgery of left wrist S/P rotator cuff repair H/O nasal septoplasty H/O cataract extraction History of tonsillectomy History of cholecystectomy History of radiofrequency ablation procedure for cardiac arrhythmia S/P ablation of atrial fibrillation No significant past surgical history Family History Mother Hypertension Heart disease Breast cancer Father Hypertension Heart disease Sister Hypertension Heart disease Cancer Brother Heart disease Cancer Social History marital status: unknown household members: none occupational status: previously employed Smoking Status: Former smoker Tobacco: How many years used: 30 alcohol intake: current substance use type: does not use Discharge Plan Discharge Plan Patient Disposition: Home Provider Discharge Comment: You were admitted for a cat bite which we treated with IV antibiotics and it improved significantly. You will now finished 5 days of oral antibiotics at home. Discharge orders & Medications Prescriptions: Continued multivitamin [Daily Multi-Vitamin] tablet 1 tab PO DAILY lionsmane mushroom root 2 tab PO DAILY curcumin 2 tab PO DAILY esomeprazole magnesium 20 mg capsule,delayed release(DR/EC) 20 mg PO DAILY Patient Comments: TAKE 1 CAPSULE BY MOUTH EVERY DAY IN THE MORNING hydrochlorothiazide 12.5 mg tablet 12.5 mg PO QAM Qty: 90 3RF olmesartan 20 mg tablet 20 mg PO DAILY Qty: 90 3RF carvedilol 6.25 mg tablet 6.25 mg PO BID calcium carbonate-vitamin D2 600 mg calcium- 200 unit Tablet 1 tab PO BEDTIME vitamin E 200 unit Tablet 90 mg PO BEDTIME Eliquis 2.5 mg tablet 2.5 mg PO BID cyanocobalamin (vitamin B-12) 1,000 mcg capsule 1,000 mcg PO DAILY Follow up/Referrals: Lakshmi Jung ARNP [Primary Care Provider] - 1 Week Visit Report/Discharge Packet Instructions: DI for Cellulitis -- Adult, Animal Bites, Doxycycline, Clindamycin Stand Alone Forms: Patient Portal/API, Stroke Signs & Symptoms Discharge Data Primary Care Provider: Lakshmi Jung Attending Provider: Scott Mitchell Admit Date/Time: 02/12/23 12:40 Quality VTE Deep Vein Thrombosis/Pulmonary Embolism Present on Admission: No
--- NOTE | 2023-02-14 13:22 | PC.NURSE ---
Pt to discharge as soon as her iv abx infusing is completed. Pt has her own vehicle here to will drive herself home. Went over d/c instructions with Pt-discussed d/c meds, time of last dose, reminded Pt to take her abx as ordered and completely. Recommended she consider probiotics to balance her bacterial rodney due to multiple abx dosing. Encouraged Pt to drink plenty of fluids to prevent constipation or dehydration. Reviewed stroke education. Discussed s/s of infection and recommended Pt contact her PCP or come to the ER if infection gets worse or doesn't improve. Pt denies further questions and will be taken out to her POV via w/c by [employer] DEVELOPER when she is ready to go.
== END 2023-02-14 14:09 | disposition home or self-care (01) ==
LOC: ED 12:41 → AC 13:08
PROVIDERS: Admitting Provider Student in an Organized Health Care Education/Training Program; Emergency Provider Emergency Medicine; Family Provider Nurse Practitioner; PCP Nurse Practitioner; Referring Provider Emergency Medicine; Visit Provider Student in an Organized Health Care Education/Training Program
DX: L03.114 Cellulitis of left upper limb (principal); I48.20 Chronic atrial fibrillation, unspecified; W55.03XA Scratched by cat, initial encounter; I16.0 Hypertensive urgency; K21.9 Gastro-esophageal reflux disease without esophagitis; Z66 Do not resuscitate
CPT/HCPCS: 36415; 73130; 80048; 83605; 83735; 84145; 85025; 87040; 87797; 96365; 96366; 96367; 96375; 99283; 99284; G0378; J0295

== ENCOUNTER → 2023-03-01 09:45 | Outpatient (CLI) | payer MEDICARE, OTHER, SELFPAY ==
[2023-02-12 12:50] VITALS: BMI 29.0
== END ==
PROVIDERS: Family Provider Nurse Practitioner; PCP Nurse Practitioner; Visit Provider Physician Assistant
DX: T14.8XXA Other injury of unspecified body region, initial encounter (principal); L03.90 Cellulitis, unspecified; W55.01XA Bitten by cat, initial encounter
CPT/HCPCS: 87070; 87075; 87205

== ENCOUNTER 2023-04-12 08:30 | Outpatient (RCR) | payer MEDICARE, OTHER, SELFPAY ==
[2022-12-06 09:54] VITALS: BMI 29.6
[2023-02-12 12:50] VITALS: BMI 29.0
--- NOTE | 2023-02-21 14:16 | OT.OP.EVAL ---
Visit Care Team Role Provider Type KARIS Cardenas Family Provider Advanced Senior Consumer Insights Consultant Primary Care Provider Specialty: Family Practice Address: [address] [place] [address], [id number] Email: [email or web address] Graves MD Attending Provider Physician Referring Provider Specialty: Anesthesiology Interventional Radiology Pain Management Address: [address] [place], [address] Email: [email or web address] Occupational Therapy Initial Evaluation OT Outpatient Adult Evaluation Start: 02/21/23 12:38 Freq: Status: Active Protocol: Document 02/21/23 12:41 AMS (Rec: 02/21/23 12:55 AMS [id number]) General Information - Adult Visit Number [id number]; visit --> KX modifier Plan of Care Dates 02/21/23 - 04/04/23 Insurance Information Medicare Part B; KX modifier required after visit Visit Start Time 08:30 Visit Stop Time 09:15 Total Visit Minutes 45 Treatment Setting Outpatient Care Note Type Initial Evaluation Identification Confirmed Yes Identification Confirmed By Self Goals Treatment Initiated home exercise program. Electrical Machine Builder Goals 1. Juan Pablo will be modified independent with home exercise program utilizing provided written and visual instructions from therapist. 2. Juan Pablo will be able to verbally identify 2 to 3 different strategies to address pain/discomfort of the ulnar surface of the right distal upper extremity. Assessment/Plan Treatment Assessment Juan Pablo is a 87 year-old R hand dominant female referred to outpatient OT secondary to chronic R hand and elbow pain/ discomfort. Medical history is significant for arthritis, back pain, blood pressure (med managed), neck pain, neuropathy (lower extremities) , osteopenia, shortness of breath, tonsillectomy, gall bladder surgery, nasal septum surgery, rotator cuff surgery, L CTR, and fracture of R humerus w/ surgical repair w/ ulnar nerve transposition. Recent hospitalization d/t cat bite (02/12/23 - 02/14/23); discharged to home w/ oral antibiotics. Use of stress ball for strengthening of the R hand. Injury to dorsum of R hand is still healing at this time. 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 She remains active via volunteering at [facility] 1 x a week, attending a functional fitness class 2 x a week at the [facility] for 1 hour, engaging in yoga and doing her lower back PT exercises (including squats and bridges). QuickDASH UE Outcome Measure Score = 20.45; QuickDASH UE Sports/ Performing Arts Module Score ( playing of [employer]) = 37.50. Pain Assessment Hand/Wrist Grid = indication of 3 out of 10 on pain scale relative to volar ulnar surface of R palm and 5th digit. Pain Assessment Whole Body Grid 3 out of 10 relative to dorsal ulnar surface of R hand and 2 out of 10 relative to dorsal ulnar surface of R forearm. B full elbow flexion. -25 degrees active R elbow ext vs full L elbow ext. B full forearm pronation. 75 degrees active R forearm supination vs 85 degrees active L forearm supination. 45 degrees active R wrist ext vs 65 degrees active L wrist ext. 50 degrees active R wrist flex vs 60 degrees active L wrist flex. 20 degrees active R wrist RD vs 25 degrees active L wrist RD. 25 degrees active R wrist UD vs 20 degrees active L wrist UD. Able to oppose bilateral thumbs to each digit pad w/ EO; executed w/ IPJ in neutral. Good wrist strength bilaterally; 5/5 MMT in all directions. Good functional bilateral elbow strength despite decreased active R elbow ext. B thumb stiffness; decreased bilateral thumb abduction. Mechanical Technical Service Specialist strength Dynamometer II testing results : R Mechanical Technical Service Specialist = 39.0# of force w/ elbow in 90 degrees flex ( compared to 75+ y.o. women 42. 6 +/- 11.0# of force); L grip wrapper = 52.0# of force w/ elbow in 90 degrees flex (compared to 75+ y.o. women 37.6 +/- 8.9); R grip wrapper = 36.0# of force w/ elbow ext; L grip wrapper = 40.0# of force w/ elbow ext. R lateral wong pinch = 9.5# of force ( compared to 75+ y.o. women 12. 6 +/- 2.3); L lateral wong pinch = 13.0# of force ( compared to 75+ y.o. women 11. 4 +/- 2.6). R tip pinch = 8.5# of force (compared to 75+ y.o . women 9.6 +/- 2.8); L tip pinch = 9.5# of force ( compared to 75+ y.o. women 9.3 +/- 2.4). R 3-jaw pinch = 8.5 # of force (compared to 75+ y. o. women 12.0 +/- 2.6); L 3- jaw pinch = 11.0# of force ( compared to 11.5 +/- 2.6). Juan Pablo would likely benefit from skilled outpatient OT to establish distal R UE home exercise program and address pain/discomfort with discussion of joint protection principles and compensatory strategies/adaptive equipment as needed. Home Exercise Program 02/21/23 = Instructed in use of ball for self-manual ( massage to dorsum R forearm/ ulnar surface) for approx 2-3 minutes or as needed; instructed in use of ball as well to address tight bilateral thumb adductors w/ hold of 20 to 30 seconds. Length of treatment (weeks) 6 Plan of Care Start Date 02/21/23 Plan of Care End Date 04/04/23 Treatment Frequency Once a Week Therapeutic Contents Active Range of Motion, Adaptive Equipment Education, Client Education,Functional Activities,Home Exercise Program,Joint Protection, Manual Therapy,Education, Neurodevelopment Treatment, Neuromuscular Re-Education, Self-Care,Stretching/ Flexibility Activities, Therapeutic Activities, Therapeutic Exercises, Modalities Modalities As Needed,As Prescribed Additional Types of Modalities Heat/Ice/Contrast baths/ Paraffin bath
--- NOTE | 2023-02-28 11:26 | OT.OP.TRT ---
Visit Care Team Role Provider Type KARIS Cardenas Family Provider Advanced Vehicle Maintenance Supervisor Primary Care Provider Specialty: Family Practice Address: [address] [place] [address], [id number] Email: [email or web address] Homer Graves MD Attending Provider Physician Referring Provider Specialty: Anesthesiology Interventional Radiology Pain Management Address: [address] [place], [address] Email: [email or web address] Occupational Therapy Treatment Note OT Outpatient Treatment Note - Adult Start: 02/21/23 12:38 Freq: Status: Active Protocol: Document 02/28/23 11:12 AMS (Rec: 02/28/23 11:25 [facility] [id number]) OT Outpatient Adult Treatment Note Session Time Visit Start Time 08:30 Visit Stop Time 09:15 Total Visit Minutes 45 Visit Information Visit Number 06/16; 06/25; visit --> KX modifier Plan of Care Dates 02/21/23 - 04/04/23 Setting Treatment Setting Outpatient Care Visit Type Note Type Treatment Note General Information General Information Juan Pablo is a 87 year-old R hand dominant female referred to outpatient OT secondary to chronic R hand and elbow pain/ discomfort. Medical history is significant for arthritis, back pain, blood pressure (med managed), neck pain, neuropathy (lower extremities) , osteopenia, shortness of breath, tonsillectomy, gall bladder surgery, nasal septum surgery, rotator cuff surgery, L CTR, and fracture of R humerus w/ surgical repair w/ ulnar nerve transposition. Recent hospitalization d/t cat bite (02/12/23 - 02/14/23); discharged to home w/ oral antibiotics. Use of stress ball for strengthening of the R hand. Injury to dorsum of R hand is still healing at this time. - Subjective Observations Has been executing passive wrist flex w/ elbow ext and forearm pronation and passive wrist ext w/ elbow ext and forearm pronation. - Objective Objective Measurements Please refer to below for progress towards meeting established OT goals: Mcfp Goals 1. Juan Pablo will be modified independent with home exercise program utilizing provided written and visual instructions from therapist. 2. Juan Pablo will be able to verbally identify 2 to 3 different strategies to address pain/discomfort of the ulnar surface of the right distal upper extremity. - Treatment 2 Descriptor Fine motor planning. R hand (2 -5th digits). Isolated finger taps w/ palm on TT. 1 x 5. Isolated finger abd/add w/ palm on TT. 1 x 5. 1 Descriptor Ultrasound. 20% duty cycle. 2. 0 w/cm2. Skin intact pre- and post- treatment. Applied to dorsal R forearm. Exercises 2 Descriptor Passive Hand/digits ROM/Tendon glides Passive extension at MPJs. 20 sec completed bilaterally. x 2 . Passive hook fist. 20 sec completed bilaterally. Tendon glides x 3 cycles. 1 Descriptor Wrist Passive Range of Motion Passive wrist flex w/ elbow ext and forearm pronation. 1 x 20 sec. Passive wrist ext w/ elbow ext and forearm pronation. 1 x 20 sec. Instructed in passive wrist ext w/ elbow ext w/ hand positioned on seated surface. 1 x 20 sec. Instructed in passive wrist ext w/ elbow ext w/ hand(s) positioned on wall. 1 x 20 sec . - Assessment Assessment of Improvement (+) band aid applied to small wound located on dorsum of R hand. Advanced exercises; see below for details. Overall, good session. Juan Pablo would likely benefit from skilled outpatient OT to establish distal R UE home exercise program and address pain/discomfort with discussion of joint protection principles and compensatory strategies/adaptive equipment as needed. Home Exercise Program 02/28/23 = Instructed in tendon glides, passive hook fist, passive MPJ extension (2 -5 digits), and use of wall or surface sitting on for wrist stretches (w/ wrist in extension). Rec holding stretch for 20 sec. Instructed in digit isolation motor planning (diff amts of finger flex and abd/add). 02/21/23 = Instructed in use of ball for self-manual ( massage to dorsum R forearm/ ulnar surface) for approx 2-3 minutes or as needed; instructed in use of ball as well to address tight bilateral thumb adductors w/ hold of 20 to 30 seconds. - Plan Therapy Recommendations Continue with Current Program, Advance per Rehabilitation Protocol
--- NOTE | 2023-03-13 11:44 | OT.OP.TRT ---
Visit Care Team Role Provider Type KARIS Cardenas Family Provider Advanced Sheet Metal Supervisor Primary Care Provider Specialty: Family Practice Address: [address] [place] [address], [id number] Email: [email or web address] Homer Graves MD Attending Provider Physician Referring Provider Specialty: Anesthesiology Interventional Radiology Pain Management Address: [address] [place], [address] Email: [email or web address] Occupational Therapy Treatment Note OT Outpatient Treatment Note - Adult Start: 02/21/23 12:38 Freq: Status: Active Protocol: Document 03/13/23 11:37 AMS (Rec: 03/13/23 11:44 AMS [id number]) OT Outpatient Adult Treatment Note Session Time Visit Start Time 08:30 Visit Stop Time 09:15 Total Visit Minutes 45 Visit Information Visit Number 07/14; 07/23; visit --> KX modifier Plan of Care Dates 02/21/23 - 04/04/23 Setting Treatment Setting Outpatient Care Visit Type Note Type Treatment Note General Information General Information Juan Pablo is a 87 year-old R hand dominant female referred to outpatient OT secondary to chronic R hand and elbow pain/ discomfort. Medical history is significant for arthritis, back pain, blood pressure (med managed), neck pain, neuropathy (lower extremities) , osteopenia, shortness of breath, tonsillectomy, gall bladder surgery, nasal septum surgery, rotator cuff surgery, L CTR, and fracture of R humerus w/ surgical repair w/ ulnar nerve transposition. Recent hospitalization d/t cat bite (02/12/23 - 02/14/23); discharged to home w/ oral antibiotics. Use of stress ball for strengthening of the R hand. Injury to dorsum of R hand is still healing at this time. - Subjective Observations (+) carry-over of passive wrist flex/wrist ext range of motion exercises; indicated that she felt that 'this had gotten better'. Removal of bandaid from dorsum of R hand; location of injury appears to almost be fully healed (some redness still present at site of injury). (-) significant swelling present. Patient/Caregiver Compliance with Home Excellent Exercise Program - Objective Objective Measurements Please refer to below for progress towards meeting established OT goals: Half-Way Goals 1. Juan Pablo will be modified independent with home exercise program utilizing provided written and visual instructions from therapist. 2. Juan Pablo will be able to verbally identify 2 to 3 different strategies to address pain/discomfort of the ulnar surface of the right distal upper extremity. - Treatment 2 Descriptor Fine motor planning. R hand (2 -5th digits). Isolated finger taps w/ palm on TT. 1 x 5. Isolated finger abd/add w/ palm on TT. 1 x 5. 1 Descriptor Ultrasound. 20% duty cycle. 2. 0 w/cm2. x 10 minutes. Skin intact pre- and post- treatment. Applied to dorsal R forearm. Exercises 2 Descriptor Passive Hand/digits ROM/Tendon glides Passive extension at MPJs. 20 sec completed bilaterally. x 2 . Passive hook fist. 20 sec completed bilaterally. Tendon glides x 3 cycles. 1 Descriptor Wrist Passive Range of Motion Passive wrist flex w/ elbow ext and forearm pronation. 1 x 20 sec. Passive wrist ext w/ elbow ext and forearm pronation. 1 x 20 sec. Passive wrist UD w/ use of TT. 1 x 20 sec. N/A 03/13/23 Instructed in passive wrist ext w/ elbow ext w/ hand positioned on seated surface. 1 x 20 sec. Instructed in passive wrist ext w/ elbow ext w/ hand(s) positioned on wall. 1 x 20 sec . - Assessment Assessment of Improvement Advanced exercises; instructed in passive wrist RD w/ use of TT. Currently executing exercise w/ elbow in approx 45 degrees flex. Will work towards straightening of elbow into extension as able; demonstrated alternative passive wrist RD stretch at wall. Overall, good session. Follow-up will be in approximately 2 weeks. Juan Pablo would likely continue to benefit from skilled outpatient OT to establish distal R UE home exercise program and address pain/ discomfort with discussion of joint protection principles and compensatory strategies/ adaptive equipment as needed. Home Exercise Program 03/13/23 = Instructed in passive wrist RD to address tightness; use of TT w/ working towards elbow near full extension w/ hold 20 sec. 1 - 2 times daily, or as needed. 02/28/23 = Instructed in tendon glides, passive hook fist, passive MPJ extension (2 -5 digits), and use of wall or surface sitting on for wrist stretches (w/ wrist in extension). Rec holding stretch for 20 sec. Instructed in digit isolation motor planning (diff amts of finger flex and abd/add). 02/21/23 = Instructed in use of ball for self-manual ( massage to dorsum R forearm/ ulnar surface) for approx 2-3 minutes or as needed; instructed in use of ball as well to address tight bilateral thumb adductors w/ hold of 20 to 30 seconds. - Plan Therapy Recommendations Continue with Current Program, Advance per Rehabilitation Protocol
--- NOTE | 2023-04-12 09:44 | OT.OP.DC ---
Visit Care Team Role Provider Type KARIS Cardenas Family Provider Advanced Meat Team Member Primary Care Provider Address: [address] [place] [address], [id number] Email: [email or web address] Homer Graves MD Attending Provider Physician Referring Provider Address: [address] [place], [address] Email: [email or web address] OT Outpatient OT Outpatient Adult Evaluation Start: 02/21/23 12:38 Freq: Status: Active Protocol: Document 02/21/23 12:41 AMS (Rec: 02/21/23 12:55 AMS [id number]) General Information - Adult Visit Information Visit Number ; visit --> KX modifier Plan of Care Dates 02/21/23 - 04/04/23 Insurance Information Medicare Part B; KX modifier required after visit Session Time Visit Start Time 08:30 Visit Stop Time 09:15 Total Visit Minutes 45 Setting Treatment Setting Outpatient Care Visit Type Note Type Initial Evaluation Identification Identification Confirmed Yes Identification Confirmed By Self Goals Treatment Treatment Initiated home exercise program. Mcc Goals Stave Inspector Goals 1. Juan Pablo will be modified independent with home exercise program utilizing provided written and visual instructions from therapist. 2. Juan Pablo will be able to verbally identify 2 to 3 different strategies to address pain/discomfort of the ulnar surface of the right distal upper extremity. Assessment/Plan Assessment Treatment Assessment Juan Pablo is a 87 year-old R hand dominant female referred to outpatient OT secondary to chronic R hand and elbow pain/ discomfort. Medical history is significant for arthritis, back pain, blood pressure (med managed), neck pain, neuropathy (lower extremities) , osteopenia, shortness of breath, tonsillectomy, gall bladder surgery, nasal septum surgery, rotator cuff surgery, L CTR, and fracture of R humerus w/ surgical repair w/ ulnar nerve transposition. Recent hospitalization d/t cat bite (02/12/23 - 02/14/23); discharged to home w/ oral antibiotics. Use of stress ball for strengthening of the R hand. Injury to dorsum of R hand is still healing at this time. 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 QuickDASH UE Outcome Measure Score = 20.45; QuickDASH UE Sports/ Performing Arts Module Score ( playing of [employer]) = 37.50. Pain Assessment Hand/Wrist Grid = indication of 3 out of 10 on pain scale relative to volar ulnar surface of R palm and 5th digit. Pain Assessment Whole Body Grid 3 out of 10 relative to dorsal ulnar surface of R hand and 2 out of 10 relative to dorsal ulnar surface of R forearm. B full elbow flexion. -25 degrees active R elbow ext vs full L elbow ext. B full forearm pronation. 75 degrees active R forearm supination vs 85 degrees active L forearm supination. 45 degrees active R wrist ext vs 65 degrees active L wrist ext. 50 degrees active R wrist flex vs 60 degrees active L wrist flex. 20 degrees active R wrist RD vs 25 degrees active L wrist RD. 25 degrees active R wrist UD vs 20 degrees active L wrist UD. Able to oppose bilateral thumbs to each digit pad w/ EO; executed w/ IPJ in neutral. Good wrist strength bilaterally; 5/5 MMT in all directions. Good functional bilateral elbow strength despite decreased active R elbow ext. B thumb stiffness; decreased bilateral thumb abduction. Coding Team Lead strength Dynamometer II testing results : R Coding Team Lead = 39.0# of force w/ elbow in 90 degrees flex ( compared to 75+ y.o. women 42. 6 +/- 11.0# of force); L packing machine tender = 52.0# of force w/ elbow in 90 degrees flex (compared to 75+ y.o. women 37.6 +/- 8.9); R packing machine tender = 36.0# of force w/ elbow ext; L packing machine tender = 40.0# of force w/ elbow ext. R lateral wong pinch = 9.5# of force ( compared to 75+ y.o. women 12. 6 +/- 2.3); L lateral wong pinch = 13.0# of force ( compared to 75+ y.o. women 11. 4 +/- 2.6). R tip pinch = 8.5# of force (compared to 75+ y.o . women 9.6 +/- 2.8); L tip pinch = 9.5# of force ( compared to 75+ y.o. women 9.3 +/- 2.4). R 3-jaw pinch = 8.5 # of force (compared to 75+ y. o. women 12.0 +/- 2.6); L 3- jaw pinch = 11.0# of force ( compared to 11.5 +/- 2.6). Juan Pablo would likely benefit from skilled outpatient OT to establish distal R UE home exercise program and address pain/discomfort with discussion of joint protection principles and compensatory strategies/adaptive equipment as needed. Home Exercise Program 02/21/23 = Instructed in use of ball for self-manual ( massage to dorsum R forearm/ ulnar surface) for approx 2-3 minutes or as needed; instructed in use of ball as well to address tight bilateral thumb adductors w/ hold of 20 to 30 seconds. Plan Length of treatment (weeks) 6 Plan of Care Start Date 02/21/23 Plan of Care End Date 04/04/23 Treatment Frequency Once a Week Therapeutic Contents Active Range of Motion, Adaptive Equipment Education, Client Education,Functional Activities,Home Exercise Program,Joint Protection, Manual Therapy,Education, Neurodevelopment Treatment, Neuromuscular Re-Education, Self-Care,Stretching/ Flexibility Activities, Therapeutic Activities, Therapeutic Exercises, Modalities Modalities As Needed,As Prescribed Additional Types of Modalities Heat/Ice/Contrast baths/ Paraffin bath Functional Wrist/Hand Scan Hand Side Sensory Assessment Sensory Profile2 OT Outpatient Treatment Note - Adult Start: 02/21/23 12:38 Freq: Status: Active Protocol: Document 04/12/23 09:33 [facility] (Rec: 04/12/23 09:44 [facility] [id number]) OT Outpatient Adult Treatment Note Session Time Visit Start Time 08:30 Visit Stop Time 09:25 Total Visit Minutes 55 Visit Information Visit Number 08/14; 08/23; visit --> KX modifier Plan of Care Dates 02/21/23 - 04/04/23 Setting Treatment Setting Outpatient Care Visit Type Note Type Treatment Note General Information General Information Juan Pablo is a 87 year-old R hand dominant female referred to outpatient OT secondary to chronic R hand and elbow pain/ discomfort. Medical history is significant for arthritis, back pain, blood pressure (med managed), neck pain, neuropathy (lower extremities) , osteopenia, shortness of breath, tonsillectomy, gall bladder surgery, nasal septum surgery, rotator cuff surgery, L CTR, and fracture of R humerus w/ surgical repair w/ ulnar nerve transposition. Recent hospitalization d/t cat bite (02/12/23 - 02/14/23); discharged to home w/ oral antibiotics. Use of stress ball for strengthening of the R hand. Injury to dorsum of R hand is still healing at this time. - Subjective Observations h/o distal R UE injury d/t malfunctioning golf cart w/ subsequent impact on golf swing. Report of intent on receiving corticosteroid injections to spine in approximately x 1 week d/t back pain/discomfort that is impacting gait/ability to walk . Denied any questions re: home exercise program/ recommendations. Patient/Caregiver Compliance with Home Excellent Exercise Program - Objective Objective Measurements Please refer to below for progress towards meeting established OT goals: Mcc Goals ALL GOALS MET 04/12/23 Juan Pablo will be modified independent with home exercise program utilizing provided written and visual instructions from therapist. Juan Pablo will be able to verbally identify 2 to 3 different strategies to address pain/ discomfort of the ulnar surface of the right distal upper extremity. - Treatment 2 Descriptor Fine motor planning. R hand (2 -5th digits). Opposition. Coordination of 2-3, 3-4, 4-5 digits w/ 1/2-inch size ball/ golf florecita. 1 Descriptor Ultrasound. 20% duty cycle. 2. 0 w/cm2. x 10 minutes. Skin intact pre- and post- treatment. Applied to ulnar/ dorsal R mid/slightly proximal forearm. Exercises 1 Descriptor Wrist Passive Range of Motion Passive wrist flex w/ elbow ext and forearm pronation. 1 x 20 sec. Passive wrist ext w/ elbow ext and forearm pronation. 1 x 20 sec. Passive wrist UD w/ use of TT. 1 x 20 sec. N/A 03/13/23 Instructed in passive wrist ext w/ elbow ext w/ hand positioned on seated surface. 1 x 20 sec. Instructed in passive wrist ext w/ elbow ext w/ hand(s) positioned on wall. 1 x 20 sec . - Assessment Assessment of Improvement Juan Pablo denied questions re: home exercise program and/or recommendations that have been made. Recommend d/c from outpatient OT at this time and re-evaluate as deemed appropriate by PCP w/ receipt of new referral. Home Exercise Program 03/13/23 = Instructed in passive wrist RD to address tightness; use of TT w/ working towards elbow near full extension w/ hold 20 sec. 1 - 2 times daily, or as needed. 02/28/23 = Instructed in tendon glides, passive hook fist, passive MPJ extension (2 -5 digits), and use of wall or surface sitting on for wrist stretches (w/ wrist in extension). Rec holding stretch for 20 sec. Instructed in digit isolation motor planning (diff amts of finger flex and abd/add). 02/21/23 = Instructed in use of ball for self-manual ( massage to dorsum R forearm/ ulnar surface) for approx 2-3 minutes or as needed; instructed in use of ball as well to address tight bilateral thumb adductors w/ hold of 20 to 30 seconds. - Plan Therapy Recommendations Discharge from Occupational Therapy
== END 2023-04-16 14:15 | disposition home or self-care (01) ==
LOC: OT 08:30
PROVIDERS: Family Provider Nurse Practitioner; PCP Nurse Practitioner; Referring Provider Anesthesiology; Visit Provider Anesthesiology
DX: M25.521 Pain in right elbow (principal); G89.29 Other chronic pain; M79.641 Pain in right hand; Z87.81 Personal history of (healed) traumatic fracture
CPT/HCPCS: 97035; 97110; 97140; 97165; 97530

== ENCOUNTER 2023-04-18 07:21 | Outpatient (CLI) | payer MEDICARE, OTHER, SELFPAY ==
[2023-02-12 12:50] VITALS: BMI 29.0
[2023-04-18 07:40] VITALS: BP 183/73; PULSE 69; RESP 16; TEMP 36.4; O2SAT 97
--- NOTE | 2023-04-18 08:00 | DI.RAD.S_ITS ---
PROCEDURE: PAIN SI JOINT INJECTION INDICATIONS: SI JOINT DYSFUNCTION COMPARISON: None. FINDINGS: Fluoroscopic spot filming was performed to verify placement of spinal needles at the right SI joint. level(s), as labeled on the films. Appropriate location(s) of the needle tip(s) was confirmed by injection of iodinated contrast. IMPRESSION: Intraoperative guidance provided. Dictated by: Elder Davalos M.D. on 04/18/2023 at 16:40 Approved by: Elder Davalos M.D. on 04/18/2023 at 16:41
[2023-04-18 08:04] VITALS: BP 198/88; PULSE 72; RESP 24; O2SAT 96
[2023-04-18 08:05] VITALS: BP 187/82; PULSE 67; RESP 20; O2SAT 96
[2023-04-18] MEDS: iopamidoL 15 ML VIAL 3 ML INJ (08:05)
[2023-04-18] MEDS: DEXAMETHASONE 10 MG/ML VIAL INJ (08:05)
[2023-04-18 08:10] VITALS: BP 183/82; PULSE 64; RESP 14; O2SAT 100
[2023-04-18 08:15] VITALS: BP 197/88; PULSE 73; RESP 18; O2SAT 97
--- NOTE | 2023-04-18 10:22 | P.PCN_ITS ---
Date/Time/Diagnoses Date of procedure: 04/18/23 Time of procedure: 08:00 Procedure Notes Physician: Homer Graves Total Fluoroscopy time (seconds): 13 Total sedation minutes: 0 Procedure in detail & Post-procedure care: Right Sacroiliac Joint Injection Indications: Juan Pablo is presenting for treatment of SI joint dysfunction with low back/buttock pain. Preoperative diagnosis: Right SI joint dysfunction Postoperative diagnosis: Same Focused Examination: Ax3 Mood and affect are normal Vital Signs: VSS Consent: Following review of allergies and potential side effects/complications, including, but not necessarily limited to, infection, allergic reaction, local tissue breakdown, stroke, temporary or permanent nerve injury, paralysis, and possible , the patient indicated that they understood and agreed to proceed.? An informed consent document was signed by the patient, witnessed by a nurse and placed in the patient's chart.? Additionally, other treatment options including medications and physical therapy were reviewed with the patient. All questions were answered. Site was then marked. Anesthesia: Local Position: Prone Monitoring: NIBP, Pulse oximetry, 3 lead EKG Needle used: 22 ga, 3.5 inch spinal Contrast: 2 mL Isovue M-300 Injectate: Dexamethasone 7.5 mg with 1% lidocaine 2 mL Technique: The skin was prepped with chloraprep and then draped in a sterile fashion. Time out was performed as per protocol. Oxygen applied via NC. Skin and subcutaneous structures of the needle entry site was then infiltrated with 5 mL of lidocaine 1%. Under AP and lateral fluoroscopic control, the spinal needle was guided into the right sacroiliac joint. 1 mL contrast was injected and was consistent with intra-articular placement. There was no evidence for intravascular uptake. After negative aspiration, the above-mentioned injectate was then slowly administered and the needle withdrawn. The patient expressed no unusual discomfort or paresthesias during the injection. EBL: less than 1 ml Complications: None Post Procedure: Patient was taken to the recovery and monitored. The patient was provided a Pain Log to continue to record the patient's response to the target- specific procedure prior to the patient's follow-up visit with the referring physician. Patient was stable upon discharge. Detailed post procedure instructions were provided. Patient was asked to call in the event of worsening pain, fever, weakness, numbness or bladder or bowel incontinence.
== END 2023-04-18 08:28 | disposition home or self-care (01) ==
LOC: RAD 07:24
PROVIDERS: Family Provider Nurse Practitioner; PCP Nurse Practitioner; Referring Provider Anesthesiology; Visit Provider Anesthesiology
DX: M53.3 Sacrococcygeal disorders, not elsewhere classified (principal)
CPT/HCPCS: 27096; 77002; J1100

== ENCOUNTER 2023-06-29 14:06 | Emergency (ER) | payer MEDICARE, OTHER, SELFPAY ==
[2023-02-12 12:50] VITALS: BMI 29.0
[2023-06-29 14:09] VITALS: BP 218/82; PULSE 73; RESP 18; TEMP 36.6; O2SAT 99; BMI 29.1
--- NOTE | 2023-06-29 14:17 | DI.RAD.S_ITS ---
PROCEDURE: XR KNEE RT 3V INDICATIONS: injury TECHNIQUE: 3 views of the knee were acquired. COMPARISON: [facility], CR, XR KNEE LT 3V, 05/10/2022, 11:51. [facility], CR, XR KNEE LT 3V, 02/16/2021, 8:35. FINDINGS: Bones: No fractures or dislocations. No suspicious bony lesions. Mild degenerative joint space narrowing at the medial compartment and the lateral facet of the patellofemoral joint Soft tissues: No joint effusion. No suspicious soft tissue calcifications. IMPRESSION: Mild degenerative changes but no trauma found. Dictated by: Shmuel Flores M.D. on 06/29/2023 at 15:56 Approved by: Shmuel Flores M.D. on 06/29/2023 at 15:57
--- NOTE | 2023-06-29 14:53 | ED.EXTPRO ---
HPI - Extremity Problem <Janie Corado PA-C - Last Filed: 06/29/23 17:04> General Chief complaint: Extremity Problem,Nontraumatic Stated complaint: rt knee pain/injury Time Seen by Provider: 06/29/23 14:53 Source: patient Mode of arrival: Ambulatory History of Present Illness HPI Narrative: Patient is an 87-year-old female presenting for evaluation of right knee pain for the last 7 days and worsening over the last day. She states that she increased her exercise this morning and noticed severe pain in the lateral inferior side of her right knee when stepping up on an exercise machine. She states she has been able to bear weight on this knee since, but it is quite painful. She reports that getting in another course seems to be most painful. She says that extreme bending and slight twisting motions hurt worse. She has had it wrapped in an Huber wrap. She reports her baseline activity is to walk about 1 mi a day. She states that she has neuropathy. She reports taking Eliquis. She denies any trauma. She notes that she does exercise machines regularly such as a ball stepping machine in his noticed some slight increase in pain over the last 7 days which worsened after stepping up on the machine today. She denies numbness moving down her leg. She denies any previous trauma to her right knee or previous knee surgery. She also notes long-term IT band pain on her right side. Patient's blood pressure is elevated on exam today to 18/82. She denies any visual disturbance chest pain palpitations confusion or dizziness. She does note a slight headache at the base of her neck starting last night she says that this has not worsened. She denies taking Tylenol. Her pain medicine choice is Arnica. Related Data Home Medications Medication Instructions Recorded Confirmed multivitamin (Daily Multi-Vitamin 1 tab PO DAILY 11/20/18 05/29/23 tablet) cyanocobalamin (vitamin B-12) 1,000 mcg PO DAILY 09/23/20 05/29/23 1,000 mcg capsule curcumin 2 tab PO DAILY 08/22/21 05/29/23 lionsmane mushroom root 2 tab PO DAILY 08/22/21 05/29/23 esomeprazole magnesium 20 mg 20 mg PO DAILY 05/22/22 05/29/23 capsule,delayed release carvedilol 6.25 mg tablet 6.25 mg PO BID 12/11/22 05/29/23 apixaban 2.5 mg tablet (Eliquis) 2.5 mg PO BID 02/12/23 05/29/23 calcium carb-ergocalciferol (vit 1 tab PO BEDTIME 02/12/23 05/29/23 D2) 600 mg calcium-200 unit tablet vitamin E 200 unit tablet 90 mg PO BEDTIME 02/12/23 05/29/23 fluoride (sodium) 1.1 % dental dental 03/24/23 05/29/23 paste (PreviDent 5000 Booster Plus) Previous Rx's Medication Instructions Recorded hydrochlorothiazide 12.5 mg tablet 12.5 mg PO QAM #90 tabs 11/14/22 olmesartan 20 mg tablet 20 mg PO DAILY #90 tabs 11/14/22 bismuth subsalicylate 525 mg 525 mg PO Q1H PRN heartburn #90 05/08/23 tablet (Pepto-Bismol Ultra) tabs Allergies Allergy/AdvReac Type Severity Reaction Status Date / Time levofloxacin [LEVOFLOXACIN] Allergy Severe rash Verified 05/29/23 07:46 metronidazole [METRONIDAZOLE] Allergy Mild Rash Verified 05/29/23 07:46 pregabalin [PREGABALIN] Allergy Mild Rash Verified 05/29/23 07:46 fluticasone AdvReac Severe severe Verified 05/29/23 07:46 nosebleeds atorvastatin [From Lipitor] AdvReac Intermediate joint aches Verified 05/29/23 07:46 Review of Systems <Janie Corado PA-C - Last Filed: 06/29/23 17:04> Review of Systems Narrative: See HPI Patient History <Janie Corado PA-C - Last Filed: 06/29/23 17:04> Medical History Gastric reflux Hiatal hernia Low back pain 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 Degenerative disc disease, lumbar Lumbar spondylosis Iliotibial band syndrome, left leg Acute pain of left knee Itch of right eye Hyperlipidemia Abnormal bruising Greater trochanteric bursitis of left hip Arthralgia Acute right-sided low back pain without sciatica 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 Nodule of flexor tendon sheath Body posture problem Iliotibial band syndrome of both sides History of humerus fracture Chronic pain of right elbow Chronic pain of right hand Cranial somatic dysfunction Segmental and somatic dysfunction of rib cage Foot joint stiffness, bilateral Somatic dysfunction of lower extremity Sacral region somatic dysfunction Pelvic somatic dysfunction Upper extremity somatic dysfunction Segmental and somatic dysfunction of abdomen and other regions Lumbar region somatic dysfunction Thoracic region somatic dysfunction Cervical somatic dysfunction Chronic bilateral low back pain without sciatica Chronic thoracic back pain Neck pain, chronic 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 Edema Periodic limb movement disorder (PLMD) Nocturnal hypoxemia (~07/2019) Obstructive sleep apnea (~07/2019) Impairment of balance Unsteady gait Numbness and tingling of both feet Advance care planning Advance directive in chart History of COPD Positive FIT (fecal immunochemical test) Chronic anticoagulation Pain of left breast Menopausal vaginal dryness Vaginal stricture Cranial somatic dysfunction Viral URI with cough Tobacco abuse, in remission Osteoarthritis H pylori ulcer Stomach ulcer Colitis Fracture, humerus closed PVCs (premature ventricular contractions) Palpitations Hypertension Chronic a-fib Epistaxis, recurrent Atypical chest pain Surgical History History of carpal tunnel surgery of left wrist S/P rotator cuff repair H/O nasal septoplasty H/O cataract extraction History of tonsillectomy History of cholecystectomy History of radiofrequency ablation procedure for cardiac arrhythmia S/P ablation of atrial fibrillation No significant past surgical history Family History Mother Hypertension Heart disease Breast cancer Father Hypertension Heart disease Sister Hypertension Heart disease Cancer Brother Heart disease Cancer Social History marital status: unknown household members: none occupational status: previously employed Smoking Status: Former smoker Tobacco: How many years used: 30 alcohol intake: current substance use type: does not use Smoking Status: Former smoker alcohol intake frequency: 0-2 drinks per day Alcohol type: wine Substance Use Type: does not use Exam <Janie Corado PA-C - Last Filed: 06/29/23 17:04> Initial Vital Signs Initial Vital Signs: Vital Signs Temperature 97.9 F 06/29/23 14:09 Pulse Rate 73 06/29/23 14:09 Respiratory Rate 18 06/29/23 14:09 Blood Pressure 218/82 H 06/29/23 14:09 Pulse Oximetry 99 06/29/23 14:09 Oxygen Delivery Method Room Air 06/29/23 14:09 GENERAL: 87 year old patient appears stated age. Well-developed patient, in no acute distress. HEAD: Atraumatic. Normocephalic. EYES: Pupils equal round No scleral icterus. No injection or drainage. NECK: Trachea midline, supple RESPIRATORY: Speaking comfortably normal tone of voice without any increased work of breathing. EXTREMITIES: Bilateral 1+ pitting edema to lower extremities, posterior tibialis pulse 2 +bilaterally, patient's right knee is tender to palpation over the inferior lateral side of her right knee. No obvious swelling noted compared to left knee. Patient has no tenderness with Kar's test, nor anterior posterior drawer. She has tenderness in the inferior lateral side of the right knee with Kalli's test and can not tolerate full flexion, she has tenderness with valrus stress test, and no tenderness with valgus stress test. NEURO: AOx3. SKIN: No rash or erythema of visible areas <Julieta Grady DO - Last Filed: 06/29/23 19:49> Initial Vital Signs Initial Vital Signs: Vital Signs Temperature 97.9 F 06/29/23 14:09 Pulse Rate 73 06/29/23 14:09 Respiratory Rate 18 06/29/23 14:09 Blood Pressure 218/82 H 06/29/23 14:09 Pulse Oximetry 99 06/29/23 14:09 Oxygen Delivery Method Room Air 06/29/23 14:09 Course <Janie Corado PA-C - Last Filed: 06/29/23 17:04> Orders Ordered: ED Orders 06/29/23 14:17 XR knee RT 3V Stat Vital Signs Vital signs: Vital Signs - 8 hr 06/29/23 14:09 06/29/23 16:12 Temperature 97.9 F Pulse Rate 73 67 Respiratory Rate 18 18 Blood Pressure 218/82 H 203/85 H Pulse Oximetry 99 97 Oxygen Delivery Method Room Air Room Air <Julieta Grady DO - Last Filed: 06/29/23 19:49> Orders Ordered: ED Orders 06/29/23 14:17 XR knee RT 3V Stat Vital Signs Vital signs: Vital Signs - 8 hr 06/29/23 14:09 06/29/23 16:12 Temperature 97.9 F Pulse Rate 73 67 Respiratory Rate 18 18 Blood Pressure 218/82 H 203/85 H Pulse Oximetry 99 97 Oxygen Delivery Method Room Air Room Air MDM - Extremity (Nontraumatic) <Janie Corado PA-C - Last Filed: 06/29/23 17:04> Imaging Data XR Rt Knee: Radiologist's Impression: PROCEDURE: XR KNEE RT 3V INDICATIONS: injury TECHNIQUE: 3 views of the knee were acquired. COMPARISON: [facility], CR, XR KNEE LT 3V, 05/10/2022, 11:51. [facility], CR, XR KNEE LT 3V, 02/16/2021, 8:35. FINDINGS: Bones: No fractures or dislocations. No suspicious bony lesions. Mild degenerative joint space narrowing at the medial compartment and the lateral facet of the patellofemoral joint Soft tissues: No joint effusion. No suspicious soft tissue calcifications. IMPRESSION: Mild degenerative changes but no trauma found. Dictated by: Shmuel Flores M.D. on 06/29/2023 at 15:56 Approved by: Shmuel Flores M.D. on 06/29/2023 at 15:57 [facility] Narrative Medical decision making narrative: Patient is an 87-year-old female presenting for evaluation of right knee pain worsening over the last day after standing up on an exercise machine. X-ray did not show any evidence of joint effusion or fracture. I recommend treatment with rest, elevation ice, compression, Tylenol as needed and continued follow up with ortho for further evaluation of right knee pain. We can provide her with an Huber wrap. I recommend she bear weight as tolerated. Recommend she follow up in the emergency department if she develops numbness in her right lower extremity, severe worsening pain, or other concerning signs or symptoms. Regarding elevated blood pressure today, I recommend that since she is asymptomatic, she go home and rest, take her blood pressure medication and recheck her blood pressure. We discussed that she is to follow up in the ER if she should develop headache, visual blurriness, dizziness, chest pain or other concerning signs or symptoms. Discharge Plan Departure Patient Disposition: Home Clinical Impression: Right knee sprain Qualifiers: Encounter type: initial encounter Involved ligament of knee: unspecified ligament Qualified Code(s): S83.91XA - Sprain of unspecified site of right knee, initial encounter Activity Restrictions/Additional Instructions: Thank you for coming in today for your care. You have been diagnosed with a right knee sprain today. X-rays today did not show any evidence of fracture or dislocation. I recommend continued conservative treatment with rest ice elevation compression and Tylenol as needed. I recommend that you use a walker or cane to help reduce further falls as your right knee is healing. I recommend further follow up with [facility] for further evaluation as it seems most likely your right knee has been sprained. You can call to make an appointment at [phone]. It was a pleasure meeting you today, and I hope you feel better soon. Regarding her elevated blood pressure today, I recommend that you take your blood pressure medication when you get home, rest and check your blood pressure while at home. If he should develop any symptoms of headache, visual disturbance chest pain palpitations weakness or other concerning signs or symptoms, please follow up in the ER immediately. Prescriptions: No Action fluoride (sodium) [PreviDent 5000 Booster Plus] 1.1 % paste dental Pepto-Bismol Ultra 525 mg tablet 525 mg PO Q1H PRN (Reason: heartburn) Qty: 90 0RF Rx Instructions: do not exceed 8 doses in a 24 hour period multivitamin [Daily Multi-Vitamin] tablet 1 tab PO DAILY lionsmane mushroom root 2 tab PO DAILY curcumin 2 tab PO DAILY esomeprazole magnesium 20 mg capsule,delayed release(DR/EC) 20 mg PO DAILY Patient Comments: TAKE 1 CAPSULE BY MOUTH EVERY DAY IN THE MORNING hydrochlorothiazide 12.5 mg tablet 12.5 mg PO QAM Qty: 90 3RF olmesartan 20 mg tablet 20 mg PO DAILY Qty: 90 3RF carvedilol 6.25 mg tablet 6.25 mg PO BID calcium carbonate-vitamin D2 600 mg calcium- 200 unit Tablet 1 tab PO BEDTIME vitamin E 200 unit Tablet 90 mg PO BEDTIME Eliquis 2.5 mg tablet 2.5 mg PO BID cyanocobalamin (vitamin B-12) 1,000 mcg capsule 1,000 mcg PO DAILY Referrals: Lakshmi Jung ARNP [Primary Care Provider] - Stand Alone Forms: Patient Portal/API ED Sign-out <Julieta Grady DO - Last Filed: 06/29/23 19:49> Cosign ED Attending Cosignature Attestation: I was available for consultation.
--- NOTE | 2023-06-29 15:44 | PC.NURSE ---
Patient had pain a week ago that went away in her knee then today when she went to step up on a stair climber she felt a sudden pain in her knee. She tried to ice the knee and said that it helped to dull the pain but did not wish to use an ice pack here.
[2023-06-29 16:12] VITALS: BP 203/85; PULSE 67; RESP 18; O2SAT 97
== END 2023-06-29 17:06 | disposition home or self-care (01) ==
PROVIDERS: Emergency Provider Physician Assistant; Family Provider Nurse Practitioner; PCP Nurse Practitioner
DX: S83.91XA Sprain of unspecified site of right knee, initial encounter (principal); X58.XXXA Exposure to other specified factors, initial encounter; Z79.01 Long term (current) use of anticoagulants
CPT/HCPCS: 73562; 99283

== ENCOUNTER 2023-07-24 19:39 | Emergency (ER) | payer MEDICARE, OTHER, SELFPAY ==
[2023-02-12 12:50] VITALS: BMI 29.0
[2023-07-24] VITALS (34 sets, daily range): BP systolic 91–196; BP diastolic 50–93; PULSE 69–147; RESP 13–38; TEMP 36.7–36.9; O2SAT 89–97; BMI 29.0
--- NOTE | 2023-07-24 19:53 | DI.RAD.S_ITS ---
PROCEDURE: XR CHEST 1V INDICATIONS: chest pain TECHNIQUE: One view of the chest was acquired. COMPARISON: [facility], CR, XR CHEST 1V, 08/30/2020, 10:30. FINDINGS: Surgical changes and devices: None. Lungs and pleura: Right hemithorax volume loss with elevation of the right hemidiaphragm. Diffuse coarsening of the interstitial markings. No focal consolidation, effusion, or pneumothorax. Mediastinum: Mediastinal contours appear normal. Heart size is normal. Bones and chest wall: No suspicious bony lesions. Overlying soft tissues appear unremarkable. IMPRESSION: No acute cardiopulmonary abnormality is seen. Dictated by: Judit Elliott M.D. on 07/24/2023 at 20:22 Approved by: Judit Elliott M.D. on 07/24/2023 at 20:22
--- NOTE | 2023-07-24 20:11 | PC.NURSE ---
pt has a hx of afib and has had an ablation in the past, states that was after a cardioversion that didn't work, pt states she has been having a rapid HR over the last few months but it would subside so she did not go to the dr, aschiight she became dizzy with her HR so she thought she should come in. pt denies any cp or sob
[2023-07-24 20:16] LABS: Add Manual Diff / Slide Review NO; Basophils Absolute Auto 0 /uL (0-100); Basophils Percent Auto 0.5 % (0-2); Eosinophils Absolute Auto 200 /uL (0-450); Eosinophils Percent Auto 2.7 % (2-4); Hematocrit 42.2 % (36-46); Hemoglobin 14.4 g/dL (12.0-16.0); Lymphocytes Absolute Auto 1300 /uL (1100-4500); Lymphocytes Percent Auto 19.4 % (25-40); Mean Corpuscular HGB Conc 34.2 % (30-36); Mean Corpuscular Hemoglobin 30.4 PG (26-34); Mean Corpuscular Volume 88.9 fL (80-100); Monocytes Absolute Auto 600 /uL (0-900); Monocytes Percent Auto 8.4 % (3-14); Neutrophils Absolute Auto 4700 /uL (1500-7000); Platelet Count 245 X10^3/uL (150-400); Red Blood Cell Count 4.75 X10^6/uL (4.0-5.2); Red Cell Distribution Width 13.6 % (11.6-14.8); White Blood Cell Count 6.8 X10^3/uL (4.5-11.0)
--- NOTE | 2023-07-24 20:18 | ED.ARRPALP ---
HPI - Arrhythmia/Palpitations General Chief Complaint: Arrhythmia/Palpitations Stated Complaint: AFIB Time Seen by Provider: 07/24/23 19:57 Source: patient Mode of arrival: Ambulatory History of Present Illness HPI narrative: Patient is an 88-year-old female. Has a history of atrial fibrillation. Is on anticoagulation. Is also on rate-controlling medications. She states she did take her medications this morning but has not taken them yet this evening. She states that this afternoon she started noticing that her heart was beating fast. No chest pain. No shortness of breath. No lightheadedness. It has been consistent since its onset earlier today. She has been taking her anticoagulation twice a day for longer than the past month. She has had a cardiac ablation in the past but that was several years ago. Has not had any issues with the atrial fibrillation since the ablation. She does see a licensed land surveyor here locally. Related Data Home Medications Medication Instructions Recorded Confirmed multivitamin (Daily Multi-Vitamin 1 tab PO DAILY 11/20/18 07/09/23 tablet) cyanocobalamin (vitamin B-12) 1,000 mcg PO DAILY 09/23/20 07/09/23 1,000 mcg capsule curcumin 2 tab PO DAILY 08/22/21 07/09/23 lionsmane mushroom root 2 tab PO DAILY 08/22/21 07/09/23 esomeprazole magnesium 20 mg 20 mg PO DAILY 05/22/22 07/09/23 capsule,delayed release carvedilol 6.25 mg tablet 6.25 mg PO BID 12/11/22 07/09/23 apixaban 2.5 mg tablet (Eliquis) 2.5 mg PO BID 02/12/23 07/09/23 calcium carb-ergocalciferol (vit 1 tab PO BEDTIME 02/12/23 07/09/23 D2) 600 mg calcium-200 unit tablet vitamin E 200 unit tablet 90 mg PO BEDTIME 02/12/23 07/09/23 fluoride (sodium) 1.1 % dental dental 03/24/23 07/09/23 paste (PreviDent 5000 Booster Plus) Previous Rx's Medication Instructions Recorded hydrochlorothiazide 12.5 mg tablet 12.5 mg PO QAM #90 tabs 11/14/22 olmesartan 20 mg tablet 20 mg PO DAILY #90 tabs 11/14/22 bismuth subsalicylate 525 mg 525 mg PO Q1H PRN heartburn #90 05/08/23 tablet (Pepto-Bismol Ultra) tabs Allergies Allergy/AdvReac Type Severity Reaction Status Date / Time levofloxacin [LEVOFLOXACIN] Allergy Severe rash Verified 07/09/23 14:36 metronidazole [METRONIDAZOLE] Allergy Mild Rash Verified 07/09/23 14:36 pregabalin [PREGABALIN] Allergy Mild Rash Verified 07/09/23 14:36 fluticasone AdvReac Severe severe Verified 07/09/23 14:36 nosebleeds atorvastatin [From Lipitor] AdvReac Intermediate joint aches Verified 07/09/23 14:36 Review of Systems Review of Systems ROS Unobtainable: All systems reviewed & are unremarkable except as noted in HPI and below Patient History Medical History Chronic anticoagulation Gastric reflux Hiatal hernia Low back pain 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 Degenerative disc disease, lumbar Lumbar spondylosis Iliotibial band syndrome, left leg Acute pain of left knee Itch of right eye Hyperlipidemia Abnormal bruising Greater trochanteric bursitis of left hip Arthralgia Acute right-sided low back pain without sciatica 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 Nodule of flexor tendon sheath Body posture problem Iliotibial band syndrome of both sides History of humerus fracture Chronic pain of right elbow Chronic pain of right hand Cranial somatic dysfunction Segmental and somatic dysfunction of rib cage Foot joint stiffness, bilateral Somatic dysfunction of lower extremity Sacral region somatic dysfunction Pelvic somatic dysfunction Upper extremity somatic dysfunction Segmental and somatic dysfunction of abdomen and other regions Lumbar region somatic dysfunction Thoracic region somatic dysfunction Cervical somatic dysfunction Chronic bilateral low back pain without sciatica Chronic thoracic back pain Neck pain, chronic 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 Edema Periodic limb movement disorder (PLMD) Nocturnal hypoxemia (~07/2019) Obstructive sleep apnea (~07/2019) Impairment of balance Unsteady gait Numbness and tingling of both feet Advance care planning Advance directive in chart History of COPD Positive FIT (fecal immunochemical test) Pain of left breast Menopausal vaginal dryness Vaginal stricture Cranial somatic dysfunction Viral URI with cough Tobacco abuse, in remission Osteoarthritis H pylori ulcer Stomach ulcer Colitis Fracture, humerus closed PVCs (premature ventricular contractions) Palpitations Hypertension Chronic a-fib Epistaxis, recurrent Atypical chest pain Surgical History History of carpal tunnel surgery of left wrist S/P rotator cuff repair H/O nasal septoplasty H/O cataract extraction History of tonsillectomy History of cholecystectomy History of radiofrequency ablation procedure for cardiac arrhythmia S/P ablation of atrial fibrillation No significant past surgical history Family History Mother Hypertension Heart disease Breast cancer Father Hypertension Heart disease Sister Hypertension Heart disease Cancer Brother Heart disease Cancer Social History marital status: unknown household members: none occupational status: previously employed Smoking Status: Former smoker Tobacco: How many years used: 30 alcohol intake: current substance use type: does not use Smoking Status: Former smoker alcohol intake frequency: 0-2 drinks per day Alcohol type: wine Substance Use Type: does not use Exam Initial Vital Signs Initial Vital Signs: Vital Signs Temperature 98.1 F 07/24/23 19:43 Pulse Rate 135 H 07/24/23 19:43 Respiratory Rate 18 07/24/23 19:43 Blood Pressure 196/93 H 07/24/23 19:43 Pulse Oximetry 96 07/24/23 19:43 Oxygen Delivery Method Room Air 07/24/23 19:43 Const General: cooperative and comfortable HENMT Head: normal to inspection and normocephalic Resp Effort & Inspection: normal respiratory effort Auscultation: clear to auscultation bilaterally Cardio Rate: tachycardic Rhythm: abnormal rhythm GI Inspection: normal to inspection and non-distended Skin General: no rashes or lesions noted Neuro General: patient alert, patient awake, patient oriented x3 and moves all extremities Extrem General: No edema Procedures Cardioversion Consent Signed: Yes Indication: Atrial fibrillation Stability: Stable Number of attempts (shocks): 1 Joules used: 120 Cardiac rhythm post-cardioversion: Sinus rhythm Procedural Sedation Consent signed: Yes Time out performed: Yes Indication: cardioversion Preparation: school lunch monitor applied, pulse oximeter, capnometry used, supplemental O2 applied, suction/airway equipment at bedside and IV secured Fentanyl: IV Fentanyl dose (mcg): 12 IV Propofol dose (mg): 90 Intraservice time/total sedation time (min): 15 ED Sedation Level: Moderate (Concious) Patient Tolerated Procedure: Well and No complications Complications: none Course Orders Ordered: ED Orders 07/24/23 20:08 Complete Blood Count AUTO DIFF Stat Comprehensive Metabolic Panel Stat Lipase Stat Magnesium Stat PTT Partial Thromboplastin Handy Stat Prothrombin Time INR Stat Troponin & CK Cardiac Panel Stat 07/24/23 21:48 EKG-12 Lead Stat Discontinued Medications Amiodarone HCl (Amiodarone 150 Mg/3 Ml Vial) 150 mg IV NOW ONE Stop: 07/24/23 20:20 Last Admin: 07/24/23 20:36 Dose: Not Given Documented By: CHARLENE Fentanyl (Fentanyl 100 Mcg/2 Ml Inj) 12.5 mcg IV NOW ONE Stop: 07/24/23 20:20 Last Admin: 07/24/23 21:39 Dose: 12.5 mcg Documented By: FELIPE Amiodarone HCl/Dextrose (Nexterone) 150 mg in 100 mls @ 200 mls/hr IV NOW ONE; Protocol Stop: 07/24/23 20:56 Last Infusion: 07/24/23 21:03 Dose: Infused Documented By: Admin: 07/24/23 20:33 Dose: 200 mls/hr Documented By: CHARLENE Propofol (Propofol 200 Mg/20 Ml Vial) 100 mg IV NOW ONE Stop: 07/24/23 20:20 Last Admin: 07/24/23 21:52 Dose: 90 mg Documented By: FELIPE Vital Signs Vital signs: Vital Signs - 8 hr 07/24/23 21:05 07/24/23 21:10 07/24/23 21:15 Temperature Pulse Rate 141 H 128 H 127 H Respiratory Rate 30 H 17 17 Blood Pressure Pulse Oximetry 89 L 93 92 Oxygen Delivery Method 07/24/23 21:20 07/24/23 21:25 07/24/23 21:30 Temperature Pulse Rate 125 H 133 H Respiratory Rate 38 H 27 H Blood Pressure 138/64 Pulse Oximetry 94 95 Oxygen Delivery Method 07/24/23 21:30 07/24/23 21:35 07/24/23 21:40 Temperature Pulse Rate 136 H 135 H Respiratory Rate 19 20 Blood Pressure 140/67 Pulse Oximetry 94 94 Oxygen Delivery Method 07/24/23 21:40 07/24/23 21:44 07/24/23 21:44 Temperature Pulse Rate 135 H 135 H Respiratory Rate 17 18 Blood Pressure 102/54 L Pulse Oximetry 97 93 Oxygen Delivery Method 07/24/23 21:45 07/24/23 21:45 07/24/23 21:46 Temperature Pulse Rate 135 H Respiratory Rate 19 Blood Pressure 96/52 L 91/50 L Pulse Oximetry 94 Oxygen Delivery Method 07/24/23 21:46 07/24/23 21:47 07/24/23 21:47 Temperature Pulse Rate 134 H 69 Respiratory Rate 19 26 H Blood Pressure 105/54 L Pulse Oximetry 93 94 Oxygen Delivery Method 07/24/23 21:48 07/24/23 21:48 07/24/23 21:50 Temperature Pulse Rate 91 H 72 Respiratory Rate 17 23 Blood Pressure 110/57 L Pulse Oximetry 95 94 Oxygen Delivery Method 07/24/23 21:51 07/24/23 21:51 07/24/23 21:54 Temperature Pulse Rate 71 Respiratory Rate 21 Blood Pressure 99/50 L 103/51 L Pulse Oximetry 94 Oxygen Delivery Method 07/24/23 21:54 07/24/23 21:55 07/24/23 22:00 Temperature Pulse Rate 76 77 74 Respiratory Rate 19 26 H 21 Blood Pressure Pulse Oximetry 94 94 94 Oxygen Delivery Method 07/24/23 22:00 07/24/23 22:08 07/24/23 22:30 Temperature Pulse Rate 138 H Respiratory Rate 18 Blood Pressure 101/54 L 122/57 L Pulse Oximetry Oxygen Delivery Method 07/24/23 22:30 07/24/23 23:00 07/24/23 23:00 Temperature 98.5 F Pulse Rate 72 72 Respiratory Rate 20 22 Blood Pressure 135/63 Pulse Oximetry 93 94 Oxygen Delivery Method Room Air MDM - Arrhythmia/Palpitations Lab Data Attestation: I reviewed the patient's lab results. 07/24/23 20:08 07/24/23 20:08 Labs: Lab Results 07/24/23 Range/Units 20:08 WBC 6.8 (4.5-11.0) X10^3/uL RBC 4.75 (4.0-5.2) X10^6/uL Hgb 14.4 (12.0-16.0) g/dL Hct 42.2 (36-46) % MCV 88.9 (80-100) fL MCH 30.4 (26-34) PG MCHC 34.2 (30-36) % RDW 13.6 (11.6-14.8) % Plt Count 245 (150-400) X10^3/uL Neut % (Auto) 69.0 (50-75) % Lymph % (Auto) 19.4 L (25-40) % Upson % (Auto) 8.4 (3-14) % Eos % (Auto) 2.7 (2-4) % Baso % (Auto) 0.5 (0-2) % Neut # (Auto) 4700 (1116-6901) /uL Lymph # (Auto) 1300 (6717-8802) /uL Upson # (Auto) 600 (0-900) /uL Eos # (Auto) 200 (0-450) /uL Baso # (Auto) 0 (0-100) /uL PT 10.8 (9.4-12.5) SECONDS INR 0.9 (0.9-1.3) APTT 36 (25.1-36.5) SECONDS Sodium 140 (137-145) mmol/L Potassium 3.8 (3.4-5.1) mmol/L Chloride 107 (98-107) mmol/L Carbon Dioxide 24 (22-32) mmol/L BUN 20 H (7-17) mg/dL Creatinine 0.83 (0.52-1.04) mg/dL Estimated GFR > 60 (>60) mL/min BUN/Creatinine Ratio 24.1 H (6-22) Glucose 125 H (80-110) mg/dL Calcium 9.8 (8.4-10.2) mg/dL Magnesium 1.8 (1.6-2.3) mg/dL Total Bilirubin 0.6 (0.2-1.3) mg/dL AST 38 H (14-36) IU/L ALT 27 (<35) IU/L Alkaline Phosphatase 97 (38-126) U/L Total Creatine Kinase 337 H (30-135) U/L Troponin I 0.023 (0.01-0.034) ng/mL Total Protein 7.8 (6.3-8.2) g/dL Albumin 4.5 (3.5-5.0) g/dL Globulin 3.3 (1.7-4.1) g/dL Albumin/Globulin Ratio 1.4 (1.0-2.8) Lipase 199 (23-300) U/L Point of Care Testing Test Results Not applicable Imaging Data Chest x-ray: Radiologist's Impresson: PROCEDURE: XR CHEST 1V INDICATIONS: chest pain TECHNIQUE: One view of the chest was acquired. COMPARISON: [facility], , XR CHEST 1V, 08/30/2020, 10:30. FINDINGS: Surgical changes and devices: None. Lungs and pleura: Right hemithorax volume loss with elevation of the right hemidiaphragm. Diffuse coarsening of the interstitial markings. No focal consolidation, effusion, or pneumothorax. Mediastinum: Mediastinal contours appear normal. Heart size is normal. Bones and chest wall: No suspicious bony lesions. Overlying soft tissues appear unremarkable. IMPRESSION: No acute cardiopulmonary abnormality is seen. ECG Data Attestation: I personally reviewed and interpreted this ECG as follows: Interpretation: Atrial fibrillation Ventricular rate 138 Normal axis Normal QRS ST changes consistent with inferior ischemia Post cardioversion Sinus rhythm Ventricular rate is 75 Normal axis Normal QRS No ST T wave changes MDM Narrative Medical decision making narrative: Patient arrived AFib with RVR. Has been on anticoagulation. Discussed risks and benefits of cardioversion. Patient agreed. Consent signed. Patient was sedated and cardioverted successfully as described above. We were able to obtain sinus rhythm. Since this is the 1st episode that has occurred since her ablation which was several years ago we will hold on making any changes to her medications for now. Will have her continue to take her medications to include her anticoagulation. Will have her contact Cardiology for follow-up. She was given return precautions. She expressed understanding and agreement. Discharge Plan Departure Patient Disposition: Home Clinical Impression: Atrial fibrillation Instructions: DI for Cardioversion Activity Restrictions/Additional Instructions: Continue to take all of your medications as directed. Tomorrow contact your licensed land surveyor for a follow-up. Return to the emergency department for new or worsening symptoms. Prescriptions: No Action fluoride (sodium) [PreviDent 5000 Booster Plus] 1.1 % paste dental Pepto-Bismol Ultra 525 mg tablet 525 mg PO Q1H PRN (Reason: heartburn) Qty: 90 0RF Rx Instructions: do not exceed 8 doses in a 24 hour period multivitamin [Daily Multi-Vitamin] tablet 1 tab PO DAILY lionsmane mushroom root 2 tab PO DAILY curcumin 2 tab PO DAILY esomeprazole magnesium 20 mg capsule,delayed release(DR/EC) 20 mg PO DAILY Patient Comments: TAKE 1 CAPSULE BY MOUTH EVERY DAY IN THE MORNING hydrochlorothiazide 12.5 mg tablet 12.5 mg PO QAM Qty: 90 3RF olmesartan 20 mg tablet 20 mg PO DAILY Qty: 90 3RF carvedilol 6.25 mg tablet 6.25 mg PO BID calcium carbonate-vitamin D2 600 mg calcium- 200 unit Tablet 1 tab PO BEDTIME vitamin E 200 unit Tablet 90 mg PO BEDTIME Eliquis 2.5 mg tablet 2.5 mg PO BID cyanocobalamin (vitamin B-12) 1,000 mcg capsule 1,000 mcg PO DAILY Referrals: Lakshmi Jung ARNP [Primary Care Provider] - Stand Alone Forms: Patient Portal/API
[2023-07-24 20:23] LABS: INR 0.9 (0.9-1.3); Prothrombin Time 10.8 SECONDS (9.4-12.5)
[2023-07-24 20:26] LABS: PTT Partial Thromboplastin Tim 36 SECONDS (25.1-36.5)
[2023-07-24 20:28] LABS: Alanine Aminotransferase 27 IU/L (<35); Albumin 4.5 g/dL (3.5-5.0); Albumin Globulin Ratio 1.4 (1.0-2.8); Alkaline Phosphatase 97 U/L (38-126); Aspartate Aminotransferase 38 IU/L (14-36); BUN Creatinine Ratio 24.1 (6-22); Bilirubin Total 0.6 mg/dL (0.2-1.3); Blood Urea Nitrogen 20 mg/dL (7-17); Calcium 9.8 mg/dL (8.4-10.2); Carbon Dioxide 24 mmol/L (22-32); Chloride 107 mmol/L (98-107); Creatine Kinase 337 U/L (30-135); Estimated Glomerular Filt Rate > 60 mL/min (>60); Globulin 3.3 g/dL (1.7-4.1); Glucose 125 mg/dL (80-110); HEMOLYSIS 34 (0-50); Lipase 199 U/L (23-300); Magnesium 1.8 mg/dL (1.6-2.3); Potassium 3.8 mmol/L (3.4-5.1); Sodium 140 mmol/L (137-145); Total Protein 7.8 g/dL (6.3-8.2)
[2023-07-24] MEDS: AMIODARONE 150 MG/100 ML PIGGYBACK 200 MG IV (20:33)
[2023-07-24 20:39] LABS: Troponin I 0.023 ng/mL (0.01-0.034)
--- NOTE | 2023-07-24 21:06 | PC.NURSE ---
HR decreased to 120s while infusion was going, but after infusion pt stood to get on BSC and HR increased to 140
[2023-07-24] MEDS: fentaNYL 100 MCG/2 ML INJ 12.5 MCG IV (21:39)
[2023-07-24] MEDS: propofoL 200 MG/20 ML VIAL 100 MG IV (21:52)
== END 2023-07-24 23:43 | disposition home or self-care (01) ==
PROVIDERS: Emergency Provider Emergency Medicine; Family Provider Nurse Practitioner; PCP Nurse Practitioner
DX: I48.91 Unspecified atrial fibrillation (principal); Z79.01 Long term (current) use of anticoagulants
CPT/HCPCS: 36415; 71045; 80053; 82550; 83690; 83735; 84484; 85025; 85610; 85730; 92960; 93005; 96365; 99152; 99285; J0282; J2704; J3010

== ENCOUNTER → 2023-08-07 14:54 | Outpatient (CLI) | payer MEDICARE, OTHER, SELFPAY ==
[2023-07-27 08:31] VITALS: BMI 29.0
[2023-08-09 13:52] LABS: Candida species Negative (Negative); Gardnerella vaginalis Negative (Negative); Trichomoas vaginalis Negative (Negative)
== END ==
LOC: LAB 14:55
PROVIDERS: Family Provider Nurse Practitioner; PCP Nurse Practitioner; Visit Provider Obstetrics & Gynecology
DX: N89.8 Other specified noninflammatory disorders of vagina (principal)
CPT/HCPCS: 87480; 87510; 87660

== ENCOUNTER 2023-08-11 21:30 | Emergency (ER) | payer MEDICARE, OTHER, SELFPAY ==
[2023-07-27 08:31] VITALS: BMI 29.0
[2023-08-11] VITALS (32 sets, daily range): BP systolic 96–178; BP diastolic 48–75; PULSE 70–137; RESP 0–28; TEMP 36.2; O2SAT 91–96; BMI 29.0
--- NOTE | 2023-08-11 21:41 | DI.RAD.S_ITS ---
PROCEDURE: XR CHEST 1V INDICATIONS: PALPITATIONS, A FIB TECHNIQUE: One view of the chest was acquired. COMPARISON: [facility], CR, XR CHEST 1V, 07/24/2023, 19:55. [facility], CR, XR CHEST 1V, 08/30/2020, 10:30. FINDINGS: Surgical changes and devices: None. Lungs and pleura: Lungs are clear. No pleural effusions or pneumothorax. Mediastinum: Mediastinal contours appear normal. Heart size is normal. Bones and chest wall: No suspicious bony lesions. Overlying soft tissues appear unremarkable. IMPRESSION: Mild chronic asymmetric elevation of the right hemidiaphragm when compared to that on the left, no sign of CHF or pneumonia. Dictated by: Shmuel Flores M.D. on 08/11/2023 at 21:53 Approved by: Shmuel Flores M.D. on 08/11/2023 at 21:54
--- NOTE | 2023-08-11 21:43 | ED.ARRPALP ---
HPI - Arrhythmia/Palpitations General Chief Complaint: Arrhythmia/Palpitations Stated Complaint: flutter Time Seen by Provider: 08/11/23 21:31 History of Present Illness HPI narrative: 88-year-old female with history of paroxysmal atrial fibrillation on Eliquis, status post ablation, normally in sinus rhythm presents by EMS from home for palpitations. Patient had finished dinner when she began to feel symptoms and called 911. Patient takes carvedilol daily, denies use of diltiazem or metoprolol. Patient was seen in the emergency department on 07/24/2023 for AFib and underwent cardioversion. She was an appointment scheduled in 3 days with Cardiology to discuss her episode of atrial fibrillation. Patient reports compliance with [facility] reports initial HR in the 140s. She was given 15mg of IV diltiazem en route. Other vital signs stable Related Data Home Medications Medication Instructions Recorded Confirmed multivitamin (Daily Multi-Vitamin 1 tab PO DAILY 11/20/18 08/07/23 tablet) cyanocobalamin (vitamin B-12) 1,000 mcg PO DAILY 09/23/20 08/07/23 1,000 mcg capsule curcumin 2 tab PO DAILY 08/22/21 08/07/23 lionsmane mushroom root 2 tab PO DAILY 08/22/21 08/07/23 esomeprazole magnesium 20 mg 20 mg PO DAILY 05/22/22 08/07/23 capsule,delayed release carvedilol 6.25 mg tablet 6.25 mg PO BID 12/11/22 08/07/23 apixaban 2.5 mg tablet (Eliquis) 2.5 mg PO BID 02/12/23 08/07/23 calcium carb-ergocalciferol (vit 1 tab PO BEDTIME 02/12/23 08/07/23 D2) 600 mg calcium-200 unit tablet vitamin E 200 unit tablet 90 mg PO BEDTIME 02/12/23 08/07/23 fluoride (sodium) 1.1 % dental dental 03/24/23 08/07/23 paste (PreviDent 5000 Booster Plus) Previous Rx's Medication Instructions Recorded hydrochlorothiazide 12.5 mg tablet 12.5 mg PO QAM #90 tabs 11/14/22 olmesartan 20 mg tablet 20 mg PO DAILY #90 tabs 11/14/22 bismuth subsalicylate 525 mg 525 mg PO Q1H PRN heartburn #90 05/08/23 tablet (Pepto-Bismol Ultra) tabs fluconazole 100 mg tablet 100 mg PO DAILY #2 tabs 08/07/23 (Diflucan) hydrocortisone 1 % topical cream 1 applic topical BID #28.35 grams 08/07/23 metoprolol succinate 50 mg 50 mg PO DAILY #30 tabs 08/11/23 tablet,extended release 24 hr Allergies Allergy/AdvReac Type Severity Reaction Status Date / Time levofloxacin [LEVOFLOXACIN] Allergy Severe rash Verified 08/11/23 21:37 metronidazole [METRONIDAZOLE] Allergy Mild Rash Verified 08/11/23 21:37 pregabalin [PREGABALIN] Allergy Mild Rash Verified 08/11/23 21:37 fluticasone AdvReac Severe severe Verified 08/11/23 21:37 nosebleeds atorvastatin [From Lipitor] AdvReac Intermediate joint aches Verified 08/11/23 21:37 Review of Systems Review of Systems Narrative: See HPI Patient History Medical History Chronic anticoagulation Gastric reflux Hiatal hernia Low back pain 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 Degenerative disc disease, lumbar Lumbar spondylosis Iliotibial band syndrome, left leg Acute pain of left knee Itch of right eye Hyperlipidemia Abnormal bruising Greater trochanteric bursitis of left hip Arthralgia Acute right-sided low back pain without sciatica 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 Nodule of flexor tendon sheath Body posture problem Iliotibial band syndrome of both sides History of humerus fracture Chronic pain of right elbow Chronic pain of right hand Cranial somatic dysfunction Segmental and somatic dysfunction of rib cage Foot joint stiffness, bilateral Somatic dysfunction of lower extremity Sacral region somatic dysfunction Pelvic somatic dysfunction Upper extremity somatic dysfunction Segmental and somatic dysfunction of abdomen and other regions Lumbar region somatic dysfunction Thoracic region somatic dysfunction Cervical somatic dysfunction Chronic bilateral low back pain without sciatica Chronic thoracic back pain Neck pain, chronic 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 Edema Periodic limb movement disorder (PLMD) Nocturnal hypoxemia (~07/2019) Obstructive sleep apnea (~07/2019) Impairment of balance Unsteady gait Numbness and tingling of both feet Advance care planning Advance directive in chart History of COPD Positive FIT (fecal immunochemical test) Pain of left breast Menopausal vaginal dryness Vaginal stricture Cranial somatic dysfunction Viral URI with cough Tobacco abuse, in remission Osteoarthritis H pylori ulcer Stomach ulcer Colitis Fracture, humerus closed PVCs (premature ventricular contractions) Palpitations Hypertension Chronic a-fib Epistaxis, recurrent Atypical chest pain Surgical History History of cardiac radiofrequency ablation History of carpal tunnel surgery of left wrist S/P rotator cuff repair H/O nasal septoplasty H/O cataract extraction History of tonsillectomy History of cholecystectomy History of radiofrequency ablation procedure for cardiac arrhythmia S/P ablation of atrial fibrillation No significant past surgical history Family History Mother Hypertension Heart disease Breast cancer Father Hypertension Heart disease Sister Hypertension Heart disease Cancer Brother Heart disease Cancer Social History marital status: unknown household members: none occupational status: previously employed Smoking Status: Former smoker Tobacco: How many years used: 30 alcohol intake: current substance use type: does not use Smoking Status: Former smoker alcohol intake frequency: 0-2 drinks per day Alcohol type: wine Substance Use Type: does not use Exam Initial Vital Signs Initial Vital Signs: Vital Signs Pulse Rate 121 H 08/11/23 21:32 Pulse Oximetry 96 08/11/23 21:32 Const: Awake, alert, no acute distress, nontoxic appearing Cardiac: Tachycardia, irregularly irregular RESP: unlabored, clear bilaterally, no wheezing GI: Soft, nontender, nondistended, no rebound, no guarding MSK: Atraumatic, full range of motion, no edema Skin: Warm, Dry, intact, no rashes Neuro: AO x3, CN II-XII grossly intact, moves all extremities Procedures Cardioversion Consent Signed: Yes Indication: Atrial fibrillation with RVR Stability: Stable Number of attempts (shocks): 1 Joules used: 150 Additional Comments: Sinus rhythm post procedure Procedural Sedation Consent signed: Yes Time out performed: Yes Indication: cardioversion ASA Class: II Mallampati Airway Classification: Class I Time of Last PO Intake: 19:00 Preparation: monitoring specialist applied, pulse oximeter, capnometry used, supplemental O2 applied, suction/airway equipment at bedside and IV secured IV Propofol dose (mg): 70 Intraservice time/total sedation time (min): 10 ED Sedation Level: Moderate (Concious) Patient Tolerated Procedure: Well and No complications Complications: none Course Orders Ordered: ED Orders 08/11/23 21:30 CBC Auto Diff [Complete Blood Count AUTO DIFF] Stat CMP [Comprehensive Metabolic Panel] Stat MAG [Magnesium] Stat Troponin & CK Cardiac Panel Stat 08/11/23 21:41 Chest [XR chest 1V] Stat EKG-12 Lead Stat Discontinued Medications Metoprolol Succinate (Metoprolol Er 50 Mg Tablet) 50 mg PO NOW ONE Stop: 08/11/23 22:48 Last Admin: 08/11/23 23:43 Dose: 50 mg Documented By: MELISSA Metoprolol Tartrate (Metoprolol Tartrate 5 Mg/5 Ml Inj) 5 mg IV Q5M QUINCY Stop: 08/11/23 21:56 Last Admin: 08/11/23 23:00 Dose: Not Given Documented By: Admin: 08/11/23 23:00 Dose: Not Given Documented By: Admin: 08/11/23 23:00 Dose: Not Given Documented By: Propofol (Propofol 200 Mg/20 Ml Vial) 100 mg IV NOW ONE Stop: 08/11/23 22:02 Last Admin: 08/11/23 23:09 Dose: 70 mg Documented By: OSWALDO Vital Signs Vital signs: Vital Signs - 8 hr 08/11/23 21:32 08/11/23 21:33 08/11/23 21:33 Temperature Pulse Rate 121 H 106 H Respiratory Rate Blood Pressure 113/63 Pulse Oximetry 96 95 Oxygen Delivery Method 08/11/23 21:35 08/11/23 21:39 08/11/23 21:40 Temperature 97.2 F L Pulse Rate 110 H 107 H 104 H Respiratory Rate 28 H Blood Pressure 113/63 Pulse Oximetry 95 94 95 Oxygen Delivery Method Room Air 08/11/23 21:45 08/11/23 21:50 08/11/23 21:51 Temperature Pulse Rate 104 H 113 H 115 H Respiratory Rate 24 19 17 Blood Pressure Pulse Oximetry 95 95 95 Oxygen Delivery Method 08/11/23 21:51 08/11/23 21:55 08/11/23 22:00 Temperature Pulse Rate 116 H 137 H Respiratory Rate 24 Blood Pressure 141/63 H Pulse Oximetry 95 95 Oxygen Delivery Method 08/11/23 22:00 08/11/23 22:05 08/11/23 22:17 Temperature Pulse Rate 135 H 130 H Respiratory Rate Blood Pressure 178/75 H Pulse Oximetry 95 92 Oxygen Delivery Method 08/11/23 22:17 08/11/23 22:20 08/11/23 22:20 Temperature Pulse Rate 123 H Respiratory Rate Blood Pressure 118/60 119/61 Pulse Oximetry 96 Oxygen Delivery Method 08/11/23 22:30 08/11/23 22:30 08/11/23 22:35 Temperature Pulse Rate 129 H 130 H Respiratory Rate 0 L 11 L Blood Pressure 145/71 H Pulse Oximetry 96 95 Oxygen Delivery Method 08/11/23 22:40 08/11/23 22:40 08/11/23 22:45 Temperature Pulse Rate 136 H 115 H Respiratory Rate 17 22 Blood Pressure 112/58 L Pulse Oximetry 95 91 Oxygen Delivery Method 08/11/23 22:45 08/11/23 22:50 08/11/23 22:50 Temperature Pulse Rate 75 Respiratory Rate 21 Blood Pressure 130/59 L 101/48 L Pulse Oximetry 95 Oxygen Delivery Method 08/11/23 22:54 08/11/23 22:54 08/11/23 22:54 Temperature Pulse Rate 72 72 Respiratory Rate 17 16 Blood Pressure 96/49 L Pulse Oximetry 93 Oxygen Delivery Method 08/11/23 22:55 08/11/23 22:55 08/11/23 23:00 Temperature Pulse Rate 76 76 Respiratory Rate 25 H 22 Blood Pressure 103/54 L Pulse Oximetry 94 93 Oxygen Delivery Method 08/11/23 23:00 08/11/23 23:05 08/11/23 23:05 Temperature Pulse Rate 72 Respiratory Rate 15 Blood Pressure 113/54 L 113/55 L Pulse Oximetry 94 Oxygen Delivery Method Room Air 08/11/23 23:10 08/11/23 23:10 08/11/23 23:15 Temperature Pulse Rate 73 71 Respiratory Rate 10 L 13 Blood Pressure 120/56 L Pulse Oximetry 93 92 Oxygen Delivery Method Room Air Room Air 08/11/23 23:15 08/11/23 23:20 08/11/23 23:20 Temperature Pulse Rate 72 Respiratory Rate 15 Blood Pressure 113/56 L 114/58 L Pulse Oximetry 92 Oxygen Delivery Method Room Air 08/11/23 23:25 08/11/23 23:30 08/11/23 23:30 Temperature Pulse Rate 77 73 Respiratory Rate 20 15 Blood Pressure 117/56 L Pulse Oximetry 93 92 Oxygen Delivery Method Room Air Room Air 08/11/23 23:35 08/11/23 23:40 08/11/23 23:45 Temperature Pulse Rate 70 76 Respiratory Rate 15 16 Blood Pressure 138/65 Pulse Oximetry 92 93 Oxygen Delivery Method Room Air 08/11/23 23:45 08/11/23 23:50 08/11/23 23:55 Temperature Pulse Rate 79 75 74 Respiratory Rate 19 19 19 Blood Pressure Pulse Oximetry 94 94 93 Oxygen Delivery Method 08/12/23 00:00 08/12/23 00:00 08/12/23 00:05 Temperature Pulse Rate 73 99 H Respiratory Rate 16 41 H Blood Pressure 154/67 H Pulse Oximetry 95 Oxygen Delivery Method 08/12/23 00:50 08/12/23 01:25 Temperature Pulse Rate 72 78 Respiratory Rate 18 Blood Pressure 157/67 H 173/74 H Pulse Oximetry 95 Oxygen Delivery Method Room Air MDM - Arrhythmia/Palpitations Differential Diagnosis Differential diagnosis: Likely palpitations, anxiety and sinus tachycardia Lab Data 08/11/23 21:30 08/11/23 21:30 Labs: Lab Results 08/11/23 Range/Units 21:30 WBC 7.1 (4.5-11.0) X10^3/uL RBC 5.04 (4.0-5.2) X10^6/uL Hgb 15.3 (12.0-16.0) g/dL Hct 45.0 (36-46) % MCV 89.3 (80-100) fL MCH 30.3 (26-34) PG MCHC 33.9 (30-36) % RDW 13.6 (11.6-14.8) % Plt Count 302 (150-400) X10^3/uL Neut % (Auto) 64.8 (50-75) % Lymph % (Auto) 19.9 L (25-40) % Hubbard % (Auto) 11.2 (3-14) % Eos % (Auto) 3.3 (2-4) % Baso % (Auto) 0.8 (0-2) % Neut # (Auto) 4600 (4619-5143) /uL Lymph # (Auto) 1400 (2403-2759) /uL Hubbard # (Auto) 800 (0-900) /uL Eos # (Auto) 200 (0-450) /uL Baso # (Auto) 100 (0-100) /uL Sodium 139 (137-145) mmol/L Potassium 3.6 (3.4-5.1) mmol/L Chloride 103 (98-107) mmol/L Carbon Dioxide 28 (22-32) mmol/L BUN 18 H (7-17) mg/dL Creatinine 0.71 (0.52-1.04) mg/dL Estimated GFR > 60 (>60) mL/min BUN/Creatinine Ratio 25.4 H (6-22) Glucose 82 (80-110) mg/dL Calcium 10.1 (8.4-10.2) mg/dL Magnesium 2.0 (1.6-2.3) mg/dL Total Bilirubin 0.5 (0.2-1.3) mg/dL AST 39 H (14-36) IU/L ALT 32 (<35) IU/L Alkaline Phosphatase 88 (38-126) U/L Total Creatine Kinase 333 H (30-135) U/L Troponin I < 0.012 (0.01-0.034) ng/mL Total Protein 8.0 (6.3-8.2) g/dL Albumin 4.8 (3.5-5.0) g/dL Globulin 3.2 (1.7-4.1) g/dL Albumin/Globulin Ratio 1.5 (1.0-2.8) Point of Care Testing Test Results Not applicable Imaging Data Chest x-ray: Radiologist's Impresson: PROCEDURE: XR CHEST 1V INDICATIONS: PALPITATIONS, A FIB TECHNIQUE: One view of the chest was acquired. COMPARISON: [facility], , XR CHEST 1V, 07/24/2023, 19:55. [facility], , XR CHEST 1V, 08/30/2020, 10:30. FINDINGS: Surgical changes and devices: None. Lungs and pleura: Lungs are clear. No pleural effusions or pneumothorax. Mediastinum: Mediastinal contours appear normal. Heart size is normal. Bones and chest wall: No suspicious bony lesions. Overlying soft tissues appear unremarkable. IMPRESSION: Mild chronic asymmetric elevation of the right hemidiaphragm when compared to that on the left, no sign of CHF or pneumonia. Dictated by: Shmuel Flores M.D. on 08/11/2023 at 21:53 Approved by: Shmuel Flores M.D. on 08/11/2023 at 21:54 ECG Data Interpretation: EKG 1: Atrial fibrillation at 96 beats per minute. No ST T wave changes, normal axis EKG 2: Normal sinus rhythm at 72 beats per minute, normal CA, normal axis, no ST T wave changes, no STEMI MDM Narrative Medical decision making narrative: Well-appearing patient presenting in AFib with RVR. Normally in sinus rhythm. Takes Coreg but no other rate-controlling medications. Has appointment next week to see Cardiology. Patient's heart rate on arrival between 90 and 110 beats per minute, atrial fibrillation, however shortly after patient arrived in the emergency department heart rate increased to 140-150 beats per minute, in atrial fibrillation with rapid ventricular response. Patient agreed to electric cardioversion, and was successfully converted to NSR after single attempt with synchronized 150 joules. Patient states that she drinks 1-2 glasses of wine with dinner every night. She was advised to stop alcohol until otherwise instructed to by cardiology as this can irritate the heart and lead to worsening atrial fibrillation. In addition she was counseled to stop taking Coreg and switch to metoprolol for better beta blocking activity. First dose of metoprolol given to patient in the emergency department prior to departure. She was advised to continue her Eliquis. Discharge Plan Departure Patient Disposition: Home Clinical Impression: Atrial fibrillation with RVR Instructions: DI for Atrial Fibrillation Activity Restrictions/Additional Instructions: Stop taking your Coreg and take the metoprolol instead. Continue to take your Eliquis. I would avoid alcohol at least until your cardiology appointment on Sunday. Prescriptions: New metoprolol succinate 50 mg tablet extended release 24 hr 50 mg PO DAILY Qty: 30 0RF No Action fluoride (sodium) [PreviDent 5000 Booster Plus] 1.1 % paste dental Pepto-Bismol Ultra 525 mg tablet 525 mg PO Q1H PRN (Reason: heartburn) Qty: 90 0RF Rx Instructions: do not exceed 8 doses in a 24 hour period multivitamin [Daily Multi-Vitamin] tablet 1 tab PO DAILY lionsmane mushroom root 2 tab PO DAILY curcumin 2 tab PO DAILY esomeprazole magnesium 20 mg capsule,delayed release(DR/EC) 20 mg PO DAILY Patient Comments: TAKE 1 CAPSULE BY MOUTH EVERY DAY IN THE MORNING hydrochlorothiazide 12.5 mg tablet 12.5 mg PO QAM Qty: 90 3RF olmesartan 20 mg tablet 20 mg PO DAILY Qty: 90 3RF carvedilol 6.25 mg tablet 6.25 mg PO BID fluconazole [Diflucan] 100 mg tablet 100 mg PO DAILY Qty: 2 0RF Rx Instructions: Take one tablet by mouth. Repeat dose in one week if still having symptoms. hydrocortisone 1 % cream 1 applic topical BID Qty: 28.35 6RF calcium carbonate-vitamin D2 600 mg calcium- 200 unit Tablet 1 tab PO BEDTIME vitamin E 200 unit Tablet 90 mg PO BEDTIME Eliquis 2.5 mg tablet 2.5 mg PO BID cyanocobalamin (vitamin B-12) 1,000 mcg capsule 1,000 mcg PO DAILY Referrals: Lakshmi Jung ARNP [Primary Care Provider] - Stand Alone Forms: Patient Portal/API
[2023-08-11 21:56] LABS: Creatine Kinase 333 U/L (30-135)
[2023-08-11 21:58] LABS: Alanine Aminotransferase 32 IU/L (<35); Albumin 4.8 g/dL (3.5-5.0); Albumin Globulin Ratio 1.5 (1.0-2.8); Alkaline Phosphatase 88 U/L (38-126); Aspartate Aminotransferase 39 IU/L (14-36); BUN Creatinine Ratio 25.4 (6-22); Bilirubin Total 0.5 mg/dL (0.2-1.3); Blood Urea Nitrogen 18 mg/dL (7-17); Calcium 10.1 mg/dL (8.4-10.2); Carbon Dioxide 28 mmol/L (22-32); Chloride 103 mmol/L (98-107); Estimated Glomerular Filt Rate > 60 mL/min (>60); Globulin 3.2 g/dL (1.7-4.1); Glucose 82 mg/dL (80-110); HEMOLYSIS 19 (0-50); Potassium 3.6 mmol/L (3.4-5.1); Sodium 139 mmol/L (137-145)
[2023-08-11 22:04] LABS: Add Manual Diff / Slide Review NO; Basophils Absolute Auto 100 /uL (0-100); Basophils Percent Auto 0.8 % (0-2); Eosinophils Absolute Auto 200 /uL (0-450); Eosinophils Percent Auto 3.3 % (2-4); Hemoglobin 15.3 g/dL (12.0-16.0); Lymphocytes Absolute Auto 1400 /uL (1100-4500); Lymphocytes Percent Auto 19.9 % (25-40); Mean Corpuscular HGB Conc 33.9 % (30-36); Mean Corpuscular Hemoglobin 30.3 PG (26-34); Mean Corpuscular Volume 89.3 fL (80-100); Monocytes Absolute Auto 800 /uL (0-900); Monocytes Percent Auto 11.2 % (3-14); Neutrophils Absolute Auto 4600 /uL (1500-7000); Neutrophils Percent Auto 64.8 % (50-75); Platelet Count 302 X10^3/uL (150-400); Red Blood Cell Count 5.04 X10^6/uL (4.0-5.2); Red Cell Distribution Width 13.6 % (11.6-14.8); White Blood Cell Count 7.1 X10^3/uL (4.5-11.0)
[2023-08-11 22:09] LABS: Troponin I < 0.012 ng/mL (0.01-0.034)
[2023-08-11] MEDS: propofoL 200 MG/20 ML VIAL 100 MG IV (23:09)
[2023-08-11] MEDS: METOPROLOL ER 50 MG TABLET PO (23:43)
[2023-08-12] VITALS: BP 154/67; PULSE 73; RESP 16; O2SAT 95
[2023-08-12 00:05] VITALS: PULSE 99; RESP 41
--- NOTE | 2023-08-12 00:09 | PC.NURSE ---
Pt ambulated independently without difficulties. AOx4, pt states that she feels able and back to normal to go home.
[2023-08-12 00:50] VITALS: BP 157/67; PULSE 72
[2023-08-12 01:25] VITALS: BP 173/74; PULSE 78; RESP 18; O2SAT 95
== END 2023-08-12 01:26 | disposition home or self-care (01) ==
PROVIDERS: Emergency Provider Emergency Medicine; Family Provider Nurse Practitioner; PCP Nurse Practitioner
DX: I48.91 Unspecified atrial fibrillation (principal)
CPT/HCPCS: 36415; 71045; 80053; 82550; 83735; 84484; 85025; 92960; 93005; 99152; 99284; 99285; J2704

== ENCOUNTER 2023-08-13 13:02 | Emergency (ER) | payer MEDICARE, OTHER, SELFPAY ==
[2023-07-27 08:31] VITALS: BMI 29.0
[2023-08-13] VITALS (13 sets, daily range): BP systolic 151–227; BP diastolic 67–91; PULSE 67–82; RESP 10–25; TEMP 36.9; O2SAT 93–98; BMI 29.2
--- NOTE | 2023-08-13 13:35 | DI.RAD.S_ITS ---
PROCEDURE: XR CHEST 1V INDICATIONS: chest pain TECHNIQUE: One view of the chest was acquired. COMPARISON: [facility], CR, XR CHEST 1V, 08/11/2023, 21:41. FINDINGS: Surgical changes and devices: None. Lungs and pleura: Minimal appearance of increased pulmonary vascularity. Mediastinum: Mediastinal contours appear normal. Heart size is enlarged. Bones and chest wall: No suspicious bony lesions. Overlying soft tissues appear unremarkable. IMPRESSION: Minimal increased vascularity suggestive of edema. No effusions. Dictated by: Barby Sahni M.D. on 08/13/2023 at 14:24 Approved by: Barby Sahni M.D. on 08/13/2023 at 14:24
[2023-08-13 14:00] LABS: Add Manual Diff / Slide Review NO; Basophils Absolute Auto 0 /uL (0-100); Basophils Percent Auto 0.7 % (0-2); Eosinophils Absolute Auto 200 /uL (0-450); Eosinophils Percent Auto 3.4 % (2-4); Hematocrit 40.7 % (36-46); Lymphocytes Absolute Auto 1100 /uL (1100-4500); Lymphocytes Percent Auto 16.6 % (25-40); Mean Corpuscular HGB Conc 34.3 % (30-36); Mean Corpuscular Hemoglobin 30.5 PG (26-34); Mean Corpuscular Volume 88.9 fL (80-100); Monocytes Absolute Auto 500 /uL (0-900); Monocytes Percent Auto 7.1 % (3-14); Neutrophils Absolute Auto 4600 /uL (1500-7000); Neutrophils Percent Auto 72.2 % (50-75); Platelet Count 241 X10^3/uL (150-400); Red Blood Cell Count 4.58 X10^6/uL (4.0-5.2); Red Cell Distribution Width 13.6 % (11.6-14.8); White Blood Cell Count 6.4 X10^3/uL (4.5-11.0)
[2023-08-13 14:06] LABS: PTT Partial Thromboplastin Tim 38 SECONDS (25.1-36.5)
[2023-08-13 14:18] LABS: NT-proBNP (BNP-Adult 18+) 683 pg/mL (<450)
[2023-08-13 14:35] LABS: Alanine Aminotransferase 28 IU/L (<35); Albumin 4.3 g/dL (3.5-5.0); Albumin Globulin Ratio 1.6 (1.0-2.8); Alkaline Phosphatase 75 U/L (38-126); Aspartate Aminotransferase 33 IU/L (14-36); BUN Creatinine Ratio 22.6 (6-22); Bilirubin Total 0.7 mg/dL (0.2-1.3); Blood Urea Nitrogen 14 mg/dL (7-17); Calcium 9.7 mg/dL (8.4-10.2); Carbon Dioxide 28 mmol/L (22-32); Chloride 102 mmol/L (98-107); Creatine Kinase 308 U/L (30-135); Estimated Glomerular Filt Rate > 60 mL/min (>60); Globulin 2.7 g/dL (1.7-4.1); Glucose 147 mg/dL (80-110); HEMOLYSIS < 15 (0-50); Lipase 121 U/L (23-300); Magnesium 1.9 mg/dL (1.6-2.3); Potassium 3.8 mmol/L (3.4-5.1); Sodium 136 mmol/L (137-145)
[2023-08-13 14:47] LABS: Troponin I < 0.012 ng/mL (0.01-0.034)
--- NOTE | 2023-08-13 15:31 | PC.NURSE ---
Pt reports seen here sunday for cardioversion. Hx ablation around 10 years ago with 2x cardioversions recently. Pt complaining of headache 2/10, blurred vision, dizziness which started around 1000 today while volunteering at [employer]. Denies loss in vision. Reports weakness from laying in bed here. LAMS score 0.
[2023-08-13] MEDS: ACETAMINOPHEN 325 MG TABLET 650 MG PO (16:36)
[2023-08-13 16:56] LABS: Appearance Urine UA CLEAR; Bilirubin Urine UA NEGATIVE (NEGATIVE); Color Urine UA YELLOW; Glucose Urine UA NEGATIVE (Negative); Ketones Urine UA NEGATIVE (NEGATIVE); Leukocyte Esterase Urine UA TRACE (NEGATIVE); Nitrite Urine UA NEGATIVE (Negative); Occult Blood Urine UA NEGATIVE (Negative); Protein Urine UA NEGATIVE (Negative); Urobilinogen Urine UA 0.2 E.U./dL (0.2)
[2023-08-13 16:59] LABS: pH Urine UA 7.5 (4.5-8.0)
[2023-08-13 17:12] LABS: Bacteria Urine Few (2-10); RBC Urine None Seen (0-5/HPF); Squamous Epithelial Cell Urine None Seen (0-5/HPF); Urine Volume 10mL (spun); WBC Urine 0-1/HPF (0-5/HPF)
[2023-08-13 17:13] LABS: Culture Indicated Urine Cult Not Indicated
--- NOTE | 2023-08-13 18:28 | ED_ITS ---
HPI - General Adult General Chief complaint: Dizziness Stated complaint: Dizziness, cold sweats Time Seen by Provider: 08/13/23 18:00 Source: patient Mode of arrival: Ambulatory History of Present Illness HPI narrative: Patient is an 88-year-old female. She was seen here in the emergency department approximately 1 week ago where she was cardioverted after having an episode of AFib. She has a follow-up with Cardiology tomorrow. She states that she was here because she has been having episodes of dizziness and cold sweats. He has just been going on today. Is mostly when she stands up. No chest pain. No palpitations. Does have a slight headache. No vision changes. Does have some shortness of breath but that is baseline for. No numbness or tingling in her upper lower extremities. When she was lying down she was essentially asymptomatic. Related Data Home Medications Medication Instructions Recorded Confirmed multivitamin (Daily Multi-Vitamin 1 tab PO DAILY 11/20/18 08/07/23 tablet) cyanocobalamin (vitamin B-12) 1,000 mcg PO DAILY 09/23/20 08/07/23 1,000 mcg capsule curcumin 2 tab PO DAILY 08/22/21 08/07/23 lionsmane mushroom root 2 tab PO DAILY 08/22/21 08/07/23 esomeprazole magnesium 20 mg 20 mg PO DAILY 05/22/22 08/07/23 capsule,delayed release carvedilol 6.25 mg tablet 6.25 mg PO BID 12/11/22 08/07/23 apixaban 2.5 mg tablet (Eliquis) 2.5 mg PO BID 02/12/23 08/07/23 calcium carb-ergocalciferol (vit 1 tab PO BEDTIME 02/12/23 08/07/23 D2) 600 mg calcium-200 unit tablet vitamin E 200 unit tablet 90 mg PO BEDTIME 02/12/23 08/07/23 fluoride (sodium) 1.1 % dental dental 03/24/23 08/07/23 paste (PreviDent 5000 Booster Plus) Previous Rx's Medication Instructions Recorded hydrochlorothiazide 12.5 mg tablet 12.5 mg PO QAM #90 tabs 11/14/22 olmesartan 20 mg tablet 20 mg PO DAILY #90 tabs 11/14/22 bismuth subsalicylate 525 mg 525 mg PO Q1H PRN heartburn #90 01/02/24 tablet (Pepto-Bismol Ultra) tabs fluconazole 100 mg tablet 100 mg PO DAILY #2 tabs 08/07/23 (Diflucan) hydrocortisone 1 % topical cream 1 applic topical BID #28.35 grams 08/07/23 metoprolol succinate 50 mg 50 mg PO DAILY #30 tabs 08/11/23 tablet,extended release 24 hr Allergies Allergy/AdvReac Type Severity Reaction Status Date / Time levofloxacin [LEVOFLOXACIN] Allergy Severe rash Verified 08/11/23 21:37 metronidazole [METRONIDAZOLE] Allergy Mild Rash Verified 08/11/23 21:37 pregabalin [PREGABALIN] Allergy Mild Rash Verified 08/11/23 21:37 fluticasone AdvReac Severe severe Verified 08/11/23 21:37 nosebleeds atorvastatin [From Lipitor] AdvReac Intermediate joint aches Verified 08/11/23 21:37 Review of Systems Review of Systems ROS Unobtainable: All systems reviewed & are unremarkable except as noted in HPI and below Patient History Medical History Chronic anticoagulation Gastric reflux Hiatal hernia Low back pain 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 Degenerative disc disease, lumbar Lumbar spondylosis Iliotibial band syndrome, left leg Acute pain of left knee Itch of right eye Hyperlipidemia Abnormal bruising Greater trochanteric bursitis of left hip Arthralgia Acute right-sided low back pain without sciatica 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 Nodule of flexor tendon sheath Body posture problem Iliotibial band syndrome of both sides History of humerus fracture Chronic pain of right elbow Chronic pain of right hand Cranial somatic dysfunction Segmental and somatic dysfunction of rib cage Foot joint stiffness, bilateral Somatic dysfunction of lower extremity Sacral region somatic dysfunction Pelvic somatic dysfunction Upper extremity somatic dysfunction Segmental and somatic dysfunction of abdomen and other regions Lumbar region somatic dysfunction Thoracic region somatic dysfunction Cervical somatic dysfunction Chronic bilateral low back pain without sciatica Chronic thoracic back pain Neck pain, chronic 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 Edema Periodic limb movement disorder (PLMD) Nocturnal hypoxemia (~07/2019) Obstructive sleep apnea (~07/2019) Impairment of balance Unsteady gait Numbness and tingling of both feet Advance care planning Advance directive in chart History of COPD Positive FIT (fecal immunochemical test) Pain of left breast Menopausal vaginal dryness Vaginal stricture Cranial somatic dysfunction Viral URI with cough Tobacco abuse, in remission Osteoarthritis H pylori ulcer Stomach ulcer Colitis Fracture, humerus closed PVCs (premature ventricular contractions) Palpitations Hypertension Chronic a-fib Epistaxis, recurrent Atypical chest pain Surgical History History of cardiac radiofrequency ablation History of carpal tunnel surgery of left wrist S/P rotator cuff repair H/O nasal septoplasty H/O cataract extraction History of tonsillectomy History of cholecystectomy History of radiofrequency ablation procedure for cardiac arrhythmia S/P ablation of atrial fibrillation No significant past surgical history Family History Mother Hypertension Heart disease Breast cancer Father Hypertension Heart disease Sister Hypertension Heart disease Cancer Brother Heart disease Cancer Social History marital status: unknown household members: none occupational status: previously employed Smoking Status: Former smoker Tobacco: How many years used: 30 alcohol intake: current substance use type: does not use Smoking Status: Former smoker alcohol intake frequency: 0-2 drinks per day Alcohol type: wine Substance Use Type: does not use Exam Initial Vital Signs Initial Vital Signs: Vital Signs Temperature 98.5 F 08/13/23 13:27 Pulse Rate 81 08/13/23 13:27 Respiratory Rate 18 08/13/23 13:27 Blood Pressure 227/91 H 08/13/23 13:27 Pulse Oximetry 94 08/13/23 13:27 Oxygen Delivery Method Room Air 08/13/23 13:27 Const General: cooperative, comfortable and No ill appearing [facility] Head: normal to inspection and normocephalic Resp Effort & Inspection: normal respiratory effort Auscultation: clear to auscultation bilaterally Cardio Rate: regular rate Rhythm: regular rhythm GI Inspection: normal to inspection and non-distended Skin General: no rashes or lesions noted Neuro General: patient alert, patient awake and moves all extremities Extrem General: capillary refill normal Course Orders Ordered: ED Orders 08/13/23 18:28 CT head/brain wo con Stat Discontinued Medications Acetaminophen (Acetaminophen 325 Mg Tablet) 650 mg PO NOW ONE Stop: 08/13/23 16:09 Last Admin: 08/13/23 16:36 Dose: 650 mg Documented By: SPF Aspirin (Aspirin 81 Mg Chew Tab) 324 mg PO NOW ONE Stop: 08/13/23 13:36 Last Admin: 08/13/23 13:38 Dose: Not Given Documented By: ROSANNA Vital Signs Vital signs: Vital Signs - 8 hr 08/13/23 18:00 08/13/23 18:00 08/13/23 18:07 Pulse Rate 74 72 Respiratory Rate 24 Blood Pressure 186/78 H Pulse Oximetry 95 96 Oxygen Delivery Method 08/13/23 18:07 08/13/23 18:30 08/13/23 18:30 Pulse Rate 73 Respiratory Rate 25 H Blood Pressure 177/76 H 179/81 H Pulse Oximetry Oxygen Delivery Method 08/13/23 19:00 08/13/23 19:01 08/13/23 19:01 Pulse Rate 67 67 Respiratory Rate 22 24 Blood Pressure 172/74 H Pulse Oximetry 94 93 Oxygen Delivery Method Room Air Medical Decision Making Lab Data Lab results reviewed: Yes I reviewed the patient's lab results. 08/13/23 13:49 08/13/23 13:49 Labs: Lab Results 08/13/23 08/13/23 Range/Units 13:49 16:35 WBC 6.4 (4.5-11.0) X10^3/uL RBC 4.58 (4.0-5.2) X10^6/uL Hgb 14.0 (12.0-16.0) g/dL Hct 40.7 (36-46) % MCV 88.9 (80-100) fL MCH 30.5 (26-34) PG MCHC 34.3 (30-36) % RDW 13.6 (11.6-14.8) % Plt Count 241 (150-400) X10^3/uL Neut % (Auto) 72.2 (50-75) % Lymph % (Auto) 16.6 L (25-40) % Union % (Auto) 7.1 (3-14) % Eos % (Auto) 3.4 (2-4) % Baso % (Auto) 0.7 (0-2) % Neut # (Auto) 4600 (7164-3936) /uL Lymph # (Auto) 1100 (7315-7771) /uL Union # (Auto) 500 (0-900) /uL Eos # (Auto) 200 (0-450) /uL Baso # (Auto) 0 (0-100) /uL PT 12.0 (9.4-12.5) SECONDS INR 1.0 (0.9-1.3) APTT 38 H (25.1-36.5) SECONDS Sodium 136 L (137-145) mmol/L Potassium 3.8 (3.4-5.1) mmol/L Chloride 102 (98-107) mmol/L Carbon Dioxide 28 (22-32) mmol/L BUN 14 (7-17) mg/dL Creatinine 0.62 (0.52-1.04) mg/dL Estimated GFR > 60 (>60) mL/min BUN/Creatinine Ratio 22.6 H (6-22) Glucose 147 H (80-110) mg/dL Calcium 9.7 (8.4-10.2) mg/dL Magnesium 1.9 (1.6-2.3) mg/dL Total Bilirubin 0.7 (0.2-1.3) mg/dL AST 33 (14-36) IU/L ALT 28 (<35) IU/L Alkaline Phosphatase 75 (38-126) U/L Total Creatine Kinase 308 H (30-135) U/L Troponin I < 0.012 (0.01-0.034) ng/mL NT-Pro-B Natriuret Pep 683 H (<450) pg/mL Total Protein 7.0 (6.3-8.2) g/dL Albumin 4.3 (3.5-5.0) g/dL Globulin 2.7 (1.7-4.1) g/dL Albumin/Globulin Ratio 1.6 (1.0-2.8) Lipase 121 (23-300) U/L Urine Color Yellow Urine Appearance Clear Urine pH 7.5 (4.5-8.0) Ur Specific Mooers 1.010 (1.000-1.035) Urine Protein Negative (Negative) Urine Glucose (UA) Negative (Negative) g/dL Urine Ketones Negative (NEGATIVE) Urine Occult Blood Negative (Negative) Urine Nitrate Negative (Negative) Urine Bilirubin Negative (NEGATIVE) Urine Urobilinogen 0.2 (0.2) E.U./dL Ur Leukocyte Esterase Trace H (NEGATIVE) Urine RBC None seen (0-5/HPF) Urine WBC 0-1/hpf (0-5/HPF) Ur Squamous Epith Cells None seen (0-5/HPF) Urine Bacteria Few (2-10) H (None) Ur Culture Indicated? Cult not indicated Vol Urine Centrifuged 10ml (spun) Imaging Data Chest x-ray: Radiologist's Impression: PROCEDURE: XR CHEST 1V INDICATIONS: chest pain TECHNIQUE: One view of the chest was acquired. COMPARISON: [facility], CR, XR CHEST 1V, 08/11/2023, 21:41. FINDINGS: Surgical changes and devices: None. Lungs and pleura: Minimal appearance of increased pulmonary vascularity. Mediastinum: Mediastinal contours appear normal. Heart size is enlarged. Bones and chest wall: No suspicious bony lesions. Overlying soft tissues appear unremarkable. IMPRESSION: Minimal increased vascularity suggestive of edema. No effusions. CT scan - head: Radiologist's Impression: PROCEDURE: CT HEAD/BRAIN WO CON INDICATIONS: dizziness and headache on thinners no trauma TECHNIQUE: Noncontrast 4.5 mm thick angled axial sections acquired from the foramen magnum to the vertex, with coronal and sagittal reformats. For radiation dose reduction, the following was used: automated exposure control, adjustment of mA and/or kV according to patient size. COMPARISON: None. FINDINGS: Image quality: Diagnostic. CSF spaces: Basal cisterns are patent. No extra-axial fluid collections. The ventricles are symmetric in size and shape. Brain: No intracranial bleeds or masses. There is cerebral volume loss for age, with resultant ventricular and sulcal prominence. There are periventricular and deep white matter chronic small vessel ischemic changes. There is intracranial internal carotid artery atherosclerosis. Skull and face: Calvarium and visualized facial bones appear intact, without suspicious lesions. Sinuses: Visualized sinuses and mastoids are clear. IMPRESSION: No CT evidence of acute intracranial process. Age-appropriate cerebral cortical volume loss and chronic microvascular ischemic garcia ECG Data Attestation: I personally reviewed and interpreted this ECG as follows: Interpretation: Sinus rhythm Ventricular rate is 71 Normal axis normal QRS No ST T wave changes MDM Narrative Medical decision making narrative: Head CT is unremarkable. Sinus rhythm on her EKG. Labs unremarkable. Patient was able to stand at bedside. Does use a cane at baseline. Low suspicion for CVA. Unlikely transient arrhythmia that she was having some symptoms when she stands up and is in sinus rhythm. Low suspicion for ACS. Her symptoms are more of an unsteadiness not a vertigo sensation. Plan will be to discharge home to have her follow up with Cardiology tomorrow. Will also have her contact her primary provider for follow-up as well. She was given return precautions. She expressed understanding and agreement. Discharge Plan Departure Patient Disposition: Home Clinical Impression: Dizziness Instructions: DI for Dizziness-Nonvertigo Activity Restrictions/Additional Instructions: Recommend that you continue to take all of your medications as directed. Keep your scheduled appointment tomorrow with your tsa screener. I would recommend that you consider taking a allergy medicine such as his Zyrtec or Claritin. Return to the emergency department for new symptoms. Prescriptions: No Action fluoride (sodium) [PreviDent 5000 Booster Plus] 1.1 % paste dental Pepto-Bismol Ultra 525 mg tablet 525 mg PO Q1H PRN (Reason: heartburn) Qty: 90 0RF Rx Instructions: do not exceed 8 doses in a 24 hour period multivitamin [Daily Multi-Vitamin] tablet 1 tab PO DAILY lionsmane mushroom root 2 tab PO DAILY curcumin 2 tab PO DAILY esomeprazole magnesium 20 mg capsule,delayed release(DR/EC) 20 mg PO DAILY Patient Comments: TAKE 1 CAPSULE BY MOUTH EVERY DAY IN THE MORNING hydrochlorothiazide 12.5 mg tablet 12.5 mg PO QAM Qty: 90 3RF olmesartan 20 mg tablet 20 mg PO DAILY Qty: 90 3RF carvedilol 6.25 mg tablet 6.25 mg PO BID fluconazole [Diflucan] 100 mg tablet 100 mg PO DAILY Qty: 2 0RF Rx Instructions: Take one tablet by mouth. Repeat dose in one week if still having symptoms. hydrocortisone 1 % cream 1 applic topical BID Qty: 28.35 6RF calcium carbonate-vitamin D2 600 mg calcium- 200 unit Tablet 1 tab PO BEDTIME vitamin E 200 unit Tablet 90 mg PO BEDTIME Eliquis 2.5 mg tablet 2.5 mg PO BID metoprolol succinate 50 mg tablet extended release 24 hr 50 mg PO DAILY Qty: 30 0RF cyanocobalamin (vitamin B-12) 1,000 mcg capsule 1,000 mcg PO DAILY Referrals: Lakshmi Jung ARNP [Primary Care Provider] - Stand Alone Forms: Patient Portal/API
== END 2023-08-13 19:44 | disposition home or self-care (01) ==
PROVIDERS: Emergency Medicine; Emergency Provider Emergency Medicine; Family Provider Nurse Practitioner; PCP Nurse Practitioner
DX: R42 Dizziness and giddiness (principal); R07.9 Chest pain, unspecified; R51.9 Headache, unspecified; Z79.899 Other long term (current) drug therapy
CPT/HCPCS: 36415; 70450; 71045; 80053; 81001; 82550; 83690; 83735; 83880; 84484; 85025; 85610; 85730; 93005; 93010; 99284

== ENCOUNTER → 2023-08-31 10:16 | Outpatient (CLI) | payer OTHER, SELFPAY ==
[2023-07-27 08:31] VITALS: BMI 29.0
--- NOTE | 2023-08-31 10:18 | DI.RAD.S_ITS ---
PROCEDURE: XR THORACIC SPINE 3V INDICATIONS: Back pain TECHNIQUE: 3 views of the thoracic spine were acquired. COMPARISON: None. FINDINGS: Bones: No fractures or dislocations. No suspicious bony lesions. 12 pairs of ribs are noted, and appear intact where visualized. Mild levocurvature of the thoracic spine. There is multilevel intervertebral disc height loss with degenerative endplate changes and marginal spurring. Diffusely decreased osseous mineralization. Soft tissues: No paravertebral stripe thickening. Atherosclerotic vascular calcifications. IMPRESSION: Mild degenerative changes of the thoracic spine. No vertebral body compression deformities are seen. Dictated by: Chapito Grove M.D. on 08/31/2023 at 11:18 Approved by: Chapito Grove M.D. on 08/31/2023 at 11:19
== END ==
PROVIDERS: Family Provider Nurse Practitioner; PCP Nurse Practitioner; Referring Provider Anesthesiology; Visit Provider Anesthesiology
DX: M54.6 Pain in thoracic spine (principal); M47.814 Spondylosis without myelopathy or radiculopathy, thoracic region
CPT/HCPCS: 72072

== ENCOUNTER → 2023-09-14 16:38 | Outpatient (CLI) | payer MEDICARE, OTHER, SELFPAY ==
[2023-07-27 08:31] VITALS: BMI 29.0
[2023-09-14 18:22] LABS: BUN Creatinine Ratio 27.6 (6-22); Blood Urea Nitrogen 21 mg/dL (7-17); Calcium 9.5 mg/dL (8.4-10.2); Carbon Dioxide 29 mmol/L (22-32); Chloride 97 mmol/L (98-107); Estimated Glomerular Filt Rate > 60 mL/min (>60); Glucose 100 mg/dL (80-110); HEMOLYSIS < 15 (0-50); Potassium 3.8 mmol/L (3.4-5.1); Sodium 134 mmol/L (137-145)
== END ==
PROVIDERS: Family Provider Nurse Practitioner; PCP Nurse Practitioner; Referring Provider Internal Medicine Cardiovascular Disease; Visit Provider Internal Medicine Cardiovascular Disease
DX: I10 Essential (primary) hypertension (principal)
CPT/HCPCS: 36415; 80048

== ENCOUNTER → 2023-10-18 12:27 | Outpatient (CLI) | payer MEDICARE, OTHER, SELFPAY ==
[2023-07-27 08:31] VITALS: BMI 29.0
--- NOTE | 2023-10-18 12:29 | DI.ECHO.S_ITS ---
[facility] : : [address] : : [place] : : [id number] : : Phone: [phone] Echocardiogram Report + + :Name: KERRIE MEREDITH Study Date: 10/18/2023 Height: 67 in : :[facility] ReadingLocation: Weight: 190 lb : : Gender: Female BSA: 2.0 m2 : :: 1935 Age: 88 yrs BP: 176/73 mmHg: :Reason For Study: ATRIAL FIBRILLATION : :Ordering Physician: ANA MARÍA, : :ROS Performed By: John Humphreys : :Referring: ROS GOTTI : + + Interpretation Summary The left ventricle is normal in size. The ejection fraction is estimated to be 65-70%. There has been no significant change since the previous exam. Diastolic parameters suggest a pseudonormalization pattern, consistent with probable elevated filling pressures. This is unchanged compared to the previous study. The right ventricle is normal size. The right ventricular systolic function is normal. There is mild to moderate aortic regurgitation. Compared to the prior echo study, there has been no change in the severity of aortic regurgitation. There is mild tricuspid regurgitation. Compared to the prior echo exam, there has been no change in TR severity. The right ventricular systolic pressure is estimated to be at least 48.8 mmHg based on an estimated right atrial pressure of 8 mm Hg. Previously 40 mmHg. There is mild luminal irregularity and echogenicity in the abdominal aorta, suggestive of aortic atherosclerotic disease. No significant change from the previous study. BP: 176/73 mmHg Procedure: A two-dimensional transthoracic echocardiogram with color flow and Doppler was performed. The study quality was technically adequate. Comparison is made with the echocardiogram of 10/06/22. The heart rate ranged between 51-67 bpm during the study. The patient was in normal sinus rhythm during the exam. Left Ventricle: The left ventricle is normal in size. Left ventricular wall thickness is mildly increased. The ejection fraction is estimated to be 65- 70%. There has been no significant change since the previous exam. There are no focal wall motion abnormalities. Diastolic parameters suggest a pseudonormalization pattern, consistent with probable elevated filling pressures. This is unchanged compared to the previous study. Right Ventricle: The right ventricle is normal size. The right ventricular systolic function is normal. There has been no significant change since the previous study. Atria: The left atrium is severely dilated. The left atrium has remained unchanged in size since the prior echo exam. The right atrium is moderately dilated. The interatrial septum grossly appears intact with no obvious evidence for an atrial septal defect. Mitral Valve: There is mild to moderate mitral annular calcification. There is no mitral valve stenosis. There is mild mitral regurgitation. Compared to the prior echo study, there has been no change in the severity of mitral regurgitation. Aortic Valve: The aortic valve is trileaflet. There is mild aortic valve sclerosis. There is no aortic valve stenosis. There is mild to moderate aortic regurgitation. Compared to the prior echo study, there has been no change in the severity of aortic regurgitation. Tricuspid Valve: The tricuspid valve is normal. There is no tricuspid stenosis. There is mild tricuspid regurgitation. The right ventricular systolic pressure is estimated to be at least 48.8 mmHg based on an estimated right atrial pressure of 8 mm Hg. Compared to the prior echo exam, there has been no change in TR severity. Previously 40 mmHg. Pulmonic Valve: The pulmonic valve is not well seen, but is grossly normal. There is no pulmonic valvular stenosis. There is mild to moderate pulmonic regurgitation. Great Vessels: The aortic root is normal size. The dimensions of the ascending aorta are normal. There is mild luminal irregularity and echogenicity in the abdominal aorta, suggestive of aortic atherosclerotic disease. The IVC is dilated (diameter is greater than 2.1 cm) yet it collapses greater than 50% with a sniff. This suggests a right atrial pressure of 8 mm Hg. Pericardium/ Pleura There is no pericardial effusion. There is no pleural effusion. MMode/2D Measurements & Calculations LVIDd: 4.5 cm LVOT diam: 2.3 cm LVIDs: 2.6 cm Ao root diam: 3.4 cm FS: 42.6 % asc Aorta Diam: 3.6 cm IVSd: 1.1 cm LVPWd: 1.1 cm LV randle. diameter/BSA (cm/m^2): 2.3 LV sys. diameter/BSA (cm/m^2): 1.3 LA A2 area: 33.0 cm2 RA long axis: 5.8 cm LA A4 area: 31.2 cm2 RA area: 24.0 cm2 LA length (vol): 6.3 cm RA vol: 83.6 ml LA vol: 138.6 ml RA : 42.3 ml/m2 LA vol index: 70.0 ml/m2 IVC diam: 2.3 cm RVD1 (basal): 3.8 cm RVD2 (mid): 3.3 cm TAPSE: 2.9 cm Doppler Measurements & Calculations Ao V2 max: 144.3 cm/sec LVOT Max Shant: 96.4 cm/sec Ao V2 mean: 88.1 cm/sec LV V1 max P.7 mmHg Ao max P.3 mmHg LV V1 VTI: 25.7 cm Ao mean P.6 mmHg IRMA(I,D): 3.3 cm2 Ao V2 VTI: 31.9 cm IRMA(V,D): 2.8 cm2 sev ratio: 0.80 IRMA indexed to BSA (cm^2/m^2): 1.7 AI P1/2t: 379.7 msec AI dec slope: 342.8 cm/sec2 MV E max shant: 101.2 cm/sec TR max shant: 319.5 cm/sec MV A max shant: 38.9 cm/sec TR max P.8 mmHg MV E/A: 2.6 PA V2 max: 61.7 cm/sec Med Peak E' Shant: 4.4 cm/sec PA V2 mean: 45.5 cm/sec E/E' med: 23.0 PA mean P.92 mmHg Lat Peak E' Shant: 8.2 cm/sec PA pr(Accel): 27.6 mmHg E/E' lat: 12.3 E/e' average: 17.7 MV dec time: 0.13 sec SV(LVOT): 106.6 ml Reading Physician:06:58 PM
[2023-10-18 15:30] LABS: BUN Creatinine Ratio 22.8 (6-22); Blood Urea Nitrogen 18 mg/dL (7-17); Calcium 9.2 mg/dL (8.4-10.2); Carbon Dioxide 30 mmol/L (22-32); Chloride 98 mmol/L (98-107); Estimated Glomerular Filt Rate > 60 mL/min (>60); Glucose 89 mg/dL (80-110); HEMOLYSIS < 15 (0-50); Potassium 4.9 mmol/L (3.4-5.1); Sodium 132 mmol/L (137-145)
== END ==
PROVIDERS: Family Provider Nurse Practitioner; PCP Nurse Practitioner; Referring Provider Internal Medicine Cardiovascular Disease; Visit Provider Internal Medicine Cardiovascular Disease
DX: I08.3 Combined rheumatic disorders of mitral, aortic and tricuspid valves (principal); I48.0 Paroxysmal atrial fibrillation; I10 Essential (primary) hypertension
CPT/HCPCS: 36415; 80048; 93306

== ENCOUNTER → 2023-10-25 14:03 | Outpatient (CLI) | payer MEDICARE, OTHER, SELFPAY ==
[2023-07-27 08:31] VITALS: BMI 29.0
--- NOTE | 2023-10-25 14:04 | DI.CT.S_ITS ---
PROCEDURE: CT SINUS SCREEN WO CON INDICATIONS: Chronic pansinusitis TECHNIQUE: Noncontrast 3.0 mm axial images acquired from the frontal sinuses to the mid-sella, with coronal and sagittal reformats. For radiation dose reduction, the following was used: automated exposure control, adjustment of mA and/or kV according to patient size. COMPARISON: None. FINDINGS: Image quality: Excellent. Maxillary Sinuses: No bony remodeling or destruction. Sinuses are clear. Ethmoid Air Cells: No bony remodeling or destruction. Sinuses are clear. Sphenoid Sinuses: No bony remodeling or destruction. Sinuses are clear. Frontal Sinuses: No bony remodeling or destruction. Sinuses are clear. Ostiomeatal Complexes: Ostiomeatal complexes are patent but narrowed by bilateral Yani cells. Miscellaneous: Visualized intra-orbital contents are normal. Lens replacements. Left dany bullosa. No paradoxical turbinate curvature. No significant nasal septal deviation. IMPRESSION: The paranasal sinuses are clear. Dictated by: Chapito Grove M.D. on 10/25/2023 at 15:49 Approved by: Chapito Grove M.D. on 10/25/2023 at 15:51
== END ==
PROVIDERS: Family Provider Nurse Practitioner; PCP Nurse Practitioner; Referring Provider Otolaryngology; Visit Provider Otolaryngology
DX: J32.4 Chronic pansinusitis (principal); J31.0 Chronic rhinitis; R09.82 Postnasal drip
CPT/HCPCS: 70486

== ENCOUNTER → 2023-12-01 14:29 | Outpatient (CLI) | payer MEDICARE, OTHER, SELFPAY ==
[2023-07-27 08:31] VITALS: BMI 29.0
[2023-12-01 14:58] LABS: COVID19 -Nasal RAPID Negative (Negative)
== END ==
PROVIDERS: Family Provider Nurse Practitioner; PCP Nurse Practitioner; Referring Provider Physician Assistant Surgical; Visit Provider Physician Assistant Surgical
DX: J02.9 Acute pharyngitis, unspecified (principal)
CPT/HCPCS: 87070; 87635

== ENCOUNTER → 2024-04-11 10:05 | Outpatient (CLI) | payer MEDICARE, OTHER, SELFPAY ==
[2023-07-27 08:31] VITALS: BMI 29.0
[2024-04-11 13:03] LABS: Hematocrit 40.6 % (36-46); Hemoglobin 13.7 g/dL (12.0-16.0); Mean Corpuscular HGB Conc 33.8 % (30-36); Mean Corpuscular Hemoglobin 30.5 PG (26-34); Mean Corpuscular Volume 90.1 fL (80-100); Platelet Count 268 X10^3/uL (150-400); Red Cell Distribution Width 13.1 % (11.6-14.8); White Blood Cell Count 5.3 X10^3/uL (4.5-11.0)
[2024-04-11 13:13] LABS: BUN Creatinine Ratio 20.2 (6-22); Blood Urea Nitrogen 17 mg/dL (7-17); Calcium 9.6 mg/dL (8.4-10.2); Carbon Dioxide 30 mmol/L (22-32); Chloride 98 mmol/L (98-107); Cholesterol 190 mg/dL (140-199); Estimated Glomerular Filt Rate > 60 mL/min (>60); Glucose 92 mg/dL (80-110); HDL Cholesterol 62 mg/dL (40-60); HEMOLYSIS < 15 (0-50); LDL Cholesterol Calculated 105 mg/dL (<100); Potassium 4.6 mmol/L (3.4-5.1); Sodium 134 mmol/L (137-145); Triglycerides 116 mg/dL (35-150)
[2024-04-11 14:18] LABS: Vitamin D 25 Hydroxy (D3) 35.3 ng/mL (30.0-100.0)
== END ==
PROVIDERS: Family Provider Nurse Practitioner; PCP Nurse Practitioner Family; Referring Provider Nurse Practitioner; Visit Provider Nurse Practitioner
DX: I48.0 Paroxysmal atrial fibrillation (principal); I10 Essential (primary) hypertension; E78.5 Hyperlipidemia, unspecified; E55.9 Vitamin D deficiency, unspecified
CPT/HCPCS: 36415; 80048; 80061; 82306; 84443; 85027

== ENCOUNTER → 2024-04-24 17:58 | Outpatient (CLI) | payer MEDICARE, OTHER, SELFPAY ==
[2023-07-27 08:31] VITALS: BMI 29.0
[2024-04-24 19:30] LABS: Influenza A - CEPHEID Flu A NEGATIVE (NEGATIVE); Influenza B - CEPHEID Flu B NEGATIVE (NEGATIVE); Respiratory Syncytial Virus Negative (Negative)
[2024-04-24 19:34] LABS: COVID-19 CEPHEID 4-PLEX PCR Negative (Negative)
== END ==
PROVIDERS: Family Provider Nurse Practitioner; PCP Nurse Practitioner Family; Visit Provider Student in an Organized Health Care Education/Training Program
DX: R68.83 Chills (without fever) (principal)
CPT/HCPCS: 0241U

== ENCOUNTER → 2024-06-12 08:57 | Outpatient (CLI) | payer OTHER, SELFPAY ==
[2023-07-27 08:31] VITALS: BMI 29.0
--- NOTE | 2024-06-12 08:59 | DI.RAD.S_ITS ---
PROCEDURE: XR CHEST 2V INDICATIONS: Cough TECHNIQUE: 2 views of the chest were acquired. COMPARISON: [facility], CR, XR CHEST 1V, 08/13/2023, 13:45. FINDINGS: Heart, mediastinum and pulmonary vascular: Heart is normal in size and configuration. Mediastinum is unremarkable. Pulmonary vascular is normal. Lungs: Small patchy infiltrate left upper lobe appreciated. Pleural spaces: Normal-no effusions or pneumothorax. Bones and soft tissues: Normal IMPRESSION: Small patchy left upper lobe infiltrate likely pneumonia Dictated by: Shahbaz Rodriguez M.D. on 06/13/2024 at 11:38 Approved by: Shahbaz Rodriguez M.D. on 06/13/2024 at 11:39
== END ==
PROVIDERS: Family Provider Nurse Practitioner; PCP Nurse Practitioner Family; Referring Provider Nurse Practitioner Family; Visit Provider Nurse Practitioner Family
DX: R05.9 Cough, unspecified (principal)
CPT/HCPCS: 71046

== ENCOUNTER 2024-06-16 12:17 | Emergency (ER) | payer OTHER, SELFPAY ==
[2023-07-27 08:31] VITALS: BMI 29.0
[2024-06-16 12:21] VITALS: BP 214/115; PULSE 93; RESP 20; TEMP 36.5; O2SAT 93; BMI 29.7
[2024-06-16 14:54] LABS: Influenza A - CEPHEID Flu A NEGATIVE (NEGATIVE); Influenza B - CEPHEID Flu B NEGATIVE (NEGATIVE); Respiratory Syncytial Virus Negative (Negative)
[2024-06-16 14:55] LABS: COVID-19 CEPHEID 4-PLEX PCR Negative (Negative)
[2024-06-16 15:10] VITALS: BP 193/81; PULSE 77; RESP 18; O2SAT 97
[2024-06-16 15:30] VITALS: BP 179/79; PULSE 72; RESP 16; O2SAT 97
--- NOTE | 2024-06-16 16:06 | DI.RAD.S_ITS ---
PROCEDURE: XR CHEST 2V INDICATIONS: pna TECHNIQUE: 2 views of the chest were acquired. COMPARISON: [facility], CR, XR CHEST 1V, 08/13/2023, 13:45. [facility], CR, XR CHEST 2V, 06/12/2024, 9:12. FINDINGS: Surgical changes and devices: None. Lungs and pleura: Faint opacity overlying the lingula. Mediastinum: Mediastinal contours are normal. Heart size is normal. Bones and chest wall: No suspicious bony abnormalities. Soft tissues appear unremarkable. IMPRESSION: Faint lingular opacity possibly related to developing pneumonia. Dictated by: Barby Sahni M.D. on 06/16/2024 at 16:48 Approved by: Barby Sahni M.D. on 06/16/2024 at 16:49
--- NOTE | 2024-06-16 16:25 | ED_ITS ---
HPI - URI/Sore Throat <Davy Bull PA-C - Last Filed: 06/16/24 17:39> General Chief Complaint: Upper Respiratory Symptoms Stated Complaint: cough, chills 3 wks Time Seen by Provider: 06/16/24 15:09 Source: patient Mode of arrival: Ambulatory History of Present Illness HPI Narrative: 88-year-old female presents to the ED with persistent symptoms of pneumonia. Patient was seen in the walk-in clinic on 06/12/2024, diagnosed with pneumonia and started on Augmentin and doxycycline. Patient states that her symptoms have not significantly improved since then. Patient states her cough is better since she is taking benzonatate. Patient's bothersome symptoms are shortness of breath, fatigue, cough. No chest pain, nausea, vomiting, lightheadedness, dizziness, syncope. Related Data Home Medications Medication Instructions Recorded Confirmed apixaban 2.5 mg tablet (Eliquis) 2.5 mg PO BID 02/12/23 05/21/24 flecainide 50 mg tablet 50 mg PO BID 08/28/23 05/21/24 magnesium oxide 400 mg (241.3 mg 400 mg PO DAILY 08/28/23 05/21/24 magnesium) tablet amlodipine 5 mg tablet 5 mg PO DAILY 12/01/23 05/21/24 potassium chloride 10 mEq meq PO DAILY 06/12/24 06/12/24 tablet,extended release Previous Rx's Medication Instructions Recorded hydrocortisone 1 % topical cream 1 applic topical BID #28.35 grams 08/07/23 metoprolol succinate 50 mg 50 mg PO DAILY #30 tabs 08/11/23 tablet,extended release 24 hr esomeprazole magnesium 20 mg 20 mg PO DAILY #90 caps 08/21/23 capsule,delayed release olmesartan 20 mg tablet 20 mg PO DAILY #90 tabs 10/29/23 amoxicillin 875 mg-potassium 1 tab PO BID #14 tabs 06/12/24 clavulanate 125 mg tablet benzonatate 200 mg capsule 200 mg PO BID PRN cough #28 caps 06/12/24 doxycycline monohydrate 100 mg 100 mg PO BID 5 days #10 caps 06/13/24 capsule azithromycin 250 mg tablet See Rx Instructions PO .COMPLEX #6 06/16/24 (Zithromax Z-Michael) tabs Allergies Allergy/AdvReac Type Severity Reaction Status Date / Time levofloxacin [LEVOFLOXACIN] Allergy Severe rash Verified 06/12/24 08:32 metronidazole [METRONIDAZOLE] Allergy Mild Rash Verified 06/12/24 08:32 pregabalin [PREGABALIN] Allergy Mild Rash Verified 06/12/24 08:32 fluticasone AdvReac Severe severe Verified 06/12/24 08:32 nosebleeds atorvastatin [From Lipitor] AdvReac Intermediate joint aches Verified 06/12/24 08:32 Review of Systems <Davy Bull PA-C - Last Filed: 06/16/24 17:39> Constitutional Constitutional: Denies chills, Reports fatigue, Denies fever(s), Denies frequent falls, Reports lethargy and Denies weakness Eyes Eyes: Denies change in vision, Denies eye discharge, Denies irritation and Denies loss of vision ENT Ears, Nose, Mouth, and Throat: Denies change in voice, Denies dizziness, Denies neck pain, Denies sore throat and Denies throat swelling Cardiovascular Cardiovascular: Denies chest pain, Denies irregular heart rhythm, Denies lightheadedness, Denies palpitations, Reports dyspnea, Denies dyspnea on exertion and Denies orthopnea Respiratory Respiratory: Reports cough, Reports dyspnea, Denies dyspnea on exertion and Denies wheezing Gastrointestinal Gastrointestinal: Denies abdominal pain, Denies change in bowel habits, Denies diarrhea, Denies nausea and Denies vomiting Musculoskeletal Musculoskeletal: Denies neck pain and Denies numbness Integumentary/Breasts Skin/Breast: Denies pruritus, Denies erythema, Denies rash and Denies wounds Neurologic Neurologic: Denies behavioral changes, Denies confusion, Denies dizziness, Denies frequent falls, Denies loss of vision, Denies numbness and Denies weakne ss Psychiatric Psychiatric: Denies anxiety, Denies behavioral changes, Denies confusion, Denies depression, Denies homicidal ideation and Denies suicidal ideation Endocrine Endocrine: Reports fatigue, Denies flushing and Denies palpitations Hematologic/Lymphatic Hematologic/Lymphatic: Denies easy bruising Allergic/Immunologic Allergic/Immunologic: Denies urticaria, Denies throat swelling and Denies wh eezing Patient History <Davy Bull PA-C - Last Filed: 06/16/24 17:39> Medical History (Updated 06/16/24 @ 17:25 by Hyma Jorgito, PA-C) Rosacea Myofascial pain Low back pain Thoracic back pain Chronic anticoagulation Gastric reflux Hiatal hernia 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 Degenerative disc disease, lumbar Lumbar spondylosis Iliotibial band syndrome, left leg Acute pain of left knee Itch of right eye Hyperlipidemia Abnormal bruising Greater trochanteric bursitis of left hip Arthralgia Acute right-sided low back pain without sciatica 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 Nodule of flexor tendon sheath Body posture problem Iliotibial band syndrome of both sides History of humerus fracture Chronic pain of right elbow Chronic pain of right hand Cranial somatic dysfunction Segmental and somatic dysfunction of rib cage Foot joint stiffness, bilateral Somatic dysfunction of lower extremity Sacral region somatic dysfunction Pelvic somatic dysfunction Upper extremity somatic dysfunction Segmental and somatic dysfunction of abdomen and other regions Lumbar region somatic dysfunction Thoracic region somatic dysfunction Cervical somatic dysfunction Chronic bilateral low back pain without sciatica Chronic thoracic back pain Neck pain, chronic 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 Edema Periodic limb movement disorder (PLMD) Nocturnal hypoxemia (~07/2019) Obstructive sleep apnea (~07/2019) Impairment of balance Unsteady gait Numbness and tingling of both feet Advance care planning Advance directive in chart History of COPD Positive FIT (fecal immunochemical test) Pain of left breast Menopausal vaginal dryness Vaginal stricture Cranial somatic dysfunction Viral URI with cough Tobacco abuse, in remission Osteoarthritis H pylori ulcer Stomach ulcer Colitis Fracture, humerus closed PVCs (premature ventricular contractions) Palpitations Hypertension Chronic a-fib Epistaxis, recurrent Atypical chest pain Surgical History History of cardiac radiofrequency ablation History of carpal tunnel surgery of left wrist S/P rotator cuff repair H/O nasal septoplasty H/O cataract extraction History of tonsillectomy History of cholecystectomy History of radiofrequency ablation procedure for cardiac arrhythmia S/P ablation of atrial fibrillation No significant past surgical history Family History Mother Hypertension Heart disease Breast cancer Father Hypertension Heart disease Sister Hypertension Heart disease Cancer Brother Heart disease Cancer Social History marital status: unknown household members: none occupational status: previously employed Smoking Status: Former smoker Tobacco: How many years used: 30 alcohol intake: current substance use type: does not use Smoking Status: Former smoker alcohol intake frequency: 0-2 drinks per day Alcohol type: wine Exam <Davy Bull PA-C - Last Filed: 06/16/24 17:39> Narrative Exam Narrative: Const General:?cooperative, healthy appearing and comfortable HENVA Head:?normal to inspection Ears:?hearing grossly normal bilaterally Nose:?external nose normal Face and sinus:?normal facial exam and sinuses nontender Mouth:?oral mucosae normal Throat:?posterior oropharynx normal Eyes General:?appearance normal, both eyes and all related structures Neck Neck:?normal visual inspection and no lymphadenopathy noted Resp Effort & Inspection:?normal respiratory effort Auscultation:?clear to auscultation bilaterally Cardio Rate:?regular rate Rhythm:?regular rhythm Neuro General:?patient alert, patient awake and patient oriented x3 Initial Vital Signs Initial Vital Signs: Vital Signs Temperature 97.7 F 06/16/24 12:21 Pulse Rate 93 H 06/16/24 12:21 Respiratory Rate 20 06/16/24 12:21 Blood Pressure 214/115 H 06/16/24 12:21 Pulse Oximetry 93 06/16/24 12:21 Oxygen Delivery Method Room Air 06/16/24 12:21 <Mason Olmedo MD - Last Filed: 06/16/24 22:12> Initial Vital Signs Initial Vital Signs: Vital Signs Temperature 97.7 F 06/16/24 12:21 Pulse Rate 93 H 06/16/24 12:21 Respiratory Rate 20 06/16/24 12:21 Blood Pressure 214/115 H 06/16/24 12:21 Pulse Oximetry 93 06/16/24 12:21 Oxygen Delivery Method Room Air 06/16/24 12:21 Course <Davy Bull PA-C - Last Filed: 06/16/24 17:39> Orders Ordered: ED Orders 06/16/24 16:06 CXR [XR chest 2V] Stat Vital Signs Vital signs: Vital Signs - 8 hr 06/16/24 15:10 06/16/24 15:30 06/16/24 16:29 Pulse Rate 77 72 71 Respiratory Rate 18 16 18 Blood Pressure 193/81 H 179/79 H 165/72 H Pulse Oximetry 97 97 97 Oxygen Delivery Method Room Air Room Air Room Air 06/16/24 17:38 Pulse Rate 71 Respiratory Rate 18 Blood Pressure 165/72 H Pulse Oximetry 97 Oxygen Delivery Method Room Air <Mason Olmedo MD - Last Filed: 06/16/24 22:12> Orders Ordered: ED Orders 06/16/24 16:06 CXR [XR chest 2V] Stat Vital Signs Vital signs: Vital Signs - 8 hr 06/16/24 15:10 06/16/24 15:30 06/16/24 16:29 Pulse Rate 77 72 71 Respiratory Rate 18 16 18 Blood Pressure 193/81 H 179/79 H 165/72 H Pulse Oximetry 97 97 97 Oxygen Delivery Method Room Air Room Air Room Air 06/16/24 17:38 Pulse Rate 71 Respiratory Rate 18 Blood Pressure 165/72 H Pulse Oximetry 97 Oxygen Delivery Method Room Air MDM - URI/Sore Throat <Davy Bull PA-C - Last Filed: 06/16/24 17:39> Lab Data Labs: Lab Results 06/16/24 Range/Units 12:29 SARS-CoV-2 (PCR) Negative (Negative) Influenza A (RT-PCR) Flu a negative (NEGATIVE) Influenza B (RT-PCR) Flu b negative (NEGATIVE) RSV (PCR) Negative (Negative) MDM Narrative Medical decision making narrative: 88-year-old female presents to the ED with persistent symptoms of pneumonia. Chest x-ray was obtained, which shows faint lingular opacity possibly related to developing pneumonia. Patient prescribed Z-Michael to take in addition to the Augmentin that she already has prescribed. Patient may stop doxycycline. Patient was initially quite hypertensive in the ED at 214/115. This settled as the encounter progressed, patient was 165/72 on discharge. Recommend follow-up with PCP as soon as possible. ED return precautions discussed with patient. Patient verbalized understanding. Medical records: Yes <Mason Olmedo MD - Last Filed: 06/16/24 22:12> Lab Data Labs: Lab Results 06/16/24 Range/Units 12:29 SARS-CoV-2 (PCR) Negative (Negative) Influenza A (RT-PCR) Flu a negative (NEGATIVE) Influenza B (RT-PCR) Flu b negative (NEGATIVE) RSV (PCR) Negative (Negative) Discharge Plan Departure Patient Disposition: Home Clinical Impression: Pneumonia Qualifiers: Pneumonia type: due to unspecified organism Laterality: left Lung location: upper lobe of lung Qualified Code(s): J18.9 - Pneumonia, unspecified organism Instructions: DI for Pneumonia -- Adult Activity Restrictions/Additional Instructions: You were evaluated in the ED today for persistent symptoms of pneumonia. Your chest x-ray is unchanged, which is expected since pneumonia improves over several weeks. You are being prescribed the Z-Michael which you may take instead of the doxycycline. Please continue the Augmentin as prescribed. Please follow-up with your PCP as soon as possible. Return to the ED if you have worsening sym ptoms, chest pain, shortness of breath. Prescriptions: New azithromycin [Zithromax Z-Michael] 250 mg tablet See Rx Instructions .ROUTE .COMPLEX Qty: 6 0RF Rx Instructions: For 250 mg dose pack: take 500 mg today (day 1), then 250 mg for 4 days (days 2-5) No Action amlodipine 5 mg tablet 5 mg PO DAILY potassium chloride 10 mEq tablet extended release PO DAILY benzonatate 200 mg capsule 200 mg PO BID PRN (Reason: cough) Qty: 28 0RF amoxicillin-pot clavulanate 875-125 mg tablet 1 tab PO BID Qty: 14 0RF esomeprazole magnesium 20 mg capsule,delayed release(DR/EC) 20 mg PO DAILY Qty: 90 3RF Patient Comments: TAKE 1 CAPSULE BY MOUTH EVERY DAY IN THE MORNING olmesartan 20 mg tablet 20 mg PO DAILY Qty: 90 3RF doxycycline monohydrate 100 mg capsule 100 mg PO BID 5 Days Qty: 10 0RF hydrocortisone 1 % cream 1 applic topical BID Qty: 28.35 6RF Eliquis 2.5 mg tablet 2.5 mg PO BID metoprolol succinate 50 mg tablet extended release 24 hr 50 mg PO DAILY Qty: 30 0RF flecainide 50 mg tablet 50 mg PO BID magnesium oxide 400 mg (241.3 mg magnesium) tablet 400 mg PO DAILY Referrals: Megan Rodriguez, [facility] [Primary Care Provider] - Stand Alone Forms: Patient Portal/API/Survey ED Sign-out <Mason Olmedo MD - Last Filed: 06/16/24 22:12> Cosign ED Attending Gretchen Attestation: I was immediately available in the department for consultation. This documentation has been reviewed and I agree with assessment and plan. Supervised by Mason Olmedo MD
[2024-06-16 16:29] VITALS: BP 165/72; PULSE 71; RESP 18; O2SAT 97
[2024-06-16 17:38] VITALS: BP 165/72; PULSE 71; RESP 18; O2SAT 97
== END 2024-06-16 17:40 | disposition home or self-care (01) ==
PROVIDERS: Emergency Medicine; Emergency Provider Student in an Organized Health Care Education/Training Program; Family Provider Nurse Practitioner; PCP Nurse Practitioner Family
DX: J18.9 Pneumonia, unspecified organism (principal); Z87.891 Personal history of nicotine dependence
CPT/HCPCS: 0241U; 71046; 99281; 99283

== ENCOUNTER 2024-06-27 16:27 | Emergency (ER) | payer MEDICARE, OTHER, SELFPAY ==
[2023-07-27 08:31] VITALS: BMI 29.0
[2024-06-27 17:03] VITALS: BP 209/86; PULSE 68; RESP 17; TEMP 36.6; O2SAT 95; BMI 30.5
--- NOTE | 2024-06-27 17:06 | DI.RAD.S_ITS ---
PROCEDURE: XR HAND RT MIN 3V INDICATIONS: fall TECHNIQUE: 3 views of the hand(s) acquired. COMPARISON: [facility], CR, XR HAND RT MIN 3V, 02/12/2023, 12:39. FINDINGS AND IMPRESSION: No acute displaced fracture or dislocation. Mild scattered background arthrosis. No suspicious soft tissue calcifications. If there is high concern for occult injury, consider repeat radiography or cross-sectional imaging. Dictated by: Shlomo Lamb M.D. on 06/27/2024 at 18:02 Approved by: Shlomo Lamb M.D. on 06/27/2024 at 18:04
--- NOTE | 2024-06-28 00:35 | ED_ITS ---
HPI - Wound/Laceration General Chief Complaint: Wound/Laceration Stated Complaint: fell, skin tears on right hand Time Seen by Provider: 06/28/24 00:34 Source: patient Mode of arrival: Ambulatory History of Present Illness HPI narrative: 88-year-old female had ground level fall, sustaining laceration to the right hand, unclear which she struck to cause a laceration, no injuries to fingers, forearm, elbow, upper arm, shoulder. She denies striking her head, has no headache, had no loss of consciousness, no nausea or vomiting. She has no pain to her neck, upper back, mid lower back. No lower extremity or left upper extremity injuries. Related Data Home Medications Medication Instructions Recorded Confirmed apixaban 2.5 mg tablet (Eliquis) 2.5 mg PO BID 02/12/23 05/21/24 flecainide 50 mg tablet 50 mg PO BID 08/28/23 05/21/24 magnesium oxide 400 mg (241.3 mg 400 mg PO DAILY 08/28/23 05/21/24 magnesium) tablet amlodipine 5 mg tablet 5 mg PO DAILY 12/01/23 05/21/24 potassium chloride 10 mEq meq PO DAILY 06/12/24 06/12/24 tablet,extended release Previous Rx's Medication Instructions Recorded hydrocortisone 1 % topical cream 1 applic topical BID #28.35 grams 08/07/23 metoprolol succinate 50 mg 50 mg PO DAILY #30 tabs 08/11/23 tablet,extended release 24 hr esomeprazole magnesium 20 mg 20 mg PO DAILY #90 caps 08/21/23 capsule,delayed release olmesartan 20 mg tablet 20 mg PO DAILY #90 tabs 10/29/23 benzonatate 200 mg capsule 200 mg PO BID PRN cough #28 caps 06/12/24 Allergies Allergy/AdvReac Type Severity Reaction Status Date / Time levofloxacin [LEVOFLOXACIN] Allergy Severe rash Verified 06/27/24 17:05 metronidazole [METRONIDAZOLE] Allergy Mild Rash Verified 06/27/24 17:05 pregabalin [PREGABALIN] Allergy Mild Rash Verified 06/27/24 17:05 fluticasone AdvReac Severe severe Verified 06/27/24 17:05 nosebleeds atorvastatin [From Lipitor] AdvReac Intermediate joint aches Verified 06/27/24 17:05 Patient History Medical History (Updated 06/28/24 @ 01:08 by Mason Olmedo MD) Rosacea Myofascial pain Low back pain Thoracic back pain Chronic anticoagulation Gastric reflux Hiatal hernia 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 Degenerative disc disease, lumbar Lumbar spondylosis Iliotibial band syndrome, left leg Acute pain of left knee Itch of right eye Hyperlipidemia Abnormal bruising Greater trochanteric bursitis of left hip Arthralgia Acute right-sided low back pain without sciatica 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 Nodule of flexor tendon sheath Body posture problem Iliotibial band syndrome of both sides History of humerus fracture Chronic pain of right elbow Chronic pain of right hand Cranial somatic dysfunction Segmental and somatic dysfunction of rib cage Foot joint stiffness, bilateral Somatic dysfunction of lower extremity Sacral region somatic dysfunction Pelvic somatic dysfunction Upper extremity somatic dysfunction Segmental and somatic dysfunction of abdomen and other regions Lumbar region somatic dysfunction Thoracic region somatic dysfunction Cervical somatic dysfunction Chronic bilateral low back pain without sciatica Chronic thoracic back pain Neck pain, chronic 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 Edema Periodic limb movement disorder (PLMD) Nocturnal hypoxemia (~07/2019) Obstructive sleep apnea (~07/2019) Impairment of balance Unsteady gait Numbness and tingling of both feet Advance care planning Advance directive in chart History of COPD Positive FIT (fecal immunochemical test) Pain of left breast Menopausal vaginal dryness Vaginal stricture Cranial somatic dysfunction Viral URI with cough Tobacco abuse, in remission Osteoarthritis H pylori ulcer Stomach ulcer Colitis Fracture, humerus closed PVCs (premature ventricular contractions) Palpitations Hypertension Chronic a-fib Epistaxis, recurrent Atypical chest pain Surgical History History of cardiac radiofrequency ablation History of carpal tunnel surgery of left wrist S/P rotator cuff repair H/O nasal septoplasty H/O cataract extraction History of tonsillectomy History of cholecystectomy History of radiofrequency ablation procedure for cardiac arrhythmia S/P ablation of atrial fibrillation No significant past surgical history Family History Mother Hypertension Heart disease Breast cancer Father Hypertension Heart disease Sister Hypertension Heart disease Cancer Brother Heart disease Cancer Social History marital status: unknown household members: none occupational status: previously employed Smoking Status: Former smoker Tobacco: How many years used: 30 alcohol intake: current substance use type: does not use Smoking Status: Former smoker alcohol intake frequency: 0-2 drinks per day Alcohol type: wine Exam Narrative Exam Narrative: GENERAL: Well-developed patient, in mild distress. HEAD: Atraumatic. Normocephalic. EYES: Pupils equal round and reactive. Extraocular motions intact. No scleral icterus. No injection or drainage. ENT: Nose without bleeding, purulent drainage. Throat without erythema, tonsillar hypertrophy or exudate. Airway patent. NECK: Trachea midline. Non tender CARDIOVASCULAR: Regular rate and rhythm without murmurs, gallops, or rubs. RESPIRATORY: Clear to auscultation. Breath sounds equal bilaterally. No wheezes, rales, or rhonchi. GASTROINTESTINAL: Abdomen soft, non-tender, nondistended. EXTREMITIES: Right hand lateral 5th MCP region laceration about 2 cm, no visible tendon or foreign body, able to flex and extend the fingers, some bruising to the left 5th finger. BACK: Nontender without deformity or crepitance. No flank tenderness. NEURO: AOx3. Motor functions grossly nonfocal SKIN: No rash or erythema of visible areas Initial Vital Signs Initial Vital Signs: Vital Signs Temperature 98 F 06/27/24 17:03 Pulse Rate 68 06/27/24 17:03 Respiratory Rate 17 06/27/24 17:03 Blood Pressure 209/86 H 06/27/24 17:03 Pulse Oximetry 95 06/27/24 17:03 Oxygen Delivery Method Room Air 06/27/24 17:03 Procedures Laceration Repair Laceration 1: Time of procedure: 01:05 Side (If applicable): right Size (cm): 2 Description: linear Local Anesthetic: lidocaine 1% and with epi Amount of anesthesia used (mL): 3 Skin layer closed with: nylon Skin layer suture size: 4-0 Number of sutures: 5 Technique: simple, interrupted Course Orders Ordered: Discontinued Medications Bacitracin (Bacitracin Oint 0.9 Gm Pckt) 1 applic TOP NOW ONE Stop: 06/28/24 01:05 Last Admin: 06/28/24 01:38 Dose: 1 applic Documented By: AB Diphtheria/Tetanus/Acell Pertussis (Tet,Diph,Pertuss(Acell),Vac/Pf 0.5 Ml Syringe) 0.5 ml IM .ONCE ONE Stop: 06/28/24 01:02 Last Admin: 06/28/24 01:37 Dose: 0.5 ml Documented By: AB Vital Signs Vital signs: Vital Signs - 8 hr 06/28/24 01:38 Pulse Rate 64 Respiratory Rate 16 Blood Pressure 194/82 H Pulse Oximetry 92 Oxygen Delivery Method Room Air MDM - Wound/Laceration Imaging Data Extremity x-ray #1: Radiologist's Impression: [address] [address] XRay Report Signed Patient: Trish Berman MR#: [id number] : 1935 Acct:[id number] Age/Sex: 88 / F Date of Service: 06/27/24 Loc: ED Accession Number: [id number] Procedure: XR hand RT min 3V Ordering Provider: Michael Galicia MD PROCEDURE: XR HAND RT MIN 3V INDICATIONS: fall TECHNIQUE: 3 views of the hand(s) acquired. COMPARISON: [facility], , XR HAND RT MIN 3V, 02/12/2023, 12:39. FINDINGS AND IMPRESSION: No acute displaced fracture or dislocation. Mild scattered background arthrosis. No suspicious soft tissue calcifications. If there is high concern for occult injury, consider repeat radiography or cross-sectional imaging. Dictated by: Shlomo Lamb M.D. on 06/27/2024 at 18:02 Approved by: Shlomo Lamb M.D. on 06/27/2024 at 18:04 [facility] Narrative Medical decision making narrative: 88-year-old female had ground level fall with laceration to the right hand, lateral aspect 5th metacarpal region, full extension and flexion, no visible foreign body or tendon structures. Primary closure, see procedure note. Tetanus reportedly up-to-date less than 5 years ago. Finger splint applied. Suture removal 7-10 days. Wound check advised with the regular provider. Return precautions discussed. Discharge Plan Departure Patient Disposition: Home Clinical Impression: Laceration of hand Activity Restrictions/Additional Instructions: Ms Berman, You had laceration this afternoon to your right lateral hand, some bruising to the right 5th finger noted. X-rays hand and finger without obvious fractures or dislocation or foreign body. Sutures were placed to close the wound, dressing applied. Wound check advised with your regular doctor on Sunday. Return to this/nearest emergency department for any swelling or redness or infection concerns, or any other concerns prior. Suture removal might be 7-10 days, depending if there is any wound infection that problems earlier suture removal. Recheck wound as above Sunday. Return precautions discussed. Thank you for allowing our team to take care of you today. Prescriptions: No Action amlodipine 5 mg tablet 5 mg PO DAILY potassium chloride 10 mEq tablet extended release PO DAILY benzonatate 200 mg capsule 200 mg PO BID PRN (Reason: cough) Qty: 28 0RF esomeprazole magnesium 20 mg capsule,delayed release(DR/EC) 20 mg PO DAILY Qty: 90 3RF Patient Comments: TAKE 1 CAPSULE BY MOUTH EVERY DAY IN THE MORNING olmesartan 20 mg tablet 20 mg PO DAILY Qty: 90 3RF hydrocortisone 1 % cream 1 applic topical BID Qty: 28.35 6RF Eliquis 2.5 mg tablet 2.5 mg PO BID metoprolol succinate 50 mg tablet extended release 24 hr 50 mg PO DAILY Qty: 30 0RF flecainide 50 mg tablet 50 mg PO BID magnesium oxide 400 mg (241.3 mg magnesium) tablet 400 mg PO DAILY Referrals: Mgean Rodriguez FNP-BC [Primary Care Provider] - Stand Alone Forms: Patient Portal/API/Survey
--- NOTE | 2024-06-28 00:57 | PC.NURSE ---
Wound rinsed out with saline per Dr. Olmedo's request.
[2024-06-28] MEDS: TET,DIPH,PERTUSS(ACELL),VAC/PF 0.5 ML SYRINGE IM (01:37)
[2024-06-28 01:38] VITALS: BP 194/82; PULSE 64; RESP 16; O2SAT 92
[2024-06-28] MEDS: BACITRACIN OINT 0.9 GM PCKT 1 APPLIC TOP (01:38)
--- NOTE | 2024-06-28 01:43 | PC.NURSE ---
sutures placed by Dr. Olmedo
== END 2024-06-28 01:39 | disposition home or self-care (01) ==
PROVIDERS: Emergency Provider Emergency Medicine; Family Provider Nurse Practitioner; PCP Nurse Practitioner Family
DX: S61.411A Laceration without foreign body of right hand, initial encounter (principal); W18.30XA Fall on same level, unspecified, initial encounter; Z23 Encounter for immunization
CPT/HCPCS: 12001; 73130; 90471; 99283; 90715

== ENCOUNTER → 2024-07-10 17:01 | Outpatient (CLI) | payer MEDICARE, OTHER, SELFPAY ==
[2023-07-27 08:31] VITALS: BMI 29.0
--- NOTE | 2024-07-10 17:03 | DI.RAD.S_ITS ---
PROCEDURE: XR CHEST 2V INDICATIONS: Shortness for breath TECHNIQUE: 2 views of the chest were acquired. COMPARISON: [facility], CR, XR CHEST 2V, 06/16/2024, 16:02. FINDINGS: Surgical changes and devices: None. Lungs and pleura: Chronic appearing bilateral interstitial pulmonary markings are redemonstrated. There is no evidence of focal consolidation or infiltrate. No pleural effusions or pneumothorax. Mediastinum: Mediastinal contours are normal. Heart size is normal. Atherosclerotic vascular calcifications are present. Bones and chest wall: No suspicious bony abnormalities. Soft tissues appear unremarkable. IMPRESSION: Stable chronic appearing bilateral interstitial pulmonary markings without evidence of acute cardiopulmonary abnormality. Dictated by: Dusty Bonilla M.D. on 07/12/2024 at 8:10 Approved by: Dusty Bonilla M.D. on 07/12/2024 at 8:11
== END ==
PROVIDERS: Family Provider Nurse Practitioner; PCP Nurse Practitioner Family; Referring Provider Nurse Practitioner Family; Visit Provider Nurse Practitioner Family
DX: R06.02 Shortness of breath (principal)
CPT/HCPCS: 71046

== ENCOUNTER 2024-07-12 15:39 | Emergency (ER) | payer MEDICARE, OTHER, SELFPAY ==
[2023-07-27 08:31] VITALS: BMI 29.0
[2024-07-12] VITALS (22 sets, daily range): BP systolic 144–217; BP diastolic 63–90; PULSE 62–85; RESP 16–46; TEMP 36.3; O2SAT 90–98; BMI 30.5
--- NOTE | 2024-07-12 15:51 | DI.RAD.S_ITS ---
PROCEDURE: XR CHEST 1V INDICATIONS: Shortness of breath TECHNIQUE: One view of the chest was acquired. COMPARISON: [facility], CR, XR CHEST 2V, 07/10/2024, 17:04. [facility], CR, XR CHEST 2V, 06/16/2024, 16:02. FINDINGS: Surgical changes and devices: None. Lungs and pleura: Lungs show unchanged increased interstitial markings without focal consolidation.. No pleural effusions or pneumothorax. Mediastinum: Mediastinal contours appear normal. Heart size is normal. Bones and chest wall: No suspicious bony lesions. Overlying soft tissues appear unremarkable. IMPRESSION: No acute cardiopulmonary abnormality is seen. Dictated by: Janie Duke M.D. on 07/12/2024 at 15:38 Approved by: Janie Duke M.D. on 07/12/2024 at 15:39
--- NOTE | 2024-07-12 16:05 | EKG_ITS ---
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
[2024-07-12 16:26] LABS: Add Manual Diff / Slide Review NO; Basophils Absolute Auto 100 /uL (0-100); Basophils Percent Auto 1.9 % (0-2); Eosinophils Absolute Auto 200 /uL (0-450); Eosinophils Percent Auto 2.8 % (2-4); Hematocrit 39.6 % (36-46); Hemoglobin 13.4 g/dL (12.0-16.0); Lymphocytes Absolute Auto 900 /uL (1100-4500); Lymphocytes Percent Auto 12.5 % (25-40); Mean Corpuscular HGB Conc 33.7 % (30-36); Mean Corpuscular Hemoglobin 29.8 PG (26-34); Mean Corpuscular Volume 88.3 fL (80-100); Monocytes Absolute Auto 500 /uL (0-900); Monocytes Percent Auto 7.4 % (3-14); Neutrophils Absolute Auto 5200 /uL (1500-7000); Neutrophils Percent Auto 75.4 % (50-75); Platelet Count 254 X10^3/uL (150-400); Red Blood Cell Count 4.49 X10^6/uL (4.0-5.2); Red Cell Distribution Width 14.2 % (11.6-14.8); White Blood Cell Count 6.9 X10^3/uL (4.5-11.0)
[2024-07-12 16:34] LABS: Prothrombin Time 11.7 SECONDS (9.4-12.5)
[2024-07-12 16:38] LABS: Alanine Aminotransferase 50 IU/L (<35); Albumin 4.3 g/dL (3.5-5.0); Albumin Globulin Ratio 1.6 (1.0-2.8); Alkaline Phosphatase 91 U/L (38-126); Aspartate Aminotransferase 44 IU/L (14-36); BUN Creatinine Ratio 19.7 (6-22); Bilirubin Total 0.7 mg/dL (0.2-1.3); Blood Urea Nitrogen 14 mg/dL (7-17); Calcium 9.4 mg/dL (8.4-10.2); Carbon Dioxide 27 mmol/L (22-32); Chloride 104 mmol/L (98-107); Estimated Glomerular Filt Rate > 60 mL/min (>60); Globulin 2.7 g/dL (1.7-4.1); Glucose 128 mg/dL (80-110); HEMOLYSIS < 15 (0-50); Lactate (Lactic Acid) 1.1 mmol/L (0.7-2.1); Sodium 140 mmol/L (137-145)
[2024-07-12 16:50] LABS: NT-proBNP (BNP-Adult 18+) 1450 pg/mL (<450); Troponin I < 0.012 ng/mL (0.01-0.034)
--- NOTE | 2024-07-12 18:06 | ED.GENADULT ---
HPI - General Adult General Chief complaint: Shortness of Breath/Dyspnea Stated complaint: Pneumonia t-21, SoB, Chills, Dizzyness Time Seen by Provider: 07/12/24 17:00 Source: patient Mode of arrival: Ambulatory History of Present Illness HPI narrative: 89-year-old female reports history of COPD, history of atrial fibrillation on Eliquis anticoagulation and flecainide, has 3 weeks' duration cough, previous course of oral antibiotic from clinic, recalls a 2nd course Z-Michael from another clinic visit, and then another antibiotic that she can not name from another clinic visit, not currently on any oral antibiotic, feels short of breath, still coughing. She uses CPAP at night, does not use chronic home oxygen, not on chronic oral steroids, with regard to her COPD. Related Data Home Medications Medication Instructions Recorded Confirmed apixaban 2.5 mg tablet (Eliquis) 2.5 mg PO BID 02/12/23 07/10/24 flecainide 50 mg tablet 50 mg PO BID 08/28/23 07/10/24 magnesium oxide 400 mg (241.3 mg 400 mg PO DAILY 08/28/23 07/10/24 magnesium) tablet amlodipine 5 mg tablet 5 mg PO DAILY 12/01/23 07/10/24 potassium chloride 10 mEq meq PO DAILY 06/12/24 07/10/24 tablet,extended release Previous Rx's Medication Instructions Recorded hydrocortisone 1 % topical cream 1 applic topical BID #28.35 grams 08/07/23 metoprolol succinate 50 mg 50 mg PO DAILY #30 tabs 08/11/23 tablet,extended release 24 hr esomeprazole magnesium 20 mg 20 mg PO DAILY #90 caps 08/21/23 capsule,delayed release olmesartan 20 mg tablet 20 mg PO DAILY #90 tabs 10/29/23 benzonatate 200 mg capsule 200 mg PO BID PRN cough #28 caps 06/12/24 furosemide 20 mg tablet (Lasix) 20 mg PO DAILY #14 tabs 07/12/24 potassium chloride 8 mEq 8 meq PO DAILY #14 caps 07/12/24 capsule,extended release Allergies Allergy/AdvReac Type Severity Reaction Status Date / Time fluticasone AdvReac Severe severe Verified 07/12/24 15:45 nosebleeds levofloxacin [LEVOFLOXACIN] AdvReac Severe rash Verified 07/12/24 15:45 atorvastatin [From Lipitor] AdvReac Intermediate joint aches Verified 07/12/24 15:45 metronidazole [METRONIDAZOLE] AdvReac Mild Rash Verified 07/12/24 15:45 pregabalin [PREGABALIN] AdvReac Mild Rash Verified 07/12/24 15:45 Patient History Medical History (Updated 07/13/24 @ 00:01 by ) Rosacea Myofascial pain Low back pain Thoracic back pain Chronic anticoagulation Gastric reflux Hiatal hernia 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 Degenerative disc disease, lumbar Lumbar spondylosis Iliotibial band syndrome, left leg Acute pain of left knee Itch of right eye Hyperlipidemia Abnormal bruising Greater trochanteric bursitis of left hip Arthralgia Acute right-sided low back pain without sciatica 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 Nodule of flexor tendon sheath Body posture problem Iliotibial band syndrome of both sides History of humerus fracture Chronic pain of right elbow Chronic pain of right hand Cranial somatic dysfunction Segmental and somatic dysfunction of rib cage Foot joint stiffness, bilateral Somatic dysfunction of lower extremity Sacral region somatic dysfunction Pelvic somatic dysfunction Upper extremity somatic dysfunction Segmental and somatic dysfunction of abdomen and other regions Lumbar region somatic dysfunction Thoracic region somatic dysfunction Cervical somatic dysfunction Chronic bilateral low back pain without sciatica Chronic thoracic back pain Neck pain, chronic 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 Edema Periodic limb movement disorder (PLMD) Nocturnal hypoxemia (~07/2019) Obstructive sleep apnea (~07/2019) Impairment of balance Unsteady gait Numbness and tingling of both feet Advance care planning Advance directive in chart History of COPD Positive FIT (fecal immunochemical test) Pain of left breast Menopausal vaginal dryness Vaginal stricture Cranial somatic dysfunction Viral URI with cough Tobacco abuse, in remission Osteoarthritis H pylori ulcer Stomach ulcer Colitis Fracture, humerus closed PVCs (premature ventricular contractions) Palpitations Hypertension Chronic a-fib Epistaxis, recurrent Atypical chest pain Surgical History History of cardiac radiofrequency ablation History of carpal tunnel surgery of left wrist S/P rotator cuff repair H/O nasal septoplasty H/O cataract extraction History of tonsillectomy History of cholecystectomy History of radiofrequency ablation procedure for cardiac arrhythmia S/P ablation of atrial fibrillation No significant past surgical history Family History Mother Hypertension Heart disease Breast cancer Father Hypertension Heart disease Sister Hypertension Heart disease Cancer Brother Heart disease Cancer Social History marital status: unknown household members: none occupational status: previously employed Smoking Status: Former smoker Tobacco: How many years used: 30 alcohol intake: current substance use type: does not use Smoking Status: Former smoker alcohol intake frequency: 0-2 drinks per day Alcohol type: wine Exam Narrative Exam Narrative: GENERAL: Well-developed patient, in mild distress. HEAD: Atraumatic. Normocephalic. EYES: Pupils equal round and reactive. Extraocular motions intact. No scleral icterus. No injection or drainage. ENT: Nose without bleeding, purulent drainage. Throat without erythema, tonsillar hypertrophy or exudate. Airway patent. NECK: Trachea midline. Non tender CARDIOVASCULAR: Regular rate and rhythm without murmurs, gallops, or rubs. RESPIRATORY: Clear to auscultation. Breath sounds equal bilaterally. No wheezes, rales, or rhonchi. GASTROINTESTINAL: Abdomen soft, non-tender, nondistended. EXTREMITIES: No edema or joint tenderness. BACK: Nontender without deformity or crepitance. No flank tenderness. NEURO: AOx3. Motor functions grossly nonfocal SKIN: No rash or erythema of visible areas Initial Vital Signs Initial Vital Signs: Vital Signs Temperature 97.3 F L 07/12/24 15:45 Pulse Rate 73 07/12/24 15:45 Respiratory Rate 17 07/12/24 15:45 Blood Pressure 188/79 H 07/12/24 15:45 Pulse Oximetry 96 07/12/24 15:45 Oxygen Delivery Method Room Air 07/12/24 15:45 Course Orders Ordered: Discontinued Medications Albuterol (Albuterol Hfa Prepack) 1 box MISC DIRECTED ONE Stop: 07/12/24 21:29 Last Admin: 07/12/24 21:36 Dose: 1 box Documented By: Albuterol/Ipratropium (Albuterol/Ipratropium 3 Ml Ampul) 3 ml INH NOW ONE Stop: 07/12/24 18:33 Last Admin: 07/12/24 19:09 Dose: 3 ml Documented By: JOSE Furosemide (Furosemide 40 Mg/4 Ml Vial) 40 mg IV NOW ONE Stop: 07/12/24 20:21 Last Admin: 07/12/24 20:44 Dose: 40 mg Documented By: AB Vital Signs Vital signs: Vital Signs - 8 hr 07/12/24 15:45 07/12/24 16:13 07/12/24 16:14 Temperature 97.3 F L Pulse Rate 73 70 Respiratory Rate 17 Blood Pressure 188/79 H 195/81 H Pulse Oximetry 96 95 Oxygen Delivery Method Room Air 07/12/24 16:14 07/12/24 16:30 07/12/24 16:31 Temperature Pulse Rate 69 64 Respiratory Rate 22 Blood Pressure 144/63 H Pulse Oximetry 93 95 Oxygen Delivery Method Room Air 07/12/24 16:31 07/12/24 17:00 07/12/24 17:00 Temperature Pulse Rate 63 62 Respiratory Rate 32 H 29 H Blood Pressure 169/72 H Pulse Oximetry 90 L 90 L Oxygen Delivery Method 07/12/24 17:30 07/12/24 17:31 07/12/24 17:31 Temperature Pulse Rate 69 68 Respiratory Rate 25 H 32 H Blood Pressure 212/88 H Pulse Oximetry 93 Oxygen Delivery Method 07/12/24 18:00 07/12/24 18:01 07/12/24 18:01 Temperature Pulse Rate 72 69 Respiratory Rate 46 H 34 H Blood Pressure 189/80 H Pulse Oximetry 93 91 Oxygen Delivery Method 07/12/24 18:30 07/12/24 18:31 07/12/24 18:31 Temperature Pulse Rate 82 78 Respiratory Rate 28 H 28 H Blood Pressure 180/85 H Pulse Oximetry 92 91 Oxygen Delivery Method 07/12/24 19:00 07/12/24 19:00 07/12/24 19:09 Temperature Pulse Rate 75 77 Respiratory Rate 32 H 16 Blood Pressure 180/76 H Pulse Oximetry 90 L 98 Oxygen Delivery Method Room Air Room Air 07/12/24 19:34 07/12/24 19:35 07/12/24 19:35 Temperature Pulse Rate 85 84 Respiratory Rate 18 Blood Pressure 213/90 H Pulse Oximetry 93 93 Oxygen Delivery Method 07/12/24 20:00 07/12/24 20:01 07/12/24 20:01 Temperature Pulse Rate 81 81 Respiratory Rate 42 H 45 H Blood Pressure 182/77 H Pulse Oximetry 91 91 Oxygen Delivery Method Medical Decision Making Lab Data Lab results reviewed: Yes I reviewed the patient's lab results. Lab results narrative: White blood cell count 6900, hemoglobin 13.4, platelets adequate. Glucose 128. BUN 14 with creatinine 0.71 normal renal function. Electrolytes unremarkable, serum CO2 27. Mild transaminitis, with normal total bilirubin and alkaline phosphatase. Lactate normal. Troponin normal/nonmeasurable. BNP 1400 elevated. 07/12/24 16:05 07/12/24 16:05 Labs: Lab Results 07/12/24 Range/Units 16:05 WBC 6.9 (4.5-11.0) X10^3/uL RBC 4.49 (4.0-5.2) X10^6/uL Hgb 13.4 (12.0-16.0) g/dL Hct 39.6 (36-46) % MCV 88.3 (80-100) fL MCH 29.8 (26-34) PG MCHC 33.7 (30-36) % RDW 14.2 (11.6-14.8) % Plt Count 254 (150-400) X10^3/uL Neut % (Auto) 75.4 H (50-75) % Lymph % (Auto) 12.5 L (25-40) % [place] % (Auto) 7.4 (3-14) % Eos % (Auto) 2.8 (2-4) % Baso % (Auto) 1.9 (0-2) % Neut # (Auto) 5200 (8136-6443) /uL Lymph # (Auto) 900 L (2419-5068) /uL [place] # (Auto) 500 (0-900) /uL Eos # (Auto) 200 (0-450) /uL Baso # (Auto) 100 (0-100) /uL PT 11.7 (9.4-12.5) SECONDS INR 1.0 (0.9-1.3) Sodium 140 (137-145) mmol/L Potassium 4.0 (3.4-5.1) mmol/L Chloride 104 (98-107) mmol/L Carbon Dioxide 27 (22-32) mmol/L BUN 14 (7-17) mg/dL Creatinine 0.71 (0.52-1.04) mg/dL Estimated GFR > 60 (>60) mL/min BUN/Creatinine Ratio 19.7 (6-22) Glucose 128 H (80-110) mg/dL Lactate 1.1 (0.7-2.1) mmol/L Calcium 9.4 (8.4-10.2) mg/dL Total Bilirubin 0.7 (0.2-1.3) mg/dL AST 44 H (14-36) IU/L ALT 50 H (<35) IU/L Alkaline Phosphatase 91 (38-126) U/L Troponin I < 0.012 (0.01-0.034) ng/mL NT-Pro-B Natriuret Pep 1450 H (<450) pg/mL Total Protein 7.0 (6.3-8.2) g/dL Albumin 4.3 (3.5-5.0) g/dL Globulin 2.7 (1.7-4.1) g/dL Albumin/Globulin Ratio 1.6 (1.0-2.8) Imaging Data Chest x-ray: Radiologist's Impression: [address] [address] XRay Report Signed Patient: Trish Berman MR#: [id number] : 1935 Acct:[id number] Age/Sex: 89 / F Date of Service: 07/12/24 Loc: ED Accession Number: [id number] Procedure: XR chest 1V Ordering Provider: Brittni Desouza D.O. PROCEDURE: XR CHEST 1V INDICATIONS: Shortness of breath TECHNIQUE: One view of the chest was acquired. COMPARISON: [facility], CR, XR CHEST 2V, 07/10/2024, 17:04. [facility], CR, XR CHEST 2V, 06/16/2024, 16:02. FINDINGS: Surgical changes and devices: None. Lungs and pleura: Lungs show unchanged increased interstitial markings without focal consolidation.. No pleural effusions or pneumothorax. Mediastinum: Mediastinal contours appear normal. Heart size is normal. Bones and chest wall: No suspicious bony lesions. Overlying soft tissues appear unremarkable. IMPRESSION: No acute cardiopulmonary abnormality is seen. Dictated by: Janie Duke M.D. on 07/12/2024 at 15:38 Approved by: Janie Duke M.D. on 07/12/2024 at 15:39 CT angiogram chest: Radiologist's Impression: Close Chest CTA (Signed) Judit Elliott - 07/12/24 Chest X-Ray (Signed) Casey Duketh - 07/12/24 Launch?Image [address] [address] [address] Scan Report Signed Patient: Trish Berman MR#: [id number] : 1935 Acct:[id number] Age/Sex: 89 / F Date of Service: 07/12/24 Loc: ED Accession Number: [id number] Procedure: CT angio chest PE protocol Ordering Provider: Mason Olmedo MD PROCEDURE: CT ANGIO CHEST PE PROTOCOL INDICATIONS: dyspnea, recent courses abx TECHNIQUE: After the administration of intravenous contrast, 2 mm thick sections acquired from the pulmonary apices to the posterior costophrenic angles. 3-dimensional maximum intensity projection (MIP) coronal and sagittal reformats were then acquired through the thorax. For radiation dose reduction, the following was used: automated exposure control, adjustment of mA and/or kV according to patient size. COMPARISON: [facility], CT, CT ANGIO CHEST PE PROTOCOL, 07/26/2018, 8:25. FINDINGS: Image quality: Diagnostic. Pulmonary arteries: Pulmonary arteries are normal in size, and demonstrate no intraluminal filling defects to suggest central pulmonary embolism. Lower Neck: No enlarged lymph nodes. Thyroid: Normal CT appearance. Axillae: No enlarged lymph nodes. Chest Wall: Unremarkable. Bones: Unremarkable. Lungs and Pleura: Diffuse interstitial thickening and scattered bilateral upper and lower lobe ground-glass opacities. Bilateral lower lobe bronchial wall thickening and airway narrowing. Small bilateral pleural effusions. Heart: Moderately enlarged heart. No pericardial effusion. Moderate coronary artery calcification and mild mitral annular calcification. Thoracic Vessels: No aortic aneurysm. Mediastinum and Blessing: Prominent, but not pathologic bilateral hilar and mediastinal confluent adenopathy. Esophagus: No wall thickening. Small hiatal hernia. Upper Abdomen: Hepatic cysts. Atherosclerotic calcification. Surgically absent gallbladder. Visible portions of upper abdominal organs are otherwise normal. IMPRESSION: No pulmonary embolus. Mixed interstitial and alveolar infiltrates most suggesting interstitial and pulmonary edema although interstitial pneumonitis may also this appearance. Cardiomegaly and small bilateral pleural effusions also suggests CHF. Reactive mediastinal and hilar adenopathy. Dictated by: Judit Elliott M.D. on 07/12/2024 at 20:26 Approved by: Judit Elliott M.D. on 07/12/2024 at 20:31 ECG Data Attestation: I personally reviewed and interpreted this ECG as follows: Interpretation: Normal sinus rhythm with rate of 68, no obvious ST segment elevation or depression changes. Wandering baseline noted. OK 204, QRS 88, QTC 435. [facility] Narrative Medical decision making narrative: 89-year-old female with history of atrial fibrillation on Eliquis, history of COPD, ongoing cough and shortness of breath for 3 weeks, previous course of antibiotics in unclear sequence but patient recalls Augmentin with doxycycline, also azithromycin course of antibiotics, all completed, no current oral antibiotic, still feel short of breath. EKG shows normal sinus rhythm at this time, no fast rate, no obvious ischemic changes. Troponin negative/unmeasurable. Chest x-ray unremarkable. Trial of DuoNeb breathing treatment. EKG unrmarkable. Labs normal WBC, BMP, lactate, but increased BNP. GFR normal. Persisting symptoms with numerous visits, we will further evaluate anatomy with CTA chest, though PE seems less likely on her Eliquis, however could help distinguish infiltrates not evident on plain radiographs. Patient agreeable to this evaluation. CTA chest. Impressions: ?No pulmonary embolus. Mixed interstitial and alveolar infiltrates most suggesting interstitial pulmonary edema although interstitial pneumonia may also have this appearance. Cardiomegaly and small pleural effusions also suggest congestive heart failure. Reactive mediastinal and hilar lymphadenopathy. ? See radiology report. Recent symptoms refractory to antibiotics including doxycycline and azithromycin atypical coverage, CTA showed no pulmonary embolus but did show interstitial fluid and pleural effusions, elevated BNP, perhaps dyspnea more related to congestive heart failure. IV Lasix given. Trial of outpatient Lasix. Patient felt better after breathing treatment, we will discharge on albuterol inhaler with spacer. Recheck advised with their doctor later this week. Return precautions discussed. Discharge Plan Departure Patient Disposition: Home Clinical Impression: Acute dyspnea, Congestive heart failure, Bilateral edema of lower extremity, History of COPD Activity Restrictions/Additional Instructions: Ms Berman, You reported history of COPD, recent cough and shortness of breath symptoms apparently persisting despite courses of Augmentin and doxycycline and azithromycin antibiotics as an outpatient. You have had some lower extremity edema. Blood testing today showed a BNP that was elevated 1400, that could be due sometimes from heart failure. Chest x-ray showed no obvious infiltrates. CT angiogram of the chest was done, no blood clots to the lungs noted, there was fluid overload like changes noted, including small pleural effusions, suspicious for congestive heart failure. IV Lasix medication given, to get rid of excess fluid. Take oral Lasix for the next couple of weeks as well, with potassium supplementation, in close follow up with your regular doctor to reassess symptoms. Sometimes an echocardiogram might be done in follow up, and follow up with a leather staker or your leather staker if you already have one. You got a breathing treatment while in the emergency department as well that seemed to help, I did not hear any wheezing, perhaps inhaler with spacer could be useful as well, dispensed from the emergency department, consider 2 puffs 4 times daily for the next week and then as needed. Recheck examination and symptoms with your regular doctor advised this next week. Return to this/nearest emergency department for any change worsening symptoms or any concerns prior. Thank you for allowing our team to evaluate you today. Prescriptions: New furosemide [Lasix] 20 mg tablet 20 mg PO DAILY Qty: 14 0RF potassium chloride 8 mEq capsule, extended release 8 meq PO DAILY Qty: 14 0RF No Action amlodipine 5 mg tablet 5 mg PO DAILY potassium chloride 10 mEq tablet extended release PO DAILY benzonatate 200 mg capsule 200 mg PO BID PRN (Reason: cough) Qty: 28 0RF esomeprazole magnesium 20 mg capsule,delayed release(DR/EC) 20 mg PO DAILY Qty: 90 3RF Patient Comments: TAKE 1 CAPSULE BY MOUTH EVERY DAY IN THE MORNING olmesartan 20 mg tablet 20 mg PO DAILY Qty: 90 3RF hydrocortisone 1 % cream 1 applic topical BID Qty: 28.35 6RF Eliquis 2.5 mg tablet 2.5 mg PO BID metoprolol succinate 50 mg tablet extended release 24 hr 50 mg PO DAILY Qty: 30 0RF flecainide 50 mg tablet 50 mg PO BID magnesium oxide 400 mg (241.3 mg magnesium) tablet 400 mg PO DAILY Referrals: Megan Rodriguez FNP-BC [Primary Care Provider] - Stand Alone Forms: Patient Portal/API/Survey
[2024-07-12] MEDS: ALBUTEROL/IPRATROPIUM 3 ML AMPUL INH (19:09)
--- NOTE | 2024-07-12 19:12 | DI.CT.S_ITS ---
PROCEDURE: CT ANGIO CHEST PE PROTOCOL INDICATIONS: dyspnea, recent courses abx TECHNIQUE: After the administration of intravenous contrast, 2 mm thick sections acquired from the pulmonary apices to the posterior costophrenic angles. 3-dimensional maximum intensity projection (MIP) coronal and sagittal reformats were then acquired through the thorax. For radiation dose reduction, the following was used: automated exposure control, adjustment of mA and/or kV according to patient size. COMPARISON: [facility], CT, CT ANGIO CHEST PE PROTOCOL, 07/26/2018, 8:25. FINDINGS: Image quality: Diagnostic. Pulmonary arteries: Pulmonary arteries are normal in size, and demonstrate no intraluminal filling defects to suggest central pulmonary embolism. Lower Neck: No enlarged lymph nodes. Thyroid: Normal CT appearance. Axillae: No enlarged lymph nodes. Chest Wall: Unremarkable. Bones: Unremarkable. Lungs and Pleura: Diffuse interstitial thickening and scattered bilateral upper and lower lobe ground-glass opacities. Bilateral lower lobe bronchial wall thickening and airway narrowing. Small bilateral pleural effusions. Heart: Moderately enlarged heart. No pericardial effusion. Moderate coronary artery calcification and mild mitral annular calcification. Thoracic Vessels: No aortic aneurysm. Mediastinum and Blessing: Prominent, but not pathologic bilateral hilar and mediastinal confluent adenopathy. Esophagus: No wall thickening. Small hiatal hernia. Upper Abdomen: Hepatic cysts. Atherosclerotic calcification. Surgically absent gallbladder. Visible portions of upper abdominal organs are otherwise normal. IMPRESSION: No pulmonary embolus. Mixed interstitial and alveolar infiltrates most suggesting interstitial and pulmonary edema although interstitial pneumonitis may also this appearance. Cardiomegaly and small bilateral pleural effusions also suggests CHF. Reactive mediastinal and hilar adenopathy. Dictated by: Judit Elliott M.D. on 07/12/2024 at 20:26 Approved by: Judit Elliott M.D. on 07/12/2024 at 20:31
[2024-07-12] MEDS: FUROSEMIDE 40 MG/4 ML VIAL IV (20:44)
[2024-07-12] MEDS: ALBUTEROL HFA PREPACK 1 BOX MISC (21:36)
--- NOTE | 2024-07-12 21:37 | PC.NURSE ---
Pt given education on use of MDI with spacer.
== END 2024-07-12 21:38 | disposition home or self-care (01) ==
PROVIDERS: Emergency Medicine; Emergency Provider Emergency Medicine; Family Provider Nurse Practitioner; PCP Nurse Practitioner Family
DX: R06.00 Dyspnea, unspecified (principal); R60.0 Localized edema; I50.9 Heart failure, unspecified; J44.9 Chronic obstructive pulmonary disease, unspecified; I48.91 Unspecified atrial fibrillation; Z79.01 Long term (current) use of anticoagulants
CPT/HCPCS: 36415; 71045; 71275; 80053; 83605; 83880; 84484; 85025; 85610; 93005; 94640; 96374; 99284; J1940; Q9967

== ENCOUNTER → 2024-07-24 10:20 | Outpatient (CLI) | payer OTHER, SELFPAY ==
[2023-07-27 08:31] VITALS: BMI 29.0
[2024-07-24 11:52] LABS: BUN Creatinine Ratio 25.3 (6-22); Blood Urea Nitrogen 23 mg/dL (7-17); Calcium 9.8 mg/dL (8.4-10.2); Carbon Dioxide 30 mmol/L (22-32); Chloride 99 mmol/L (98-107); Estimated Glomerular Filt Rate > 60 mL/min (>60); Glucose 96 mg/dL (80-110); HEMOLYSIS < 15 (0-50); Potassium 4.9 mmol/L (3.4-5.1); Sodium 137 mmol/L (137-145)
== END ==
PROVIDERS: Family Provider Nurse Practitioner; PCP Nurse Practitioner Family; Referring Provider Nurse Practitioner; Visit Provider Nurse Practitioner
DX: I48.0 Paroxysmal atrial fibrillation (principal)
CPT/HCPCS: 36415; 80048

== ENCOUNTER → 2024-08-13 13:36 | Outpatient (CLI) | payer MEDICARE, OTHER, SELFPAY ==
[2023-07-27 08:31] VITALS: BMI 29.0
[2024-08-13 15:50] LABS: Clostridium Difficile Tox PCR Negative for C. diff (Negative)
== END ==
PROVIDERS: Family Provider Nurse Practitioner; PCP Nurse Practitioner Family; Referring Provider Physician Assistant; Visit Provider Physician Assistant
DX: R19.7 Diarrhea, unspecified (principal)
CPT/HCPCS: 87493

== ENCOUNTER 2024-10-14 21:18 | Emergency (ER) | payer OTHER, SELFPAY ==
[2023-07-27 08:31] VITALS: BMI 29.0
[2024-10-14 21:29] VITALS: BP 156/70; PULSE 123; RESP 20; TEMP 36.8; O2SAT 96; BMI 29.7
--- NOTE | 2024-10-14 21:36 | DI.RAD.S_ITS ---
PROCEDURE: XR CHEST 1V INDICATIONS: Chest Pain TECHNIQUE: One view of the chest was acquired. COMPARISON: [facility], CR, XR CHEST 1V, 07/12/2024, 15:47. FINDINGS: Surgical changes and devices: None. Lungs and pleura: Chronically coarse interstitial markings. No new consolidation, effusion, or pneumothorax. Mediastinum: Stable cardiomegaly and atherosclerotic aortic contour. No central venous congestion. Bones and chest wall: No suspicious bony lesions. Overlying soft tissues appear unremarkable. IMPRESSION: No acute cardiopulmonary abnormality is seen. Stable cardiomegaly. Dictated by: Judit Elliott M.D. on 10/14/2024 at 22:59 Approved by: Judit Elliott M.D. on 10/14/2024 at 23:00
--- NOTE | 2024-10-14 21:36 | EKG_ITS ---
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
[2024-10-14 22:02] LABS: Add Manual Diff / Slide Review NO; Basophils Absolute Auto 100 /uL (0-100); Basophils Percent Auto 0.9 % (0-2); Eosinophils Absolute Auto 100 /uL (0-450); Eosinophils Percent Auto 1.8 % (2-4); Hematocrit 39.6 % (36-46); Hemoglobin 13.6 g/dL (12.0-16.0); Lymphocytes Absolute Auto 1500 /uL (1100-4500); Lymphocytes Percent Auto 24.7 % (25-40); Mean Corpuscular HGB Conc 34.2 % (30-36); Mean Corpuscular Hemoglobin 29.7 PG (26-34); Mean Corpuscular Volume 86.7 fL (80-100); Monocytes Absolute Auto 700 /uL (0-900); Monocytes Percent Auto 11.3 % (3-14); Neutrophils Absolute Auto 3700 /uL (1500-7000); Neutrophils Percent Auto 61.3 % (50-75); Platelet Count 235 X10^3/uL (150-400); Red Blood Cell Count 4.57 X10^6/uL (4.0-5.2); Red Cell Distribution Width 14.7 % (11.6-14.8); White Blood Cell Count 6.1 X10^3/uL (4.5-11.0)
[2024-10-14 22:10] LABS: INR 1.1 (0.9-1.3); Prothrombin Time 12.2 SECONDS (9.4-12.5)
[2024-10-14 22:12] LABS: PTT Partial Thromboplastin Tim 40 SECONDS (25.1-36.5)
[2024-10-14 22:14] LABS: Alanine Aminotransferase 30 IU/L (<35); Albumin 4.4 g/dL (3.5-5.0); Albumin Globulin Ratio 1.8 (1.0-2.8); Alkaline Phosphatase 87 U/L (38-126); Aspartate Aminotransferase 38 IU/L (14-36); BUN Creatinine Ratio 28.6 (6-22); Bilirubin Total 0.6 mg/dL (0.2-1.3); Blood Urea Nitrogen 22 mg/dL (7-17); Calcium 9.6 mg/dL (8.4-10.2); Carbon Dioxide 24 mmol/L (22-32); Chloride 104 mmol/L (98-107); Creatine Kinase 167 U/L (30-135); Estimated Glomerular Filt Rate > 60 mL/min (>60); Globulin 2.5 g/dL (1.7-4.1); Glucose 102 mg/dL (70-99); HEMOLYSIS 17 (0-50); Lipase 99 U/L (23-300); Magnesium 1.7 mg/dL (1.6-2.3); Sodium 138 mmol/L (137-145); Total Protein 6.9 g/dL (6.3-8.2)
[2024-10-14 22:26] LABS: NT-proBNP (BNP-Adult 18+) 2990 pg/mL (<450); Troponin I 0.019 ng/mL (0.01-0.034)
--- NOTE | 2024-10-14 22:27 | ED_ITS ---
HPI - Arrhythmia/Palpitations General Chief Complaint: Arrhythmia/Palpitations Stated Complaint: Rapid Heart Rate, High Blood Pressure Time Seen by Provider: 10/14/24 22:26 Source: patient Mode of arrival: Ambulatory History of Present Illness HPI narrative: 89-year-old female with history of atrial fibrillation diagnosed 20+ years ago, recalls having ablation procedure 5+ years ago, taking Eliquis 2.5 mg daily anticoagulation, no missed doses, followed by local claims adjuster crop Dr. Jazmine hdz, also taking flecainide and metoprolol, no missed doses. Complains of palpitation regular and racing heart symptoms since this morning, persisting through the day. She has no chest pain. Denies shortness of breath. Denies syncope or presyncope. She has no pain to her arms, jaw, back. No sweating diaphoresis. Related Data Home Medications ?Medication ?Instructions ?Recorded ?Confirmed apixaban 2.5 mg tablet (Eliquis) 2.5 mg PO BID 3 10/08/24 flecainide 50 mg tablet 50 mg PO BID 08/28/23 magnesium oxide 400 mg (241.3 mg 400 mg PO DAILY 08/2710/08/24 magnesium) tablet amlodipine 5 mg tablet 5 mg PO DAILY 12/01/2310/08 Previous Rx's ?Medication ?Instructions ?Recorded hydrocortisone 1 % topical cream 1 applic topical BID #28.35 grams 08/07/23 metoprolol succinate 50 mg 50 mg PO DAILY #30 tabs 10/28 tablet,extended release 24 hr olmesartan 20 mg tablet 20 mg PO DAILY #90 tabs 10/06 08/28 furosemide 20 mg tablet (Lasix) 20 mg PO DAILY #14 tab s 07/12/24 potassium chloride 8 mEq 8 meq PO DAILY #14 caps 03/12/29 capsule,extended release esomeprazole magnesium 20 mg 20 mg PO DAILY #90 caps 0 09/08/24 capsule,delayed release Allergies Allergy/AdvReac Type Severity Reaction Status Date / Time gabapentin Allergy Mild Rash Verified 10/14/24 21:30 fluticasone AdvReac Severe severe Verified 10/14/24 21:30 nosebleeds levofloxacin (LEVOFLOXACIN) AdvReac Severe rash Verified 10/14/24 21:30 atorvastatin (From Lipitor) AdvReac Intermediate joint aches Verified 10/14/24 21:30 metronidazole (METRONIDAZOLE) AdvReac Mild Rash Verified 10/14/24 21:30 pregabalin (PREGABALIN) AdvReac Mild Rash Verified 10/14/24 21:30 Patient History Medical History (Updated 10/15/24 @ 02:38 by Mason Olmedo MD) Neuropathy Rosacea Myofascial pain Low back pain Thoracic back pain Chronic anticoagulation Gastric reflux Hiatal hernia 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 Degenerative disc disease, lumbar Lumbar spondylosis Iliotibial band syndrome, left leg Acute pain of left knee Itch of right eye Hyperlipidemia Abnormal bruising Greater trochanteric bursitis of left hip Arthralgia Acute right-sided low back pain without sciatica 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 Nodule of flexor tendon sheath Body posture problem Iliotibial band syndrome of both sides History of humerus fracture Chronic pain of right elbow Chronic pain of right hand Cranial somatic dysfunction Segmental and somatic dysfunction of rib cage Foot joint stiffness, bilateral Somatic dysfunction of lower extremity Sacral region somatic dysfunction Pelvic somatic dysfunction Upper extremity somatic dysfunction Segmental and somatic dysfunction of abdomen and other regions Lumbar region somatic dysfunction Thoracic region somatic dysfunction Cervical somatic dysfunction Chronic bilateral low back pain without sciatica Chronic thoracic back pain Neck pain, chronic 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 Edema Periodic limb movement disorder (PLMD) Nocturnal hypoxemia (~07/2019) Obstructive sleep apnea (~07/2019) Impairment of balance Unsteady gait Numbness and tingling of both feet Advance care planning Advance directive in chart History of COPD Positive FIT (fecal immunochemical test) Pain of left breast Menopausal vaginal dryness Vaginal stricture Cranial somatic dysfunction Viral URI with cough Tobacco abuse, in remission Osteoarthritis H pylori ulcer Stomach ulcer Colitis Fracture, humerus closed PVCs (premature ventricular contractions) Palpitations Hypertension Chronic a-fib Epistaxis, recurrent Atypical chest pain Surgical History History of cardiac radiofrequency ablation History of carpal tunnel surgery of left wrist S/P rotator cuff repair H/O nasal septoplasty H/O cataract extraction History of tonsillectomy History of cholecystectomy History of radiofrequency ablation procedure for cardiac arrhythmia S/P ablation of atrial fibrillation No significant past surgical history Family History Mother Hypertension Heart disease Breast cancer Father Hypertension Heart disease Sister Hypertension Heart disease Cancer Brother Heart disease Cancer Social History marital status: unknown household members: none occupational status: previously employed Smoking Status: Former smoker Tobacco: How many years used: 30 alcohol intake: current substance use type: does not use Smoking Status: Former smoker alcohol intake frequency: 0-2 drinks per day Alcohol type: wine Exam Narrative Exam Narrative: GENERAL: Well-developed patient, in mild distress. HEAD: Atraumatic. Normocephalic. EYES: Pupils equal round and reactive. Extraocular motions intact. No scleral icterus. No injection or drainage. ENT: Nose without bleeding, purulent drainage. Throat without erythema, tonsillar hypertrophy or exudate. Airway patent. NECK: Trachea midline. Non tender CARDIOVASCULAR: Irregularly irregular rhythm, increased rate, without murmurs, gallops, or rubs. RESPIRATORY: Clear to auscultation. Breath sounds equal bilaterally. No wheezes, rales, or rhonchi. GASTROINTESTINAL: Abdomen soft, non-tender, nondistended. EXTREMITIES: No edema or joint tenderness. BACK: Nontender without deformity or crepitance. No flank tenderness. NEURO: AOx3. Motor functions grossly nonfocal. SKIN: No rash or erythema of visible areas Initial Vital Signs Initial Vital Signs: Vital Signs Temperature 98.2 F 10/14/24 21:29 Pulse Rate 123 H 10/14/24 21:29 Respiratory Rate 20 10/14/24 21:29 Blood Pressure 156/70 H 10/14/24 21:29 Pulse Oximetry 96 10/14/24 21:29 Oxygen Delivery Method Room Air 10/14/24 21:29 Course Orders Ordered: ED Orders 10/14/24 21:36 XR chest 1V Stat EKG-12 Lead Stat 10/14/24 21:50 Complete Blood Count AUTO DIFF Stat Comprehensive Metabolic Panel Stat Lipase Stat Magnesium Stat NT-proBNP (BNP-Adult 18+) Stat PTT Partial Thromboplastin Handy Stat Prothrombin Time INR Stat Troponin & CK Cardiac Panel Stat 10/15/24 00:18 Troponin I Stat Discontinued Medications Aspirin (Aspirin 81 Mg Chew Tab) 324 mg PO NOW ONE Stop: 10/14/24 21:36 Last Admin: 10/14/24 23:16 Dose: Not Given Documented By: DKB Metoprolol Tartrate (Metoprolol Tartrate 5 Mg/5 Ml Inj) 5 mg IV NOW ONE Stop: 10/14/24 23:04 Last Admin: 10/14/24 23:09 Dose: 5 mg Documented By: VIKA Metoprolol Tartrate (Metoprolol Ir 25 Mg Tablet) 25 mg PO NOW ONE Stop: 10/15/24 01:38 Last Admin: 10/15/24 01:48 Dose: 25 mg Documented By: VIKA Vital Signs Vital signs: Vital Signs - 8 hr 10/14/24 21:29 10/14/24 22:28 10/14/24 22:30 Temperature 98.2 F Pulse Rate 123 H 112 H 113 H Respiratory Rate 20 22 19 Blood Pressure 156/70 H Pulse Oximetry 96 95 96 Oxygen Delivery Method Room Air 10/14/24 23:00 10/14/24 23:11 10/14/24 23:11 Temperature Pulse Rate 115 H 116 H Respiratory Rate 26 H 19 Blood Pressure 119/68 Pulse Oximetry 95 94 Oxygen Delivery Method 10/14/24 23:30 10/14/24 23:30 10/15/24 00:00 Temperature Pulse Rate 113 H Respiratory Rate 22 Blood Pressure 125/60 125/59 L Pulse Oximetry 95 Oxygen Delivery Method 10/15/24 00:00 10/15/24 00:30 10/15/24 00:30 Temperature Pulse Rate 113 H 110 H Respiratory Rate 18 21 Blood Pressure 133/73 Pulse Oximetry 94 95 Oxygen Delivery Method 10/15/24 01:00 10/15/24 01:00 10/15/24 01:31 Temperature Pulse Rate 99 H 101 H Respiratory Rate 19 Blood Pressure 138/73 Pulse Oximetry 94 95 Oxygen Delivery Method 10/15/24 01:32 10/15/24 01:32 10/15/24 02:00 Temperature Pulse Rate 108 H Respiratory Rate 13 Blood Pressure 135/71 125/79 Pulse Oximetry 94 Oxygen Delivery Method 10/15/24 02:00 10/15/24 02:30 10/15/24 02:31 Temperature Pulse Rate 108 H 93 H 89 Respiratory Rate 14 14 15 Blood Pressure Pulse Oximetry 94 94 93 Oxygen Delivery Method Room Air 10/15/24 02:31 Temperature Pulse Rate Respiratory Rate Blood Pressure 135/72 Pulse Oximetry Oxygen Delivery Method MDM - Arrhythmia/Palpitations Lab Data Attestation: I reviewed the patient's lab results. Lab results narrative: White blood cell count 6100, hemoglobin 13.6, platelets adequate. Glucose 102. Renal function unremarkable. Normal electrolytes, normal serum CO2. AST 38 slight elevation, other liver functions unremarkable. Lipase normal. Troponin 0.019 measurable but quite low. BNP 2990 elevated. 10/14/24 21:50 10/14/24 21:50 Labs: Lab Results 10/14/24 10/15/24 Range/Units 21:50 00:18 WBC 6.1 (4.5-11.0) X10^3/uL RBC 4.57 (4.0-5.2) X10^6/uL Hgb 13.6 (12.0-16.0) g/dL Hct 39.6 (36-46) % MCV 86.7 (80-100) fL MCH 29.7 (26-34) PG MCHC 34.2 (30-36) % RDW 14.7 (11.6-14.8) % Plt Count 235 (150-400) X10^3/uL Neut % (Auto) 61.3 (50-75) % Lymph % (Auto) 24.7 L (25-40) % [place] % (Auto) 11.3 (3-14) % Eos % (Auto) 1.8 L (2-4) % Baso % (Auto) 0.9 (0-2) % Neut # (Auto) 3700 (0341-0446) /uL Lymph # (Auto) 1500 (0869-5029) /uL [place] # (Auto) 700 (0-900) /uL Eos # (Auto) 100 (0-450) /uL Baso # (Auto) 100 (0-100) /uL PT 12.2 (9.4-12.5) SECONDS INR 1.1 (0.9-1.3) APTT 40 H (25.1-36.5) SECONDS Sodium 138 (137-145) mmol/L Potassium 4.0 (3.4-5.1) mmol/L Chloride 104 (98-107) mmol/L Carbon Dioxide 24 (22-32) mmol/L BUN 22 H (7-17) mg/dL Creatinine 0.77 (0.52-1.04) mg/dL Estimated GFR > 60 (>60) mL/min BUN/Creatinine Ratio 28.6 H (6-22) Glucose 102 H (70-99) mg/dL Calcium 9.6 (8.4-10.2) mg/dL Magnesium 1.7 (1.6-2.3) mg/dL Total Bilirubin 0.6 (0.2-1.3) mg/dL AST 38 H (14-36) IU/L ALT 30 (<35) IU/L Alkaline Phosphatase 87 (38-126) U/L Total Creatine Kinase 167 H (30-135) U/L Troponin I 0.019 0.019 (0.01-0.034) ng/mL NT-Pro-B Natriuret Pep 2990 H (<450) pg/mL Total Protein 6.9 (6.3-8.2) g/dL Albumin 4.4 (3.5-5.0) g/dL Globulin 2.5 (1.7-4.1) g/dL Albumin/Globulin Ratio 1.8 (1.0-2.8) Lipase 99 (23-300) U/L Imaging Data Chest x-ray: Radiologist's Impresson: [place] [address] XRay Report Signed Patient: Trish Berman MR#: [id number] : 1935 Acct:[id number] Age/Sex: 89 / F Date of Service: 10/14/24 Loc: Accession Number: [id number] Procedure: XR chest 1V Ordering Provider: Mason Olmedo MD PROCEDURE: XR CHEST 1V INDICATIONS: Chest Pain TECHNIQUE: One view of the chest was acquired. COMPARISON: [facility], , XR CHEST 1V, 07/12/2024, 15:47. FINDINGS: Surgical changes and devices: None. Lungs and pleura: Chronically coarse interstitial markings. No new consolidation, effusion, or pneumothorax. Mediastinum: Stable cardiomegaly and atherosclerotic aortic contour. No central venous congestion. Bones and chest wall: No suspicious bony lesions. Overlying soft tissues appear unremarkable. IMPRESSION: No acute cardiopulmonary abnormality is seen. Stable cardiomegaly. Dictated by: Judit Elliott M.D. on 10/14/2024 at 22:59 Approved by: Judit Elliott M.D. on 10/14/2024 at 23:00 ECG Data Attestation: I personally reviewed and interpreted this ECG as follows: Interpretation: Atrial fibrillation with rapid ventricular response rate 118, no obvious ST segment elevation or depression changes. QRS 102, QTC 473. MDM Narrative Medical decision making narrative: 89-year-old female with history of atrial fibrillation on Eliquis anticoagulation, also takes metoprolol and flecainide, prior ablation procedure 5 years ago, today with palpitation and fast irregular heart rate sensation, without chest pain or dyspnea, no syncope presyncope. EKG confirms atrial fibrillation with ventricular response rate 118. On equipment monitor phototypesetting AFib with RVR rate range 100-120. Systolic blood pressure 1 30s. We discussed cardioversion, she would not like to be shocked at this time. She is willing to have attempts at rate control. She takes oral metoprolol, does not know the dose. We will give IV metoprolol 5 mg dose. Labs are pending. Chest x-ray no acute changes, stable cardiomegaly. See radiology report. Lab data: White blood cell count 6100, hemoglobin 13.6, platelets adequate. Glucose 102. Renal function unremarkable. Normal electrolytes, normal serum CO2. AST 38 slight elevation, other liver functions unremarkable. Lipase normal. Troponin 0.019 measurable but quite low. BNP 2990 elevated. Repeat troponin same value. AFib with RVR rate 100, we will give oral metoprolol tartrate 25 mg dose. Follow up heart rate improved, 90s range, normotensive. Advised to increase her metoprolol succinate dose from 50 mg to 75 mg daily. Continue current flecainide and other chronic medications as prescribed. Encouraged to recheck with her claims adjuster crop tomorrow during regular office hours. Discharged home. Return precautions discussed. Discharge Plan Departure Patient Disposition: Home Clinical Impression: Atrial fibrillation with rapid ventricular response Activity Restrictions/Additional Instructions: History of known atrial fibrillation, recent recurrence, on Eliquis chronic anticoagulation. After arrival we did discuss cardioversion/shocks to attempt to make the atrial fibrillation go away. You did not want to have cardioversion treatment. We discussed rate medications to help with rate control. IV and oral metoprolol doses were given. You are prescribed metoprolol succinate a long-acting formulation, 50 mg daily, advised increased dose to 1-1/2 pills daily (75 mg daily) for now. EKG and blood testing not suggestive of heart attack problems at this time. Continue your flecainide and other chronic medications. Follow up with your claims adjuster crop Dr. Bishop, call his office later today during open hours for close follow up. Return earlier to this/nearest emergency department for any change worsening symptoms or any concerns prior. Prescriptions: No Action amlodipine 5 mg tablet 5 mg PO DAILY olmesartan 20 mg tablet 20 mg PO DAILY Qty: 90 3RF esomeprazole magnesium 20 mg capsule,delayed release(DR/EC) 20 mg PO DAILY Qty: 90 3RF Patient Comments: TAKE 1 CAPSULE BY MOUTH EVERY DAY IN THE MORNING hydrocortisone 1 % cream 1 applic topical BID Qty: 28.35 6RF Eliquis 2.5 mg tablet 2.5 mg PO BID metoprolol succinate 50 mg tablet extended release 24 hr 50 mg PO DAILY Qty: 30 0RF furosemide [Lasix] 20 mg tablet 20 mg PO DAILY Qty: 14 0RF potassium chloride 8 mEq capsule, extended release 8 meq PO DAILY Qty: 14 0RF flecainide 50 mg tablet 50 mg PO BID magnesium oxide 400 mg (241.3 mg magnesium) tablet 400 mg PO DAILY Referrals: Megan Rodriguez, [employer] [Primary Care Provider, Family Practice] Stand Alone Forms: Patient Portal/API
[2024-10-14 22:28] VITALS: PULSE 112; RESP 22; O2SAT 95
[2024-10-14 22:30] VITALS: PULSE 113; RESP 19; O2SAT 96
[2024-10-14 23:00] VITALS: PULSE 115; RESP 26; O2SAT 95
[2024-10-14] MEDS: METOPROLOL TARTRATE 5 MG/5 ML INJ IV (23:09)
[2024-10-14 23:11] VITALS: BP 119/68; PULSE 116; RESP 19; O2SAT 94
[2024-10-14 23:30] VITALS: BP 125/60; PULSE 113; RESP 22; O2SAT 95
[2024-10-15] VITALS (8 sets, daily range): BP systolic 125–138; BP diastolic 59–79; PULSE 89–113; RESP 13–21; O2SAT 93–95
[2024-10-15 00:47] LABS: Troponin I 0.019 ng/mL (0.01-0.034)
[2024-10-15] MEDS: METOPROLOL IR 25 MG TABLET PO (01:48)
== END 2024-10-15 02:54 | disposition home or self-care (01) ==
PROVIDERS: Emergency Provider Emergency Medicine; PCP Nurse Practitioner Family
DX: I48.20 Chronic atrial fibrillation, unspecified (principal); Z79.01 Long term (current) use of anticoagulants; R07.9 Chest pain, unspecified
CPT/HCPCS: 36415; 71045; 80053; 82550; 83690; 83735; 83880; 84484; 85025; 85610; 85730; 93005; 96374; 99284

== ENCOUNTER 2024-11-18 04:39 | Emergency (ER) | payer MEDICARE, OTHER, SELFPAY ==
[2023-07-27 08:31] VITALS: BMI 29.0
[2024-11-18] VITALS (18 sets, daily range): BP systolic 129–159; BP diastolic 60–69; PULSE 51–63; RESP 13–32; TEMP 36.5; O2SAT 87–95; BMI 30.5
--- NOTE | 2024-11-18 04:45 | ED.SOB ---
HPI - SOB/Dyspnea <Shahbaz Lynn, DO - Last Filed: 11/18/24 06:43> General Chief Complaint: Shortness of Breath/Dyspnea Stated Complaint: sob Time Seen by Provider: 11/18/24 04:42 History of Present Illness HPI Narrative: 89-year-old female history atrial fibrillation status post ablation 5 years ago on Eliquis, hypertension, hyperlipidemia, GERD, chronic anticoagulation presents with shortness of breath after having cardioversion yesterday afternoon. She reports not taking her Lasix for 2 days. Patient also states she has been having a cough with congestion and slight headache. Other than what is stated 14 point review of system is negative. Related Data Home Medications ?Medication ?Instructions ?Recorded ?Confirmed apixaban 2.5 mg tablet (Eliquis) 2.5 mg PO BID 02/12/23 10/08/24 flecainide 50 mg tablet 50 mg PO BID 08/28/23 10/08/24 magnesium oxide 400 mg (241.3 mg 400 mg PO DAILY 08/28/23 10/08/24 magnesium) tablet amlodipine 5 mg tablet 5 mg PO DAILY 12/01/23 10/08/24 Previous Rx's ?Medication ?Instructions ?Recorded hydrocortisone 1 % topical cream 1 applic topical BID #28.35 grams 08/07/23 metoprolol succinate 50 mg 50 mg PO DAILY #30 tabs 08/11/23 tablet,extended release 24 hr furosemide 20 mg tablet (Lasix) 20 mg PO DAILY #14 tabs 07/12/24 potassium chloride 8 mEq 8 meq PO DAILY #14 caps 07/12/24 capsule,extended release esomeprazole magnesium 20 mg 20 mg PO DAILY #90 caps 09/08/24 capsule,delayed release olmesartan 20 mg tablet 20 mg PO DAILY #90 tabs 11/17/24 levofloxacin 750 mg tablet 750 mg PO DAILY #7 tabs 11/18/24 prednisone 50 mg tablet 50 mg PO DAILY #5 tabs 11/18/24 Allergies Allergy/AdvReac Type Severity Reaction Status Date / Time gabapentin Allergy Mild Rash Verified 10/14/24 21:30 fluticasone AdvReac Severe severe Verified 10/14/24 21:30 nosebleeds levofloxacin (LEVOFLOXACIN) AdvReac Severe rash Verified 10/14/24 21:30 atorvastatin (From Lipitor) AdvReac Intermediate joint aches Verified 10/14/24 21:30 metronidazole (METRONIDAZOLE) AdvReac Mild Rash Verified 10/14/24 21:30 pregabalin (PREGABALIN) AdvReac Mild Rash Verified 10/14/24 21:30 Review of Systems <Shahbaz Lynn, - Last Filed: 11/18/24 06:43> Review of Systems ROS Unobtainable: All systems reviewed & are unremarkable except as noted in HPI and below Patient History <Shahbaz Lynn, DO - Last Filed: 11/18/24 06:43> Medical History (Updated 11/18/24 @ 10:55 by Dominic Li MD) Neuropathy Rosacea Myofascial pain Low back pain Thoracic back pain Chronic anticoagulation Gastric reflux Hiatal hernia 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 Degenerative disc disease, lumbar Lumbar spondylosis Iliotibial band syndrome, left leg Acute pain of left knee Itch of right eye Hyperlipidemia Abnormal bruising Greater trochanteric bursitis of left hip Arthralgia Acute right-sided low back pain without sciatica 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 Nodule of flexor tendon sheath Body posture problem Iliotibial band syndrome of both sides History of humerus fracture Chronic pain of right elbow Chronic pain of right hand Cranial somatic dysfunction Segmental and somatic dysfunction of rib cage Foot joint stiffness, bilateral Somatic dysfunction of lower extremity Sacral region somatic dysfunction Pelvic somatic dysfunction Upper extremity somatic dysfunction Segmental and somatic dysfunction of abdomen and other regions Lumbar region somatic dysfunction Thoracic region somatic dysfunction Cervical somatic dysfunction Chronic bilateral low back pain without sciatica Chronic thoracic back pain Neck pain, chronic 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 Edema Periodic limb movement disorder (PLMD) Nocturnal hypoxemia (~07/2019) Obstructive sleep apnea (~07/2019) Impairment of balance Unsteady gait Numbness and tingling of both feet Advance care planning Advance directive in chart History of COPD Positive FIT (fecal immunochemical test) Pain of left breast Menopausal vaginal dryness Vaginal stricture Cranial somatic dysfunction Viral URI with cough Tobacco abuse, in remission Osteoarthritis H pylori ulcer Stomach ulcer Colitis Fracture, humerus closed PVCs (premature ventricular contractions) Palpitations Hypertension Chronic a-fib Epistaxis, recurrent Atypical chest pain Surgical History History of cardiac radiofrequency ablation History of carpal tunnel surgery of left wrist S/P rotator cuff repair H/O nasal septoplasty H/O cataract extraction History of tonsillectomy History of cholecystectomy History of radiofrequency ablation procedure for cardiac arrhythmia S/P ablation of atrial fibrillation No significant past surgical history Family History Mother Hypertension Heart disease Breast cancer Father Hypertension Heart disease Sister Hypertension Heart disease Cancer Brother Heart disease Cancer Social History marital status: unknown household members: none occupational status: previously employed Tobacco: How many years used: 30 alcohol intake: current substance use type: does not use alcohol intake frequency: 0-2 drinks per day Alcohol type: wine Exam <Shahbaz Lynn DO - Last Filed: 11/18/24 06:43> Narrative Exam Narrative: GENERAL: [89] year old patient appears stated age. Well-developed patient, in mild distress. HEAD: Atraumatic. Normocephalic. EYES: Pupils equal round and reactive. Extraocular motions intact. No scleral icterus. No injection or drainage. ENT: Nose without bleeding, purulent drainage. Throat without erythema, tonsillar hypertrophy or exudate. Airway patent. NECK: Trachea midline. Non tender CARDIOVASCULAR: Regular rate and rhythm without murmurs, gallops, or rubs. RESPIRATORY: Bilateral crackles at the base GASTROINTESTINAL: Abdomen soft, non-tender, nondistended. EXTREMITIES: No edema or joint tenderness. BACK: Nontender without deformity or crepitance. No flank tenderness. NEURO: AOx3. SKIN: No rash or erythema of visible areas Initial Vital Signs Initial Vital Signs: Vital Signs Temperature 97.7 F 11/18/24 04:50 Pulse Rate 63 11/18/24 04:50 Respiratory Rate 11/18/24 04:50 Blood Pressure 159/69 H 11/18/24 04:50 Pulse Oximetry 94 11/18/24 04:50 Oxygen Delivery Method Room Air 11/18/24 04:50 <Dominic Li MD - Last Filed: 11/18/24 10:57> Initial Vital Signs Initial Vital Signs: Vital Signs Temperature 97.7 F 11/18/24 04:50 Pulse Rate 63 11/18/24 04:50 Respiratory Rate 19 11/18/24 04:50 Blood Pressure 159/69 H 11/18/24 04:50 Pulse Oximetry 94 11/18/24 04:50 Oxygen Delivery Method Room Air 11/18/24 04:50 Scores <Shahbaz Lynn DO - Last Filed: 11/18/24 06:43> HEART Score Heart Score history: Slightly Suspicious Heart Score EKG: Normal Heart Score Age: > or = 65 years old Heart Score risk factors: > 3 risk factors or hx of atherosclerotic disease Heart Score troponin: < or = to normal limit Heart Score Total: 4 <Dominic Li MD - Last Filed: 11/18/24 10:57> HEART Score Heart Score Total: 4 Course <Shahbaz Lynn DO - Last Filed: 11/18/24 06:43> Orders Ordered: ED Orders 11/18/24 04:55 XR chest 1V Stat Complete Blood Count AUTO DIFF Stat Comprehensive Metabolic Panel Stat Covid-19 + FLU A/B + RSV - PCR Stat Lactate (Lactic Acid) Stat Lipase Stat NT-proBNP (BNP-Adult 18+) Stat Troponin & CK Cardiac Panel Stat EKG-12 Lead Stat 11/18/24 05:45 Blood Culture Stat 11/18/24 07:35 Troponin I Stat 11/18/24 08:46 CT abdomen pelvis w con Stat Discontinued Medications Albuterol/Ipratropium (Albuterol/Ipratropium 3 Ml Ampul) 3 ml INH NOW ONE Stop: 11/18/24 08:45 Last Admin: 11/18/24 09:18 Dose: 3 ml Documented By: Aspirin (Aspirin 81 Mg Chew Tab) 324 mg PO NOW ONE Stop: 11/18/24 04:56 Last Admin: 11/18/24 06:00 Dose: Not Given Documented By: CHARLENE Benzonatate (Benzonatate 100 Mg Capsule) 100 mg PO NOW ONE Stop: 11/18/24 10:48 Ceftriaxone Sodium 1,000 mg/ (Sodium Chloride) 100 mls @ 200 mls/hr IV NOW ONE Stop: 11/18/24 05:23 Last Infusion: 11/18/24 06:23 Dose: Infused Documented By: Admin: 11/18/24 05:55 Dose: 200 mls/hr Documented By: CHARLENE Azithromycin 500 mg/ Dextrose 250 mls @ 250 mls/hr IV NOW ONE Stop: 11/18/24 05:23 Last Infusion: 11/18/24 09:23 Dose: Infused Documented By: Admin: 11/18/24 06:16 Dose: 250 mls/hr Documented By: CHARLENE Methylprednisolone (Methylprednisolone 125 Mg/2 Ml Vial) 125 mg IV NOW ONE Stop: 11/18/24 08:45 Last Admin: 11/18/24 09:18 Dose: 125 mg Documented By: Vital Signs Vital signs: Vital Signs - 8 hr 11/18/24 04:50 Temperature 97.7 F Pulse Rate 63 Respiratory Rate 19 Blood Pressure 159/69 H Pulse Oximetry 94 Oxygen Delivery Method Room Air <Dominic Li MD - Last Filed: 11/18/24 10:57> Course Course Narrative: PAUL: I assumed care of this patient at 7:00 a.m.. When I went to evaluate the patient upon my arrival she stated that her shortness of breath had not improved much and that she never had any chest pain. She also told me about her history of COPD. She was then given steroids and breathing treatment and this dramatically improved her condition. Thankfully, the patient did not require any supplemental oxygen during her ER stay. Therefore, she was continued on Levaquin for her community-acquired pneumonia and 4 more days of oral prednisone for her COPD exacerbation. She was also advised to use her albuterol inhaler as needed, and return to the ER for any change or worsening in her condition especially worsening shortness of breath or chest pain, or fevers after being on antibiotics for more than 24 hours. Patient was in agreement with this plan. Orders Ordered: ED Orders 11/18/24 04:55 XR chest 1V Stat Complete Blood Count AUTO DIFF Stat Comprehensive Metabolic Panel Stat Covid-19 + FLU A/B + RSV - PCR Stat Lactate (Lactic Acid) Stat Lipase Stat NT-proBNP (BNP-Adult 18+) Stat Troponin & CK Cardiac Panel Stat EKG-12 Lead Stat 11/18/24 05:45 Blood Culture Stat 11/18/24 07:35 Troponin I Stat 11/18/24 08:46 CT abdomen pelvis w con Stat Discontinued Medications Albuterol/Ipratropium (Albuterol/Ipratropium 3 Ml Ampul) 3 ml INH NOW ONE Stop: 11/18/24 08:45 Last Admin: 11/18/24 09:18 Dose: 3 ml Documented By: Aspirin (Aspirin 81 Mg Chew Tab) 324 mg PO NOW ONE Stop: 11/18/24 04:56 Last Admin: 11/18/24 06:00 Dose: Not Given Documented By: CHARLENE Benzonatate (Benzonatate 100 Mg Capsule) 100 mg PO NOW ONE Stop: 11/18/24 10:48 Ceftriaxone Sodium 1,000 mg/ (Sodium Chloride) 100 mls @ 200 mls/hr IV NOW ONE Stop: 11/18/24 05:23 Last Infusion: 11/18/24 06:23 Dose: Infused Documented By: Admin: 11/18/24 05:55 Dose: 200 mls/hr Documented By: CHARLENE Azithromycin 500 mg/ Dextrose 250 mls @ 250 mls/hr IV NOW ONE Stop: 11/18/24 05:23 Last Infusion: 11/18/24 09:23 Dose: Infused Documented By: Admin: 11/18/24 06:16 Dose: 250 mls/hr Documented By: CHARLENE Methylprednisolone (Methylprednisolone 125 Mg/2 Ml Vial) 125 mg IV NOW ONE Stop: 11/18/24 08:45 Last Admin: 11/18/24 09:18 Dose: 125 mg Documented By: Reevaluation(s) Reevaluation #1: Medical: Vital Signs Vital signs: Vital Signs - 8 hr 11/18/24 04:50 Temperature 97.7 F Pulse Rate 63 Respiratory Rate 19 Blood Pressure 159/69 H Pulse Oximetry 94 Oxygen Delivery Method Room Air MDM - SOB/Dyspnea <Shahbaz Lynn, DO - Last Filed: 11/18/24 06:43> Lab Data 11/18/24 04:55 11/18/24 04:55 Labs: Lab Results 11/18/24 11/18/24 Range/Units 04:55 07:35 WBC 7.1 (4.5-11.0) X10^3/uL RBC 4.59 (4.0-5.2) X10^6/uL Hgb 13.6 (12.0-16.0) g/dL Hct 40.4 (36-46) % MCV 88.1 (80-100) fL MCH 29.5 (26-34) PG MCHC 33.5 (30-36) % RDW 15.0 H (11.6-14.8) % Plt Count 230 (150-400) X10^3/uL Neut % (Auto) 73.6 (50-75) % Lymph % (Auto) 14.1 L (25-40) % [place] % (Auto) 8.6 (3-14) % Eos % (Auto) 1.4 L (2-4) % Baso % (Auto) 2.3 H (0-2) % Neut # (Auto) 5300 (1421-3668) /uL Lymph # (Auto) 1000 L (7239-1237) /uL [place] # (Auto) 600 (0-900) /uL Eos # (Auto) 100 (0-450) /uL Baso # (Auto) 200 H (0-100) /uL Sodium 136 L (137-145) mmol/L Potassium 4.4 (3.4-5.1) mmol/L Chloride 103 (98-107) mmol/L Carbon Dioxide 25 (22-32) mmol/L BUN 22 H (7-17) mg/dL Creatinine 0.84 (0.52-1.04) mg/dL Estimated GFR > 60 (>60) mL/min BUN/Creatinine Ratio 26.2 H (6-22) Glucose 111 H (70-99) mg/dL Lactate 1.1 (0.7-2.1) mmol/L Calcium 9.2 (8.4-10.2) mg/dL Total Bilirubin 1.0 (0.2-1.3) mg/dL AST 103 H (14-36) IU/L ALT 119 H (<35) IU/L Alkaline Phosphatase 95 (38-126) U/L Total Creatine Kinase 98 (30-135) U/L Troponin I < 0.012 < 0.012 (0.01-0.034) ng/mL NT-Pro-B Natriuret Pep 1310 H (<450) pg/mL Total Protein 6.8 (6.3-8.2) g/dL Albumin 4.4 (3.5-5.0) g/dL Globulin 2.4 (1.7-4.1) g/dL Albumin/Globulin Ratio 1.8 (1.0-2.8) Lipase 89 (23-300) U/L SARS-CoV-2 (PCR) Negative (Negative) Influenza A (RT-PCR) Flu a negative (NEGATIVE) Influenza B (RT-PCR) Flu b negative (NEGATIVE) RSV (PCR) Negative (Negative) Imaging Data Chest x-ray: Radiologist's Impression: Chest x-ray showed multifocal bilateral pulmonary infiltrate ECG Data Interpretation: Sinus Willie HR 56 DC 234 QRS [address]-t wave change Change from 10/14/24 [facility] Narrative Medical decision making narrative: Vital signs, nurse triage note, medication list, previous ER visits, and all imaging studies reviewed. Chest x-ray showed multifocal bilateral pulmonary infiltrates. Patient is started on Rocephin and Zithromax here. EKG shows sinus bradycardia HR 56 with no STT wave changes. <Dominic Li MD - Last Filed: 11/18/24 10:57> Lab Data Labs: Lab Results 11/18/24 11/18/24 Range/Units 04:55 07:35 WBC 7.1 (4.5-11.0) X10^3/uL RBC 4.59 (4.0-5.2) X10^6/uL Hgb 13.6 (12.0-16.0) g/dL Hct 40.4 (36-46) % MCV 88.1 (80-100) fL MCH 29.5 (26-34) PG MCHC 33.5 (30-36) % RDW 15.0 H (11.6-14.8) % Plt Count 230 (150-400) X10^3/uL Neut % (Auto) 73.6 (50-75) % Lymph % (Auto) 14.1 L (25-40) % [place] % (Auto) 8.6 (3-14) % Eos % (Auto) 1.4 L (2-4) % Baso % (Auto) 2.3 H (0-2) % Neut # (Auto) 5300 (4673-3024) /uL Lymph # (Auto) 1000 L (7302-8802) /uL [place] # (Auto) 600 (0-900) /uL Eos # (Auto) 100 (0-450) /uL Baso # (Auto) 200 H (0-100) /uL Sodium 136 L (137-145) mmol/L Potassium 4.4 (3.4-5.1) mmol/L Chloride 103 (98-107) mmol/L Carbon Dioxide 25 (22-32) mmol/L BUN 22 H (7-17) mg/dL Creatinine 0.84 (0.52-1.04) mg/dL Estimated GFR > 60 (>60) mL/min BUN/Creatinine Ratio 26.2 H (6-22) Glucose 111 H (70-99) mg/dL Lactate 1.1 (0.7-2.1) mmol/L Calcium 9.2 (8.4-10.2) mg/dL Total Bilirubin 1.0 (0.2-1.3) mg/dL AST 103 H (14-36) IU/L ALT 119 H (<35) IU/L Alkaline Phosphatase 95 (38-126) U/L Total Creatine Kinase 98 (30-135) U/L Troponin I < 0.012 < 0.012 (0.01-0.034) ng/mL NT-Pro-B Natriuret Pep 1310 H (<450) pg/mL Total Protein 6.8 (6.3-8.2) g/dL Albumin 4.4 (3.5-5.0) g/dL Globulin 2.4 (1.7-4.1) g/dL Albumin/Globulin Ratio 1.8 (1.0-2.8) Lipase 89 (23-300) U/L SARS-CoV-2 (PCR) Negative (Negative) Influenza A (RT-PCR) Flu a negative (NEGATIVE) Influenza B (RT-PCR) Flu b negative (NEGATIVE) RSV (PCR) Negative (Negative) Discharge Plan Departure Patient Disposition: Home Clinical Impression: Acute exacerbation of chronic obstructive airways disease Community acquired pneumonia Qualifiers: Laterality: unspecified laterality Qualified Code(s): J18.9 - Pneumonia, unspecified organism Instructions: COPD: When to Call for Help, Physical Activity for People with COPD Activity Restrictions/Additional Instructions: If there is any change or worsening in your condition, especially if you get worsening shortness of breath or high fevers then please return to the ER right away for further evaluation. 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 Be sure to discuss with your PCP about your abnormal liver labs from today. Prescriptions: New prednisone 50 mg tablet 50 mg PO DAILY Qty: 5 0RF levofloxacin 750 mg tablet 750 mg PO DAILY Qty: 7 0RF No Action amlodipine 5 mg tablet 5 mg PO DAILY esomeprazole magnesium 20 mg capsule,delayed release(DR/EC) 20 mg PO DAILY Qty: 90 3RF Patient Comments: TAKE 1 CAPSULE BY MOUTH EVERY DAY IN THE MORNING olmesartan 20 mg tablet 20 mg PO DAILY Qty: 90 1RF hydrocortisone 1 % cream 1 applic topical BID Qty: 28.35 6RF Eliquis 2.5 mg tablet 2.5 mg PO BID metoprolol succinate 50 mg tablet extended release 24 hr 50 mg PO DAILY Qty: 30 0RF furosemide [Lasix] 20 mg tablet 20 mg PO DAILY Qty: 14 0RF potassium chloride 8 mEq capsule, extended release 8 meq PO DAILY Qty: 14 0RF flecainide 50 mg tablet 50 mg PO BID magnesium oxide 400 mg (241.3 mg magnesium) tablet 400 mg PO DAILY Referrals: Megan Rodriguez, AEROSPACE QUALITY ENGINEER-BC [Primary Care Provider, Family Practice] - As soon as possible Stand Alone Forms: Patient Portal/API
--- NOTE | 2024-11-18 04:55 | DI.RAD.S_ITS ---
PROCEDURE: XR CHEST 1V INDICATIONS: chest pain TECHNIQUE: One view of the chest was acquired. COMPARISON: [facility], CR, XR CHEST 1V, 10/14/2024, 21:36. [facility], CR, XR CHEST 1V, 07/12/2024, 15:47. FINDINGS: Surgical changes and devices: None. Lungs and pleura: Mild bilateral interstitial prominence. No dense airspace consolidation. No pleural effusions or pneumothorax. Mediastinum: Cardiac silhouette is mildly enlarged. Bones and chest wall: No suspicious bony lesions. Overlying soft tissues appear unremarkable. IMPRESSION: Mild bilateral interstitial prominence may be secondary to mild edema versus an atypical or viral pneumonia. Stable cardiomegaly. There is no significant discrepancy when compared to the overnight preliminary report. Approved by: Adam Huber M.D. on 11/18/2024 at 8:00
--- NOTE | 2024-11-18 05:02 | EKG_ITS ---
[address] [address] Test Date: 2024-11-18 Pat Name: Trish Berman Department: Room: Gender: Female Insurance Coordinator: : 1935 Requested By: Order Number: [id number] Reading MD: Balwinder Padilla Measurements Intervals [place] Rate: 56 P: 65 MI: 234 QRS: 33 QRSD: 102 T: -4 QT: 466 QTc: 449 Interpretive Statements Sinus bradycardia with 1st degree AV block Low voltage QRS Septal infarct , age undetermined Electronically Signed On 11-19-2024 13:52:00 PDT by Balwinder Padilla
[2024-11-18 05:10] LABS: Add Manual Diff / Slide Review NO; Hematocrit 40.4 % (36-46); Hemoglobin 13.6 g/dL (12.0-16.0); Lymphocytes Absolute Auto 1000 /uL (1100-4500); Mean Corpuscular HGB Conc 33.5 % (30-36); Mean Corpuscular Hemoglobin 29.5 PG (26-34); Mean Corpuscular Volume 88.1 fL (80-100); Platelet Count 230 X10^3/uL (150-400)
[2024-11-18 05:19] LABS: Alanine Aminotransferase 119 IU/L (<35); Albumin 4.4 g/dL (3.5-5.0); Albumin Globulin Ratio 1.8 (1.0-2.8); Alkaline Phosphatase 95 U/L (38-126); Blood Urea Nitrogen 22 mg/dL (7-17); Calcium 9.2 mg/dL (8.4-10.2); Carbon Dioxide 25 mmol/L (22-32); Chloride 103 mmol/L (98-107); Creatine Kinase 98 U/L (30-135); Estimated Glomerular Filt Rate > 60 mL/min (>60); Globulin 2.4 g/dL (1.7-4.1); Glucose 111 mg/dL (70-99); HEMOLYSIS < 15 (0-50); Lipase 89 U/L (23-300); Potassium 4.4 mmol/L (3.4-5.1); Sodium 136 mmol/L (137-145); Total Protein 6.8 g/dL (6.3-8.2)
[2024-11-18 05:31] LABS: NT-proBNP (BNP-Adult 18+) 1310 pg/mL (<450); Troponin I < 0.012 ng/mL (0.01-0.034)
[2024-11-18 05:51] LABS: Lactate (Lactic Acid) 1.1 mmol/L (0.7-2.1)
[2024-11-18] MEDS: AZITHROMYCIN 500 MG in DEXTROSE 5% IN WATER 250 ML 250 MG IV (06:16)
[2024-11-18 06:20] LABS: Influenza A - CEPHEID Flu A NEGATIVE (NEGATIVE); Influenza B - CEPHEID Flu B NEGATIVE (NEGATIVE)
[2024-11-18 06:26] LABS: COVID-19 CEPHEID 4-PLEX PCR Negative (Negative)
[2024-11-18 08:09] LABS: Troponin I < 0.012 ng/mL (0.01-0.034)
--- NOTE | 2024-11-18 08:46 | DI.CT.S_ITS ---
PROCEDURE: CT ABDOMEN PELVIS W CON INDICATIONS: TRANSAMINITIS TECHNIQUE: After the administration of intravenous contrast, axial sections acquired from the lung bases to the pubic symphysis. Coronal and sagittal reformats were performed. For radiation dose reduction, the following was used: automated exposure control, adjustment of mA and/or kV according to patient size. COMPARISON: None. FINDINGS: Image quality: Diagnostic. Lower Chest: Small right pleural effusion. Visualized heart is enlarged. Bibasilar atelectasis. ABDOMEN: Liver: No solid mass. Hepatic cysts. Gallbladder: No radiopaque gallstones or wall thickening. Biliary ducts: No biliary dilation. Pancreas: No ductal dilation. Spleen: Size is within normal limits. Adrenal Glands: No adrenal nodules. Kidneys and Ureters: No hydronephrosis. No solid mass. No complex renal cystic lesion which requires follow up. Stomach and Bowel: Small hiatal hernia. Normal colonic caliber, without significant wall thickening. The appendix is normal. Peritoneum: Small volume of low-density free fluid in the lower pelvis. No free air. Ventral Wall: No significant ventral hernia. Abdominal Nodes: No retroperitoneal or mesenteric adenopathy by size criteria. Vessels: Aorta and inferior vena cava are normal in size. Scattered atherosclerotic calcifications involving the abdominal and pelvic vasculature. PELVIS: Pelvic Organs: Unremarkable. Bladder: No bladder wall thickening, accounting for underdistention. Pelvic Nodes: No enlarged lymph nodes. Miscellaneous: No inguinal hernias are seen. Bones: No aggressive osseous abnormality. Spine degenerative disc disease and facet arthropathy. IMPRESSION: No acute disease process involving the abdomen or pelvis. Small right pleural effusion. Dictated by: Meka Turpin MD, PhD on 11/18/2024 at 9:25 Approved by: Meka Turpin MD, PhD on 11/18/2024 at 9:31
[2024-11-18] MEDS: ALBUTEROL/IPRATROPIUM 3 ML AMPUL INH (09:18)
[2024-11-18] MEDS: BENZONATATE 100 MG CAPSULE PO (11:24)
== END 2024-11-18 11:42 | disposition home or self-care (01) ==
PROVIDERS: Family Medicine; Emergency Provider Emergency Medicine; PCP Nurse Practitioner Family
DX: J44.1 Chronic obstructive pulmonary disease with (acute) exacerbation (principal); J18.9 Pneumonia, unspecified organism; Z79.01 Long term (current) use of anticoagulants
CPT/HCPCS: 36415; 71045; 74177; 80053; 82550; 83605; 83690; 83880; 84484; 85025; 87040; 87637; 93005; 96365; 96366; 96367; 96375; 99284; J0696; J2919; Q9967

== ENCOUNTER → 2025-02-11 06:51 | Outpatient (CLI) | payer MEDICARE, OTHER, SELFPAY ==
[2023-07-27 08:31] VITALS: BMI 29.0
--- NOTE | 2025-02-11 06:52 | DI.ECHO.S_ITS ---
[facility] : : [address] : : [id number] : : Phone: [phone] Echocardiogram Report + + :Name: KERRIE MEREDITH Study Date: 02/11/2025 Height: 67 in : :[facility] ReadingLocation: Weight: 188 lb : : Gender: Female BSA: 2.0 m2 : :: 1935 Age: 89 yrs BP: 160/70 mmHg: :Reason For Study: TACHYCARDIA, STENOSIS OF CAROTID ARTERY : :Ordering Physician: ANA MARÍA, : :ROS Performed By: John Humphreys : :Referring: ROS GOTTI : + + Interpretation Summary The left ventricle is normal in size. The left ventricular ejection fraction is normal. The ejection fraction is estimated to be 60-65%. Diastolic function was not assessed. The right ventricle is normal in size and function. Visually appears to be severely enlarged. No significant change from the previous study. There is mild mitral regurgitation. There is mild to moderate aortic regurgitation. Compared to the prior echo study, there has been no change in the severity of aortic regurgitation. There is moderate tricuspid regurgitation. The right ventricular systolic pressure is estimated to be at least 64 mmHg based on an estimated right atrial pressure of 8 mm Hg. Previously mild TR and PASP 49 mmHg. BP: 160/70 mmHg Procedure: A two-dimensional transthoracic echocardiogram with color flow and Doppler was performed. The study quality was technically good. Comparison is made with the echocardiogram of 10/18/2023. The patient was in sinus bradycardia with heart rates between 53-58 bpm during the exam. The patient had a bundle branch block rhythm during the exam. Left Ventricle: The left ventricle is normal in size. Proximal septal thickening is noted. There is no thrombus. The ejection fraction is estimated to be 60-65%. The left ventricular ejection fraction is normal. There are no focal wall motion abnormalities. Diastolic function was not assessed. Right Ventricle: The right ventricle is normal in size and function. Atria: Visually appears to be severely enlarged. No significant change from the previous study. Right atrial size is normal. Mitral Valve: There is mild to moderate mitral annular calcification. There is mild mitral regurgitation. Aortic Valve: The aortic valve is trileaflet. There is mild aortic valve sclerosis. There is mild to moderate aortic regurgitation. Compared to the prior echo study, there has been no change in the severity of aortic regurgitation. Tricuspid Valve: The tricuspid valve is normal. There is moderate tricuspid regurgitation. The right ventricular systolic pressure is estimated to be at least 64 mmHg based on an estimated right atrial pressure of 8 mm Hg. Pulmonic Valve: The pulmonic valve leaflets are thin and pliable; valve motion is normal. There is mild pulmonic regurgitation. Great Vessels: The dimensions of the ascending aorta are normal. The IVC is dilated (diameter is greater than 2.1 cm) yet it collapses greater than 50% with a sniff. This suggests a right atrial pressure of 8 mm Hg. Pericardium/ Pleura There is no pericardial effusion. There is no pleural effusion. MMode/2D Measurements & Calculations LVIDd: 5.0 cm IVC diam: 2.3 cm LVIDs: 3.4 cm FS: 31.0 % IVSd: 0.98 cm LVPWd: 0.98 cm LV randle. diameter/BSA (cm/m^2): 2.5 LV sys. diameter/BSA (cm/m^2): 1.7 Doppler Measurements & Calculations AI P1/2t: 421.1 msec TR max willy: 373.0 cm/sec AI dec slope: 317.7 cm/sec2 TR max P.7 mmHg Reading Physician:05:26 PM
--- NOTE | 2025-02-11 06:53 | DI.US.S_ITS ---
PROCEDURE: US CAROTID DOPPLER BI INDICATIONS: Tachycardia, Stenosis of carotid artery TECHNIQUE: Color and pulse Doppler interrogation was performed of both carotid systems, with image documentation and velocity measurements. COMPARISON: None. FINDINGS: Stenosis calculations are based on SRU ([employer] in [employer]) criteria. Right side: Common carotid artery peak systolic velocity: 57 cm/sec. Internal carotid artery peak systolic velocity: 86 cm/sec. Internal carotid artery end diastolic velocity: 12 cm/sec. External carotid artery peak systolic velocity: 88 cm/sec. ICA/CCA peak systolic ratio: Less than 2.0 . Rose scale imaging description: Moderate calcific and soft plaque Percent internal carotid artery stenosis: Less than 50% stenosis . Vertebral artery: Flow direction is antegrade. Left side: Common carotid artery peak systolic velocity: 65 cm/sec. Internal carotid artery peak systolic velocity: 127 cm/sec. Internal carotid artery end diastolic velocity: 16 cm/sec. External carotid artery peak systolic velocity: 75 cm/sec. ICA/CCA peak systolic ratio: 2.0 . Rose scale imaging description: Moderate calcific and soft plaque Percent internal carotid artery stenosis: 50-69% stenosis . Vertebral artery: Flow direction is antegrade. IMPRESSION: 1. In the right carotid artery, there is less than 50% stenosis based on peak systolic velocity criteria. 2. In the left carotid artery, there is 50-69% stenosis based on peak systolic velocity criteria. Turbulent flow was noted within this vessel which can artifactually increase the interpreted degree of stenosis. MR follow-up may be warranted. 3. Antegrade vertebral arteries. Dictated by: Shmuel Flores M.D. on 02/12/2025 at 12:59 Approved by: Shmuel Flores M.D. on 02/12/2025 at 13:02
== END ==
LOC: ECHO 06:52
PROVIDERS: PCP Nurse Practitioner Family; Referring Provider Internal Medicine Cardiovascular Disease; Visit Provider Internal Medicine Cardiovascular Disease
DX: Z13.6 Encounter for screening for cardiovascular disorders (principal); I65.23 Occlusion and stenosis of bilateral carotid arteries; I08.3 Combined rheumatic disorders of mitral, aortic and tricuspid valves; I42.8 Other cardiomyopathies
CPT/HCPCS: 93307; 93880

== ENCOUNTER → 2025-02-24 10:33 | Outpatient (CLI) | payer MEDICARE, OTHER, SELFPAY ==
[2023-07-27 08:31] VITALS: BMI 29.0
[2025-02-24 12:36] LABS: Cholesterol 186 mg/dL (140-199); HDL Cholesterol 66 mg/dL (40-60); Triglycerides 83 mg/dL (35-150)
== END ==
PROVIDERS: PCP Nurse Practitioner Family; Referring Provider Nurse Practitioner Family; Visit Provider Internal Medicine Cardiovascular Disease
DX: Z79.899 Other long term (current) drug therapy (principal); I35.1 Nonrheumatic aortic (valve) insufficiency
CPT/HCPCS: 36415; 80061